=== PATIENT | male | born 1955 | race Caucasian/White ===

== ENCOUNTER 2019-04-24 15:00 | Observation (INO) | payer BLACK LUNG, MEDICAID ==
[2019-04-24] MEDS ORDERED: DUONEB 0.5-3 MG/3 ml Neb IH ONE ×2 (15:15→15:31)
[2019-04-24] MEDS ORDERED: Sodium Chloride 0.9% 1000 ML 1,000 ML IV STA (15:15)
[2019-04-24] MEDS ORDERED: solu-MEDROL 125 MG IV ONE (15:15)
[2019-04-24] MEDS ORDERED: Xopenex 1.25 MG/0.5 ML UD NEBULE IH ONE ×2 (15:15→15:31)
[2019-04-24] MEDS ORDERED: solu-MEDROL 125 MG ONE (15:22)
[2019-04-24] MEDS ORDERED: Sodium Chloride 0.9% 1000 ML 1,000 ML ONE (15:22)
--- NOTE | 2019-04-24 15:26 | ERPHSYRPT ---
- History of Present Illness Time Seen by Provider: 04/24/19 15:10 Source: patient Exam Limitations: no limitations Patient Subjective Stated Complaint: pt walked up to the ambulance bay with oxygen but short of breath, reports that he has been this way for a couple of days Triage Nursing Assessment: Pt hypertensive, tachycardic, short of breath, wheezing, denies pain, bilateral lower edema, sinus tachy Physician History: Patient has had increasing dyspnea over the past three days. Negative evaluation prior to coming into the emergency department. Timing/Duration: day(s) (3) Activities at Onset: none Severity of Dyspnea-Max: severe Severity of Dyspnea-Current: severe Possible Cause: occasional episodes (especially during this time of year, patient states he gets bronchitis and pneumonia) Modifying Factors: Worsens With: activity, deep breath, lying down Associated Symptoms: constant, chest pain/discomfort, wheezing, tightness, No edema, No fever, No insomnia, No loss of appetite, No lightheadedness, No ankle swelling, No hemoptysis, No calf pain, No dizziness, No heaviness, No heart racing, No lightheadedness, No leg swelling, No muscle spasms feet, No muscle spasms hands, No painful breathing, No productive cough, No sweating International travel in last 2 weeks: No Allergies/Adverse Reactions: naproxen [From [facility]] Allergy (Verified 04/24/19 15:20) Home Medications: Allopurinol 100 mg [Zyloprim 100 mg] 100 mg PO DAILY 07/27/12 [History] Aspirin 81 mg PO DAILY 07/27/12 [History] Budesonide/Formoterol Fumarate [Symbicort 160-4.5 Mcg Inhaler] 2 puff IH BID 01/29 [History] Bumetanide 1 mg [Bumex 1 mg] 1 mg PO DAILY 07/27/12 [History] Clopidogrel Bisulfate [Plavix] 75 mg PO HS 07/27/12 [History] Gabapentin 300 mg [Neurontin 300 mg] 300 mg PO TID 07/27/12 [History] Indomethacin 25 mg [Indocin 25 MG] 25 mg PO TIDPRN PRN 07/27/12 [History] Ipratropium/Albuterol Sulfate [Combivent Inhaler] 2 puff IH QID PRN PRN [History] Liraglutide [Victoza 2-Leonardo] 0.6 mg SQ DAILY 07/27/12 [History] Lisinopril 20 mg PO DAILY 07/27/12 [History] Meloxicam 15 mg [Meloxicam 15 MG] 15 mg PO DAILY 07/27/12 [History] Metformin HCl [Metformin HCl ER] 1,000 mg PO DAILY 07/27/12 [History] Nitroglycerin [Nitroquick] 0.4 mg SL UD 07/27/12 [History] Pinnacle-3 Fatty Acids/Fish Oil [Fish Oil 1,000 mg Capsule] 1 each PO DAILY [History] Omeprazole 40 mg PO DAILY 07/27/12 [History] Potassium Chloride [Klor-Con 10] 10 meq PO BID 07/27/12 [History] Simvastatin 20Mg [Zocor 20Mg] 20 mg PO DAILY 07/27/12 [History] Tramadol HCl 50 mg [Ultram 50 mg] 50 mg PO TID 07/27/12 [History] Albuterol 2.5 mg/3 ml Neb [Proventil 2.5 mg/3 ml Neb] 1 amp IH QID [History] Cholecalciferol (Vitd3)/Vit K2 [D3 + K2 Dots 1,000 Units Tab] 1 each PO DAILY [History] Cinnamon Bark [Cinnamon] 500 mg PO BID 09/04/13 [History] Pinnacle-3/Dha/Epa/Fish Oil [Fish Oil 1,400 mg Softgel] 1 each PO QID 09/04/13 [ History] Hx Tetanus, Diphtheria Vaccination/Date Given: Yes Hx Influenza Vaccination/Date Given: Yes (2013) Hx Pneumococcal Vaccination/Date Given: Yes (2013) - Review of Systems Constitutional: No Fever, No Chills, No Fatigue Eyes: No Eye Pain, No Vision Changes Ears, Nose, & Throat: No Ear Pain, No Nose Congestion, No Mouth Swelling, No Throat Pain, No Painful Swallowing Respiratory: Cough, Dyspnea, Wheezing Cardiac: Chest Pain, No Edema, No Palpitations, No Syncope Abdominal/Gastrointestinal: No Abdominal Pain, No Nausea, No Vomiting, No Melena Genitourinary Symptoms: No Hematuria, No Flank Pain Musculoskeletal: No Back Pain, No Neck Pain, No Myalgias Skin: No Pruritis, No Rash Neurological: No Dizziness, No Focal Weakness, No Parasthesia, No Sensory Changes, No Speech Changes Psychological: No Anxiety Endocrine: No Excessive Sweating Hematologic/Lymphatic: No Easy Bleeding, No Easy Bruising All Other Systems: Reviewed and Negative - Past Medical History Pertinent Past Medical History: Yes Neurological History: Peripheral Neuropathy ENT History: No Pertinent History Cardiac History: Congestive Heart Failure, High Cholesterol, Hypertension, Myocardial Infarction (DE) Respiratory History: CHF, COPD, Emphysema, Sleep Apnea Endocrine Medical History: Diabetes Type II Musculoskeletal History: Osteoarthritis GI Medical History: No Pertinent History History: No Pertinent History Psycho-Social History: No Pertinent History Male Reproductive Disorders: No Pertinent History Other Medical History: gout - Past Surgical History Past Surgical History: Yes Neuro Surgical History: No Pertinent History Cardiac: Cardiac Catheterization, Cardiac Stent Respiratory: No Pertinent History Gastrointestinal: Cholecystectomy Genitourinary: No Pertinent History Musculoskeletal: Orthopedic Surgery Male Surgical History: No Pertinent History Other Surgical History: l shoulder, l knee x3, r leg, r hand/arm, r shoulder - Social History Smoking Status: Current some day smoker How long have you smoked: 40 years Exposure to second hand smoke: Yes Drug Use: marijuana Patient Lives Alone: Yes - Nursing Vital Signs Nursing Vital Signs: Initial Vital Signs Temperature 98.0 F 04/24/19 15:08 Pulse Rate 101 H 04/24/19 15:08 Respiratory Rate 14 04/24/19 15:08 Blood Pressure 147/117 04/24/19 15:08 O2 Sat by Pulse Oximetry 98 04/24/19 15:08 Pain Scale Pain Intensity 0 - Physical Exam General Appearance: mild distress, alert Eye Exam: PERRL/EOMI, eyes nml inspection, No scleral icterus, No pale conjunctivae Ears, Nose, Throat Exam: hearing grossly normal, normal ENT inspection, normal pharynx, No abnormal TM (R), No abnormal TM (L), No sinus pain/drainage, No hearing decreased, No nasal congestion, No pharyngeal erythema, No tonsillar exudate, No tonsillar swelling Neck Exam: normal inspection, non-tender, supple, full range of motion, No Brudzinski, No JVD, No limited range of motion Respiratory Exam: airway intact, diminished breath sounds, prolonged expirations , wheezing, No chest tenderness, No respiratory distress, No crackles/rales, No rhonchi, No stridor, No pleural rub Cardiovascular/Chest Exam: normal heart sounds, regular rate/rhythm, No edema Abdominal/Gastrointestinal Exam: soft, normal bowel sounds, No tenderness, No distention, No guarding, No rebound Extremity Exam: non-tender, normal range of motion, normal inspection, No no calf tenderness, No no pedal edema, No pelvis stable, No calf tenderness, No pedal edema Neurologic Exam: alert, oriented x 3, cooperative, 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, normal mood/affect, sensation nml Skin Exam: normal color, warm, dry, No rash, No petechiae, No jaundice, No cyanosis SpO2 Interpretation: normal SpO2: 99 O2 Delivery: Nasal Cannula - Course Nursing assessment & vital signs reviewed: Yes EKG Interpreted by Me: RATE (94), Sinus Rhythm, NORMAL AXIS, prolonged QT interval (mild), Right Bundle Branch Block, NORMAL ST-T, Other (no appreciable change from EKG from 09/05/2013) - Radiology Exams Chest X-ray Interpretation: Interpreted by me, Reviewed by me, No Pneumothorax, Nml Heart Size, Nml Mediastinum, Other (grauloma on the left lung midzone; new hazy lingula interstitial alveolar opacity per Radiologist interpretation) Ordered Tests: Active Orders 24 hr Category Date Time Status Finance Assistant STAT Care 04/24/19 15:17 Active EKG-ER Only STAT Care 04/24/19 15:15 Active IV Insertion STAT Care 04/24/19 15:15 Active NPO (ED) STAT Care 04/24/19 15:15 Active Oxygen-ED Only Nasal Cannula 3 lpm Care 04/24/19 15:15 Active CHEST 1 VIEW (PORTABLE) Stat Exams 04/24/19 15:16 Completed BLOOD CULTURE Stat Lab 04/24/19 15:45 Received CBC W DIFF Stat Lab 04/24/19 15:15 Completed CMP Stat Lab 04/24/19 15:15 Completed CULTURE,SPUTUM Stat Lab 04/24/19 15:16 Uncollected Lactic Acid Stat Lab 04/24/19 15:40 Completed MAGNESIUM Stat Lab 04/24/19 15:15 Completed NT PRO BNP Stat Lab 04/24/19 15:15 Completed PROTIME WITH INR Stat Lab 04/24/19 15:15 Completed PTT Stat Lab 04/24/19 15:15 Completed TROPONIN Q3H Lab 04/24/19 15:30 Completed TROPONIN Q3H Lab 04/24/19 18:30 Ordered TROPONIN Q3H Lab 04/24/19 21:30 Ordered TROPONIN Q3H Lab 04/25/19 00:30 Ordered TROPONIN Q3H Lab 04/25/19 03:30 Ordered UA W/RFX UR CULTURE Stat Lab 04/24/19 15:16 Uncollected VENOUS BLOOD GAS Stat Lab 04/24/19 15:40 Completed BiPap/CPAP STAT RT 04/24/19 15:47 Active Respiratory Therapy Assessment DAILY RT 04/24/19 15:52 Active Transfer Order Routine Transfer 04/24/19 Ordered Medication Summary Generic Name Dose Route Start Last Admin Trade Name Freq PRN Reason Stop Dose Admin Ceftriaxone Sodium/Dextrose 1 g in 50 mls @ 100 mls/hr 04/24/19 16:19 16:32 Rocephin 1 Gm-D5w 50 Ml Bag IV 04/24/19 16:48 Infused STAT STA Infusion Discontinued Medications Generic Name Dose Route Start Last Admin Trade Name Freq PRN Reason Stop Dose Admin Albuterol/Ipratropium 3 ml 04/24/19 15:15 04/24/19 15:35 Duoneb 0.5-3 Mg/3 Ml Neb IH 04/24/19 15:16 3 ml STAT ONE Administration Albuterol/Ipratropium Confirm 04/24/19 15:31 Duoneb 0.5-3 Mg/3 Ml Neb Administered 04/24/19 15:32 Dose 3 ml IH .STK-MED ONE Azithromycin 500 mg 04/24/19 16:19 04/24/19 16:22 Zithromax 250 Mg Tablet PO 04/24/19 16:20 500 mg STAT ONE Administration Azithromycin Confirm 04/24/19 16:21 Zithromax 250 Mg Tablet Administered 04/24/19 16:22 Dose 500 mg .ROUTE .STK-MED ONE Sodium Chloride 1,000 mls @ 999 mls/hr 04/24/19 15:15 04/24/19 16:32 Sodium Chloride 0.9% 1000 Ml IV 04/24/19 16:15 Infused .Q1H1M STA Infusion Sodium Chloride Confirm 04/24/19 15:22 Sodium Chloride 0.9% 1000 Ml Administered 04/24/19 15:23 Dose 1,000 mls @ ud .ROUTE .STK-MED ONE Ceftriaxone Sodium/Dextrose Confirm 04/24/19 16:20 Rocephin 1 Gm-D5w 50 Ml Bag Administered 04/24/19 16:21 Dose 1 g in 50 mls @ ud IV .STK-MED ONE Levalbuterol HCl 1.25 mg 04/24/19 15:15 04/24/19 15:44 Xopenex 1.25 Mg/0.5 Ml Ud Nebule IH 04/24/19 15:16 1.25 mg STAT ONE Administration Levalbuterol HCl Confirm 04/24/19 15:31 Xopenex 1.25 Mg/0.5 Ml Ud Nebule Administered 04/24/19 15:32 Dose 1.25 mg IH .STK-MED ONE Methylprednisolone Sodium Succinate 125 mg 04/24/19 15:15 04/24/19 15:26 Solu-Medrol 125 Mg IV 04/24/19 15:16 125 mg STAT ONE Administration Methylprednisolone Sodium Succinate Confirm 04/24/19 15:22 Solu-Medrol 125 Mg Administered 04/24/19 15:23 Dose 125 mg .ROUTE .STK-MED ONE Sodium Chloride Confirm 04/24/19 15:31 Sodium Chloride 3 Ml Ud Nebules Administered 04/24/19 15:32 Dose 3 ml IH .STK-MED ONE Lab/Rad Data: Laboratory Result Diagrams 04/24/19 15:15 04/24/19 15:15 Laboratory Results 04/24/19 04/24/19 04/24/19 Range/Units 15:40 15:30 15:15 WBC (4.0-10.5) K/mm3 RBC (4.1-5.6) M/mm3 Hgb (12.5-18.0) gm/dl Hct (42-50) % MCV (78-100) fl MCH (26-32) pg MCHC (32-36) g/dl RDW (11.5-14.0) % Plt Count (150-450) K/mm3 MPV (6-9.5) fl Gran % (36.0-66.0) % Eos # (Auto) (0-0.5) Absolute Lymphs (auto) (1.0-4.6) Absolute Monos (auto) (0.0-1.3) Lymphocytes % (24.0-44.0) % Monocytes % (0.0-12.0) % Eosinophils % (0.00-5.0) % Basophils % (0.0-0.4) % Absolute Granulocytes (1.4-6.9) Basophils # (0-0.4) PT 12.4 (8.83-12.87) SECONDS INR 1.10 (0.8-3.0) APTT 37.4 H (24.1-36.1) SECONDS pO2/FiO2 Ratio 28.0 % VBG pH 7.24 L* (7.32-7.42) VBG pCO2 at Pat Temp 99 H* (42-55) mm/Hg VBG pO2 at Pat Temp 34 (25-40) mm/Hg VBG HCO3 42.4 H* (22-28) meq/L VBG O2 Sat (Giovanny) 63.8 L (95-100) VBG Base Excess 10.1 H (-2.0-2.0) VBG Hemoglobin 15.3 VBG Carboxyhemoglobin 5.1 (0.0-6.9) % T HGB POC Potassium 4.3 (3.5-5.1) Sodium (137-145) mmol/L Potassium (3.5-5.1) mmol/L Chloride (98-107) mmol/L Carbon Dioxide (22-30) mmol/L Anion Gap (5-15) MEQ/L BUN (9-20) mg/dL Creatinine (0.66-1.25) mg/dL Estimated GFR ML/MIN Glucose (74-106) mg/dL Lactic Acid 1.1 (0.4-2.0) Calcium (8.4-10.2) mg/dL Magnesium (1.6-2.3) mg/dL Total Bilirubin (0.2-1.3) mg/dL AST (17-59) U/L ALT (0-50) U/L Alkaline Phosphatase (38-126) U/L Troponin I < 0.012 (0.000-0.034) ng/mL NT-Pro-B Natriuret Pep (0-900) pg/mL Serum Total Protein (6.3-8.2) g/dL Albumin (3.5-5.0) g/dL 04/24/19 04/24/19 Range/Units 15:15 15:15 WBC 8.3 (4.0-10.5) K/mm3 RBC 6.68 H* (4.1-5.6) M/mm3 Hgb 14.9 (12.5-18.0) gm/dl Hct 53.3 H (42-50) % MCV 79.8 (78-100) fl MCH 22.3 L (26-32) pg MCHC 28.0 L (32-36) g/dl RDW 20.0 H (11.5-14.0) % Plt Count 164 (150-450) K/mm3 MPV 10.6 H (6-9.5) fl Gran % 78.1 H (36.0-66.0) % Eos # (Auto) 0.24 (0-0.5) Absolute Lymphs (auto) 0.91 L (1.0-4.6) Absolute Monos (auto) 0.66 (0.0-1.3) Lymphocytes % 10.9 L (24.0-44.0) % Monocytes % 7.9 (0.0-12.0) % Eosinophils % 2.9 (0.00-5.0) % Basophils % 0.2 (0.0-0.4) % Absolute Granulocytes 6.50 (1.4-6.9) Basophils # 0.02 (0-0.4) PT (8.83-12.87) SECONDS INR (0.8-3.0) APTT (24.1-36.1) SECONDS pO2/FiO2 Ratio % VBG pH (7.32-7.42) VBG pCO2 at Pat Temp (42-55) mm/Hg VBG pO2 at Pat Temp (25-40) mm/Hg VBG HCO3 (22-28) meq/L VBG O2 Sat (Giovanny) (95-100) VBG Base Excess (-2.0-2.0) VBG Hemoglobin VBG Carboxyhemoglobin (0.0-6.9) % T HGB POC Potassium (3.5-5.1) Sodium 143 (137-145) mmol/L Potassium 4.2 (3.5-5.1) mmol/L Chloride 96 L (98-107) mmol/L Carbon Dioxide 39 H (22-30) mmol/L Anion Gap 12.2 (5-15) MEQ/L BUN 12 (9-20) mg/dL Creatinine 0.62 L (0.66-1.25) mg/dL Estimated GFR > 60.0 ML/MIN Glucose 207 H (74-106) mg/dL Lactic Acid (0.4-2.0) Calcium 9.1 (8.4-10.2) mg/dL Magnesium 1.8 (1.6-2.3) mg/dL Total Bilirubin 0.80 (0.2-1.3) mg/dL AST 16 L (17-59) U/L ALT 17 (0-50) U/L Alkaline Phosphatase 113 (38-126) U/L Troponin I (0.000-0.034) ng/mL NT-Pro-B Natriuret Pep 57.0 (0-900) pg/mL Serum Total Protein 7.4 (6.3-8.2) g/dL Albumin 4.0 (3.5-5.0) g/dL - Progress Progress: re-examined Air Movement: fair Progress Note: 04/24/19 16:23 Patient has improved airflow and less subjective dyspnea. Positive wheezing throughout 04/24/19 16:43 Vitals have improved and normalized after DuoNeb, Levalbuterol and BiPAP treatment. Blood Culture(s) Obtained: Yes Antibiotics given: No Discussed with .: Javier (@16:10, discussed the patient's presentation, labs and chest x-ray with Dr Pimentel, patient's physician and hospitalist. Dr Pimentel accepted the patient for observation to [facility] telemetry) Will see patient in: hospital (observation) ([facility]) Counseled pt/family regarding: lab results, diagnosis, need for follow-up, rad results - Departure Departure Disposition: Observation (to [facility] to telemetry) Clinical Impression: Acute respiratory acidosis, Acute exacerbation of chronic obstructive pulmonary disease (COPD), Lingular pneumonia, Acute chest pain Dyspnea Qualifiers: Dyspnea type: unspecified Qualified Code(s): R06.00 - Dyspnea, unspecified Condition: Fair Critical Care Time: Yes Critical Care Time(excluding separately billable procedures): Critical 30-74 mins Referrals: AUSTIN PIMENTEL MD [Primary Care Provider] - Instructions: Chronic Obstructive Pulmonary Disease, Shortness of Breath ( Dyspnea) (DC), Exacerbation of COPD (DC)
[2019-04-24] MEDS ORDERED: Sodium Chloride 3 ML UD NEBULES IH ONE (15:31)
[2019-04-24 16:05] LABS: BASOPHIL % 0.2 % (0.0-0.4); Basophil (Absolute #) 0.02 (0-0.4); Eosinophil % 2.9 % (0.00-5.0); Eosinophil (Absolute #) 0.24 (0-0.5); Hematocrit 53.3 % (42-50); Hemoglobin 14.9 gm/dl (12.5-18.0); Lymphocyte (Absolute #) 0.91 (1.0-4.6); Lymphocytes % 10.9 % (24.0-44.0); Mean Cell Volume 79.8 fl (78-100); Mean Corpuscular Hemoglobin 22.3 pg (26-32); Mean Platelet Volume 10.6 fl (6-9.5); Monocyte (Absolute #) 0.66 (0.0-1.3); Monocytes % 7.9 % (0.0-12.0); Neutrophil % 78.1 % (36.0-66.0); Platelet Count 164 K/mm3 (150-450); Red Blood Count 6.68 M/mm3 (4.1-5.6); White Blood Count 8.3 K/mm3 (4.0-10.5)
[2019-04-24 16:06] LABS: Lactic Acid 1.1 (0.4-2.0); VBG BASE EXCESS 10.1 (-2.0-2.0); VBG CARBOXYHEMOGLOBIN 5.1 % T HGB (0.0-6.9); VBG HCO3- 42.4 meq/L (22-28); VBG HEMOGLOBIN 15.3; VBG O2 SATURATION 63.8 (95-100); VBG POTASSIUM 4.3 (3.5-5.1)
[2019-04-24 16:07] LABS: VBG pH 7.24 (7.32-7.42)
[2019-04-24 16:15] LABS: INR 1.1 (0.8-3.0); PROTIME 12.4 SECONDS (8.83-12.87)
--- NOTE | 2019-04-24 16:15 | XRAY ---
Indication: Short of breath. Comparison: September 04, 2013. Portable chest demonstrates new hazy lingula interstitial alveolar opacity with stable left midlung calcified granuloma. Remaining heart and right lung normal. Bony thorax intact.
[2019-04-24 16:18] LABS: PTT 37.4 SECONDS (24.1-36.1)
[2019-04-24] MEDS ORDERED: ROCEPHIN 1 Gm-D5w 50 ml Bag** 1 G/50 ML IVPB IV STA (16:19)
[2019-04-24] MEDS ORDERED: Zithromax 250 MG TABLET PO ONE (16:19)
[2019-04-24] MEDS ORDERED: ROCEPHIN 1 Gm-D5w 50 ml Bag** 1 G/50 ML IVPB IV ONE (16:20)
[2019-04-24] MEDS ORDERED: Zithromax 250 MG TABLET ONE (16:21)
[2019-04-24 16:28] LABS: ALKALINE PHOSPHATASE 113 U/L (38-126); BLOOD UREA NITROGEN 12 mg/dL (9-20); CHLORIDE 96 mmol/L (98-107); Calcium 9.1 mg/dL (8.4-10.2); Creatinine 1 0.62 mg/dL (0.66-1.25); Glucose 207 mg/dL (74-106); MAGNESIUM 1.8 mg/dL (1.6-2.3); Potassium 4.2 mmol/L (3.5-5.1); SGOT/AST 16 U/L (17-59); SGPT/ALT 17 U/L (0-50); SODIUM 143 mmol/L (137-145); Total Protein 7.4 g/dL (6.3-8.2)
[2019-04-24 16:32] LABS: Carbon Dioxide 39 mmol/L (22-30)
[2019-04-24 16:34] LABS: ANION GAP 12.2 MEQ/L (5-15)
[2019-04-24] MEDS ORDERED: TYLENOL 325 MG PO PRN (16:46)
[2019-04-24 16:54] LABS: Slide Review 1 YES
[2019-04-24 16:58] LABS: INFLUENZA A NEGATIVE (NEGATIVE); INFLUENZA B NEGATIVE (NEGATIVE); RESPIRATORY SYNCTIAL VIRUS NEGATIVE (Negative)
[2019-04-24] MEDS: ENOXAPARIN SODIUM SQ SCH (17:49)
[2019-04-24 18:51] LABS: VBG BASE EXCESS 7.4 (-2.0-2.0); VBG CARBOXYHEMOGLOBIN 5.2 % T HGB (0.0-6.9); VBG HCO3- 37.4 meq/L (22-28); VBG HEMOGLOBIN 15.9; VBG O2 SATURATION 68.8 (95-100); VBG POTASSIUM 4.3 (3.5-5.1); VBG pH 7.3 (7.32-7.42)
[2019-04-24] MEDS: DUONEB 0.5-3 MG/3 ml Neb IH SCH ×2 (18:57→22:53)
[2019-04-24] MEDS ORDERED: Indocin 25 MG PO ONE (21:03)
[2019-04-24] MEDS: ZOCOR 20MG PO SCH (21:58)
[2019-04-24] MEDS: solu-MEDROL 125 MG IV SCH (21:58)
[2019-04-24] MEDS: Pepcid 20 MG PO SCH (21:59)
[2019-04-24] MEDS: Coreg 6.25 MG PO SCH (21:59)
[2019-04-24] MEDS: NEURONTIN 300 MG PO SCH (21:59)
[2019-04-24] MEDS: PLAVIX 75 MG Tablet PO SCH (21:59)
[2019-04-24] MEDS: Klor Con 10 MEQ PO SCH (21:59)
[2019-04-24] MEDS: NovoLOG Insulin SQ PRN (21:59)
[2019-04-24] MEDS ORDERED: Indocin 25 MG PO PRN (23:03)
[2019-04-25] MEDS: DUONEB 0.5-3 MG/3 ml Neb IH SCH ×6 (02:55→23:02)
[2019-04-25 04:57] LABS: Absolute Neutrophil Ct (ANC) 8.12 (1.4-6.9); BASOPHIL % 0.1 % (0.0-0.4); Basophil (Absolute #) 0.01 (0-0.4); Eosinophil (Absolute #) 0 (0-0.5); Hematocrit 52.5 % (42-50); Hemoglobin 14.8 gm/dl (12.5-18.0); Lymphocyte (Absolute #) 0.34 (1.0-4.6); Mean Cell Volume 79.4 fl (78-100); Mean Corpuscular Hgb Concent. 28.2 g/dl (32-36); Mean Platelet Volume 10.6 fl (6-9.5); Monocyte (Absolute #) 0.07 (0.0-1.3); Monocytes % 0.8 % (0.0-12.0); Neutrophil % 95.1 % (36.0-66.0); Platelet Count 175 K/mm3 (150-450); Red Blood Count 6.61 M/mm3 (4.1-5.6); Red Cell Distribution Width 19.6 % (11.5-14.0); White Blood Count 8.5 K/mm3 (4.0-10.5)
[2019-04-25 05:04] LABS: ANION GAP 12.6 MEQ/L (5-15); BLOOD UREA NITROGEN 17 mg/dL (9-20); CHLORIDE 100 mmol/L (98-107); Calcium 9.1 mg/dL (8.4-10.2); Carbon Dioxide 34 mmol/L (22-30); Creatinine 1 0.58 mg/dL (0.66-1.25); Glucose 344 mg/dL (74-106); Potassium 4.8 mmol/L (3.5-5.1); SODIUM 141 mmol/L (137-145)
[2019-04-25 05:05] LABS: Mean Corpuscular Hemoglobin 22.3 pg (26-32)
[2019-04-25 05:20] LABS: Appearance CLEAR (CLEAR); Glucose >=500 mg/dL (NEGATIVE); Ketones NEGATIVE (NEGATIVE); Leukocyte Esterase NEGATIVE (NEGATIVE); Nitrite NEGATIVE (NEGATIVE); Protein,Urine Dip 100 (Negative); Specific Gravity 1.033 (1.005-1.025); Urobilinogen NORMAL mg/dL (0-1)
[2019-04-25 05:21] LABS: Bilirubin NEGATIVE (NEGATIVE); Blood NEGATIVE Ery/ul (0-5)
[2019-04-25 05:37] LABS: ARTERIAL BLOOD GAS BASE EXCESS 7.1 (-2.0-2.0); ARTERIAL BLOOD GAS PCO2 68 mmHg (35-45); ARTERIAL BLOOD GAS PO2 74 mmHg (75-100); ARTERIAL BLOOD GAS pH 7.33 (7.35-7.45); HCO3- 35.9 (22-28)
[2019-04-25 05:38] LABS: A-aADO2 98; ABG HEMOGLOBIN 15.5; ABG POTASSIUM 4.5 (3.5-5.1); ARTERIAL BLD GAS O2 SATURATION 95.1 % (95-100); ARTERIAL BLOOD GAS FIO2 36 %; CARBON DIOXIDE 38 mEq/L (23-27); HGB O2 SAT 92.4 g/dF (94-100); Methhemoglobin 0.3 % (1.4-1.5); paO2 pAO1 0.43
[2019-04-25 05:39] LABS: ABG SITE RIGHT RADIAL; ALLEN TEST OK? YES; CARBOXYHEMOGLOBIN 2.5 % THgb (0.0-6.9)
[2019-04-25] MEDS ORDERED: Sodium Chloride 0.9% 10 ML FLUSH Syringe IV PRN (05:40)
[2019-04-25] MEDS: solu-MEDROL 125 MG IV SCH ×3 (05:49→21:12)
[2019-04-25] MEDS: Sodium Chloride 0.9% 10 ML FLUSH Syringe IV SCH ×3 (06:06→21:12)
[2019-04-25] MEDS ORDERED: Nitrostat 0.4 MG Tablet SL SCH (07:45)
[2019-04-25] MEDS ORDERED: MEDICATION INTERVENTION MC SCH ×4 (07:45→08:15)
[2019-04-25] MEDS: NovoLOG Insulin SQ PRN ×4 (08:15→20:51)
[2019-04-25] MEDS: Glucophage XR 500 MG PO SCH ×2 (08:15→17:28)
[2019-04-25 08:18] LABS: Slide Review 1 YES
[2019-04-25] MEDS: FISH OIL 1,000 MG CAPSULE PO SCH (09:09)
[2019-04-25] MEDS: Pepcid 20 MG PO SCH ×2 (09:09→21:11)
[2019-04-25] MEDS: BUMEX 1 MG PO SCH (09:09)
[2019-04-25] MEDS: ENOXAPARIN SODIUM SQ SCH (09:09)
[2019-04-25] MEDS: Klor Con 10 MEQ PO SCH ×2 (09:09→21:11)
[2019-04-25] MEDS: Coreg 6.25 MG PO SCH ×2 (09:09→21:11)
[2019-04-25] MEDS: ECOTRIN 81 MG PO SCH (09:09)
[2019-04-25] MEDS: ROCEPHIN 1 Gm-D5w 50 ml Bag** 1 G/50 ML IVPB IV SCH (09:09)
[2019-04-25] MEDS: NEURONTIN 300 MG PO SCH ×3 (09:09→21:11)
[2019-04-25] MEDS: ZYLOPRIM 100 MG PO SCH (09:09)
--- NOTE | 2019-04-25 09:17 | PCM.HP ---
History of Present Illness - Chief Complaint Chief Complaint: very short of breath for 3-4 days History of Present Illness: is a 63 year old male.Patient has had increasing dyspnea over the past three days. Negative evaluation prior to coming into the emergency department. Timing/Duration: day(s) (3) Activities at Onset: none Severity of Dyspnea-Max: severe Severity of Dyspnea-Current: severe Possible Cause: occasional episodes (especially during this time of year, patient states he gets bronchitis and pneumonia) Modifying Factors: Worsens With: activity, deep breath, lying down Associated Symptoms: constant, chest pain/discomfort, wheezing, tightness, No edema, No fever, No insomnia, No loss of appetite, No lightheadedness, No ankle swelling, No hemoptysis, No calf pain, No dizziness, No heaviness, No heart racing, No lightheadedness, No leg swelling, No muscle spasms feet, No muscle spasms hands, No painful breathing, No productive cough, No sweating - Review of Systems Constitutional: No Fever, No Chills Eyes: No Symptoms Ears, Nose, & Throat: No Symptoms Respiratory: Cough, Orthopnea, Short Of Breath, Wheezing Cardiac: No Chest Pain, No Edema, No Syncope Abdominal/Gastrointestinal: No Abdominal Pain, No Nausea, No Vomiting, No Diarrhea Genitourinary Symptoms: No Dysuria Musculoskeletal: No Back Pain, No Neck Pain Skin: No Rash Neurological: No Dizziness, No Focal Weakness, No Sensory Changes Psychological: No Symptoms Endocrine: No Symptoms Hematologic/Lymphatic: No Symptoms Immunological/Allergic: No Symptoms Medications & Allergies Home Medications: Home Medication List Allopurinol 100 mg [Zyloprim 100 mg] 100 mg PO DAILY 07/27/12 [History Confirmed 04/24/19] Aspirin 81 mg PO DAILY 07/27/12 [History Confirmed 04/24/19] Bumetanide 1 mg [Bumex 1 mg] 1 mg PO DAILY 07/27/12 [History Confirmed 12/05] Clopidogrel Bisulfate [Plavix] 75 mg PO HS 07/27/12 [History Confirmed 04/24/19] Gabapentin 300 mg [Neurontin 300 mg] 300 mg PO TID 07/27/12 [History Confirmed 04/24/19] Indomethacin 25 mg [Indocin 25 MG] 25 mg PO TIDPRN PRN 07/27/12 [History Confirmed 04/24/19] Ipratropium/Albuterol Sulfate [Combivent Inhaler] 2 puff IH QID PRN PRN [History Confirmed 04/24/19] Liraglutide [Victoza 2-Leonardo] 0.6 mg SQ DAILY 07/27/12 [History Confirmed 04/24/19 ] Metformin HCl [Metformin HCl ER] 1,000 mg PO BID 07/27/12 [History Confirmed 12/05] Nitroglycerin [Nitroquick] 0.4 mg SL UD 07/27/12 [History Confirmed 04/24/19] Sims-3 Fatty Acids/Fish Oil [Fish Oil 1,000 mg Capsule] 1 each PO DAILY [History Confirmed 04/24/19] Omeprazole 40 mg PO DAILY 07/27/12 [History Confirmed 04/24/19] Potassium Chloride [Klor-Con 10] 10 meq PO BID 07/27/12 [History Confirmed 04/24] Albuterol 2.5 mg/3 ml Neb [Proventil 2.5 mg/3 ml Neb] 1 amp IH QID [History Confirmed 04/24/19] Atorvastatin Calcium 40 mg PO HS 04/24/19 [History Confirmed 04/24/19] Bromocriptine Mesylate [Cycloset] 6 tab PO DAILY 04/24/19 [History Confirmed 12/05] Carvedilol 6.25 mg PO BID 04/24/19 [History Confirmed 04/24/19] Dextroamphetamine/Amphetamine [Dextroamp-Amphet ER 10 mg Cap] 10 mg PO DAILY 12/05 [History Confirmed 04/24/19] Ergocalciferol (Vitamin D2) [Vitamin D] 1 cap PO 2XW 04/24/19 [History Confirmed 04/24/19] Nabumetone 500 mg PO BID 04/24/19 [History Confirmed 04/24/19] Probenecid/Colchicine [Probenecid-Colchicine Tablet] 1 each PO DAILY 04/24/19 [ History Confirmed 04/24/19] Allergies/Adverse Reactions: Allergies Allergy/AdvReac Type Severity Reaction Status Date / Time naproxen [From Aleve] Allergy Verified 04/24/19 15:20 - Past Medical History Past Medical History: Yes Neurological History: Peripheral Neuropathy ENT History: No Pertinent History Cardiac History: Congestive Heart Failure, High Cholesterol, Hypertension, Myocardial Infarction (VT) Respiratory History: CHF, COPD, Emphysema, Sleep Apnea Endocrine Medical History: Diabetes Type II Musculoskelatal History: Osteoarthritis GI Medical History: No Pertinent History History: No Pertinent History Pyscho-Social History: No Pertinent History Male Reproductive Disorders: No Pertinent History Comment: gout - Past Surgical History Past Surgical History: Yes Neuro Surgical History: No Pertinent History Cardiac History: Cardiac Catheterization, Cardiac Stent Respiratory Surgery: No Pertinent History GI Surgical History: Cholecystectomy Genitourinary Surgical Hx: No Pertinent History Musculskeletal Surgical Hx: Orthopedic Surgery Male Surgical History: No Pertinent History Other Surgical History: l shoulder, l knee x3, r leg, r hand/arm, r shoulder - Social History Smoking Status: Current some day smoker How long have you smoked: 40 years Exposure to second hand smoke: Yes Alcohol: None Drug Use: marijuana - Physical Exam Vital Signs: Vital Signs - 24 hr Temp Pulse Resp BP Pulse Ox 04/25/19 08:00 98.2 F 101 H 20 126/84 93 L 04/25/19 07:03 85 20 93 L 04/25/19 04:00 98.0 F 92 H 23 123/59 90 L 04/25/19 02:55 92 H 23 90 L 04/25/19 00:00 98.1 F 101 H 20 161/88 93 L 04/24/19 23:00 92 L 04/24/19 22:53 99 H 22 92 L 04/24/19 19:25 98.2 F 107 H 23 127/77 91 L 04/24/19 18:58 107 H 23 91 L 04/24/19 18:52 98 F 95 H 24 158/78 92 L 04/24/19 17:44 95 H 24 92 L 04/24/19 17:43 92 L 04/24/19 17:07 98 F 95 H 24 158/78 91 L 04/24/19 16:45 99 04/24/19 16:41 98.2 F 82 20 112/68 93 L 04/24/19 15:52 95 H 147/117 99 04/24/19 15:47 96 H 18 97 04/24/19 15:08 98.0 F 101 H 22 147/117 99 Oxygen-Last 24 hours O2 Percentage 4 Liters = 36% O2 Percentage 4 Liters = 36% O2 Percentage 4 Liters = 36% O2 Percentage 40% O2 Percentage 4 Liters = 36% O2 Percentage 4 Liters = 36% O2 Percentage 4 Liters = 36% General Appearance: no apparent distress, alert Neurologic Exam: alert, oriented x 3, cooperative, normal mood/affect, nml cerebellar function, nml station & gait, sensation nml, No motor deficits Eye Exam: PERRL/EOMI, eyes nml inspection Ears, Nose, Throat Exam: normal ENT inspection, TMs normal, pharynx normal, moist mucous membranes Neck Exam: normal inspection, non-tender, supple, full range of motion Respiratory Exam: diminished breath sounds, prolonged expirations, crackles/ rales, rhonchi, No respiratory distress Cardiovascular Exam: regular rate/rhythm, normal heart sounds, normal peripheral pulses Gastrointestinal/Abdomen Exam: soft, normal bowel sounds, No tenderness, No mass Back Exam: normal inspection, normal range of motion, No CVA tenderness, No vertebral tenderness Extremity Exam: normal inspection, normal range of motion, pelvis stable Skin Exam: normal color, warm, dry, No rash Lymphatic Exam: No adenopathy Results - Labs Lab/Micro Results: Accuchecks Date 04/24/19 Time 21:30 Accucheck Value: 369 Accucheck Value: 408 Lab Results-Last 24 Hours 04/24/19 04/24/19 04/24/19 Range/Units 15:15 15:15 15:15 WBC 8.3 (4.0-10.5) K/mm3 RBC 6.68 H* (4.1-5.6) M/mm3 Hgb 14.9 (12.5-18.0) gm/dl Hct 53.3 H (42-50) % MCV 79.8 (78-100) fl MCH 22.3 L (26-32) pg MCHC 28.0 L (32-36) g/dl RDW 20.0 H (11.5-14.0) % Plt Count 164 (150-450) K/mm3 MPV 10.6 H (6-9.5) fl Gran % 78.1 H (36.0-66.0) % Eos # (Auto) 0.24 (0-0.5) Absolute Lymphs (auto) 0.91 L (1.0-4.6) Absolute Monos (auto) 0.66 (0.0-1.3) Lymphocytes % 10.9 L (24.0-44.0) % Monocytes % 7.9 (0.0-12.0) % Eosinophils % 2.9 (0.00-5.0) % Basophils % 0.2 (0.0-0.4) % Absolute Granulocytes 6.50 (1.4-6.9) Basophils # 0.02 (0-0.4) PT 12.4 (8.83-12.87) SECONDS INR 1.10 (0.8-3.0) APTT 37.4 H (24.1-36.1) SECONDS Puncture Site pCO2 (35-45) mmHg pO2 (75-100) mmHg pO2/FiO2 Ratio % Base Excess (-2.0-2.0) O2 Saturation (94-100) g/dF ABG pH (7.35-7.45) ABG HCO3 (22-28) ABG O2 Sat (Measured) (95-100) % Gideon Test VBG pH (7.32-7.42) VBG pCO2 at Pat Temp (42-55) mm/Hg VBG pO2 at Pat Temp (25-40) mm/Hg VBG HCO3 (22-28) meq/L VBG O2 Sat (Giovanny) (95-100) VBG Base Excess (-2.0-2.0) VBG Hemoglobin VBG Carboxyhemoglobin (0.0-6.9) % T HGB A-a Gradient a/A Ratio Hemoglobin Carboxyhemoglobin (0.0-6.9) % THgb Methemoglobin (1.4-1.5) % POC Potassium (3.5-5.1) POC O2 Flow Rate % Sodium 143 (137-145) mmol/L Potassium 4.2 (3.5-5.1) mmol/L Chloride 96 L (98-107) mmol/L Carbon Dioxide 39 H (22-30) mmol/L Anion Gap 12.2 (5-15) MEQ/L BUN 12 (9-20) mg/dL Creatinine 0.62 L (0.66-1.25) mg/dL Estimated GFR > 60.0 ML/MIN Glucose 207 H (74-106) mg/dL Lactic Acid (0.4-2.0) Calcium 9.1 (8.4-10.2) mg/dL Magnesium 1.8 (1.6-2.3) mg/dL Total Bilirubin 0.80 (0.2-1.3) mg/dL AST 16 L (17-59) U/L ALT 17 (0-50) U/L Alkaline Phosphatase 113 (38-126) U/L Troponin I (0.000-0.034) ng/mL NT-Pro-B Natriuret Pep 57.0 (0-900) pg/mL Serum Total Protein 7.4 (6.3-8.2) g/dL Albumin 4.0 (3.5-5.0) g/dL Urine Color (YELLOW) Urine Appearance (CLEAR) Urine pH (5-6) Ur Specific [place] (1.005-1.025) Urine Protein (Negative) Urine Ketones (NEGATIVE) Urine Blood (0-5) Giovani/ul Urine Nitrite (NEGATIVE) Urine Bilirubin (NEGATIVE) Urine Urobilinogen (0-1) mg/dL Ur Leukocyte Esterase (NEGATIVE) Urine WBC (Auto) (0-5) /HPF Urine RBC (Auto) (0-2) /HPF U Epithel Cells (Auto) (FEW) /HPF Urine Bacteria (Auto) (NEGATIVE) /HPF Urine Culture Reflexed (NO) Urine Glucose (NEGATIVE) mg/dL Influenza Type A Ag (NEGATIVE) Influenza Type B Ag (NEGATIVE) RSV (PCR) (Negative) Slides for Path Review YES 04/24/19 04/24/19 04/24/19 Range/Units 15:30 15:40 18:40 WBC (4.0-10.5) K/mm3 RBC (4.1-5.6) M/mm3 Hgb (12.5-18.0) gm/dl Hct (42-50) % MCV (78-100) fl MCH (26-32) pg MCHC (32-36) g/dl RDW (11.5-14.0) % Plt Count (150-450) K/mm3 MPV (6-9.5) fl Gran % (36.0-66.0) % Eos # (Auto) (0-0.5) Absolute Lymphs (auto) (1.0-4.6) Absolute Monos (auto) (0.0-1.3) Lymphocytes % (24.0-44.0) % Monocytes % (0.0-12.0) % Eosinophils % (0.00-5.0) % Basophils % (0.0-0.4) % Absolute Granulocytes (1.4-6.9) Basophils # (0-0.4) PT (8.83-12.87) SECONDS INR (0.8-3.0) APTT (24.1-36.1) SECONDS Puncture Site pCO2 (35-45) mmHg pO2 (75-100) mmHg pO2/FiO2 Ratio 28.0 % Base Excess (-2.0-2.0) O2 Saturation (94-100) g/dF ABG pH (7.35-7.45) ABG HCO3 (22-28) ABG O2 Sat (Measured) (95-100) % Gideon Test VBG pH 7.24 L* (7.32-7.42) VBG pCO2 at Pat Temp 99 H* (42-55) mm/Hg VBG pO2 at Pat Temp 34 (25-40) mm/Hg VBG HCO3 42.4 H* (22-28) meq/L VBG O2 Sat (Giovanny) 63.8 L (95-100) VBG Base Excess 10.1 H (-2.0-2.0) VBG Hemoglobin 15.3 VBG Carboxyhemoglobin 5.1 (0.0-6.9) % T HGB A-a Gradient a/A Ratio Hemoglobin Carboxyhemoglobin (0.0-6.9) % THgb Methemoglobin (1.4-1.5) % POC Potassium 4.3 (3.5-5.1) POC O2 Flow Rate % Sodium (137-145) mmol/L Potassium (3.5-5.1) mmol/L Chloride (98-107) mmol/L Carbon Dioxide (22-30) mmol/L Anion Gap (5-15) MEQ/L BUN (9-20) mg/dL Creatinine (0.66-1.25) mg/dL Estimated GFR ML/MIN Glucose (74-106) mg/dL Lactic Acid 1.1 (0.4-2.0) Calcium (8.4-10.2) mg/dL Magnesium (1.6-2.3) mg/dL Total Bilirubin (0.2-1.3) mg/dL AST (17-59) U/L ALT (0-50) U/L Alkaline Phosphatase (38-126) U/L Troponin I < 0.012 < 0.012 (0.000-0.034) ng/mL NT-Pro-B Natriuret Pep (0-900) pg/mL Serum Total Protein (6.3-8.2) g/dL Albumin (3.5-5.0) g/dL Urine Color (YELLOW) Urine Appearance (CLEAR) Urine pH (5-6) Ur Specific [place] (1.005-1.025) Urine Protein (Negative) Urine Ketones (NEGATIVE) Urine Blood (0-5) Giovani/ul Urine Nitrite (NEGATIVE) Urine Bilirubin (NEGATIVE) Urine Urobilinogen (0-1) mg/dL Ur Leukocyte Esterase (NEGATIVE) Urine WBC (Auto) (0-5) /HPF Urine RBC (Auto) (0-2) /HPF U Epithel Cells (Auto) (FEW) /HPF Urine Bacteria (Auto) (NEGATIVE) /HPF Urine Culture Reflexed (NO) Urine Glucose (NEGATIVE) mg/dL Influenza Type A Ag (NEGATIVE) Influenza Type B Ag (NEGATIVE) RSV (PCR) (Negative) Slides for Path Review 04/24/19 04/24/19 04/24/19 Range/Units 18:45 21:52 Unknown WBC (4.0-10.5) K/mm3 RBC (4.1-5.6) M/mm3 Hgb (12.5-18.0) gm/dl Hct (42-50) % MCV (78-100) fl MCH (26-32) pg MCHC (32-36) g/dl RDW (11.5-14.0) % Plt Count (150-450) K/mm3 MPV (6-9.5) fl Gran % (36.0-66.0) % Eos # (Auto) (0-0.5) Absolute Lymphs (auto) (1.0-4.6) Absolute Monos (auto) (0.0-1.3) Lymphocytes % (24.0-44.0) % Monocytes % (0.0-12.0) % Eosinophils % (0.00-5.0) % Basophils % (0.0-0.4) % Absolute Granulocytes (1.4-6.9) Basophils # (0-0.4) PT (8.83-12.87) SECONDS INR (0.8-3.0) APTT (24.1-36.1) SECONDS Puncture Site pCO2 (35-45) mmHg pO2 (75-100) mmHg pO2/FiO2 Ratio 36.0 % Base Excess (-2.0-2.0) O2 Saturation (94-100) g/dF ABG pH (7.35-7.45) ABG HCO3 (22-28) ABG O2 Sat (Measured) (95-100) % Gideon Test VBG pH 7.30 L (7.32-7.42) VBG pCO2 at Pat Temp 76 H* (42-55) mm/Hg VBG pO2 at Pat Temp 33 (25-40) mm/Hg VBG HCO3 37.4 H* (22-28) meq/L VBG O2 Sat (Giovanny) 68.8 L (95-100) VBG Base Excess 7.4 H (-2.0-2.0) VBG Hemoglobin 15.9 VBG Carboxyhemoglobin 5.2 (0.0-6.9) % T HGB A-a Gradient a/A Ratio Hemoglobin Carboxyhemoglobin (0.0-6.9) % THgb Methemoglobin (1.4-1.5) % POC Potassium 4.3 (3.5-5.1) POC O2 Flow Rate % Sodium (137-145) mmol/L Potassium (3.5-5.1) mmol/L Chloride (98-107) mmol/L Carbon Dioxide (22-30) mmol/L Anion Gap (5-15) MEQ/L BUN (9-20) mg/dL Creatinine (0.66-1.25) mg/dL Estimated GFR ML/MIN Glucose (74-106) mg/dL Lactic Acid (0.4-2.0) Calcium (8.4-10.2) mg/dL Magnesium (1.6-2.3) mg/dL Total Bilirubin (0.2-1.3) mg/dL AST (17-59) U/L ALT (0-50) U/L Alkaline Phosphatase (38-126) U/L Troponin I < 0.012 (0.000-0.034) ng/mL NT-Pro-B Natriuret Pep (0-900) pg/mL Serum Total Protein (6.3-8.2) g/dL Albumin (3.5-5.0) g/dL Urine Color (YELLOW) Urine Appearance (CLEAR) Urine pH (5-6) Ur Specific [place] (1.005-1.025) Urine Protein (Negative) Urine Ketones (NEGATIVE) Urine Blood (0-5) Giovani/ul Urine Nitrite (NEGATIVE) Urine Bilirubin (NEGATIVE) Urine Urobilinogen (0-1) mg/dL Ur Leukocyte Esterase (NEGATIVE) Urine WBC (Auto) (0-5) /HPF Urine RBC (Auto) (0-2) /HPF U Epithel Cells (Auto) (FEW) /HPF Urine Bacteria (Auto) (NEGATIVE) /HPF Urine Culture Reflexed (NO) Urine Glucose (NEGATIVE) mg/dL Influenza Type A Ag NEGATIVE (NEGATIVE) Influenza Type B Ag NEGATIVE (NEGATIVE) RSV (PCR) NEGATIVE (Negative) Slides for Path Review 04/25/19 04/25/19 04/25/19 Range/Units 00:50 03:45 03:45 WBC 8.5 (4.0-10.5) K/mm3 RBC 6.61 H* (4.1-5.6) M/mm3 Hgb 14.8 (12.5-18.0) gm/dl Hct 52.5 H (42-50) % MCV 79.4 (78-100) fl MCH 22.3 L (26-32) pg MCHC 28.2 L (32-36) g/dl RDW 19.6 H (11.5-14.0) % Plt Count 175 (150-450) K/mm3 MPV 10.6 H (6-9.5) fl Gran % 95.1 H (36.0-66.0) % Eos # (Auto) 0 (0-0.5) Absolute Lymphs (auto) 0.34 L (1.0-4.6) Absolute Monos (auto) 0.07 (0.0-1.3) Lymphocytes % 4.0 L (24.0-44.0) % Monocytes % 0.8 (0.0-12.0) % Eosinophils % 0.0 (0.00-5.0) % Basophils % 0.1 (0.0-0.4) % Absolute Granulocytes 8.12 H (1.4-6.9) Basophils # 0.01 (0-0.4) PT (8.83-12.87) SECONDS INR (0.8-3.0) APTT (24.1-36.1) SECONDS Puncture Site pCO2 (35-45) mmHg pO2 (75-100) mmHg pO2/FiO2 Ratio % Base Excess (-2.0-2.0) O2 Saturation (94-100) g/dF ABG pH (7.35-7.45) ABG HCO3 (22-28) ABG O2 Sat (Measured) (95-100) % Gideon Test VBG pH (7.32-7.42) VBG pCO2 at Pat Temp (42-55) mm/Hg VBG pO2 at Pat Temp (25-40) mm/Hg VBG HCO3 (22-28) meq/L VBG O2 Sat (Giovanny) (95-100) VBG Base Excess (-2.0-2.0) VBG Hemoglobin VBG Carboxyhemoglobin (0.0-6.9) % T HGB A-a Gradient a/A Ratio Hemoglobin Carboxyhemoglobin (0.0-6.9) % THgb Methemoglobin (1.4-1.5) % POC Potassium (3.5-5.1) POC O2 Flow Rate % Sodium (137-145) mmol/L Potassium (3.5-5.1) mmol/L Chloride (98-107) mmol/L Carbon Dioxide (22-30) mmol/L Anion Gap (5-15) MEQ/L BUN (9-20) mg/dL Creatinine (0.66-1.25) mg/dL Estimated GFR ML/MIN Glucose (74-106) mg/dL Lactic Acid (0.4-2.0) Calcium (8.4-10.2) mg/dL Magnesium (1.6-2.3) mg/dL Total Bilirubin (0.2-1.3) mg/dL AST (17-59) U/L ALT (0-50) U/L Alkaline Phosphatase (38-126) U/L Troponin I < 0.012 < 0.012 (0.000-0.034) ng/mL NT-Pro-B Natriuret Pep (0-900) pg/mL Serum Total Protein (6.3-8.2) g/dL Albumin (3.5-5.0) g/dL Urine Color (YELLOW) Urine Appearance (CLEAR) Urine pH (5-6) Ur Specific [place] (1.005-1.025) Urine Protein (Negative) Urine Ketones (NEGATIVE) Urine Blood (0-5) Giovani/ul Urine Nitrite (NEGATIVE) Urine Bilirubin (NEGATIVE) Urine Urobilinogen (0-1) mg/dL Ur Leukocyte Esterase (NEGATIVE) Urine WBC (Auto) (0-5) /HPF Urine RBC (Auto) (0-2) /HPF U Epithel Cells (Auto) (FEW) /HPF Urine Bacteria (Auto) (NEGATIVE) /HPF Urine Culture Reflexed (NO) Urine Glucose (NEGATIVE) mg/dL Influenza Type A Ag (NEGATIVE) Influenza Type B Ag (NEGATIVE) RSV (PCR) (Negative) Slides for Path Review YES 04/25/19 04/25/19 04/25/19 Range/Units 03:45 05:00 05:17 WBC (4.0-10.5) K/mm3 RBC (4.1-5.6) M/mm3 Hgb (12.5-18.0) gm/dl Hct (42-50) % MCV (78-100) fl MCH (26-32) pg MCHC (32-36) g/dl RDW (11.5-14.0) % Plt Count (150-450) K/mm3 MPV (6-9.5) fl Gran % (36.0-66.0) % Eos # (Auto) (0-0.5) Absolute Lymphs (auto) (1.0-4.6) Absolute Monos (auto) (0.0-1.3) Lymphocytes % (24.0-44.0) % Monocytes % (0.0-12.0) % Eosinophils % (0.00-5.0) % Basophils % (0.0-0.4) % Absolute Granulocytes (1.4-6.9) Basophils # (0-0.4) PT (8.83-12.87) SECONDS INR (0.8-3.0) APTT (24.1-36.1) SECONDS Puncture Site RIGHT RADIAL pCO2 68 H* (35-45) mmHg pO2 74 L (75-100) mmHg pO2/FiO2 Ratio % Base Excess 7.1 H (-2.0-2.0) O2 Saturation 92.4 L (94-100) g/dF ABG pH 7.33 L (7.35-7.45) ABG HCO3 35.9 H* (22-28) ABG O2 Sat (Measured) 95.1 (95-100) % Gideon Test YES VBG pH (7.32-7.42) VBG pCO2 at Pat Temp (42-55) mm/Hg VBG pO2 at Pat Temp (25-40) mm/Hg VBG HCO3 (22-28) meq/L VBG O2 Sat (Giovanny) (95-100) VBG Base Excess (-2.0-2.0) VBG Hemoglobin VBG Carboxyhemoglobin (0.0-6.9) % T HGB A-a Gradient 98 a/A Ratio 0.43 Hemoglobin 15.5 Carboxyhemoglobin 2.5 (0.0-6.9) % THgb Methemoglobin 0.3 L (1.4-1.5) % POC Potassium (3.5-5.1) POC O2 Flow Rate 36 % Sodium 141 (137-145) mmol/L Potassium 4.8 4.5 (3.5-5.1) mmol/L Chloride 100 (98-107) mmol/L Carbon Dioxide 34 H 38 H (22-30) mmol/L Anion Gap 12.6 (5-15) MEQ/L BUN 17 (9-20) mg/dL Creatinine 0.58 L (0.66-1.25) mg/dL Estimated GFR > 60.0 ML/MIN Glucose 344 H (74-106) mg/dL Lactic Acid (0.4-2.0) Calcium 9.1 (8.4-10.2) mg/dL Magnesium (1.6-2.3) mg/dL Total Bilirubin (0.2-1.3) mg/dL AST (17-59) U/L ALT (0-50) U/L Alkaline Phosphatase (38-126) U/L Troponin I (0.000-0.034) ng/mL NT-Pro-B Natriuret Pep (0-900) pg/mL Serum Total Protein (6.3-8.2) g/dL Albumin (3.5-5.0) g/dL Urine Color YELLOW (YELLOW) Urine Appearance CLEAR (CLEAR) Urine pH 6.0 (5-6) Ur Specific [place] 1.033 (1.005-1.025) Urine Protein 100 (Negative) Urine Ketones NEGATIVE (NEGATIVE) Urine Blood NEGATIVE (0-5) Giovani/ul Urine Nitrite NEGATIVE (NEGATIVE) Urine Bilirubin NEGATIVE (NEGATIVE) Urine Urobilinogen NORMAL (0-1) mg/dL Ur Leukocyte Esterase NEGATIVE (NEGATIVE) Urine WBC (Auto) NONE (0-5) /HPF Urine RBC (Auto) NONE (0-2) /HPF U Epithel Cells (Auto) NONE (FEW) /HPF Urine Bacteria (Auto) NONE (NEGATIVE) /HPF Urine Culture Reflexed NO (NO) Urine Glucose >=500 (NEGATIVE) mg/dL Influenza Type A Ag (NEGATIVE) Influenza Type B Ag (NEGATIVE) RSV (PCR) (Negative) Slides for Path Review Accuchecks Date 04/24/19 Time 21:30 Accucheck Value: 369 Accucheck Value: 408 - Radiology Impressions Radiology Exams & Impressions: Radiology Procedures Category Date Time Status CHEST 1 VIEW (PORTABLE) Routine Exams 04/25/19 08:00 Taken CHEST 1 VIEW (PORTABLE) Stat Exams 04/24/19 15:16 Completed - Other Procedures and Tests Respiratory Therapy 04/24/19 16:46 BiPap/CPAP ROUTINE EKG PRN 04/24/19 17:43 Oxygen Nasal Cannula 4 lpm 04/24/19 17:44 Respiratory Therapy Assessment DAILY 04/24/19 17:45 Peak Expiratory Flow Rate Assessment/Plan (1) Acute exacerbation of chronic obstructive pulmonary disease (COPD) Current Visit: Yes Status: Acute Code(s): J44.1 - CHRONIC OBSTRUCTIVE PULMONARY DISEASE W (ACUTE) EXACERBATION (2) Obstructive sleep apnea Current Visit: Yes Status: Acute Assessment & Plan: Last Vital Signs Temp 98.2 F 04/25/19 08:00 Pulse 101 H 04/25/19 08:00 Resp 20 04/25/19 08:00 BP 126/84 04/25/19 08:00 Pulse Ox 93 L 04/25/19 08:00 Allergies naproxen [From Aleve] Allergy (Verified 04/24/19 15:20) Active Medications Acetaminophen (Tylenol 325 Mg) 325 mg PO Q4H PRN PRN PRN Reason: PAIN, FEVER, HEADACHE Stop: 05/24/19 16:45 Albuterol/Ipratropium (Duoneb 0.5-3 Mg/3 Ml Neb) 3 ml IH Q4HRT [facility]INA Stop: 05/24/19 18:59 Last Admin: 04/25/19 06:59 Dose: 3 ml Allopurinol (Zyloprim 100 Mg) 100 mg PO DAILY [facility]INA Stop: 05/25/19 09:59 Last Admin: 04/25/19 09:09 Dose: 100 mg Aspirin (Ecotrin 81 Mg) 81 mg PO DAILY [facility] Stop: 05/25/19 09:59 Last Admin: 04/25/19 09:09 Dose: 81 mg Bumetanide (Bumex 1 Mg) 1 mg PO DAILY [facility]INA Stop: 05/25/19 09:59 Last Admin: 04/25/19 09:09 Dose: 1 mg Carvedilol (Coreg 6.25 Mg) 6.25 mg PO BID [facility]INA Stop: 05/24/19 21:59 Last Admin: 04/25/19 09:09 Dose: 6.25 mg Clopidogrel Bisulfate (Plavix 75 Mg Tablet) 75 mg PO HS [facility] Stop: 05/24/19 21:59 Last Admin: 04/24/19 21:59 Dose: 75 mg Enoxaparin Sodium (Enoxaparin Sodium) 40 mg SQ DAILY [facility]INA Stop: 05/24/19 17:59 Last Admin: 04/25/19 09:09 Dose: 40 mg Ergocalciferol (Vitamin D2) 50,000 unit PO TuFr [facility]INA Stop: 05/26/19 09:59 Famotidine (Pepcid 20 Mg) 20 mg PO BID [facility] Stop: 05/24/19 21:59 Last Admin: 04/25/19 09:09 Dose: 20 mg Fish Oil (Fish Oil 1,000 Mg Capsule) 1,000 mg PO DAILY [facility]INA Stop: 05/25/19 09:59 Last Admin: 04/25/19 09:09 Dose: 1,000 mg Gabapentin (Neurontin 300 Mg) 300 mg PO TID [facility] Stop: 05/24/19 21:59 Last Admin: 04/25/19 09:09 Dose: 300 mg Ceftriaxone Sodium/Dextrose (Rocephin 1 Gm-D5w 50 Ml Bag) 1 g in 50 mls @ 100 mls/hr IV Q24H10 [facility] Stop: 05/25/19 09:59 Last Admin: 04/25/19 09:09 Dose: 100 mls/hr Indomethacin (Indocin 25 Mg) 25 mg PO TIDPRN PRN PRN Reason: PAIN Stop: 05/25/19 06:58 Insulin Aspart (Novolog Insulin) 0 unit SQ UD PRN PRN Reason: HYPERGLYCEMIA Stop: 05/24/19 20:57 Last Admin: 04/25/19 08:15 Dose: 8 unit Metformin HCl (Glucophage Xr 500 Mg) 1,000 mg PO BIDWM [facility]INA Stop: 05/25/19 07:59 Last Admin: 04/25/19 08:15 Dose: 1,000 mg Methylprednisolone Sodium Succinate (Solu-Medrol 125 Mg) 80 mg IV Q8HT [facility]INA Stop: 05/24/19 21:59 Last Admin: 04/25/19 05:49 Dose: 80 mg Miscellaneous Information (Medication Intervention) 0 each MC .RN TO CHECK WITH PT [facility]INA Stop: 05/25/19 07:44 Miscellaneous Information (Medication Intervention) 0 each MC .RN TO CHECK WITH PT [facility]INA Stop: 05/25/19 07:59 Miscellaneous Information (Medication Intervention) 0 each MC .RN TO CHECK WITH PT [facility]INA Stop: 05/25/19 07:59 Miscellaneous Information (Medication Intervention) 0 each MC .RN TO CHECK WITH PT [facility]INA Stop: 05/25/19 08:14 Nitroglycerin (Nitrostat 0.4 Mg Tablet) 0.4 mg SL UD [facility]INA Stop: 05/25/19 07:44 Non-Formulary Medication (Omeprazole [Omeprazole]) 40 mg PO DAILY [facility]INA Stop: 05/25/19 09:59 Potassium Chloride (Klor Con 10 Meq) 10 meq PO BID [facility]INA Stop: 05/24/19 21:59 Last Admin: 04/25/19 09:09 Dose: 10 meq Simvastatin (Zocor 20mg) 40 mg PO HS [facility]INA Stop: 05/24/19 21:59 Last Admin: 04/24/19 21:58 Dose: 40 mg Sodium Chloride (Sodium Chloride 0.9% 10 Ml Flush Syringe) 10 ml IV Q8HT [facility] Stop: 05/25/19 05:59 Last Admin: 04/25/19 06:06 Dose: 10 ml Sodium Chloride (Sodium Chloride 0.9% 10 Ml Flush Syringe) 10 ml IV PRN PRN PRN Reason: IV maintenance Stop: 05/25/19 05:39 Intake & Output 04/24/19 04/25/19 11:59 11:59 Intake Total 1340 Balance 1340 Weight 149.2 kg Orders 04/24/19 17:43 Oxygen Nasal Cannula 4 lpm 04/24/19 17:44 Respiratory Therapy Assessment DAILY 04/24/19 17:45 Peak Expiratory Flow Rate 04/24/19 18:02 Cardio-Pulmonary Rehab .as ordered Baggage Agent/Discharge Plan 04/24/19 19:10 Nutritional Admission Screen 04/24/19 19:57 Pulse Oximetry .continuos 04/24/19 20:58 ACCUCHECK [Accucheck] ACHS Insulin Aspart [NovoLOG Insulin] See Dose Instructions SQ UD PRN 04/24/19 22:00 Carvedilol 6.25 mg [Coreg 6.25 MG] 6.25 mg PO BID Clopidogrel Bisulfate 75 mg [PLAVIX 75 MG Tablet] 75 mg PO HS Gabapentin 300 mg [Neurontin 300 mg] 300 mg PO TID Potassium Chloride 10 Meq Tab* [Klor Con 10 MEQ] 10 meq PO BID Simvastatin 20Mg [Zocor 20Mg] 40 mg PO HS 04/25/19 05:40 NaCl 0.9% 10 ML FLUSH [Sodium Chloride 0.9% 10 ML FLUSH Syringe] 10 ml IV PRN PRN 04/25/19 06:00 NaCl 0.9% 10 ML FLUSH [Sodium Chloride 0.9% 10 ML FLUSH Syringe] 10 ml IV Q8HT 04/25/19 06:59 Indomethacin 25 mg [Indocin 25 MG] 25 mg PO TIDPRN PRN 04/25/19 07:45 Medication Intervention 0 each MC .RN TO CHECK WITH PT Nitroglycerin 0.4 mg Tablet [Nitrostat 0.4 MG Tablet] 0.4 mg SL UD 04/25/19 08:00 Medication Intervention 0 each MC .RN TO CHECK WITH PT Medication Intervention 0 each [facility] .RN TO CHECK WITH PT Metformin HCl Xr 500 mg [Glucophage XR 500 MG] 1,000 mg PO BIDWM 04/25/19 08:15 Medication Intervention 0 each [facility] .RN TO CHECK WITH PT 04/25/19 10:00 Allopurinol 100 mg [Zyloprim 100 mg] 100 mg PO DAILY Aspirin EC 81 mg [Ecotrin 81 mg] 81 mg PO DAILY Bumetanide 1 mg [Bumex 1 mg] 1 mg PO DAILY Sims-3 Fatty Acids/Fish Oil [Fish Oil 1,000 mg Capsule] 1,000 mg PO DAILY Omeprazole [Omeprazole] 40 mg PO DAILY 04/26/19 10:00 Ergocalciferol (Vitamin D2) [Vitamin D2] 50,000 unit PO TuFr Lab Tests 04/24/19 04/24/19 04/24/19 15:15 15:15 15:15 WBC 8.3 RBC 6.68 H* Hgb 14.9 Hct 53.3 H MCV 79.8 MCH 22.3 L MCHC 28.0 L RDW 20.0 H Plt Count 164 MPV 10.6 H Gran % 78.1 H Eos # (Auto) 0.24 Absolute Lymphs (auto) 0.91 L Absolute Monos (auto) 0.66 Lymphocytes % 10.9 L Monocytes % 7.9 Eosinophils % 2.9 Basophils % 0.2 Absolute Granulocytes 6.50 Basophils # 0.02 PT 12.4 INR 1.10 APTT 37.4 H Puncture Site pCO2 pO2 pO2/FiO2 Ratio Base Excess O2 Saturation ABG pH ABG HCO3 ABG O2 Sat (Measured) Gideon Test VBG pH VBG pCO2 at Pat Temp VBG pO2 at Pat Temp VBG HCO3 VBG O2 Sat (Giovanny) VBG Base Excess VBG Hemoglobin VBG Carboxyhemoglobin A-a Gradient a/A Ratio Hemoglobin Carboxyhemoglobin Methemoglobin POC Potassium POC O2 Flow Rate Sodium 143 Potassium 4.2 Chloride 96 L Carbon Dioxide 39 H Anion Gap 12.2 BUN 12 Creatinine 0.62 L Estimated GFR > 60.0 Glucose 207 H Lactic Acid Calcium 9.1 Magnesium 1.8 Total Bilirubin 0.80 AST 16 L ALT 17 Alkaline Phosphatase 113 Troponin I NT-Pro-B Natriuret Pep 57.0 Serum Total Protein 7.4 Albumin 4.0 Urine Color Urine Appearance Urine pH Ur Specific [place] Urine Protein Urine Ketones Urine Blood Urine Nitrite Urine Bilirubin Urine Urobilinogen Ur Leukocyte Esterase Urine WBC (Auto) Urine RBC (Auto) U Epithel Cells (Auto) Urine Bacteria (Auto) Urine Culture Reflexed Urine Glucose Influenza Type A Ag Influenza Type B Ag RSV (PCR) Slides for Path Review YES 04/24/19 04/24/19 04/24/19 15:30 15:40 18:40 WBC RBC Hgb Hct MCV MCH MCHC RDW Plt Count MPV Gran % Eos # (Auto) Absolute Lymphs (auto) Absolute Monos (auto) Lymphocytes % Monocytes % Eosinophils % Basophils % Absolute Granulocytes Basophils # PT INR APTT Puncture Site pCO2 pO2 pO2/FiO2 Ratio 28.0 Base Excess O2 Saturation ABG pH ABG HCO3 ABG O2 Sat (Measured) Gideon Test VBG pH 7.24 L* VBG pCO2 at Pat Temp 99 H* VBG pO2 at Pat Temp 34 VBG HCO3 42.4 H* VBG O2 Sat (Giovanny) 63.8 L VBG Base Excess 10.1 H VBG Hemoglobin 15.3 VBG Carboxyhemoglobin 5.1 A-a Gradient a/A Ratio Hemoglobin Carboxyhemoglobin Methemoglobin POC Potassium 4.3 POC O2 Flow Rate Sodium Potassium Chloride Carbon Dioxide Anion Gap BUN Creatinine Estimated GFR Glucose Lactic Acid 1.1 Calcium Magnesium Total Bilirubin AST ALT Alkaline Phosphatase Troponin I < 0.012 < 0.012 NT-Pro-B Natriuret Pep Serum Total Protein Albumin Urine Color Urine Appearance Urine pH Ur Specific [place] Urine Protein Urine Ketones Urine Blood Urine Nitrite Urine Bilirubin Urine Urobilinogen Ur Leukocyte Esterase Urine WBC (Auto) Urine RBC (Auto) U Epithel Cells (Auto) Urine Bacteria (Auto) Urine Culture Reflexed Urine Glucose Influenza Type A Ag Influenza Type B Ag RSV (PCR) Slides for Path Review 04/24/19 04/24/19 04/24/19 18:45 21:52 Unknown WBC RBC Hgb Hct MCV MCH MCHC RDW Plt Count MPV Gran % Eos # (Auto) Absolute Lymphs (auto) Absolute Monos (auto) Lymphocytes % Monocytes % Eosinophils % Basophils % Absolute Granulocytes Basophils # PT INR APTT Puncture Site pCO2 pO2 pO2/FiO2 Ratio 36.0 Base Excess O2 Saturation ABG pH ABG HCO3 ABG O2 Sat (Measured) Gideon Test VBG pH 7.30 L VBG pCO2 at Pat Temp 76 H* VBG pO2 at Pat Temp 33 VBG HCO3 37.4 H* VBG O2 Sat (Giovanny) 68.8 L VBG Base Excess 7.4 H VBG Hemoglobin 15.9 VBG Carboxyhemoglobin 5.2 A-a Gradient a/A Ratio Hemoglobin Carboxyhemoglobin Methemoglobin POC Potassium 4.3 POC O2 Flow Rate Sodium Potassium Chloride Carbon Dioxide Anion Gap BUN Creatinine Estimated GFR Glucose Lactic Acid Calcium Magnesium Total Bilirubin AST ALT Alkaline Phosphatase Troponin I < 0.012 NT-Pro-B Natriuret Pep Serum Total Protein Albumin Urine Color Urine Appearance Urine pH Ur Specific [place] Urine Protein Urine Ketones Urine Blood Urine Nitrite Urine Bilirubin Urine Urobilinogen Ur Leukocyte Esterase Urine WBC (Auto) Urine RBC (Auto) U Epithel Cells (Auto) Urine Bacteria (Auto) Urine Culture Reflexed Urine Glucose Influenza Type A Ag NEGATIVE Influenza Type B Ag NEGATIVE RSV (PCR) NEGATIVE Slides for Path Review 04/25/19 04/25/19 04/25/19 00:50 03:45 03:45 WBC 8.5 RBC 6.61 H* Hgb 14.8 Hct 52.5 H MCV 79.4 MCH 22.3 L MCHC 28.2 L RDW 19.6 H Plt Count 175 MPV 10.6 H Gran % 95.1 H Eos # (Auto) 0 Absolute Lymphs (auto) 0.34 L Absolute Monos (auto) 0.07 Lymphocytes % 4.0 L Monocytes % 0.8 Eosinophils % 0.0 Basophils % 0.1 Absolute Granulocytes 8.12 H Basophils # 0.01 PT INR APTT Puncture Site pCO2 pO2 pO2/FiO2 Ratio Base Excess O2 Saturation ABG pH ABG HCO3 ABG O2 Sat (Measured) Gideon Test VBG pH VBG pCO2 at Pat Temp VBG pO2 at Pat Temp VBG HCO3 VBG O2 Sat (Giovanny) VBG Base Excess VBG Hemoglobin VBG Carboxyhemoglobin A-a Gradient a/A Ratio Hemoglobin Carboxyhemoglobin Methemoglobin POC Potassium POC O2 Flow Rate Sodium Potassium Chloride Carbon Dioxide Anion Gap BUN Creatinine Estimated GFR Glucose Lactic Acid Calcium Magnesium Total Bilirubin AST ALT Alkaline Phosphatase Troponin I < 0.012 < 0.012 NT-Pro-B Natriuret Pep Serum Total Protein Albumin Urine Color Urine Appearance Urine pH Ur Specific [place] Urine Protein Urine Ketones Urine Blood Urine Nitrite Urine Bilirubin Urine Urobilinogen Ur Leukocyte Esterase Urine WBC (Auto) Urine RBC (Auto) U Epithel Cells (Auto) Urine Bacteria (Auto) Urine Culture Reflexed Urine Glucose Influenza Type A Ag Influenza Type B Ag RSV (PCR) Slides for Path Review YES 04/25/19 04/25/19 04/25/19 03:45 05:00 05:17 WBC RBC Hgb Hct MCV MCH MCHC RDW Plt Count MPV Gran % Eos # (Auto) Absolute Lymphs (auto) Absolute Monos (auto) Lymphocytes % Monocytes % Eosinophils % Basophils % Absolute Granulocytes Basophils # PT INR APTT Puncture Site RIGHT RADIAL pCO2 68 H* pO2 74 L pO2/FiO2 Ratio Base Excess 7.1 H O2 Saturation 92.4 L ABG pH 7.33 L ABG HCO3 35.9 H* ABG O2 Sat (Measured) 95.1 Gideon Test YES VBG pH VBG pCO2 at Pat Temp VBG pO2 at Pat Temp VBG HCO3 VBG O2 Sat (Giovanny) VBG Base Excess VBG Hemoglobin VBG Carboxyhemoglobin A-a Gradient 98 a/A Ratio 0.43 Hemoglobin 15.5 Carboxyhemoglobin 2.5 Methemoglobin 0.3 L POC Potassium POC O2 Flow Rate 36 Sodium 141 Potassium 4.8 4.5 Chloride 100 Carbon Dioxide 34 H 38 H Anion Gap 12.6 BUN 17 Creatinine 0.58 L Estimated GFR > 60.0 Glucose 344 H Lactic Acid Calcium 9.1 Magnesium Total Bilirubin AST ALT Alkaline Phosphatase Troponin I NT-Pro-B Natriuret Pep Serum Total Protein Albumin Urine Color YELLOW Urine Appearance CLEAR Urine pH 6.0 Ur Specific [place] 1.033 Urine Protein 100 Urine Ketones NEGATIVE Urine Blood NEGATIVE Urine Nitrite NEGATIVE Urine Bilirubin NEGATIVE Urine Urobilinogen NORMAL Ur Leukocyte Esterase NEGATIVE Urine WBC (Auto) NONE Urine RBC (Auto) NONE U Epithel Cells (Auto) NONE Urine Bacteria (Auto) NONE Urine Culture Reflexed NO Urine Glucose >=500 Influenza Type A Ag Influenza Type B Ag RSV (PCR) Slides for Path Review Code(s): G47.33 - OBSTRUCTIVE SLEEP APNEA (ADULT) (PEDIATRIC) (3) Acute respiratory acidosis Current Visit: Yes Status: Acute Code(s): E87.2 - ACIDOSIS (4) Chronic obstructive lung disease Current Visit: Yes Status: Chronic Code(s): J44.9 - CHRONIC OBSTRUCTIVE PULMONARY DISEASE, UNSPECIFIED
[2019-04-25] MEDS: Indocin 25 MG PO PRN ×2 (09:53→21:11)
[2019-04-25] MEDS: Protonix 40MG Tablet PO SCH (09:54)
--- NOTE | 2019-04-25 09:56 | XRAY ---
Indication: Bronchitis. Pneumonia. Comparison: One day earlier. Portable chest unchanged again demonstrating hazy lingula interstitial alveolar opacity and left mid lung calcified granuloma. Remaining heart and right lung normal. No new cardiopulmonary abnormalities.
[2019-04-25] MEDS ORDERED: NON-FORMULARY ITEM (Aspirin [Aspirin] 81 MG) PO SCH (10:00)
[2019-04-25] MEDS ORDERED: DEXTROAMPHETAMINE PO SCH (10:00)
[2019-04-25] MEDS ORDERED: AMPHETAMINE PO SCH (10:00)
[2019-04-25] MEDS ORDERED: COLCHICINE PO SCH (10:00)
[2019-04-25] MEDS ORDERED: NON-FORMULARY ITEM (Omega-3 Fatty Acids/Fish Oil [Fish Oil 1,000 Mg Capsule] 1 EACH) PO SCH (10:00)
[2019-04-25] MEDS ORDERED: NON-FORMULARY ITEM (Omeprazole [Omeprazole] 40 MG) PO SCH ×2 (10:00)
[2019-04-25] MEDS ORDERED: [UNRECOGNIZED DRUG - OTHER] PO SCH (10:00)
[2019-04-25] MEDS ORDERED: BROMOCRIPTINE MESYLATE PO SCH (10:00)
[2019-04-25] MEDS ORDERED: PROBENECID PO SCH (10:00)
[2019-04-25] MEDS: PLAVIX 75 MG Tablet PO SCH (21:11)
[2019-04-25] MEDS: ZOCOR 20MG PO SCH (21:11)
[2019-04-26] MEDS: DUONEB 0.5-3 MG/3 ml Neb IH SCH ×2 (04:03→07:02)
[2019-04-26] MEDS: Sodium Chloride 0.9% 10 ML FLUSH Syringe IV SCH (06:12)
[2019-04-26] MEDS: solu-MEDROL 125 MG IV SCH (06:12)
[2019-04-26] MEDS: Glucophage XR 500 MG PO SCH (07:44)
[2019-04-26] MEDS: NovoLOG Insulin SQ PRN ×2 (08:00→11:40)
[2019-04-26 08:05] VITALS: O2SAT 93
--- NOTE | 2019-04-26 08:37 | PCM.DS ---
Discharge Summary Date of Admission: 04/24/19 16:46 Admitting Physician: AUSTIN PIMENTEL Primary Care Provider: AUSTIN PIMENTEL Allergies Allergies naproxen [From Aleve] Allergy (Verified 04/24/19 15:20) Hospital Summary - Hospital Course Hospital Course: Chief Complaint Diagnosis very short of breath for 3-4 days Allergies Allergy/AdvReac Type Severity Reaction Status Date / Time naproxen [From Aleve] Allergy Verified 04/24/19 15:20 Vital Signs (Last 24 hours) Temp Pulse Resp BP Pulse Ox 04/26/19 08:00 98.0 F 93 H 16 131/67 93 L 04/26/19 07:16 116 H 21 94 L 04/26/19 04:04 95 H 16 91 L 04/26/19 04:00 97.9 F 81 15 125/70 91 L 04/25/19 23:53 97.6 F 95 H 13 126/65 94 L 04/25/19 23:02 84 18 92 L 04/25/19 20:00 98.0 F 97 H 13 136/78 91 L 04/25/19 19:29 108 H 18 94 L 04/25/19 16:00 97.8 F 103 H 17 130/78 91 L 04/25/19 15:53 99 H 18 91 L 04/25/19 11:43 97.7 F 89 21 149/71 90 L 04/25/19 11:13 85 19 92 L Home Medications Medication Instructions Recorded Confirmed Last Taken Type Atorvastatin Calcium 40 mg PO HS 04/24/19 04/24/19 Unknown History Bromocriptine Mesylate [Cycloset] 6 tab PO DAILY 04/24/19 04/24/19 Unknown History Carvedilol 6.25 mg PO BID 04/24/19 04/24/19 Unknown History Dextroamphetamine/Amphetamine 10 mg PO DAILY 04/24/19 04/24/19 Unknown History [Dextroamp-Amphet ER 10 mg Cap] Ergocalciferol (Vitamin D2) 1 cap PO 2XW 04/24/19 04/24/19 Unknown History [Vitamin D] Nabumetone 500 mg PO BID 04/24/19 04/24/19 Unknown History Probenecid/Colchicine 1 each PO DAILY 04/24/19 04/24/19 Unknown History [Probenecid-Colchicine Tablet] Current Medications Generic Name Dose Route Start Last Admin Trade Name Freq PRN Reason Stop Dose Admin Acetaminophen 325 mg 04/24/19 16:46 04/25/19 21:07 Tylenol 325 Mg PO 05/24/19 16:45 325 mg Q4H PRN PRN Administration PAIN, FEVER, HEADACHE Albuterol/Ipratropium 3 ml 04/24/19 19:00 04/26/19 07:02 Duoneb 0.5-3 Mg/3 Ml Neb IH 05/24/19 18:59 3 ml Q4HRT ALINA Administration Allopurinol 100 mg 04/25/19 10:00 04/25/19 09:09 Zyloprim 100 Mg PO 05/25/19 09:59 100 mg DAILY ALINA Administration Aspirin 81 mg 04/25/19 10:00 04/25/19 09:09 Ecotrin 81 Mg PO 05/25/19 09:59 81 mg DAILY ALINA Administration Bumetanide 1 mg 04/25/19 10:00 04/25/19 09:09 Bumex 1 Mg PO 05/25/19 09:59 1 mg DAILY ALINA Administration Carvedilol 6.25 mg 04/24/19 22:00 04/25/19 21:11 Coreg 6.25 Mg PO 05/24/19 21:59 6.25 mg BID ALINA Administration Clopidogrel Bisulfate 75 mg 04/24/19 22:00 04/25/19 21:11 Plavix 75 Mg Tablet PO 05/24/19 21:59 75 mg HS ALINA Administration Enoxaparin Sodium 40 mg 04/24/19 18:00 04/25/19 09:09 Enoxaparin Sodium SQ 05/24/19 17:59 40 mg DAILY ALINA Administration Ergocalciferol 50,000 unit 04/26/19 10:00 Vitamin D2 PO 05/26/19 09:59 TuFr ALINA Famotidine 20 mg 04/24/19 22:00 04/25/19 21:11 Pepcid 20 Mg PO 05/24/19 21:59 20 mg BID ALINA Administration Fish Oil 1,000 mg 04/25/19 10:00 04/25/19 09:09 Fish Oil 1,000 Mg Capsule PO 05/25/19 09:59 1,000 mg DAILY ALINA Administration Gabapentin 300 mg 04/24/19 22:00 04/25/19 21:11 Neurontin 300 Mg PO 05/24/19 21:59 300 mg TID ALINA Administration Ceftriaxone Sodium/Dextrose 1 g in 50 mls @ 100 mls/hr 04/25/19 10:00 09:09 Rocephin 1 Gm-D5w 50 Ml Bag IV 05/25/19 09:59 100 mls/hr Q24H10 ALINA Administration Indomethacin 25 mg 04/25/19 06:59 04/25/19 21:11 Indocin 25 Mg PO 05/25/19 06:58 25 mg TIDPRN PRN Administration PAIN Insulin Aspart 0 unit 04/24/19 20:58 04/26/19 08:00 Novolog Insulin SQ 05/24/19 20:57 10 unit UD PRN Administration HYPERGLYCEMIA Metformin HCl 1,000 mg 04/25/19 08:00 04/26/19 07:44 Glucophage Xr 500 Mg PO 05/25/19 07:59 1,000 mg BIDWM ALINA Administration Methylprednisolone Sodium Succinate 80 mg 04/24/19 22:00 04/26/19 06:12 Solu-Medrol 125 Mg IV 05/24/19 21:59 80 mg Q8HT ALINA Administration Miscellaneous Information 0 each 04/25/19 07:45 Medication Intervention 05/25/19 07:44 .RN TO CHECK WITH PT ALINA Miscellaneous Information 0 each 04/25/19 08:00 Medication Intervention 05/25/19 07:59 .RN TO CHECK WITH PT ALINA Miscellaneous Information 0 each 04/25/19 08:00 Medication Intervention 05/25/19 07:59 .RN TO CHECK WITH PT ALINA Miscellaneous Information 0 each 04/25/19 08:15 Medication Intervention 05/25/19 08:14 .RN TO CHECK WITH PT ALINA Nitroglycerin 0.4 mg 04/25/19 07:45 Nitrostat 0.4 Mg Tablet SL 05/25/19 07:44 UD ALINA Pantoprazole Sodium 40 mg 04/25/19 10:00 04/25/19 09:54 Protonix 40mg Tablet PO 05/25/19 09:59 40 mg DAILY ALINA Administration Potassium Chloride 10 meq 04/24/19 22:00 04/25/19 21:11 Klor Con 10 Meq PO 05/24/19 21:59 10 meq BID ALINA Administration Simvastatin 40 mg 04/24/19 22:00 04/25/19 21:11 Zocor 20mg PO 05/24/19 21:59 40 mg HS ALINA Administration Sodium Chloride 10 ml 04/25/19 06:00 04/26/19 06:12 Sodium Chloride 0.9% 10 Ml Flush Syringe IV 05/25/19 05:59 10 ml Q8HT ALINA Administration Sodium Chloride 10 ml 04/25/19 05:40 Sodium Chloride 0.9% 10 Ml Flush Syringe IV 05/25/19 05:39 PRN PRN IV maintenance Discontinued Medications Generic Name Dose Route Start Last Admin Trade Name Freq PRN Reason Stop Dose Admin Albuterol/Ipratropium 3 ml 04/24/19 15:15 04/24/19 15:35 Duoneb 0.5-3 Mg/3 Ml Neb IH 04/24/19 15:16 3 ml STAT ONE Administration Albuterol/Ipratropium Confirm 04/24/19 15:31 Duoneb 0.5-3 Mg/3 Ml Neb Administered 04/24/19 15:32 Dose 3 ml IH .STK-MED ONE Azithromycin 500 mg 04/24/19 16:19 04/24/19 16:22 Zithromax 250 Mg Tablet PO 04/24/19 16:20 500 mg STAT ONE Administration Azithromycin Confirm 04/24/19 16:21 Zithromax 250 Mg Tablet Administered 04/24/19 16:22 Dose 500 mg .ROUTE .STK-MED ONE Sodium Chloride 1,000 mls @ 999 mls/hr 04/24/19 15:15 04/24/19 16:32 Sodium Chloride 0.9% 1000 Ml IV 04/24/19 16:15 Infused .Q1H1M STA Infusion Sodium Chloride Confirm 04/24/19 15:22 Sodium Chloride 0.9% 1000 Ml Administered 04/24/19 15:23 Dose 1,000 mls @ ud .ROUTE .STK-MED ONE Ceftriaxone Sodium/Dextrose 1 g in 50 mls @ 100 mls/hr 04/24/19 16:19 16:32 Rocephin 1 Gm-D5w 50 Ml Bag IV 04/24/19 16:48 Infused STAT STA Infusion Ceftriaxone Sodium/Dextrose Confirm 04/24/19 16:20 Rocephin 1 Gm-D5w 50 Ml Bag Administered 04/24/19 16:21 Dose 1 g in 50 mls @ ud IV .STK-MED ONE Indomethacin 25 mg 04/24/19 21:03 04/25/19 07:40 Indocin 25 Mg PO 04/24/19 21:04 Not Given TIDPRN ONE Indomethacin 25 mg 04/24/19 23:03 Indocin 25 Mg PO 05/24/19 22:59 TIDPRN PRN Pain, swelling Levalbuterol HCl 1.25 mg 04/24/19 15:15 04/24/19 15:44 Xopenex 1.25 Mg/0.5 Ml Ud Nebule IH 04/24/19 15:16 1.25 mg STAT ONE Administration Levalbuterol HCl Confirm 04/24/19 15:31 Xopenex 1.25 Mg/0.5 Ml Ud Nebule Administered 04/24/19 15:32 Dose 1.25 mg IH .STK-MED ONE Methylprednisolone Sodium Succinate 125 mg 04/24/19 15:15 04/24/19 15:26 Solu-Medrol 125 Mg IV 04/24/19 15:16 125 mg STAT ONE Administration Methylprednisolone Sodium Succinate Confirm 04/24/19 15:22 Solu-Medrol 125 Mg Administered 04/24/19 15:23 Dose 125 mg .ROUTE .STK-MED ONE Non-Formulary Medication 40 mg 04/25/19 10:00 Omeprazole [Omeprazole] PO 05/25/19 09:59 DAILY ALINA Sodium Chloride Confirm 04/24/19 15:31 Sodium Chloride 3 Ml Ud Nebules Administered 04/24/19 15:32 Dose 3 ml IH .STK-MED ONE Intake & Output (Last 24 hours) 04/23/19 04/24/19 04/25/19 04/26/19 11:59 11:59 11:59 11:59 Intake Total 1700 2480 Output Total 625 3050 Balance 1075 -570 Weight 149.2 kg 157.7 kg Microbiology Results (Last 24 hours) 04/24/19 16:09 Blood Blood Culture Gram Stain - Pending 04/24/19 16:09 Blood Blood Culture - Preliminary NO GROWTH TO DATE 04/24/19 15:45 Blood Blood Culture Gram Stain - Pending 04/24/19 15:45 Blood Blood Culture - Preliminary NO GROWTH TO DATE Laboratory Results (Last 24 hours) 04/25/19 04:00 Hemoglobin A1c 9.00 H Orders (Last 24 hours) Category Date Time Status CHEST 1 VIEW (PORTABLE) Routine Exams 04/25/19 08:00 Completed Allopurinol 100 mg [Zyloprim 100 mg] Med 04/25/19 10:00 Active 100 mg PO DAILY Aspirin EC 81 mg [Ecotrin 81 mg] Med 04/25/19 10:00 Active 81 mg PO DAILY Bumetanide 1 mg [Bumex 1 mg] Med 04/25/19 10:00 Active 1 mg PO DAILY Ceftriaxone 1 GM/50 ML PREMIX* [ROCEPHIN 1 Gm-D5w 50 ml Med 04/25/19 10:00 Active Bag] 1 g in 50 ml IV Q24H10 Ergocalciferol (Vitamin D2) [Vitamin D2] Med 04/26/19 10:00 Active 50,000 unit PO TuFr Medication Intervention Med 04/25/19 07:45 Active 0 each MC .RN TO CHECK WITH PT Medication Intervention Med 04/25/19 08:00 Active 0 each MC .RN TO CHECK WITH PT Medication Intervention Med 04/25/19 08:00 Active 0 each MC .RN TO CHECK WITH PT Medication Intervention Med 04/25/19 08:15 Active 0 each MC .RN TO CHECK WITH PT Metformin HCl Xr 500 mg [Glucophage XR 500 MG] Med 04/25/19 08:00 Active 1,000 mg PO BIDWM Nitroglycerin 0.4 mg Tablet [Nitrostat 0.4 MG Tablet Med 04/25/19 07:45 Active ] 0.4 mg SL UD [place]-3 Fatty Acids/Fish Oil [Fish Oil 1,000 mg Med 04/25/19 10:00 Active Capsule] 1,000 mg PO DAILY Omeprazole [Omeprazole] Med 04/25/19 10:00 Discontinued 40 mg PO DAILY PANTOPRAZOLE 40 mg Tablet [Protonix 40MG Tablet] Med 04/25/19 10:00 Active 40 mg PO DAILY Patient Care Notes (Last 24 hours) 04/25/19 22:10 (created 04/26/19 00:03) Nursing Note by Cari Ray CNA report patient accucheck < 500. Per protocol rechecked by RN with result of 461. Administered 12units Novolog as ordered. Patient asking for snack and Pepsi. Spoke with patient about effects of hypeglycemia on body organs. Patient not receptive to education and said he can "just take insulin". Initialized on 04/26/19 00:03 - END OF NOTE Patient is doing better - Vitals & Intake/Output Vital Signs: Vital Signs Temperature 98.0 F 04/26/19 08:00 Pulse Rate 93 H 04/26/19 08:00 Respiratory Rate 16 04/26/19 08:00 Blood Pressure 131/67 04/26/19 08:00 O2 Sat by Pulse Oximetry 93 L 04/26/19 08:00 Oxygen-Last Documented O2 Percentage 4 Liters = 36% Intake & Output: Intake & Output 04/23/19 04/24/19 04/25/19 04/26/19 11:59 11:59 11:59 11:59 Intake Total 1700 2480 Output Total 625 3050 Balance 1075 -570 Weight 149.2 kg 157.7 kg - Lab Result Diagrams: 04/25/19 03:45 04/25/19 05:17 Lab Results-Last 24 Hrs: Accuchecks Date 04/25/19 Time 21:30 Accucheck Value: 405 Accucheck Value: 461 Accucheck Value: 393 Accucheck Value: 394 Lab Results-Last 24 Hours 04/25/19 Range/Units 04:00 Hemoglobin A1c 9.00 H (4.5-6.0) % Micro Results-Entire Visit: Microbiology 04/24/19 16:09 Blood Culture - Preliminary Blood NO GROWTH TO DATE 04/24/19 15:45 Blood Culture - Preliminary Blood NO GROWTH TO DATE Accuchecks Date 04/25/19 Time 21:30 Accucheck Value: 405 Accucheck Value: 461 Accucheck Value: 393 Accucheck Value: 394 - Radiology Exams Ordered Rad Exams-Entire Visit: Radiology Procedures Category Date Time Status CHEST 1 VIEW (PORTABLE) Routine Exams 04/25/19 08:00 Completed CHEST 1 VIEW (PORTABLE) Stat Exams 04/24/19 15:16 Completed - Procedures and Test Procedures and Tests throughout Hospitalization: Therapy Orders & Screens 04/24/19 15:47 BiPap/CPAP STAT Comment: 04/24/19 15:52 Respiratory Therapy Assessment DAILY Comment: 04/24/19 16:46 BiPap/CPAP ROUTINE Comment: EKG Comment: 04/24/19 17:43 Oxygen Nasal Cannula 4 lpm Comment: 04/24/19 17:44 Respiratory Therapy Assessment DAILY Comment: 04/24/19 17:45 Peak Expiratory Flow Rate Comment: Reason For Exam: 04/24/19 19:10 RT Screen per Nursing Assess ONCE Comment: Protocol Order Physician Instructions: Greater than 3 points order RT Admission Screen Reason For Exam: Triggered on Admission Diagnosis: ACUTE EXAC OF COPD, DYPNEA, LINGULAR PNE, ACUTE CP, ACUTE RESP ACIDOSIS Diagnosis: ACUTE EXAC OF COPD, DYPNEA, LINGULAR PNE, ACUTE CP, ACUTE RESP ACIDOSIS Pneumonia: Yes Home O2: Yes Asthma: No CHF: Yes Home CPAP/BIPAP: Yes Home Nebs/MDI: No Total Points: 16 Smoking Cessation Education ONCE Comment: Diagnosis: ACUTE EXAC OF COPD, DYPNEA, LINGULAR PNE, ACUTE CP, ACUTE RESP ACIDOSIS Smoking Status: Current some day smoker How long have you smoked: 40 years Have you smoked in the past 12 months: No Do you dip or chew tobacco: No If,Former Smoker,when did you quit: 4 years Discharge Exam General Appearance: no apparent distress, alert Neurologic Exam: alert, oriented x 3, cooperative, normal mood/affect, nml cerebellar function, sensation nml, No motor deficits Eye Exam: PERRL, EOMI, eyes nml inspection Ears, Nose, Throat Exam: normal ENT inspection, pharynx normal, moist mucous membranes Neck Exam: normal inspection, non-tender, supple, full range of motion Respiratory Exam: normal breath sounds, lungs clear, No respiratory distress Cardiovascular Exam: regular rate/rhythm, normal heart sounds Gastrointestinal/Abdomen Exam: soft, No tenderness, No mass Male Genitalia Exam: deferred Rectal Exam: deferred Back Exam: normal inspection, normal range of motion, No CVA tenderness, No vertebral tenderness Extremity Exam: normal inspection, normal range of motion Skin Exam: normal color, warm, dry Final Diagnosis/Problem List - Final Discharge Diagnosis/Problem (1) Acute exacerbation of chronic obstructive pulmonary disease (COPD) Current Visit: Yes Status: Resolved Assessment & Plan: Last Vital Signs Temp 98.0 F 04/26/19 08:00 Pulse 93 H 04/26/19 08:00 Resp 16 04/26/19 08:00 BP 131/67 04/26/19 08:00 Pulse Ox 93 L 04/26/19 08:00 Allergies naproxen [From Aleve] Allergy (Verified 04/24/19 15:20) Active Medications Acetaminophen (Tylenol 325 Mg) 325 mg PO Q4H PRN PRN PRN Reason: PAIN, FEVER, HEADACHE Stop: 05/24/19 16:45 Last Admin: 04/25/19 21:07 Dose: 325 mg Albuterol/Ipratropium (Duoneb 0.5-3 Mg/3 Ml Neb) 3 ml IH Q4HRT ALINA Stop: 05/24/19 18:59 Last Admin: 04/26/19 07:02 Dose: 3 ml Allopurinol (Zyloprim 100 Mg) 100 mg PO DAILY ALINA Stop: 05/25/19 09:59 Last Admin: 04/25/19 09:09 Dose: 100 mg Aspirin (Ecotrin 81 Mg) 81 mg PO DAILY ALINA Stop: 05/25/19 09:59 Last Admin: 04/25/19 09:09 Dose: 81 mg Bumetanide (Bumex 1 Mg) 1 mg PO DAILY ALINA Stop: 05/25/19 09:59 Last Admin: 04/25/19 09:09 Dose: 1 mg Carvedilol (Coreg 6.25 Mg) 6.25 mg PO BID ALINA Stop: 05/24/19 21:59 Last Admin: 04/25/19 21:11 Dose: 6.25 mg Clopidogrel Bisulfate (Plavix 75 Mg Tablet) 75 mg PO HS ALINA Stop: 05/24/19 21:59 Last Admin: 04/25/19 21:11 Dose: 75 mg Enoxaparin Sodium (Enoxaparin Sodium) 40 mg SQ DAILY ALINA Stop: 05/24/19 17:59 Last Admin: 04/25/19 09:09 Dose: 40 mg Ergocalciferol (Vitamin D2) 50,000 unit PO TuFr [facility] Stop: 05/26/19 09:59 Famotidine (Pepcid 20 Mg) 20 mg PO BID ALINA Stop: 05/24/19 21:59 Last Admin: 04/25/19 21:11 Dose: 20 mg Fish Oil (Fish Oil 1,000 Mg Capsule) 1,000 mg PO DAILY ALINA Stop: 05/25/19 09:59 Last Admin: 04/25/19 09:09 Dose: 1,000 mg Gabapentin (Neurontin 300 Mg) 300 mg PO TID ALINA Stop: 05/24/19 21:59 Last Admin: 04/25/19 21:11 Dose: 300 mg Ceftriaxone Sodium/Dextrose (Rocephin 1 Gm-D5w 50 Ml Bag) 1 g in 50 mls @ 100 mls/hr IV Q24H10 ALINA Stop: 05/25/19 09:59 Last Admin: 04/25/19 09:09 Dose: 100 mls/hr Indomethacin (Indocin 25 Mg) 25 mg PO TIDPRN PRN PRN Reason: PAIN Stop: 05/25/19 06:58 Last Admin: 04/25/19 21:11 Dose: 25 mg Insulin Aspart (Novolog Insulin) 0 unit SQ UD PRN PRN Reason: HYPERGLYCEMIA Stop: 05/24/19 20:57 Last Admin: 04/26/19 08:00 Dose: 10 unit Metformin HCl (Glucophage Xr 500 Mg) 1,000 mg PO BIDWM ALINA Stop: 05/25/19 07:59 Last Admin: 04/26/19 07:44 Dose: 1,000 mg Methylprednisolone Sodium Succinate (Solu-Medrol 125 Mg) 80 mg IV Q8HT ALINA Stop: 05/24/19 21:59 Last Admin: 04/26/19 06:12 Dose: 80 mg Miscellaneous Information (Medication Intervention) 0 each MC .RN TO CHECK WITH PT ALINA Stop: 05/25/19 07:44 Miscellaneous Information (Medication Intervention) 0 each MC .RN TO CHECK WITH PT ALINA Stop: 05/25/19 07:59 Miscellaneous Information (Medication Intervention) 0 each MC .RN TO CHECK WITH PT ALINA Stop: 05/25/19 07:59 Miscellaneous Information (Medication Intervention) 0 each MC .RN TO CHECK WITH PT ALINA Stop: 05/25/19 08:14 Nitroglycerin (Nitrostat 0.4 Mg Tablet) 0.4 mg SL UD [facility] Stop: 05/25/19 07:44 Pantoprazole Sodium (Protonix 40mg Tablet) 40 mg PO DAILY ALINA Stop: 05/25/19 09:59 Last Admin: 04/25/19 09:54 Dose: 40 mg Potassium Chloride (Klor Con 10 Meq) 10 meq PO BID ALINA Stop: 05/24/19 21:59 Last Admin: 04/25/19 21:11 Dose: 10 meq Simvastatin (Zocor 20mg) 40 mg PO HS ALINA Stop: 05/24/19 21:59 Last Admin: 04/25/19 21:11 Dose: 40 mg Sodium Chloride (Sodium Chloride 0.9% 10 Ml Flush Syringe) 10 ml IV Q8HT ALINA Stop: 05/25/19 05:59 Last Admin: 04/26/19 06:12 Dose: 10 ml Sodium Chloride (Sodium Chloride 0.9% 10 Ml Flush Syringe) 10 ml IV PRN PRN PRN Reason: IV maintenance Stop: 05/25/19 05:39 Intake & Output 04/25/19 04/26/19 11:59 11:59 Intake Total 1700 2480 Output Total 625 3050 Balance 1075 -570 Weight 149.2 kg 157.7 kg Orders 04/25/19 07:45 Medication Intervention 0 each MC .RN TO CHECK WITH PT Nitroglycerin 0.4 mg Tablet [Nitrostat 0.4 MG Tablet] 0.4 mg [facility] 04/25/19 08:00 Medication Intervention 0 each MC .RN TO CHECK WITH PT Medication Intervention 0 each MC .RN TO CHECK WITH PT Metformin HCl Xr 500 mg [Glucophage XR 500 MG] 1,000 mg PO BIDWM 04/25/19 08:15 Medication Intervention 0 each MC .RN TO CHECK WITH PT 04/25/19 10:00 Allopurinol 100 mg [Zyloprim 100 mg] 100 mg PO DAILY Aspirin EC 81 mg [Ecotrin 81 mg] 81 mg PO DAILY Bumetanide 1 mg [Bumex 1 mg] 1 mg PO DAILY [place]-3 Fatty Acids/Fish Oil [Fish Oil 1,000 mg Capsule] 1,000 mg PO DAILY PANTOPRAZOLE 40 mg Tablet [Protonix 40MG Tablet] 40 mg PO DAILY 04/26/19 10:00 Ergocalciferol (Vitamin D2) [Vitamin D2] 50,000 unit PO TuFr Lab Tests 04/25/19 04:00 Hemoglobin A1c 9.00 H Microbiology 04/24/19 16:09 Blood Blood Culture - Preliminary NO GROWTH TO DATE 04/24/19 15:45 Blood Blood Culture - Preliminary NO GROWTH TO DATE Code(s): J44.1 - CHRONIC OBSTRUCTIVE PULMONARY DISEASE W (ACUTE) EXACERBATION (2) Obstructive sleep apnea Current Visit: Yes Status: Chronic Code(s): G47.33 - OBSTRUCTIVE SLEEP APNEA (ADULT) (PEDIATRIC) (3) Acute respiratory acidosis Current Visit: Yes Status: Acute Code(s): E87.2 - ACIDOSIS (4) Chronic obstructive lung disease Current Visit: Yes Status: Chronic Code(s): J44.9 - CHRONIC OBSTRUCTIVE PULMONARY DISEASE, UNSPECIFIED - Discharge Discharge Date: 04/26/19 Disposition: Home, Self-Care Condition: Stable Prescriptions: New Methylprednisolone Packet [Medrol Dosepack] 4 mg PO UD #30 packet Continue Gabapentin 300 mg [Neurontin 300 mg] 300 mg PO TID Potassium Chloride [Klor-Con 10] 10 meq PO BID Metformin HCl [Metformin HCl ER] 1,000 mg PO BID [place]-3 Fatty Acids/Fish Oil [Fish Oil 1,000 mg Capsule] 1 each PO DAILY Indomethacin 25 mg [Indocin 25 MG] 25 mg PO TIDPRN PRN PRN Reason: Pain Aspirin 81 mg PO DAILY Omeprazole 40 mg PO DAILY Liraglutide [Victoza 2-Leonardo] 0.6 mg SQ DAILY Clopidogrel Bisulfate [Plavix] 75 mg PO HS Bumetanide 1 mg [Bumex 1 mg] 1 mg PO DAILY Nitroglycerin [Nitroquick] 0.4 mg SL UD Ipratropium/Albuterol Sulfate [Combivent Inhaler] 2 puff IH QID PRN PRN PRN Reason: Shortness Of Breath Allopurinol 100 mg [Zyloprim 100 mg] 100 mg PO DAILY Albuterol 2.5 mg/3 ml Neb [Proventil 2.5 mg/3 ml Neb] 1 amp IH QID Ergocalciferol (Vitamin D2) [Vitamin D] 1 cap PO 2XW Carvedilol 6.25 mg PO BID Atorvastatin Calcium 40 mg PO HS Bromocriptine Mesylate [Cycloset] 6 tab PO DAILY Nabumetone 500 mg PO BID Dextroamphetamine/Amphetamine [Dextroamp-Amphet ER 10 mg Cap] 10 mg PO DAILY Probenecid/Colchicine [Probenecid-Colchicine Tablet] 1 each PO DAILY Follow up with: AUSTIN PIMENTEL MD [Primary Care Provider] - 1 Week
[2019-04-26] MEDS: Pepcid 20 MG PO SCH (09:11)
[2019-04-26] MEDS: FISH OIL 1,000 MG CAPSULE PO SCH (09:11)
[2019-04-26] MEDS: Klor Con 10 MEQ PO SCH (09:11)
[2019-04-26] MEDS: ECOTRIN 81 MG PO SCH (09:11)
[2019-04-26] MEDS: NEURONTIN 300 MG PO SCH (09:11)
[2019-04-26] MEDS: BUMEX 1 MG PO SCH (09:11)
[2019-04-26] MEDS: Coreg 6.25 MG PO SCH (09:11)
[2019-04-26] MEDS: Protonix 40MG Tablet PO SCH (09:11)
[2019-04-26] MEDS: ZYLOPRIM 100 MG PO SCH (09:11)
[2019-04-26] MEDS: ENOXAPARIN SODIUM SQ SCH (09:12)
[2019-04-26] MEDS: ROCEPHIN 1 Gm-D5w 50 ml Bag** 1 G/50 ML IVPB IV SCH (09:12)
[2019-04-26] MEDS ORDERED: VITAMIN D2 PO SCH (10:00)
[2019-04-26 11:41] VITALS: BP 127/58; PULSE 79
== END 2019-04-26 12:00 | disposition home or self-care (01) ==
LOC: ED 15:00 → MED SURG 16:46
PROVIDERS: ADMIT General Practice; ATTEND General Practice
DX: J44.1 Chronic obstructive pulmonary disease with (acute) exacerbation (principal); G47.33 Obstructive sleep apnea (adult) (pediatric); E87.2 Acidosis; J44.9 Chronic obstructive pulmonary disease, unspecified; E11.9 Type 2 diabetes mellitus without complications; I10 Essential (primary) hypertension; E78.00 Pure hypercholesterolemia, unspecified; I25.2 Old myocardial infarction; F17.200 Nicotine dependence, unspecified, uncomplicated; Z79.01 Long term (current) use of anticoagulants; Z79.899 Other long term (current) drug therapy
CPT/HCPCS: 36415; 36600; 71045; 80048; 80053; 81001; 82375; 82803; 82805; 82962; 83036; 83605; 83735; 83880; 84484; 85025; 85610; 85730; 87040; 87631; 93005; 93041; 93268; 94002; 94003; 94150; 94640; 94760; 94762; 96360; 96365; 96374; 99285; 99291; J0696; J1650; J2930; A9270-GY; G0378

== ENCOUNTER 2019-08-06 13:17 | Inpatient (IN) | payer MEDICARE, OTHER ==
[2019-08-06] MEDS ORDERED: PROVENTIL 2.5 MG/3 ML NEB IH ONE ×4 (13:49→13:59)
[2019-08-06] MEDS ORDERED: DUONEB 0.5-3 MG/3 ml Neb IH ONE ×2 (13:49→13:58)
[2019-08-06] MEDS ORDERED: DELTASONE 20 MG PO STA (13:50)
--- NOTE | 2019-08-06 13:50 | ERPHSYRPT ---
- History of Present Illness Time Seen by Provider: 08/06/19 13:40 Source: patient, family Exam Limitations: no limitations Physician History: The patient is a 64-year-old male with a past medical history significant for COPD, CHF, diabetes mellitus, and intermittent cigarette smoking presents with a chief complaint of shortness of breath. Onset reportedly was 3 days ago and is gotten worse since that time. He endorsed having a productive cough in which she is coughing up green-tinged sputum in addition to wheezing. He uses oxygen chronically at home, specifically 3 L/min via nasal cannula. The patient also reportedly has obstructive sleep apnea but has not been compliant with his CPAP. He denies fever, chills, chest pain. Of note, the patient was a poor historian. Patient states that he quit smoking some years ago but will sneak a cigarette every now and then. Timing/Duration: other (3 days) Associated Symptoms: shortness of breath, cough, No nausea, No vomiting, No abdominal pain, No chest pain, No headaches Allergies/Adverse Reactions: naproxen [From Aleve] Allergy (Verified 08/06/19 13:41) Home Medications: Allopurinol 100 mg [Zyloprim 100 mg] 100 mg PO DAILY 07/27/12 [History] Aspirin 81 mg PO DAILY 07/27/12 [History] Bumetanide 1 mg [Bumex 1 mg] 1 mg PO DAILY 07/27/12 [History] Clopidogrel Bisulfate [Plavix] 75 mg PO HS 07/27/12 [History] Gabapentin 300 mg [Neurontin 300 mg] 300 mg PO TID 07/27/12 [History] Ipratropium/Albuterol Sulfate [Combivent Inhaler] 2 puff IH QID 07/27/12 [ History] Metformin HCl [Metformin HCl ER] 1,000 mg PO BID 07/27/12 [History] Nitroglycerin [Nitroquick] 0.4 mg SL Q5MIN PRN MR X 3 PRN 07/27/12 [History] [place]-3 Fatty Acids/Fish Oil [Fish Oil 1,000 mg Capsule] 1 each PO DAILY [History] Potassium Chloride [Klor-Con 10] 10 meq PO BID 07/27/12 [History] Albuterol 2.5 mg/3 ml Neb [Proventil 2.5 mg/3 ml Neb] 1 amp IH QID [History] Atorvastatin Calcium 40 mg PO HS 04/24/19 [History] Bromocriptine Mesylate [Cycloset] 6 tab PO DAILY 04/24/19 [History] Dextroamphetamine/Amphetamine [Dextroamp-Amphet ER 10 mg Cap] 10 mg PO DAILY 12/05 [History] Ergocalciferol (Vitamin D2) [Vitamin D] 1 cap PO 2XW 04/24/19 [History] Nabumetone 500 mg PO BID 04/24/19 [History] Probenecid/Colchicine [Probenecid-Colchicine Tablet] 1 tab PO BID 04/24/19 [ History] carvediloL [Carvedilol] 6.25 mg PO BIDWM 04/24/19 [History] Empagliflozin [Jardiance] 25 mg PO QAM 08/06/19 [History] Insulin Lispro [Admelog] 100 unit SQ UD 08/06/19 [History] Liraglutide [Victoza 2-Leonardo] 1.8 mg SQ DAILY 08/06/19 [History] Hx Tetanus, Diphtheria Vaccination/Date Given: Yes Hx Influenza Vaccination/Date Given: Yes (2013) Hx Pneumococcal Vaccination/Date Given: Yes (2013) - Review of Systems Constitutional: Fatigue, No Fever, No Chills Respiratory: Cough, Dyspnea, Dyspnea on Exertion (MANDUJANO), Wheezing Abdominal/Gastrointestinal: No Abdominal Pain, No Nausea, No Vomiting Genitourinary Symptoms: No Dysuria, No Frequency, No Hematuria - Past Medical History Pertinent Past Medical History: Yes Neurological History: Peripheral Neuropathy ENT History: No Pertinent History Cardiac History: Congestive Heart Failure, High Cholesterol, Hypertension, Myocardial Infarction (OR) Respiratory History: CHF, COPD, Emphysema, Sleep Apnea Endocrine Medical History: Diabetes Type II Musculoskeletal History: Osteoarthritis GI Medical History: No Pertinent History History: No Pertinent History Psycho-Social History: No Pertinent History Male Reproductive Disorders: No Pertinent History Other Medical History: gout - Past Surgical History Past Surgical History: Yes Neuro Surgical History: No Pertinent History Cardiac: Cardiac Catheterization, Cardiac Stent Respiratory: No Pertinent History Gastrointestinal: Cholecystectomy Genitourinary: No Pertinent History Musculoskeletal: Orthopedic Surgery Male Surgical History: No Pertinent History Other Surgical History: l shoulder, l knee x3, r leg, r hand/arm, r shoulder - Social History Smoking Status: Current some day smoker How long have you smoked: 40 years Exposure to second hand smoke: Yes Drug Use: marijuana Patient Lives Alone: Yes - Nursing Vital Signs Nursing Vital Signs: Initial Vital Signs Temperature 98.6 F 08/06/19 13:21 Pulse Rate 102 H 08/06/19 13:21 Respiratory Rate 29 H 08/06/19 13:21 Blood Pressure 142/104 08/06/19 13:21 O2 Sat by Pulse Oximetry 79 L 08/06/19 13:21 Pain Scale Pain Intensity 0 - Physical Exam General Appearance: mild distress, alert, obese Eye Exam: PERRL/EOMI, No scleral icterus Ears, Nose, Throat Exam: normal ENT inspection, No pharynx normal, No TM abnormal (L), No pharyngeal erythema, No tonsillar exudate Neck Exam: normal inspection, No JVD, No midline tenderness Respiratory Exam: respiratory distress, airway intact, diminished breath sounds , prolonged expirations, wheezing (Coarse expiratory wheezing noted bilaterally with a prolonged expiratory time consistent with what appears to be obstructive lung disease), No chest tenderness, No crackles/rales Cardiovascular Exam: normal peripheral pulses, tachycardia, capillary refill <2 sec, other (Irregular pulse with sinus rhythm on monitor with what appears to be an occaisonal PAC), No murmur, No friction rub Gastrointestinal/Abdomen Exam: soft, distention, No tenderness, No mass, No guarding, No ecchymosis Rectal Exam: deferred Back Exam: normal inspection, No CVA tenderness Extremity Exam: pedal edema, swelling, other (Lateral lower extremity edema consistent with chronic lymphedema. There is no significant calf tenderness, asymmetric swelling, or increased warmth to suggest DVT at this time.), No tenderness Neurologic Exam: alert, oriented x 3, cooperative, other (Somnolent at times however will awake and answer questions appropriately. There is no myoclonic jerks noted.) Skin Exam: normal color, warm, dry, No rash SpO2 Interpretation: hypoxic O2 Delivery: Room Air - Course Nursing assessment & vital signs reviewed: Yes EKG Interpreted by Me: RATE, NORMAL AXIS, NORMAL INTERVALS, Other (Vent rate 84 bpm, [place] interval 134 ms, QRS duration 68 ms, QT/QTc 374/443 ms. Appears sinus but irregular with possible PAC present) - Radiology Exams Chest X-ray Interpretation: Reviewed by me, Negative Ordered Tests: Active Orders 24 hr Category Date Time Status Up With Assistance ROUTINE Activity 08/06/19 16:18 Active Tread Cutter STAT Care 08/06/19 13:42 Completed Code Status Order ROUTINE Care 08/06/19 16:18 Active EKG-ER Only STAT Care 08/06/19 13:41 Completed IV Care Q6H Care 08/06/19 16:18 Active IV Insertion STAT Care 08/06/19 13:46 Completed Oxygen-ED Only Nasal Cannula 3 lpm Care 08/06/19 13:46 Completed Pulse Oximetry (ED) STAT Care 08/06/19 13:41 Completed Trent Hernandez, Yon ROUTINE Care 08/06/19 16:18 Active Vital Signs Q4H Care 08/06/19 16:18 Active Weight,Daily 0600 Care 08/06/19 16:18 Active Low Sodium Diet 08/06/19 Dinner Active CHEST 2 VIEWS (PA AND LAT) DAILY Exams 08/07/19 06:00 Ordered CHEST 2 VIEWS (PA AND LAT) Stat Exams 08/06/19 13:42 Completed BMP AM.LAB Lab 08/07/19 04:00 Ordered BMP Stat Lab 08/06/19 14:01 Completed CBC AM.LAB Lab 08/07/19 04:00 Ordered CBC W DIFF Stat Lab 08/06/19 14:01 Completed NT PRO BNP Stat Lab 08/06/19 14:01 Completed TROPONIN Stat Lab 08/06/19 14:01 Completed VENOUS BLOOD GAS Stat Lab 08/06/19 13:51 Completed BiPap/CPAP ROUTINE RT 08/06/19 16:18 Active Oxygen Nasal Cannula 3 lpm RT 08/06/19 16:18 Active Pulse Oximetry ROUTINE RT 08/06/19 16:18 Active Respiratory Therapy Consult ROUTINE RT 08/06/19 16:18 Completed Transfer Order Routine Transfer 08/06/19 Completed Medication Summary Generic Name Dose Route Start Last Admin Trade Name Freq PRN Reason Stop Dose Admin Albuterol Sulfate 2.5 mg 08/06/19 16:32 Proventil 2.5 Mg/3 Ml Neb IH 09/05/19 16:31 Q2H PRN PRN SHORTNESS OF BREATH/WHEEZING Albuterol/Ipratropium 3 ml 08/06/19 19:00 Duoneb 0.5-3 Mg/3 Ml Neb IH 09/05/19 18:59 Q4HRT ALINA Doxycycline Hyclate 100 mg 08/06/19 22:00 Vibramycin 100 Mg PO 09/05/19 21:59 BID ALINA Enoxaparin Sodium 40 mg 08/06/19 17:00 08/06/19 17:40 Enoxaparin Sodium SQ 09/05/19 16:59 40 mg DAILY ALINA Administration Ceftriaxone Sodium/Dextrose 1 g in 50 mls @ 100 mls/hr 08/06/19 20:00 Rocephin 1 Gm-D5w 50 Ml Bag IV 09/05/19 19:59 Q24H10 ALINA Methylprednisolone Sodium Succinate 40 mg 08/06/19 20:00 Solu-Medrol 40 Mg IV 09/05/19 19:59 Q8H ALINA Discontinued Medications Generic Name Dose Route Start Last Admin Trade Name Freq PRN Reason Stop Dose Admin Albuterol Sulfate 2.5 mg 08/06/19 13:49 08/06/19 14:10 Proventil 2.5 Mg/3 Ml Neb IH 08/06/19 13:50 2.5 mg STAT ONE Administration Albuterol Sulfate 2.5 mg 08/06/19 13:51 08/06/19 14:17 Proventil 2.5 Mg/3 Ml Neb IH 08/06/19 13:52 2.5 mg STAT ONE Administration Albuterol Sulfate Confirm 08/06/19 13:58 Proventil 2.5 Mg/3 Ml Neb Administered 08/06/19 13:59 Dose 2.5 mg IH .STK-MED ONE Albuterol Sulfate Confirm 08/06/19 13:59 Proventil 2.5 Mg/3 Ml Neb Administered 08/06/19 14:00 Dose 2.5 mg IH .STK-MED ONE Albuterol Sulfate 2.5 mg 08/06/19 19:00 Proventil 2.5 Mg/3 Ml Neb IH 09/05/19 18:59 Q4HRT [facility] Albuterol/Ipratropium 3 ml 08/06/19 13:49 08/06/19 14:00 Duoneb 0.5-3 Mg/3 Ml Neb IH 08/06/19 13:50 3 ml STAT ONE Administration Albuterol/Ipratropium Confirm 08/06/19 13:58 Duoneb 0.5-3 Mg/3 Ml Neb Administered 08/06/19 13:59 Dose 3 ml IH .STK-MED ONE Doxycycline Hyclate 100 mg 08/06/19 15:27 08/06/19 15:29 Vibramycin 100 Mg PO 08/06/19 15:28 100 mg STAT ONE Administration Doxycycline Hyclate Confirm 08/06/19 15:29 Vibramycin 100 Mg Administered 08/06/19 15:30 Dose 100 mg .ROUTE .STK-MED ONE Prednisone 40 mg 08/06/19 13:50 08/06/19 13:54 Deltasone 20 Mg PO 08/06/19 13:51 40 mg ONCE STA Administration Prednisone Confirm 08/06/19 13:53 Deltasone 20 Mg Administered 08/06/19 13:54 Dose 40 mg .ROUTE .STK-MED ONE Lab/Rad Data: Laboratory Result Diagrams 08/06/19 14:01 08/06/19 14:01 Laboratory Results 08/06/19 08/06/19 08/06/19 Range/Units 14:01 14:01 13:51 WBC 6.3 (4.0-10.5) K/mm3 RBC 6.72 H* (4.1-5.6) M/mm3 Hgb 15.4 (12.5-18.0) gm/dl Hct 52.6 H (42-50) % MCV 78.3 (78-100) fl MCH 22.9 L (26-32) pg MCHC 29.3 L (32-36) g/dl RDW 20.1 H (11.5-14.0) % Plt Count 139 L (150-450) K/mm3 MPV 10.6 (7.5-11.0) fl Gran % 68.8 H (36.0-66.0) % Eos # (Auto) 0.28 (0-0.5) Absolute Lymphs (auto) 0.82 L (1.0-4.6) Absolute Monos (auto) 0.84 (0.0-1.3) Lymphocytes % 13.0 L (24.0-44.0) % Monocytes % 13.3 H (0.0-12.0) % Eosinophils % 4.4 (0.00-5.0) % Basophils % 0.5 (0.0-0.4) % Absolute Granulocytes 4.33 (1.4-6.9) Basophils # 0.03 (0-0.4) pO2/FiO2 Ratio 21.0 % VBG pH 7.34 (7.32-7.42) VBG pCO2 at Pat Temp 82 H* (42-55) mm/Hg VBG pO2 at Pat Temp 154 H (25-40) mm/Hg VBG HCO3 44.2 H* (22-28) meq/L VBG O2 Sat (Giovanny) 98.4 (95-100) VBG Base Excess 14.4 H (-2.0-2.0) VBG Hemoglobin 15.6 VBG Carboxyhemoglobin 5.2 (0.0-6.9) % T HGB POC Potassium 5.8 H (3.5-5.1) Sodium 141 (137-145) mmol/L Potassium 4.2 (3.5-5.1) mmol/L Chloride 99 (98-107) mmol/L Carbon Dioxide 37 H (22-30) mmol/L Anion Gap 9.3 (5-15) MEQ/L BUN 14 (9-20) mg/dL Creatinine 0.58 L (0.66-1.25) mg/dL Estimated GFR > 60.0 ML/MIN Glucose 142 H (74-106) mg/dL Calcium 9.2 (8.4-10.2) mg/dL Troponin I < 0.012 (0.000-0.034) ng/mL NT-Pro-B Natriuret Pep 33.9 (0-900) pg/mL - Progress Progress: re-examined Progress Note: 08/06/19 15:20 The patient was reexamined to find that he is still having coarse expiratory wheezing seemed a little drowsy. His hypoxia resolved with supplemental oxygen via facemask. His is at bedside and both he and his agree to admission. Currently am paging the family medicine doctor to arrange admission. 08/06/19 18:54 Nontoxic in appearance. The patient presents with acute respiratory failure with hypoxia and hypercapnia likely secondary to a COPD exacerbation that was brought on by a viral upper respiratory tract infection given that he is RSV positive. His chest x-rays reviewed show no evidence of focal pneumonia however given his history of COPD I will go ahead and treat with p.o. doxycycline at this time. PA CO2 appeared to be elevated however his pH value is within normal limits and this is likely reflective of a chronic state of hypoventilation for which he has compensated for. This is likely reflective of his COPD in addition to his noncompliance with his CPAP given his history of obstructive sleep apnea. I did not feel the patient is suffering from an ACS equivalent at this time and my suspicion for PE is low. Ultimately, the patient 's hypoxia resolved with serial nebs in addition to supplemental oxygen. He will be admitted to the medicine unit for further evaluation and management. Discussed with : Javier (Agreed to admit for full admission. Agrees with management. ) Will see patient in: hospital (full admit) Counseled pt/family regarding: lab results, diagnosis, rad results, smoking cessation - Departure Departure Disposition: Home, In-patient Admission Clinical Impression: Acute respiratory failure with hypoxia and hypercapnia, COPD with exacerbation , Obstructive sleep apnea Condition: Stable Critical Care Time: No
[2019-08-06] MEDS ORDERED: DELTASONE 20 MG ONE (13:53)
[2019-08-06 14:01] LABS: VBG BASE EXCESS 14.4 (-2.0-2.0); VBG CARBOXYHEMOGLOBIN 5.2 % T HGB (0.0-6.9); VBG HCO3- 44.2 meq/L (22-28); VBG HEMOGLOBIN 15.6; VBG O2 SATURATION 98.4 (95-100); VBG POTASSIUM 5.8 (3.5-5.1); VBG pH 7.34 (7.32-7.42)
[2019-08-06 14:05] LABS: Absolute Neutrophil Ct (ANC) 4.33 (1.4-6.9); BASOPHIL % 0.5 % (0.0-0.4); Basophil (Absolute #) 0.03 (0-0.4); Eosinophil % 4.4 % (0.00-5.0); Eosinophil (Absolute #) 0.28 (0-0.5); Hematocrit 52.6 % (42-50); Hemoglobin 15.4 gm/dl (12.5-18.0); Lymphocyte (Absolute #) 0.82 (1.0-4.6); Mean Cell Volume 78.3 fl (78-100); Mean Corpuscular Hemoglobin 22.9 pg (26-32); Mean Corpuscular Hgb Concent. 29.3 g/dl (32-36); Mean Platelet Volume 10.6 fl (7.5-11.0); Monocyte (Absolute #) 0.84 (0.0-1.3); Monocytes % 13.3 % (0.0-12.0); Neutrophil % 68.8 % (36.0-66.0); Platelet Count 139 K/mm3 (150-450); Red Blood Count 6.72 M/mm3 (4.1-5.6); Red Cell Distribution Width 20.1 % (11.5-14.0); White Blood Count 6.3 K/mm3 (4.0-10.5)
[2019-08-06 14:25] LABS: ANION GAP 9.3 MEQ/L (5-15); BLOOD UREA NITROGEN 14 mg/dL (9-20); CHLORIDE 99 mmol/L (98-107); Calcium 9.2 mg/dL (8.4-10.2); Carbon Dioxide 37 mmol/L (22-30); Creatinine 1 0.58 mg/dL (0.66-1.25); Glucose 142 mg/dL (74-106); NT PRO BNP 33.9 pg/mL (0-900); Potassium 4.2 mmol/L (3.5-5.1); SODIUM 141 mmol/L (137-145)
[2019-08-06 14:26] LABS: TROPONIN < 0.012 ng/mL (0.000-0.034)
--- NOTE | 2019-08-06 14:45 | XRAY ---
Indication: Short of breath. Comparison: April 25, 2019. PA/lateral chest now demonstrates normal heart and lungs with stable left mid lung calcified granuloma. Bony thorax intact again with mild degenerative changes. Impression: Nonacute chest with chronic features.
[2019-08-06 15:25] LABS: INFLUENZA A NEGATIVE (NEGATIVE); INFLUENZA B NEGATIVE (NEGATIVE)
[2019-08-06 15:26] LABS: RESPIRATORY SYNCTIAL VIRUS POSITIVE (Negative)
[2019-08-06] MEDS ORDERED: Vibramycin 100 MG PO ONE (15:27)
[2019-08-06] MEDS ORDERED: Vibramycin 100 MG ONE (15:29)
[2019-08-06] MEDS ORDERED: PROVENTIL 2.5 MG/3 ML NEB IH PRN (16:32)
[2019-08-06] MEDS: ENOXAPARIN SODIUM SQ SCH (17:40)
[2019-08-06] MEDS ORDERED: PROVENTIL 2.5 MG/3 ML NEB IH SCH (19:00)
[2019-08-06] MEDS: DUONEB 0.5-3 MG/3 ml Neb IH SCH ×2 (19:22→23:16)
[2019-08-06] MEDS: solu-MEDROL 40 MG IV SCH (19:50)
[2019-08-06] MEDS ORDERED: ROCEPHIN 1 Gm-D5w 50 ml Bag** 1 G/50 ML IVPB IV SCH (20:00)
[2019-08-06] MEDS: Vibramycin 100 MG PO SCH (21:44)
[2019-08-07] MEDS: PLAVIX 75 MG Tablet PO SCH ×2 (00:13→21:17)
[2019-08-07] MEDS: NEURONTIN 300 MG PO SCH ×4 (00:13→21:16)
[2019-08-07] MEDS: DUONEB 0.5-3 MG/3 ml Neb IH SCH ×6 (02:47→23:35)
[2019-08-07] MEDS: solu-MEDROL 40 MG IV SCH ×3 (03:05→21:16)
[2019-08-07 05:01] LABS: Hematocrit 54.2 % (42-50); Hemoglobin 15.2 gm/dl (12.5-18.0); Mean Cell Volume 78.6 fl (78-100); Mean Platelet Volume 11.5 fl (7.5-11.0); Platelet Count 164 K/mm3 (150-450); Red Cell Distribution Width 20.6 % (11.5-14.0); White Blood Count 3.7 K/mm3 (4.0-10.5)
[2019-08-07 05:20] LABS: ANION GAP 8.9 MEQ/L (5-15); BLOOD UREA NITROGEN 19 mg/dL (9-20); CHLORIDE 99 mmol/L (98-107); Calcium 9.3 mg/dL (8.4-10.2); Carbon Dioxide 37 mmol/L (22-30); Creatinine 1 0.69 mg/dL (0.66-1.25); Glucose 228 mg/dL (74-106); Potassium 4.4 mmol/L (3.5-5.1); SODIUM 141 mmol/L (137-145)
[2019-08-07 05:26] LABS: Slide Review YES
[2019-08-07] MEDS ORDERED: Nitrostat 0.4 MG Tablet SL PRN (06:57)
[2019-08-07] MEDS ORDERED: HUMALOG SQ SCH (07:00)
[2019-08-07] MEDS ORDERED: PATIENT OWN MEDICATION SQ PRN (07:05)
[2019-08-07] MEDS ORDERED: MEDICATION INTERVENTION MC SCH ×5 (07:30→07:45)
[2019-08-07] MEDS: Glucophage XR 500 MG PO SCH ×2 (08:52→17:14)
[2019-08-07] MEDS: Coreg 6.25 MG PO SCH ×2 (08:52→17:14)
[2019-08-07] MEDS: Klor Con 10 MEQ PO SCH ×2 (08:52→21:17)
[2019-08-07] MEDS: Vibramycin 100 MG PO SCH ×2 (08:53→21:17)
[2019-08-07] MEDS: BUMEX 1 MG PO SCH (08:53)
[2019-08-07] MEDS: FISH OIL 1,000 MG CAPSULE PO SCH (08:53)
[2019-08-07] MEDS: ECOTRIN 81 MG PO SCH (08:53)
[2019-08-07] MEDS: ZYLOPRIM 100 MG PO SCH (08:53)
--- NOTE | 2019-08-07 09:04 | XRAY ---
Indication: Dyspnea. RSV. Comparison: One day earlier. Portable apical lordotic chest remains clear again with left mid lung calcified granuloma. Heart is not enlarged for AP portable technique. New electronic device overlies cardiac silhouette. Impression: Again nonacute chest with chronic feature.
[2019-08-07] MEDS ORDERED: NON-FORMULARY ITEM (Empagliflozin [Jardiance] 25 MG) PO SCH (10:00)
[2019-08-07] MEDS ORDERED: PROBENECID PO SCH (10:00)
[2019-08-07] MEDS ORDERED: BROMOCRIPTINE MESYLATE PO SCH (10:00)
[2019-08-07] MEDS ORDERED: DEXTROAMPHETAMINE PO SCH ×2 (10:00)
[2019-08-07] MEDS ORDERED: AMPHETAMINE PO SCH ×2 (10:00)
[2019-08-07] MEDS ORDERED: NON-FORMULARY ITEM (Omega-3 Fatty Acids/Fish Oil [Fish Oil 1,000 Mg Capsule] 1 EACH) PO SCH (10:00)
[2019-08-07] MEDS ORDERED: COLCHICINE PO SCH (10:00)
[2019-08-07] MEDS ORDERED: NON-FORMULARY ITEM (Aspirin [Aspirin] 81 MG) PO SCH (10:00)
[2019-08-07] MEDS ORDERED: [UNRECOGNIZED DRUG - OTHER] PO SCH ×2 (10:00)
--- NOTE | 2019-08-07 12:21 | PCM.HP ---
History of Present Illness - Chief Complaint Chief Complaint: c/o very short of breath for 2-3 days History of Present Illness: is a 64 year old male with a past medical history significant for COPD, CHF, diabetes mellitus, and intermittent cigarette smoking presents with a chief complaint of shortness of breath. Onset reportedly was 3 days ago and is gotten worse since that time. He endorsed having a productive cough in which she is coughing up green-tinged sputum in addition to wheezing. He uses oxygen chronically at home, specifically 3 L/min via nasal cannula. The patient also reportedly has obstructive sleep apnea but has not been compliant with his CPAP. He denies fever, chills, chest pain. Of note, the patient was a poor historian. Patient states that he quit smoking some years ago but will sneak a cigarette every now and then. Timing/Duration: other (3 days) Associated Symptoms: shortness of breath, cough, No nausea, No vomiting, No abdominal pain, No chest pain, No headaches - Review of Systems Constitutional: No Fever, No Chills Eyes: No Symptoms Ears, Nose, & Throat: No Symptoms Respiratory: No Cough, No Short Of Breath Cardiac: No Chest Pain, No Edema, No Syncope Abdominal/Gastrointestinal: No Abdominal Pain, No Nausea, No Vomiting, No Diarrhea Genitourinary Symptoms: No Dysuria Musculoskeletal: No Back Pain, No Neck Pain Skin: No Rash Neurological: No Dizziness, No Focal Weakness, No Sensory Changes Psychological: No Symptoms Endocrine: No Symptoms Hematologic/Lymphatic: No Symptoms Immunological/Allergic: No Symptoms Medications & Allergies Home Medications: Home Medication List Allopurinol 100 mg [Zyloprim 100 mg] 100 mg PO DAILY 07/27/12 [History Confirmed 08/06/19] Aspirin 81 mg PO DAILY 07/27/12 [History Confirmed 08/06/19] Bumetanide 1 mg [Bumex 1 mg] 1 mg PO DAILY 07/27/12 [History Confirmed ] Clopidogrel Bisulfate [Plavix] 75 mg PO HS 07/27/12 [History Confirmed 08/06/19] Gabapentin 300 mg [Neurontin 300 mg] 300 mg PO TID 07/27/12 [History Confirmed 08/06/19] Ipratropium/Albuterol Sulfate [Combivent Inhaler] 2 puff IH QID 07/27/12 [ History Confirmed 08/06/19] Metformin HCl [Metformin HCl ER] 1,000 mg PO BID 07/27/12 [History Confirmed ] Nitroglycerin [Nitroquick] 0.4 mg SL Q5MIN PRN MR X 3 PRN 07/27/12 [History Confirmed 08/06/19] [place]-3 Fatty Acids/Fish Oil [Fish Oil 1,000 mg Capsule] 1 each PO DAILY [History Confirmed 08/06/19] Potassium Chloride [Klor-Con 10] 10 meq PO BID 07/27/12 [History Confirmed 08/06] Albuterol 2.5 mg/3 ml Neb [Proventil 2.5 mg/3 ml Neb] 1 amp IH QID [History Confirmed 08/06/19] Atorvastatin Calcium 40 mg PO HS 04/24/19 [History Confirmed 08/06/19] Bromocriptine Mesylate [Cycloset] 6 tab PO DAILY 04/24/19 [History Confirmed ] Dextroamphetamine/Amphetamine [Dextroamp-Amphet ER 10 mg Cap] 10 mg PO DAILY 12/05 [History Confirmed 08/06/19] Ergocalciferol (Vitamin D2) [Vitamin D] 1 cap PO 2XW 04/24/19 [History Confirmed 08/06/19] Nabumetone 500 mg PO BID 04/24/19 [History Confirmed 08/06/19] Probenecid/Colchicine [Probenecid-Colchicine Tablet] 1 tab PO BID 04/24/19 [ History Confirmed 08/06/19] carvediloL [Carvedilol] 6.25 mg PO BIDWM 04/24/19 [History Confirmed 08/06/19] Empagliflozin [Jardiance] 25 mg PO QAM 08/06/19 [History Confirmed 08/06/19] Insulin Lispro [Admelog] 100 unit SQ UD 08/06/19 [History Confirmed 08/06/19] Liraglutide [Victoza 2-Leonardo] 1.8 mg SQ DAILY 08/06/19 [History Confirmed 08/06/19 ] Allergies/Adverse Reactions: Allergies Allergy/AdvReac Type Severity Reaction Status Date / Time naproxen [From Aleve] Allergy Verified 08/06/19 13:41 - Past Medical History Past Medical History: Yes Neurological History: Peripheral Neuropathy ENT History: No Pertinent History Cardiac History: Congestive Heart Failure, High Cholesterol, Hypertension, Myocardial Infarction (HI) Respiratory History: CHF, COPD, Emphysema, Sleep Apnea Endocrine Medical History: Diabetes Type II Musculoskelatal History: Osteoarthritis GI Medical History: No Pertinent History History: No Pertinent History Pyscho-Social History: No Pertinent History Male Reproductive Disorders: No Pertinent History Comment: gout - Past Surgical History Past Surgical History: Yes Neuro Surgical History: No Pertinent History Cardiac History: Cardiac Catheterization, Cardiac Stent Respiratory Surgery: No Pertinent History GI Surgical History: Cholecystectomy Genitourinary Surgical Hx: No Pertinent History Musculskeletal Surgical Hx: Orthopedic Surgery Male Surgical History: No Pertinent History Other Surgical History: l shoulder, l knee x3, r leg, r hand/arm, r shoulder - Social History Smoking Status: Current some day smoker How long have you smoked: 40 years Exposure to second hand smoke: Yes Alcohol: Rarely Drug Use: marijuana - Physical Exam Vital Signs: Vital Signs - 24 hr Temp Pulse Resp BP Pulse Ox 08/07/19 11:06 92 H 24 92 L 08/07/19 08:00 98.1 F 71 26 H 157/89 96 08/07/19 06:35 71 26 H 91 L 08/07/19 03:53 97.2 F 70 24 127/84 90 L 08/07/19 02:53 70 24 90 L 08/06/19 23:34 97.4 F 104 H 20 141/84 87 L 08/06/19 23:22 85 22 87 L 08/06/19 19:46 97.5 F 101 H 22 157/77 92 L 08/06/19 19:38 101 H 22 93 L 08/06/19 16:33 94 L 08/06/19 16:14 96.5 F 103 H 20 155/75 94 L 08/06/19 16:09 96.2 F 103 H 20 155/75 94 L 08/06/19 15:05 78 25 H 143/65 96 08/06/19 14:06 115 H 28 H 93 L 08/06/19 13:58 100 H 26 H 153/78 94 L 08/06/19 13:45 79 L 08/06/19 13:21 98.6 F 102 H 28 H 142/104 97 Oxygen-Last 24 hours Oxygen Flowrate (L/min)-RT 8 Oxygen Flowrate (L/min)-RT 5 General Appearance: no apparent distress, alert Neurologic Exam: alert, oriented x 3, cooperative, normal mood/affect, nml cerebellar function, nml station & gait, sensation nml, No motor deficits Eye Exam: PERRL/EOMI, eyes nml inspection Ears, Nose, Throat Exam: normal ENT inspection, TMs normal, pharynx normal, moist mucous membranes Neck Exam: normal inspection, non-tender, supple, full range of motion Respiratory Exam: normal breath sounds, lungs clear, No respiratory distress Cardiovascular Exam: regular rate/rhythm, normal heart sounds, normal peripheral pulses Gastrointestinal/Abdomen Exam: soft, normal bowel sounds, No tenderness, No mass Back Exam: normal inspection, normal range of motion, No CVA tenderness, No vertebral tenderness Extremity Exam: normal inspection, normal range of motion, pelvis stable Skin Exam: normal color, warm, dry, No rash Lymphatic Exam: No adenopathy Results - Labs Lab/Micro Results: Accuchecks Accucheck Value: 228 Accucheck Value: 252 Accucheck Value: 114 Lab Results-Last 24 Hours 08/06/19 08/06/19 08/06/19 Range/Units 13:51 14:01 14:01 WBC 6.3 (4.0-10.5) K/mm3 RBC 6.72 H* (4.1-5.6) M/mm3 Hgb 15.4 (12.5-18.0) gm/dl Hct 52.6 H (42-50) % MCV 78.3 (78-100) fl MCH 22.9 L (26-32) pg MCHC 29.3 L (32-36) g/dl RDW 20.1 H (11.5-14.0) % Plt Count 139 L (150-450) K/mm3 MPV 10.6 (7.5-11.0) fl Gran % 68.8 H (36.0-66.0) % Eos # (Auto) 0.28 (0-0.5) Absolute Lymphs (auto) 0.82 L (1.0-4.6) Absolute Monos (auto) 0.84 (0.0-1.3) Lymphocytes % 13.0 L (24.0-44.0) % Monocytes % 13.3 H (0.0-12.0) % Eosinophils % 4.4 (0.00-5.0) % Basophils % 0.5 (0.0-0.4) % Absolute Granulocytes 4.33 (1.4-6.9) Basophils # 0.03 (0-0.4) pO2/FiO2 Ratio 21.0 % VBG pH 7.34 (7.32-7.42) VBG pCO2 at Pat Temp 82 H* (42-55) mm/Hg VBG pO2 at Pat Temp 154 H (25-40) mm/Hg VBG HCO3 44.2 H* (22-28) meq/L VBG O2 Sat (Giovanny) 98.4 (95-100) VBG Base Excess 14.4 H (-2.0-2.0) VBG Hemoglobin 15.6 VBG Carboxyhemoglobin 5.2 (0.0-6.9) % T HGB POC Potassium 5.8 H (3.5-5.1) Sodium 141 (137-145) mmol/L Potassium 4.2 (3.5-5.1) mmol/L Chloride 99 (98-107) mmol/L Carbon Dioxide 37 H (22-30) mmol/L Anion Gap 9.3 (5-15) MEQ/L BUN 14 (9-20) mg/dL Creatinine 0.58 L (0.66-1.25) mg/dL Estimated GFR > 60.0 ML/MIN Glucose 142 H (74-106) mg/dL Hemoglobin A1c (4.5-6.0) % Calcium 9.2 (8.4-10.2) mg/dL Troponin I < 0.012 (0.000-0.034) ng/mL NT-Pro-B Natriuret Pep 33.9 (0-900) pg/mL Influenza Type A Ag (NEGATIVE) Influenza Type B Ag (NEGATIVE) RSV (PCR) (Negative) Slides for Path Review 08/06/19 08/07/19 08/07/19 Range/Units Unknown 04:25 04:25 WBC 3.7 L (4.0-10.5) K/mm3 RBC 6.90 H* (4.1-5.6) M/mm3 Hgb 15.2 (12.5-18.0) gm/dl Hct 54.2 H (42-50) % MCV 78.6 (78-100) fl MCH 22.0 L (26-32) pg MCHC 28.0 L (32-36) g/dl RDW 20.6 H (11.5-14.0) % Plt Count 164 (150-450) K/mm3 MPV 11.5 H (7.5-11.0) fl Gran % (36.0-66.0) % Eos # (Auto) (0-0.5) Absolute Lymphs (auto) (1.0-4.6) Absolute Monos (auto) (0.0-1.3) Lymphocytes % (24.0-44.0) % Monocytes % (0.0-12.0) % Eosinophils % (0.00-5.0) % Basophils % (0.0-0.4) % Absolute Granulocytes (1.4-6.9) Basophils # (0-0.4) pO2/FiO2 Ratio % VBG pH (7.32-7.42) VBG pCO2 at Pat Temp (42-55) mm/Hg VBG pO2 at Pat Temp (25-40) mm/Hg VBG HCO3 (22-28) meq/L VBG O2 Sat (Giovanny) (95-100) VBG Base Excess (-2.0-2.0) VBG Hemoglobin VBG Carboxyhemoglobin (0.0-6.9) % T HGB POC Potassium (3.5-5.1) Sodium 141 (137-145) mmol/L Potassium 4.4 (3.5-5.1) mmol/L Chloride 99 (98-107) mmol/L Carbon Dioxide 37 H (22-30) mmol/L Anion Gap 8.9 (5-15) MEQ/L BUN 19 (9-20) mg/dL Creatinine 0.69 (0.66-1.25) mg/dL Estimated GFR > 60.0 ML/MIN Glucose 228 H (74-106) mg/dL Hemoglobin A1c (4.5-6.0) % Calcium 9.3 (8.4-10.2) mg/dL Troponin I (0.000-0.034) ng/mL NT-Pro-B Natriuret Pep (0-900) pg/mL Influenza Type A Ag NEGATIVE (NEGATIVE) Influenza Type B Ag NEGATIVE (NEGATIVE) RSV (PCR) POSITIVE (Negative) Slides for Path Review YES 08/07/19 Range/Units 07:50 WBC (4.0-10.5) K/mm3 RBC (4.1-5.6) M/mm3 Hgb (12.5-18.0) gm/dl Hct (42-50) % MCV (78-100) fl MCH (26-32) pg MCHC (32-36) g/dl RDW (11.5-14.0) % Plt Count (150-450) K/mm3 MPV (7.5-11.0) fl Gran % (36.0-66.0) % Eos # (Auto) (0-0.5) Absolute Lymphs (auto) (1.0-4.6) Absolute Monos (auto) (0.0-1.3) Lymphocytes % (24.0-44.0) % Monocytes % (0.0-12.0) % Eosinophils % (0.00-5.0) % Basophils % (0.0-0.4) % Absolute Granulocytes (1.4-6.9) Basophils # (0-0.4) pO2/FiO2 Ratio % VBG pH (7.32-7.42) VBG pCO2 at Pat Temp (42-55) mm/Hg VBG pO2 at Pat Temp (25-40) mm/Hg VBG HCO3 (22-28) meq/L VBG O2 Sat (Giovanny) (95-100) VBG Base Excess (-2.0-2.0) VBG Hemoglobin VBG Carboxyhemoglobin (0.0-6.9) % T HGB POC Potassium (3.5-5.1) Sodium (137-145) mmol/L Potassium (3.5-5.1) mmol/L Chloride (98-107) mmol/L Carbon Dioxide (22-30) mmol/L Anion Gap (5-15) MEQ/L BUN (9-20) mg/dL Creatinine (0.66-1.25) mg/dL Estimated GFR ML/MIN Glucose (74-106) mg/dL Hemoglobin A1c 7.86 H (4.5-6.0) % Calcium (8.4-10.2) mg/dL Troponin I (0.000-0.034) ng/mL NT-Pro-B Natriuret Pep (0-900) pg/mL Influenza Type A Ag (NEGATIVE) Influenza Type B Ag (NEGATIVE) RSV (PCR) (Negative) Slides for Path Review Accuchecks Accucheck Value: 228 Accucheck Value: 252 Accucheck Value: 114 - Radiology Impressions Radiology Exams & Impressions: Radiology Procedures Category Date Time Status CHEST 1 VIEW (PORTABLE) Routine Exams 08/07/19 06:00 Completed CHEST 2 VIEWS (PA AND LAT) Stat Exams 08/06/19 13:42 Completed - Other Procedures and Tests Respiratory Therapy 08/06/19 14:06 Peak Expiratory Flow Rate ONCE 08/06/19 14:07 Respiratory Therapy Assessment DAILY 08/06/19 16:18 BiPap/CPAP ROUTINE Oxygen Nasal Cannula 3 lpm 08/07/19 09:19 RT Miscellaneous Order ROUTINE Assessment/Plan (1) Acute respiratory failure with hypoxia and hypercapnia Current Visit: Yes Status: Acute Assessment & Plan: Last Vital Signs Temp 98.1 F 08/07/19 08:00 Pulse 92 H 08/07/19 11:06 Resp 24 08/07/19 11:06 BP 157/89 08/07/19 08:00 Pulse Ox 92 L 08/07/19 11:06 Allergies naproxen [From Aleve] Allergy (Verified 08/06/19 13:41) Active Medications Albuterol Sulfate (Proventil 2.5 Mg/3 Ml Neb) 2.5 mg IH Q2H PRN PRN PRN Reason: SHORTNESS OF BREATH/WHEEZING Stop: 09/05/19 16:31 Albuterol/Ipratropium (Duoneb 0.5-3 Mg/3 Ml Neb) 3 ml IH Q4HRT [facility] Stop: 09/05/19 18:59 Last Admin: 08/07/19 11:06 Dose: 3 ml Allopurinol (Zyloprim 100 Mg) 100 mg PO DAILY [facility] Stop: 09/06/19 09:59 Last Admin: 08/07/19 08:53 Dose: 100 mg Aspirin (Ecotrin 81 Mg) 81 mg PO DAILY [facility] Stop: 09/06/19 09:59 Last Admin: 08/07/19 08:53 Dose: 81 mg Bumetanide (Bumex 1 Mg) 1 mg PO DAILY [facility] Stop: 09/06/19 09:59 Last Admin: 08/07/19 08:53 Dose: 1 mg Carvedilol (Coreg 6.25 Mg) 6.25 mg PO BIDWM [facility] Stop: 09/06/19 07:59 Last Admin: 08/07/19 08:52 Dose: 6.25 mg Clopidogrel Bisulfate (Plavix 75 Mg Tablet) 75 mg PO HS [facility] Stop: 09/06/19 00:59 Last Admin: 08/07/19 00:13 Dose: 75 mg Doxycycline Hyclate (Vibramycin 100 Mg) 100 mg PO BID [facility] Stop: 09/05/19 21:59 Last Admin: 08/07/19 08:53 Dose: 100 mg Enoxaparin Sodium (Enoxaparin Sodium) 40 mg SQ DAILY [facility] Stop: 09/05/19 16:59 Last Admin: 08/06/19 17:40 Dose: 40 mg Ergocalciferol (Vitamin D2) 50,000 unit PO MoFr@1000 [facility] Stop: 09/08/19 09:59 Fish Oil (Fish Oil 1,000 Mg Capsule) 1,000 mg PO DAILY [facility] Stop: 09/06/19 09:59 Last Admin: 08/07/19 08:53 Dose: 1,000 mg Gabapentin (Neurontin 300 Mg) 300 mg PO TID [facility] Stop: 09/06/19 09:59 Last Admin: 08/07/19 08:53 Dose: 300 mg Ceftriaxone Sodium/Dextrose (Rocephin 1 Gm-D5w 50 Ml Bag) 1 g in 50 mls @ 100 mls/hr IV Q24H22 [facility] Stop: 09/06/19 21:59 Metformin HCl (Glucophage Xr 500 Mg) 1,000 mg PO BIDWM [facility] Stop: 09/06/19 07:59 Last Admin: 08/07/19 08:52 Dose: 1,000 mg Methylprednisolone Sodium Succinate (Solu-Medrol 40 Mg) 40 mg IV Q8H [facility] Stop: 09/05/19 19:59 Last Admin: 08/07/19 03:05 Dose: 40 mg Miscellaneous Information (Medication Intervention) 1 each MC .RN TO CHECK WITH PT [facility] Stop: 09/06/19 07:29 Miscellaneous Information (Medication Intervention) 1 each MC .RN TO CHECK WITH PT [facility] Stop: 09/06/19 07:29 Miscellaneous Information (Medication Intervention) 1 each MC .RN TO CHECK WITH PT [facility] Stop: 09/06/19 07:29 Miscellaneous Information (Medication Intervention) 1 each MC .RN TO CHECK WITH PT [facility] Stop: 09/06/19 07:29 Miscellaneous Information (Medication Intervention) 1 each MC .RN TO CHECK WITH PT [facility] Stop: 09/06/19 07:44 Nitroglycerin (Nitrostat 0.4 Mg Tablet) 0.4 mg SL Q5MIN PRN MR X 3 PRN PRN Reason: CHEST PAIN Stop: 09/06/19 06:56 Non-Formulary Drug : (Nabumetone [ Nabumetone] 500 Mg) 500 mg PO BID [facility] Stop: 09/06/19 09:59 Last Admin: 08/07/19 08:53 Dose: 500 mg Patient Own Med: (Humalog Insulin Pump) 0 each SQ UD PRN Stop: 09/06/19 07:04 Potassium Chloride (Klor Con 10 Meq) 10 meq PO BID [facility] Stop: 09/06/19 09:59 Last Admin: 08/07/19 08:52 Dose: 10 meq Simvastatin (Zocor 20mg) 40 mg PO [facility] Stop: 09/06/19 21:59 Intake & Output 08/07/19 08/08/19 11:59 11:59 Intake Total 1942 Output Total 300 Balance 1642 Weight 140 kg Orders 08/06/19 16:32 Albuterol 2.5 mg/3 ml Neb [Proventil 2.5 mg/3 ml Neb] 2.5 mg IH Q2H PRN PRN 08/06/19 16:55 Cardio-Pulmonary Rehab .as ordered [employer] Teacher/Discharge Plan Nutritional Admission Screen 08/06/19 20:00 Methylprednisolone Sod Suc 40M [solu-MEDROL 40 MG] 40 mg IV Q8H 08/07/19 01:00 Clopidogrel Bisulfate 75 mg [PLAVIX 75 MG Tablet] 75 mg PO HS 08/07/19 01:30 ACCUCHECK [Accucheck] ACHS 08/07/19 06:57 Nitroglycerin 0.4 mg Tablet [Nitrostat 0.4 MG Tablet] 0.4 mg SL Q5MIN PRN MR X 3 PRN 08/07/19 07:05 Patient Own Med [Patient Own Medication] 0 each SQ UD PRN 08/07/19 07:30 Medication Intervention 1 each MC .RN TO CHECK WITH PT Medication Intervention 1 each MC .RN TO CHECK WITH PT Medication Intervention 1 each MC .RN TO CHECK WITH PT Medication Intervention 1 each MC .RN TO CHECK WITH PT 08/07/19 07:45 Medication Intervention 1 each MC .RN TO CHECK WITH PT 08/07/19 08:00 Carvedilol 6.25 mg [Coreg 6.25 MG] 6.25 mg PO BIDWM Metformin HCl Xr 500 mg [Glucophage XR 500 MG] 1,000 mg PO BIDWM 08/07/19 09:19 RT Miscellaneous Order ROUTINE 08/07/19 10:00 Allopurinol 100 mg [Zyloprim 100 mg] 100 mg PO DAILY Aspirin EC 81 mg [Ecotrin 81 mg] 81 mg PO DAILY Bumetanide 1 mg [Bumex 1 mg] 1 mg PO DAILY Gabapentin 300 mg [Neurontin 300 mg] 300 mg PO TID Nabumetone [Nabumetone] 500 mg PO BID [place]-3 Fatty Acids/Fish Oil [Fish Oil 1,000 mg Capsule] 1,000 mg PO DAILY Potassium Chloride 10 Meq Tab* [Klor Con 10 MEQ] 10 meq PO BID 08/07/19 22:00 Ceftriaxone 1 GM/50 ML PREMIX* [ROCEPHIN 1 Gm-D5w 50 ml Bag] 1 g in 50 ml IV Q24H22 Simvastatin 20Mg [Zocor 20Mg] 40 mg PO HS 08/09/19 10:00 Ergocalciferol (Vitamin D2) [Vitamin D2] 50,000 unit PO MoFr@1000 Lab Tests 08/06/19 08/06/19 08/06/19 13:51 14:01 14:01 WBC 6.3 RBC 6.72 H* Hgb 15.4 Hct 52.6 H MCV 78.3 MCH 22.9 L MCHC 29.3 L RDW 20.1 H Plt Count 139 L MPV 10.6 Gran % 68.8 H Eos # (Auto) 0.28 Absolute Lymphs (auto) 0.82 L Absolute Monos (auto) 0.84 Lymphocytes % 13.0 L Monocytes % 13.3 H Eosinophils % 4.4 Basophils % 0.5 Absolute Granulocytes 4.33 Basophils # 0.03 pO2/FiO2 Ratio 21.0 VBG pH 7.34 VBG pCO2 at Pat Temp 82 H* VBG pO2 at Pat Temp 154 H VBG HCO3 44.2 H* VBG O2 Sat (Giovanny) 98.4 VBG Base Excess 14.4 H VBG Hemoglobin 15.6 VBG Carboxyhemoglobin 5.2 POC Potassium 5.8 H Sodium 141 Potassium 4.2 Chloride 99 Carbon Dioxide 37 H Anion Gap 9.3 BUN 14 Creatinine 0.58 L Estimated GFR > 60.0 Glucose 142 H Hemoglobin A1c Calcium 9.2 Troponin I < 0.012 NT-Pro-B Natriuret Pep 33.9 Influenza Type A Ag Influenza Type B Ag RSV (PCR) Slides for Path Review 08/06/19 08/07/19 08/07/19 Unknown 04:25 04:25 WBC 3.7 L RBC 6.90 H* Hgb 15.2 Hct 54.2 H MCV 78.6 MCH 22.0 L MCHC 28.0 L RDW 20.6 H Plt Count 164 MPV 11.5 H Gran % Eos # (Auto) Absolute Lymphs (auto) Absolute Monos (auto) Lymphocytes % Monocytes % Eosinophils % Basophils % Absolute Granulocytes Basophils # pO2/FiO2 Ratio VBG pH VBG pCO2 at Pat Temp VBG pO2 at Pat Temp VBG HCO3 VBG O2 Sat (Giovanny) VBG Base Excess VBG Hemoglobin VBG Carboxyhemoglobin POC Potassium Sodium 141 Potassium 4.4 Chloride 99 Carbon Dioxide 37 H Anion Gap 8.9 BUN 19 Creatinine 0.69 Estimated GFR > 60.0 Glucose 228 H Hemoglobin A1c Calcium 9.3 Troponin I NT-Pro-B Natriuret Pep Influenza Type A Ag NEGATIVE Influenza Type B Ag NEGATIVE RSV (PCR) POSITIVE Slides for Path Review YES 08/07/19 07:50 WBC RBC Hgb Hct MCV MCH MCHC RDW Plt Count MPV Gran % Eos # (Auto) Absolute Lymphs (auto) Absolute Monos (auto) Lymphocytes % Monocytes % Eosinophils % Basophils % Absolute Granulocytes Basophils # pO2/FiO2 Ratio VBG pH VBG pCO2 at Pat Temp VBG pO2 at Pat Temp VBG HCO3 VBG O2 Sat (Giovanny) VBG Base Excess VBG Hemoglobin VBG Carboxyhemoglobin POC Potassium Sodium Potassium Chloride Carbon Dioxide Anion Gap BUN Creatinine Estimated GFR Glucose Hemoglobin A1c 7.86 H Calcium Troponin I NT-Pro-B Natriuret Pep Influenza Type A Ag Influenza Type B Ag RSV (PCR) Slides for Path Review Code(s): J96.01 - ACUTE RESPIRATORY FAILURE WITH HYPOXIA; J96.02 - ACUTE RESPIRATORY FAILURE WITH HYPERCAPNIA (2) COPD with exacerbation Current Visit: Yes Status: Acute Code(s): J44.1 - CHRONIC OBSTRUCTIVE PULMONARY DISEASE W (ACUTE) EXACERBATION (3) Obstructive sleep apnea Current Visit: Yes Status: Chronic Code(s): G47.33 - OBSTRUCTIVE SLEEP APNEA (ADULT) (PEDIATRIC) (4) Chronic obstructive lung disease Current Visit: No Status: Chronic Code(s): J44.9 - CHRONIC OBSTRUCTIVE PULMONARY DISEASE, UNSPECIFIED
[2019-08-07] MEDS: ENOXAPARIN SODIUM SQ SCH (16:45)
[2019-08-07] MEDS ORDERED: ROCEPHIN 1 Gm-D5w 50 ml Bag** 1 G/50 ML IVPB IV ONE (20:00)
[2019-08-07] MEDS ORDERED: ZOCOR 20MG ONE (20:00)
[2019-08-07] MEDS ORDERED: NON-FORMULARY ITEM (Atorvastatin Calcium [Atorvastatin Calcium] 40 MG) PO SCH (22:00)
[2019-08-07] MEDS ORDERED: ZOCOR 20MG PO SCH (22:00)
[2019-08-07] MEDS ORDERED: ROCEPHIN 1 Gm-D5w 50 ml Bag** 1 G/50 ML IVPB IV SCH (22:00)
[2019-08-07] MEDS ORDERED: HUMALOG SQ PRN (22:09)
[2019-08-08] MEDS: DUONEB 0.5-3 MG/3 ml Neb IH SCH ×2 (03:32→07:00)
[2019-08-08] MEDS: solu-MEDROL 40 MG IV SCH (04:25)
[2019-08-08 07:16] VITALS: BP 135/72; O2SAT 94
[2019-08-08 07:26] VITALS: PULSE 59
[2019-08-08] MEDS ORDERED: HUMALOG SQ PRN (08:00)
[2019-08-08] MEDS ORDERED: NovoLOG Insulin SQ PRN (08:00)
[2019-08-08] MEDS: Glucophage XR 500 MG PO SCH (08:10)
[2019-08-08] MEDS: Coreg 6.25 MG PO SCH (08:10)
[2019-08-08] MEDS: NEURONTIN 300 MG PO SCH (10:31)
[2019-08-08] MEDS: ECOTRIN 81 MG PO SCH (10:31)
[2019-08-08] MEDS: FISH OIL 1,000 MG CAPSULE PO SCH (10:31)
[2019-08-08] MEDS: BUMEX 1 MG PO SCH (10:31)
[2019-08-08] MEDS: Vibramycin 100 MG PO SCH (10:31)
[2019-08-08] MEDS: ZYLOPRIM 100 MG PO SCH (10:31)
[2019-08-08] MEDS: Klor Con 10 MEQ PO SCH (10:32)
[2019-08-08] MEDS: ENOXAPARIN SODIUM SQ SCH (11:42)
--- NOTE | 2019-08-08 12:55 | PCM.DS ---
Discharge Summary Date of Admission: 08/06/19 16:09 Admitting Physician: AUSTIN PIMENTEL Primary Care Provider: AUSTIN PIMENTEL Allergies Allergies naproxen [From Aleve] Allergy (Verified 08/06/19 13:41) Hospital Summary - Hospital Course Hospital Course: Chief Complaint Diagnosis c/o very short of breath for 2-3 days Allergies Allergy/AdvReac Type Severity Reaction Status Date / Time naproxen [From Aleve] Allergy Verified 08/06/19 13:41 Vital Signs (Last 24 hours) Temp Pulse Resp BP Pulse Ox 08/08/19 07:24 59 L 18 94 L 08/08/19 07:20 94 L 08/08/19 07:15 97.6 F 76 18 135/72 94 L 08/08/19 04:00 98.2 F 68 24 150/70 89 L 08/08/19 03:32 66 24 89 L 08/08/19 00:00 98.3 F 96 H 24 136/72 94 L 08/07/19 23:35 96 H 24 94 L 08/07/19 19:43 97.9 F 110 H 22 118/57 94 L 08/07/19 19:30 110 H 22 93 L 08/07/19 16:00 97.8 F 102 H 22 146/79 91 L 08/07/19 14:42 92 H 22 94 L Home Medications Medication Instructions Recorded Confirmed Last Taken Type Empagliflozin [Jardiance] 25 mg PO QAM 08/06/19 08/06/19 08/06/19 History Insulin Lispro [Admelog] 100 unit SQ UD 08/06/19 08/06/19 08/06/19 History Liraglutide [Victoza 2-Leonardo] 1.8 mg SQ DAILY 08/06/19 08/06/19 08/06/19 History Cephalexin Monohydrate [Cephalexin] 500 mg PO QID #20 capsule 08/08/19 Unknown Rx Methylprednisolone Packet 4 mg PO UD #30 packet 08/08/19 Unknown Rx [Medrol Dosepack] Current Medications Discontinued Medications Generic Name Dose Route Start Last Admin Trade Name Freq PRN Reason Stop Dose Admin Albuterol Sulfate 2.5 mg 08/06/19 13:49 08/06/19 14:10 Proventil 2.5 Mg/3 Ml Neb IH 08/06/19 13:50 2.5 mg STAT ONE Administration Albuterol Sulfate 2.5 mg 08/06/19 13:51 08/06/19 14:17 Proventil 2.5 Mg/3 Ml Neb IH 08/06/19 13:52 2.5 mg STAT ONE Administration Albuterol Sulfate Confirm 08/06/19 13:58 Proventil 2.5 Mg/3 Ml Neb Administered 08/06/19 13:59 Dose 2.5 mg IH .STK-MED ONE Albuterol Sulfate Confirm 08/06/19 13:59 Proventil 2.5 Mg/3 Ml Neb Administered 08/06/19 14:00 Dose 2.5 mg IH .STK-MED ONE Albuterol Sulfate 2.5 mg 08/06/19 19:00 Proventil 2.5 Mg/3 Ml Neb IH 09/05/19 18:59 Q4HRT ALINA Albuterol Sulfate 2.5 mg 08/06/19 16:32 Proventil 2.5 Mg/3 Ml Neb IH 09/05/19 16:31 Q2H PRN PRN SHORTNESS OF BREATH/WHEEZING Albuterol/Ipratropium 3 ml 08/06/19 13:49 08/06/19 14:00 Duoneb 0.5-3 Mg/3 Ml Neb IH 08/06/19 13:50 3 ml STAT ONE Administration Albuterol/Ipratropium Confirm 08/06/19 13:58 Duoneb 0.5-3 Mg/3 Ml Neb Administered 08/06/19 13:59 Dose 3 ml IH .STK-MED ONE Albuterol/Ipratropium 3 ml 08/06/19 19:00 08/08/19 07:00 Duoneb 0.5-3 Mg/3 Ml Neb IH 09/05/19 18:59 3 ml Q4HRT ALINA Administration Allopurinol 100 mg 08/07/19 10:00 08/08/19 10:31 Zyloprim 100 Mg PO 09/06/19 09:59 100 mg DAILY ALINA Administration Aspirin 81 mg 08/07/19 10:00 08/08/19 10:31 Ecotrin 81 Mg PO 03/20/20 09:59 81 mg DAILY ALINA Administration Bumetanide 1 mg 08/07/19 10:00 08/08/19 10:31 Bumex 1 Mg PO 09/06/19 09:59 1 mg DAILY ALINA Administration Carvedilol 6.25 mg 08/07/19 08:00 08/08/19 08:10 Coreg 6.25 Mg PO 09/06/19 07:59 6.25 mg BIDWM ALINA Administration Clopidogrel Bisulfate 75 mg 08/07/19 01:00 08/07/19 21:17 Plavix 75 Mg Tablet PO 09/06/19 00:59 75 mg HS ALINA Administration Doxycycline Hyclate 100 mg 08/06/19 15:27 08/06/19 15:29 Vibramycin 100 Mg PO 08/06/19 15:28 100 mg STAT ONE Administration Doxycycline Hyclate Confirm 08/06/19 15:29 Vibramycin 100 Mg Administered 08/06/19 15:30 Dose 100 mg .ROUTE .STK-MED ONE Doxycycline Hyclate 100 mg 08/06/19 22:00 08/08/19 10:31 Vibramycin 100 Mg PO 09/05/19 21:59 100 mg BID ALINA Administration Enoxaparin Sodium 40 mg 08/06/19 17:00 08/08/19 11:42 Enoxaparin Sodium SQ 09/05/19 16:59 Not Given DAILY [facility] Ergocalciferol 50,000 unit 08/09/19 10:00 Vitamin D2 PO 09/08/19 09:59 MoFr@1000 [facility] Fish Oil 1,000 mg 08/07/19 10:00 08/08/19 10:31 Fish Oil 1,000 Mg Capsule PO 09/06/19 09:59 1,000 mg DAILY ALINA Administration Gabapentin 300 mg 08/07/19 10:00 08/08/19 10:31 Neurontin 300 Mg PO 09/06/19 09:59 300 mg TID ALINA Administration Ceftriaxone Sodium/Dextrose 1 g in 50 mls @ 100 mls/hr 08/06/19 20:00 19:50 Rocephin 1 Gm-D5w 50 Ml Bag IV 09/05/19 19:59 100 mls/hr Q24H10 ALINA Administration Ceftriaxone Sodium/Dextrose 1 g in 50 mls @ 100 mls/hr 08/07/19 22:00 21:17 Rocephin 1 Gm-D5w 50 Ml Bag IV 09/06/19 21:59 100 mls/hr Q24H22 ALINA Administration Ceftriaxone Sodium/Dextrose Confirm 08/07/19 20:00 Rocephin 1 Gm-D5w 50 Ml Bag Administered 08/07/19 20:01 Dose 1 g in 50 mls @ ud IV .STK-MED ONE Insulin Aspart 0 unit 08/08/19 08:00 08/08/19 08:11 Novolog Insulin SQ 09/07/19 07:59 12 unit UD PRN Administration Insulin Human Lispro 0 unit 08/07/19 22:09 Humalog SQ 09/06/19 22:08 UD PRN HYPERGLYCEMIA Metformin HCl 1,000 mg 08/07/19 08:00 08/08/19 08:10 Glucophage Xr 500 Mg PO 09/06/19 07:59 1,000 mg BIDWM ALINA Administration Methylprednisolone Sodium Succinate 40 mg 08/06/19 20:00 08/08/19 04:25 Solu-Medrol 40 Mg IV 09/05/19 19:59 40 mg Q8H ALINA Administration Miscellaneous Information 1 each 08/07/19 07:30 Medication Intervention 09/06/19 07:29 .RN TO CHECK WITH PT ALINA Miscellaneous Information 1 each 08/07/19 07:30 Medication Intervention 09/06/19 07:29 .RN TO CHECK WITH PT ALINA Miscellaneous Information 1 each 08/07/19 07:30 Medication Intervention 09/06/19 07:29 .RN TO CHECK WITH PT ALINA Miscellaneous Information 1 each 08/07/19 07:30 Medication Intervention 09/06/19 07:29 .RN TO CHECK WITH PT ALINA Miscellaneous Information 1 each 08/07/19 07:45 Medication Intervention 09/06/19 07:44 .RN TO CHECK WITH PT ALINA Nitroglycerin 0.4 mg 08/07/19 06:57 Nitrostat 0.4 Mg Tablet SL 09/06/19 06:56 Q5MIN PRN MR X 3 PRN CHEST PAIN Non-Formulary Drug : 500 mg 08/07/19 10:00 08/08/19 11:42 (Nabumetone [ PO 09/06/19 09:59 Not Given Nabumetone] 500 Mg) BID ALINA Non-Formulary Drug : 10 mg 08/07/19 10:00 (Dextroamphetamine/ PO 09/06/19 09:59 Amphetamine Er 10 Mg DAILY ALINA C Patient Own Med: 0 each 08/07/19 07:05 Humalog Insulin Pump SQ 09/06/19 07:04 UD PRN Potassium Chloride 10 meq 08/07/19 10:00 08/08/19 10:32 Klor Con 10 Meq PO 09/06/19 09:59 10 meq BID ALINA Administration Prednisone 40 mg 08/06/19 13:50 08/06/19 13:54 Deltasone 20 Mg PO 08/06/19 13:51 40 mg ONCE STA Administration Prednisone Confirm 08/06/19 13:53 Deltasone 20 Mg Administered 08/06/19 13:54 Dose 40 mg .ROUTE .STK-MED ONE Simvastatin 40 mg 08/07/19 22:00 08/07/19 21:17 Zocor 20mg PO 09/06/19 21:59 40 mg HS ALINA Administration Simvastatin Confirm 08/07/19 20:00 Zocor 20mg Administered 08/07/19 20:01 Dose 40 mg .ROUTE .STK-MED ONE Intake & Output (Last 24 hours) 08/06/19 08/07/19 08/08/19 08/09/19 11:59 11:59 11:59 11:59 Intake Total 1942 2660 Output Total 300 2850 400 Balance 1642 -190 -400 Weight 140 kg 143.6 kg Orders (Last 24 hours) Category Date Time Status Discharge Planning,Consult Routine Discharge 08/08/19 Active Discharge Routine Discharge 08/08/19 Ordered Ceftriaxone 1 GM/50 ML PREMIX* [ROCEPHIN 1 Gm-D5w 50 ml Med 08/07/19 22:00 Discontinued Bag] 1 g in 50 ml IV Q24H22 Ceftriaxone 1 GM/50 ML PREMIX* [ROCEPHIN 1 Gm-D5w 50 ml Med 08/07/19 20:00 Discontinued Bag] 1 g in 50 ml IV UD Ergocalciferol (Vitamin D2) [Vitamin D2] Med 08/09/19 10:00 Discontinued 50,000 unit PO MoFr@1000 Insulin Aspart [NovoLOG Insulin] Med 08/08/19 08:00 Discontinued 0 unit SQ UD PRN Insulin Lispro [Humalog] Med 08/07/19 22:09 Discontinued See Dose Instructions SQ UD PRN Simvastatin 20Mg [Zocor 20Mg] Med 08/07/19 20:00 Discontinued 40 mg .ROUTE .STK-MED ONE Simvastatin 20Mg [Zocor 20Mg] Med 08/07/19 22:00 Discontinued 40 mg PO HS Patient Care Notes (Last 24 hours) 08/08/19 11:36 Nursing Note by Adrianna Clark CALLED [facility] TO MAKE THEM AWARE PATIENT WAS DISCHARGED AT 1130 Initialized on 08/08/19 11:36 - END OF NOTE 08/08/19 10:29 Case Management Note by Halle Lopez S/W PATIENT HE HAS DC ORDERS TODAY- JOSE TAKING CARE OF OXYGEN SET UP. PATIENT DENIES ANY OTHER NEEDS REGARDING DC AT THIS TIME. Initialized on 08/08/19 10:29 - END OF NOTE 08/07/19 22:09 Nursing Note by Gayathri Lopez Late entry 2129 Patient stated he gave himself 20 units of adelog insulin from his insulin pump. States his insulin pump is empty and he has no one who can bring insulin to him. Called Dr. Pimentel and received new orders for sliding scale high dose. patient already gave 20 units from pump and accu check was 466. High dose sliding scale stated that patient is to get 20 units. No s/s dose given at this time. Initialized on 08/07/19 22:09 - END OF NOTE 08/07/19 21:42 Nursing Note by Maryam Villareal Called [facility] from pharmacy d/t pt's insulin pump empty and Dr. Pimentel stated to put him on high dose sliding scale and use the type of insulin that is in his pump. Pt's insulin pump contains Admelog, which we don't carry. [facility] stated to use Humalog for the high dose sliding scale Initialized on 08/07/19 21:42 - END OF NOTE Pt will require 4l oxygen per n/c 24/7 with portability for mobility. - Vitals & Intake/Output Vital Signs: Vital Signs Temperature 97.6 F 08/08/19 07:15 Pulse Rate 59 L 08/08/19 07:24 Respiratory Rate 18 08/08/19 07:24 Blood Pressure 135/72 08/08/19 07:15 O2 Sat by Pulse Oximetry 94 L 08/08/19 07:24 Intake & Output: Intake & Output 08/06/19 08/07/19 08/08/19 08/09/19 11:59 11:59 11:59 11:59 Intake Total 1942 2660 Output Total 300 2850 400 Balance 1642 -190 -400 Weight 140 kg 143.6 kg - Lab Result Diagrams: 08/07/19 04:25 08/07/19 04:25 Lab Results-Last 24 Hrs: Accuchecks Accucheck Value: 329 Accucheck Value: 466 Accucheck Value: 298 Micro Results-Entire Visit: Accuchecks Accucheck Value: 329 Accucheck Value: 466 Accucheck Value: 298 - Radiology Exams Ordered Rad Exams-Entire Visit: Radiology Procedures Category Date Time Status CHEST 1 VIEW (PORTABLE) Routine Exams 08/07/19 06:00 Completed CHEST 2 VIEWS (PA AND LAT) Stat Exams 08/06/19 13:42 Completed - Procedures and Test Procedures and Tests throughout Hospitalization: Therapy Orders & Screens 08/06/19 14:06 Peak Expiratory Flow Rate ONCE Comment: Reason For Exam: 08/06/19 14:07 Respiratory Therapy Assessment DAILY Comment: 08/06/19 16:18 BiPap/CPAP ROUTINE Comment: Diagnosis: Acute respiratory failure with hypoxia and hypercapnia Oxygen Nasal Cannula 3 lpm Comment: Diagnosis: Acute respiratory failure with hypoxia and hypercapnia Respiratory Therapy Consult ROUTINE Comment: Reason For Exam: Diagnosis: Acute respiratory failure with hypoxia and hypercapnia 08/06/19 16:55 RT Screen per Nursing Assess ONCE Comment: Protocol Order Physician Instructions: Greater than 3 points order RT Admission Screen Reason For Exam: Triggered on Admission Diagnosis: Acute respiratory failure with hypoxia and hypercapnia Diagnosis: Acute respiratory failure with hypoxia and hypercapnia Pneumonia: No Home O2: Yes Asthma: No CHF: No Home CPAP/BIPAP: Yes Home Nebs/MDI: Yes Total Points: 15 08/07/19 09:19 RT Miscellaneous Order ROUTINE Comment: Physician Instructions: AT REST AND WALKING Reason For Exam: RE-QUALIFY PATIENT FOR HOME OXYGEN Diagnosis: Acute respiratory failure with hypoxia and hypercapnia Discharge Exam General Appearance: no apparent distress, alert Neurologic Exam: alert, oriented x 3, cooperative, normal mood/affect, nml cerebellar function, sensation nml, No motor deficits Eye Exam: PERRL, EOMI, eyes nml inspection Ears, Nose, Throat Exam: normal ENT inspection, pharynx normal, moist mucous membranes Neck Exam: normal inspection, non-tender, supple, full range of motion Respiratory Exam: normal breath sounds, lungs clear, No respiratory distress Cardiovascular Exam: regular rate/rhythm, normal heart sounds Gastrointestinal/Abdomen Exam: soft, No tenderness, No mass Male Genitalia Exam: deferred Rectal Exam: deferred Back Exam: normal inspection, normal range of motion, No CVA tenderness, No vertebral tenderness Extremity Exam: normal inspection, normal range of motion Skin Exam: normal color, warm, dry Final Diagnosis/Problem List - Final Discharge Diagnosis/Problem (1) Acute respiratory failure with hypoxia and hypercapnia Status: Acute Assessment & Plan: Last Vital Signs Temp 97.6 F 08/08/19 07:15 Pulse 59 L 08/08/19 07:24 Resp 18 08/08/19 07:24 BP 135/72 08/08/19 07:15 Pulse Ox 94 L 08/08/19 07:24 Allergies naproxen [From Aleve] Allergy (Verified 08/06/19 13:41) Intake & Output 08/08/19 08/09/19 11:59 11:59 Intake Total 2660 Output Total 2850 400 Balance -190 -400 Weight 143.6 kg Orders 08/08/19 Discharge Planning,Consult Routine Discharge Routine Code(s): J96.01 - ACUTE RESPIRATORY FAILURE WITH HYPOXIA; J96.02 - ACUTE RESPIRATORY FAILURE WITH HYPERCAPNIA (2) COPD with exacerbation Status: Acute Code(s): J44.1 - CHRONIC OBSTRUCTIVE PULMONARY DISEASE W (ACUTE ) EXACERBATION (3) Obstructive sleep apnea Status: Chronic Code(s): G47.33 - OBSTRUCTIVE SLEEP APNEA (ADULT) (PEDIATRIC) (4) Chronic obstructive lung disease Status: Chronic Code(s): J44.9 - CHRONIC OBSTRUCTIVE PULMONARY DISEASE, UNSPECIFIED - Discharge Discharge Date: 08/08/19 Disposition: Home, Self-Care Condition: Stable Prescriptions: New Cephalexin Monohydrate [Cephalexin] 500 mg PO QID #20 capsule Methylprednisolone Packet [Medrol Dosepack] 4 mg PO UD #30 packet Continue Gabapentin 300 mg [Neurontin 300 mg] 300 mg PO TID Potassium Chloride [Klor-Con 10] 10 meq PO BID Metformin HCl [Metformin HCl ER] 1,000 mg PO BID [place]-3 Fatty Acids/Fish Oil [Fish Oil 1,000 mg Capsule] 1 each PO DAILY Aspirin 81 mg PO DAILY Clopidogrel Bisulfate [Plavix] 75 mg PO HS Bumetanide 1 mg [Bumex 1 mg] 1 mg PO DAILY Nitroglycerin [Nitroquick] 0.4 mg SL Q5MIN PRN MR X 3 PRN PRN Reason: Chest Pain Ipratropium/Albuterol Sulfate [Combivent Inhaler] 2 puff IH QID Allopurinol 100 mg [Zyloprim 100 mg] 100 mg PO DAILY Albuterol 2.5 mg/3 ml Neb [Proventil 2.5 mg/3 ml Neb] 1 amp IH QID Ergocalciferol (Vitamin D2) [Vitamin D] 1 cap PO 2XW carvediloL [Carvedilol] 6.25 mg PO BIDWM Atorvastatin Calcium 40 mg PO HS Bromocriptine Mesylate [Cycloset] 6 tab PO DAILY Nabumetone 500 mg PO BID Dextroamphetamine/Amphetamine [Dextroamp-Amphet ER 10 mg Cap] 10 mg PO DAILY Probenecid/Colchicine [Probenecid-Colchicine Tablet] 1 tab PO BID Empagliflozin [Jardiance] 25 mg PO QAM Liraglutide [Victoza 2-Leonardo] 1.8 mg SQ DAILY Insulin Lispro [Admelog] 100 unit SQ UD Instructions: Exacerbation of COPD (DC) Additional Instructions: [facility] TO SUPPLY YOUR HOME OXYGEN Follow up with: AUSTIN PIMENTEL MD [Primary Care Provider] - 08/14/19 10:30 am
[2019-08-09] MEDS ORDERED: VITAMIN D2 PO SCH (10:00)
== END 2019-08-08 11:30 | disposition home or self-care (01) | DRG 189 ==
LOC: ED 13:17 → MED SURG 16:09 → OBSVTOIN 16:09
PROVIDERS: ADMIT General Practice; ATTEND General Practice
DX: J96.02 Acute respiratory failure with hypercapnia (principal); J44.1 Chronic obstructive pulmonary disease with (acute) exacerbation; J96.01 Acute respiratory failure with hypoxia; E11.9 Type 2 diabetes mellitus without complications; I10 Essential (primary) hypertension; E78.00 Pure hypercholesterolemia, unspecified; G47.33 Obstructive sleep apnea (adult) (pediatric); I25.2 Old myocardial infarction; Z79.01 Long term (current) use of anticoagulants; Z79.899 Other long term (current) drug therapy; Z99.81 Dependence on supplemental oxygen
CPT/HCPCS: 36000; 36415; 71045; 71046; 80048; 82805; 82962; 83036; 83880; 84484; 85025; 85027; 87631; 93005; 93041; 94150; 94640; 94660; 94760; 99285; J0696; J1650; J2920; J7609; A9270-GY

== ENCOUNTER 2020-08-01 11:52 | Emergency (ER) | payer MEDICARE, OTHER ==
[2020-08-01] MEDS ORDERED: TETRACAINE 0.5% STERI-UNIT SOL OP STA (12:52)
[2020-08-01] MEDS ORDERED: TETRACAINE 0.5% STERI-UNIT SOL OP ONE (12:55)
[2020-08-01] MEDS ORDERED: Eye-Stream Solution ONE (12:56)
[2020-08-01] MEDS ORDERED: Eye-Stream Solution OP ONE (12:57)
[2020-08-01] MEDS ORDERED: MORPHINE SULFATE 10 MG/ML IM ONE (13:08)
[2020-08-01] MEDS ORDERED: MORPHINE SULFATE 10 MG/ML ONE (13:19)
--- NOTE | 2020-08-01 13:55 | ERPHSYRPT ---
- History of Present Illness Time Seen by Provider: 08/01/20 12:46 Source: patient Exam Limitations: no limitations Patient Subjective Stated Complaint: Eye pain Triage Nursing Assessment: Patient ambulated back to ED and transferred self to bed. Patient A+O X3. Patient's skin pink, warm and dry. Patient states he has shingles to right side of forehead for the past month and has been treated per Dr. Rosado. Patient reports pain in his right eye two weeks ago and was instructed to come by his diabetes doctor Dr. Easley advised him to come to ED for eval. Patient complains of constant sharp pain to right eye and right side of forehead 9/10. No visible areas noted. Patient states the shingles are inside. Patient denies any other complaints at this time. Physician History: 65 years old male with a history of chronic respiratory failure on 3 l oxygen, diabetes mellitus with recent shingles on the right forehead last month, was treated with antiviral and steroids presented back with 2 weeks history of increasing pain in the right forehead, right cheek and right scalp, sharp shooting moderate to severe intensity, aggravated with touching and also having pain in the right eye with some decreased vision for quite some time. Denies any diplopia. Denies any redness in the eye ball itself. Patient reports she was seen somewhere else recently, was given a pain shot in his symptoms subsided for couple of days and then it returned back. Denies any fever or chills. Patient does not have any blisters are vesicles currently. No difficulty movements of eyeball or lids. No fever or chills reported. Timing/Duration: week(s) (2), gradual onset, worse Location: right eye Severity: moderate Apparent Injury: no Associated Symptoms: pain, decreased vision, No redness, No matting, No eyelid swelling, No foreign body sensation Chemical Exposure: No Trauma: No Welding Arc/Tanning Bed Exposure: No Allergies/Adverse Reactions: naproxen [From Aleve] Allergy (Verified 08/01/20 12:01) Home Medications: Allopurinol 100 mg [Zyloprim 100 mg] 100 mg PO DAILY 07/27/12 [History] Aspirin 81 mg PO DAILY 07/27/12 [History] Bumetanide 1 mg [Bumex 1 mg] 1 mg PO DAILY 07/27/12 [History] Clopidogrel Bisulfate [Plavix] 75 mg PO HS 07/27/12 [History] Gabapentin 300 mg [Neurontin 300 mg] 300 mg PO TID 07/27/12 [History] Ipratropium/Albuterol Sulfate [Combivent Inhaler] 2 puff IH QID 07/27/12 [History] Metformin HCl [Metformin HCl ER] 1,000 mg PO BID 07/27/12 [History] Nitroglycerin [Nitroquick] 0.4 mg SL Q5MIN PRN MR X 3 PRN 07/27/12 [History] [place]-3 Fatty Acids/Fish Oil [Fish Oil 1,000 mg Capsule] 1 each PO DAILY 07/27/12 [History] Potassium Chloride [Klor-Con 10] 10 meq PO BID 07/27/12 [History] Albuterol 2.5 mg/3 ml Neb [Proventil 2.5 mg/3 ml Neb] 1 amp IH QID 09/04/13 [History] Atorvastatin Calcium 40 mg PO HS 04/24/19 [History] Bromocriptine Mesylate [Cycloset] 6 tab PO DAILY 04/24/19 [History] Dextroamphetamine/Amphetamine [Dextroamp-Amphet ER 10 mg Cap] 10 mg PO DAILY 04/24/19 [History] Ergocalciferol (Vitamin D2) [Vitamin D] 1 cap PO 2XW 04/24/19 [History] Nabumetone 500 mg PO BID 04/24/19 [History] Probenecid/Colchicine [Probenecid-Colchicine Tablet] 1 tab PO BID 04/24/19 [History] carvediloL [Carvedilol] 6.25 mg PO BIDWM 04/24/19 [History] Empagliflozin [Jardiance] 25 mg PO QAM 08/06/19 [History] Insulin Lispro [Admelog] 100 unit SQ UD 08/06/19 [History] Liraglutide [Victoza 2-Leonardo] 1.8 mg SQ DAILY 08/06/19 [History] Hx Tetanus, Diphtheria Vaccination/Date Given: Yes Hx Influenza Vaccination/Date Given: Yes Hx Pneumococcal Vaccination/Date Given: Yes Immunizations Up to Date: Yes Travel Risk - International Travel Have you traveled outside of the country in past 3 weeks: No - Coronavirus Screening Are you exhibiting any of the following symptoms?: No Close contact with a COVID-19 positive Pt in past 14-21 Days: No - Review of Systems Constitutional: No Symptoms Eyes: Eye Pain, Vision Changes Ears, Nose, & Throat: No Symptoms Respiratory: No Symptoms Cardiac: No Symptoms Abdominal/Gastrointestinal: No Symptoms Musculoskeletal: No Symptoms Skin: No Symptoms Neurological: Parasthesia Psychological: No Symptoms Endocrine: No Symptoms Hematologic/Lymphatic: No Symptoms Immunological/Allergic: No Symptoms - Past Medical History Pertinent Past Medical History: Yes Neurological History: Peripheral Neuropathy ENT History: No Pertinent History Cardiac History: Congestive Heart Failure, High Cholesterol, Hypertension, Myocardial Infarction ([place]) Respiratory History: CHF, COPD, Emphysema, Sleep Apnea Endocrine Medical History: Diabetes Type II Musculoskeletal History: Osteoarthritis GI Medical History: No Pertinent History History: No Pertinent History Psycho-Social History: No Pertinent History Male Reproductive Disorders: No Pertinent History Other Medical History: gout - Past Surgical History Past Surgical History: Yes Neuro Surgical History: No Pertinent History Cardiac: Cardiac Catheterization, Cardiac Stent Respiratory: No Pertinent History Gastrointestinal: Cholecystectomy Genitourinary: No Pertinent History Musculoskeletal: Orthopedic Surgery Male Surgical History: No Pertinent History Other Surgical History: l shoulder, l knee x3, r leg, r hand/arm, r shoulder - Social History Smoking Status: Former smoker How long have you smoked: 40 years Exposure to second hand smoke: Yes Drug Use: marijuana Patient Lives Alone: Yes - Nursing Vital Signs Nursing Vital Signs: Initial Vital Signs Temperature 98.2 F 08/01/20 12:02 Pulse Rate 70 08/01/20 12:02 Respiratory Rate 25 H 08/01/20 12:02 Blood Pressure 157/91 08/01/20 12:02 O2 Sat by Pulse Oximetry 95 08/01/20 12:02 Pain Scale Pain Intensity 8 - Physical Exam General Appearance: no apparent distress, alert, anxiety Vision Acuity Degree Evaluation Phase: Uncorrected Vision Acuity Right Eye: 20/100 Vision Acuity Left Eye: 20/70 Eye Exam: bilateral eye: normal inspection, PERRL, EOMI, abnormal EOM Ears, Nose, Throat Exam: normal ENT inspection, TMs normal, pharynx normal Neck Exam: normal inspection, non-tender, supple, full range of motion Respiratory Exam: normal breath sounds, wheezing Cardiovascular Exam: regular rate/rhythm, normal heart sounds Extremity Exam: normal inspection, normal range of motion Neurologic: alert, oriented x 3, cooperative, 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 nml as tested, normal mood/affect, nml cerebellar function Skin Exam: normal color SpO2 Interpretation: normal SpO2: 95 O2 Delivery: Nasal Cannula Ordered Tests: Medication Summary Discontinued Medications Generic Name Dose Route Start Last Admin Trade Name Estella PRN Reason Stop Dose Admin Eye Irrigation Solution 15 ml 08/01/20 12:57 08/01/20 12:58 Eye-Stream Solution OP 08/01/20 12:58 15 ml STAT ONE Administration Eye Irrigation Solution Confirm 08/01/20 12:56 Eye-Stream Solution Administered 08/01/20 12:57 Dose 30 ml .ROUTE .STK-MED ONE Morphine Sulfate 6 mg 08/01/20 13:08 08/01/20 13:20 Morphine Sulfate 10 Mg/Ml IM 08/01/20 13:09 6 mg STAT ONE Administration Morphine Sulfate Confirm 08/01/20 13:19 Morphine Sulfate 10 Mg/Ml Administered 08/01/20 13:20 Dose 10 mg .ROUTE .STK-MED ONE Tetracaine HCl 4 ml 08/01/20 12:52 08/01/20 12:58 Tetracaine 0.5% Steri-Unit Tiana OP 08/01/20 12:53 4 ml STAT STA Administration Tetracaine HCl Confirm 08/01/20 12:55 Tetracaine 0.5% Steri-Unit Tiana Administered 08/01/20 12:56 Dose 4 ml OP .STK-MED ONE - Progress Progress: improved, re-examined Progress Note: 08/01/20 15:34 I have stained his eye with fluorescein and given tetracaine before, did not ap preciate any obvious lesion. Did not appreciate any haziness in posterior chamber. I believe patient has post herpetic neuralgia, given morphine, on reevaluation his pain is much better and he reports improvement in vision as well. I would start him on Neurontin and have him follow-up outpatient with ophthalmology early next week. Discussed signs symptoms of worsening needing return to ER which he seems understanding. Counseled pt/family regarding: diagnosis, need for follow-up - Departure Departure Disposition: Home Clinical Impression: Neuralgia, post-herpetic Condition: Stable Critical Care Time: No Referrals: MARGARITO,AUSTIN, MD [Primary Care Provider] - (Tomorrow for reevaluation.) Instructions: Tyree (KI) Additional Instructions: Follow-up with [facility] tomorrow morning. Go to [address] [place] [address]. . Take pain medications as needed. Apply eye patch. Follow-up with primary care as well for reevaluation. Return to ER for worsening pain, difficulty vision, double vision, numbness tingling or weakness. Prescriptions: Gabapentin [Neurontin] 100 mg PO TID 5 Days #15 capsule
[2020-08-01 14:32] VITALS: BP 119/75; PULSE 98
[2020-08-01 15:33] VITALS: O2SAT 95
== END 2020-08-01 14:32 | disposition home or self-care (01) ==
LOC: ED 11:52
DX: H57.11 Ocular pain, right eye (principal); B02.23 Postherpetic polyneuropathy; E11.9 Type 2 diabetes mellitus without complications; H54.7 Unspecified visual loss; E78.5 Hyperlipidemia, unspecified; I10 Essential (primary) hypertension; Z79.899 Other long term (current) drug therapy; Z99.81 Dependence on supplemental oxygen
CPT/HCPCS: 96372; 99284; J2270; A9270-GY

== ENCOUNTER 2020-08-14 19:52 | Inpatient (IN) | payer MEDICARE, OTHER ==
[2020-08-14 20:51] LABS: Absolute Neutrophil Ct (ANC) 3.71 (1.4-6.9); BASOPHIL % 0.6 % (0.0-0.4); Basophil (Absolute #) 0.03 (0-0.4); Eosinophil % 4.5 % (0.00-5.0); Eosinophil (Absolute #) 0.24 (0-0.5); Hematocrit 47.9 % (42-50); Hemoglobin 13.7 gm/dl (12.5-18.0); Lymphocytes % 15.1 % (24.0-44.0); Mean Cell Volume 91.2 fl (78-100); Mean Corpuscular Hemoglobin 26.1 pg (26-32); Mean Corpuscular Hgb Concent. 28.6 g/dl (32-36); Mean Platelet Volume 11.2 fl (7.5-11.0); Monocyte (Absolute #) 0.52 (0.0-1.3); Monocytes % 9.8 % (0.0-12.0); Platelet Count 133 K/mm3 (150-450); Red Blood Count 5.25 M/mm3 (4.1-5.6); Red Cell Distribution Width 15.9 % (11.5-14.0); White Blood Count 5.3 K/mm3 (4.0-10.5)
[2020-08-14 21:07] LABS: ALBUMIN 3.8 g/dL (3.5-5.0); ALKALINE PHOSPHATASE 101 U/L (38-126); BLOOD UREA NITROGEN 16 mg/dL (9-20); CHLORIDE 97 mmol/L (98-107); Calcium 9.3 mg/dL (8.4-10.2); Creatinine 1 0.63 mg/dL (0.66-1.25); EST GLOMERULAR FILTRATION RATE > 60.0 ML/MIN; Glucose 190 mg/dL (74-106); Potassium 4.1 mmol/L (3.5-5.1); SGOT/AST 26 U/L (17-59); SGPT/ALT 34 U/L (0-50); SODIUM 141 mmol/L (137-145); Total Protein 7.1 g/dL (6.3-8.2)
[2020-08-14 21:14] LABS: Carbon Dioxide 39 mmol/L (22-30)
[2020-08-14 21:33] LABS: ANION GAP 9.1 MEQ/L (5-15)
[2020-08-14 21:39] LABS: Slide Review 1 YES
[2020-08-14 21:45] LABS: Appearance CLEAR (CLEAR); Bilirubin NEGATIVE (NEGATIVE); Blood NEGATIVE Ery/ul (0-5); Glucose >=500 mg/dL (NEGATIVE); Ketones NEGATIVE (NEGATIVE); Leukocyte Esterase NEGATIVE (NEGATIVE); Nitrite NEGATIVE (NEGATIVE); Protein,Urine Dip >=500 (Negative); Specific Gravity 1.038 (1.005-1.025); Urobilinogen NEGATIVE mg/dL (0-1)
[2020-08-14 22:08] LABS: TSH, 3RD Generation 3.51 mIU/L (0.47-4.68)
[2020-08-14] MEDS ORDERED: Zithromax 500 MG/ 250 ML NaCl Premix 500 MG/250 ML IVPB IV STA (22:20)
[2020-08-14] MEDS ORDERED: ROCEPHIN 1 Gm-D5w 50 ml Bag** 1 G/50 ML IVPB IV STA (22:20)
[2020-08-14] MEDS ORDERED: Lasix 40 MG/4 ML IV ONE (22:21)
[2020-08-14] MEDS ORDERED: DUONEB 0.5-3 MG/3 ml Neb IH ONE ×2 (22:26→22:33)
--- NOTE | 2020-08-14 22:28 | ERPHSYRPT ---
- History of Present Illness Time Seen by Provider: 08/14/20 19:57 Source: patient Exam Limitations: no limitations Patient Subjective Stated Complaint: Patient states " I have just been feeling overall increase in weakness and my knees have been really weak and I have had almost couple of falls today". Patient states " I have had some difficulty walking today and just feeling really tired". Triage Nursing Assessment: Patient arrived to ED and was assisted back with 1 assist in W/C. Patient Alert and can tell RN name, , and where he is but has trouble staying on same topic and whats to jump around in conversations and told RN that couple weeks ago he had shingles in his head. Patient noted to have intermittent confusion and when RN was asking about what brought him into ER, patient couldn't give RN a definite reason but multiple reasons from weakness to his toe. Patient pleasant and cooperative. RN had to keep patient on task with answering questions. Patient denies chest pain. Patient denies SOB although patient arrived with own 02 tank with 02 at 3L per N/C. Upon arrival to ED 02 checked and 02 sat 96%. Patient cap refill 4 seconds. Patient respiratory non- labored, no acute distress noted. Patient noted to become SOB with excertion. HOB elevated. Patient noted to have 3 to 4+ pitting edema in bilateral lower extremties. Lower extremities red in color slightly warm to touch and several fluid filled blisters noted that remain intact. Patient with no hair growth no bilateral lower extremties. Bilateral toenails thick and yellow in color and unkept. Patient noted with insulin pump in right side ABD. Patient states he franco sn't checked sugar today. Patient noted to be poor historian. BS upon arrival to ER 190. + radial pulses bilateral. + pedal pulses although felt are faint upon palpitation R/T edema. Bilateral lower extremities with orange peel appearance. + BS times 4 quads. ABD large, obese, non-distended. Patient denies any ABD pain upon palpitation. Patient noted to ambulate with unsteady gait and 1 assist pro vided. Patient with [address] in bed and raise legs up in bed. Pain states he has chronic back pain. Patient denies any pain or burning upon urination. Physician History: 65 years old male with multiple medical problems including diabetes mellitus, hypertension, hyperlipidemia, coronary artery disease, congestive heart failure, baseline difficulty ambulation presented in the ER with chief complaint of increasing generalized weakness fatigue with frequent falls lately. Patient report this is been going on for the last 10 days and gradually worsening. Patient reports getting unbalanced getting up and tendency for his needs to give of a with falling. Does not exactly remember hitting his head. No loss of consciousness. He denies any focal weakness. Patient has shortness of breath at his baseline which is a little worse than usual and also has bilateral increased lower extremity swelling edema with some weeping vesicles. Patient reports taking his diuretics regularly. Denies any fever or chills. Denies any chest pain but has some tightness at times. Timing/Duration: day(s), gradual onset, worse Severity: moderate Modifying Factors: Improves With: rest. Worsens With: movement Associated Symptoms: shortness of breath, cough, weakness, No chest pain Allergies/Adverse Reactions: No Known Drug Allergies Allergy (Unverified 08/14/20 20:21) Home Medications: Allopurinol 100 mg [Zyloprim 100 mg] 100 mg PO DAILY 07/27/12 [History] Aspirin 81 mg PO DAILY 07/27/12 [History] Bumetanide 1 mg [Bumex 1 mg] 1 mg PO DAILY 07/27/12 [History] Clopidogrel Bisulfate [Plavix] 75 mg PO HS 07/27/12 [History] Gabapentin 300 mg [Neurontin 300 mg] 300 mg PO TID 07/27/12 [History] Ipratropium/Albuterol Sulfate [Combivent Inhaler] 2 puff IH QID 07/27/12 [History] Metformin HCl [Metformin HCl ER] 1,000 mg PO BID 07/27/12 [History] Nitroglycerin [Nitroquick] 0.4 mg SL Q5MIN PRN MR X 3 PRN 07/27/12 [History] [place]-3 Fatty Acids/Fish Oil [Fish Oil 1,000 mg Capsule] 1 each PO DAILY 07/27/12 [History] Potassium Chloride [Klor-Con 10] 10 meq PO BID 07/27/12 [History] Albuterol 2.5 mg/3 ml Neb [Proventil 2.5 mg/3 ml Neb] 1 amp IH QID 09/04/13 [History] Atorvastatin Calcium 40 mg PO HS 04/24/19 [History] Bromocriptine Mesylate [Cycloset] 6 tab PO DAILY 04/24/19 [History] Dextroamphetamine/Amphetamine [Dextroamp-Amphet ER 10 mg Cap] 10 mg PO DAILY 04/24/19 [History] Ergocalciferol (Vitamin D2) [Vitamin D] 1 cap PO 2XW 04/24/19 [History] Nabumetone 500 mg PO BID 04/24/19 [History] Probenecid/Colchicine [Probenecid-Colchicine Tablet] 1 tab PO BID 04/24/19 [History] carvediloL [Carvedilol] 6.25 mg PO BIDWM 04/24/19 [History] Empagliflozin [Jardiance] 25 mg PO QAM 08/06/19 [History] Insulin Lispro [Admelog] 100 unit SQ UD 08/06/19 [History] Liraglutide [Victoza 2-Leonardo] 1.8 mg SQ DAILY 08/06/19 [History] Hx Tetanus, Diphtheria Vaccination/Date Given: Yes Hx Influenza Vaccination/Date Given: Yes Hx Pneumococcal Vaccination/Date Given: (Doesn't Know) Immunizations Up to Date: Yes Travel Risk - International Travel Have you traveled outside of the country in past 3 weeks: No - Coronavirus Screening Are you exhibiting any of the following symptoms?: No Close contact with a COVID-19 positive Pt in past 14-21 Days: No - Review of Systems Constitutional: Fatigue, Weakness Eyes: No Symptoms Ears, Nose, & Throat: No Symptoms Respiratory: Cough, Dyspnea, Dyspnea on Exertion (MANDUJANO), Wheezing Cardiac: No Symptoms Abdominal/Gastrointestinal: No Symptoms Genitourinary Symptoms: No Symptoms Musculoskeletal: Arthralgias Skin: Cellulitis, Induration, Rash, Skin Lesions Neurological: Gait Changes Psychological: Anxiety Endocrine: No Symptoms Hematologic/Lymphatic: No Symptoms Immunological/Allergic: No Symptoms - Past Medical History Pertinent Past Medical History: Yes Neurological History: Peripheral Neuropathy ENT History: No Pertinent History Cardiac History: Congestive Heart Failure, High Cholesterol, Hypertension, Myocardial Infarction (SD) Respiratory History: CHF, COPD, Emphysema, Sleep Apnea Endocrine Medical History: Diabetes Type II Musculoskeletal History: Osteoarthritis GI Medical History: No Pertinent History History: No Pertinent History Psycho-Social History: No Pertinent History Male Reproductive Disorders: No Pertinent History Other Medical History: Gout - Past Surgical History Past Surgical History: Yes Neuro Surgical History: No Pertinent History Cardiac: Cardiac Catheterization, Cardiac Stent Respiratory: No Pertinent History Gastrointestinal: Cholecystectomy Genitourinary: No Pertinent History Musculoskeletal: Orthopedic Surgery Male Surgical History: No Pertinent History Other Surgical History: Left shoulder, Left knee X3, Right leg, Right hand/arm, Right shoulder - Social History Smoking Status: Former smoker How long have you smoked: 40 years Exposure to second hand smoke: Yes Drug Use: marijuana Patient Lives Alone: Yes - Nursing Vital Signs Nursing Vital Signs: Initial Vital Signs Temperature 98.3 F 08/14/20 20:18 Pulse Rate 88 08/14/20 20:18 Respiratory Rate 24 08/14/20 20:18 Blood Pressure 134/94 08/14/20 20:18 O2 Sat by Pulse Oximetry 96 08/14/20 20:18 Pain Scale Pain Intensity 0 - Physical Exam General Appearance: no apparent distress, alert Eye Exam: PERRL/EOMI, eyes nml inspection Ears, Nose, Throat Exam: normal ENT inspection, TMs normal, pharyngeal erythema Neck Exam: normal inspection, supple, full range of motion Respiratory Exam: diminished breath sounds, wheezing Cardiovascular Exam: regular rate/rhythm, normal heart sounds Gastrointestinal/Abdomen Exam: soft, normal bowel sounds, No tenderness Back Exam: normal inspection, normal range of motion Extremity Exam: pedal edema, swelling (Erythema on both lower legs with more on the right with fluid-filled vesicles. Warm and minimally tender to touch.) Skin Exam: warm SpO2 Interpretation: normal SpO2: 95 O2 Delivery: Nasal Cannula - Course EKG Interpreted by Me: RATE, Sinus Rhythm, Right Bundle Branch Block, Non- specific ST Changes Ordered Tests: Active Orders 24 hr Category Date Time Status EKG-ER Only STAT Care 08/14/20 20:15 Active IV Insertion STAT Care 08/14/20 20:15 Active CHEST 1 VIEW (PORTABLE) Stat Exams 08/14/20 20:16 Taken HEAD WITHOUT CONTRAST [CT] Stat Exams 08/14/20 20:17 Taken BLOOD CULTURE Stat Lab 08/14/20 02:30 Received BNP [NT PRO BNP] Stat Lab 08/14/20 02:30 Completed CBC W DIFF Stat Lab 08/14/20 02:30 Completed CMP Stat Lab 08/14/20 02:30 Completed Lactic Acid Stat Lab 08/14/20 20:15 Completed MAG [MAGNESIUM] Stat Lab 08/14/20 02:30 Completed TROPONIN Q3H Lab 08/14/20 20:30 Completed TROPONIN Q3H Lab 08/14/20 23:30 Ordered TROPONIN Q3H Lab 08/15/20 02:30 Ordered TROPONIN Q3H Lab 08/15/20 05:30 Ordered TROPONIN Q3H Lab 08/15/20 08:30 Ordered TSH [TSH, 3RD Generation] Stat Lab 08/14/20 02:30 Completed UA W/RFX UR CULTURE Stat Lab 08/14/20 21:40 Completed Respiratory Therapy Assessment DAILY RT 08/14/20 22:39 Active Medication Summary Generic Name Dose Route Start Last Admin Trade Name Freq PRN Reason Stop Dose Admin Azithromycin 500 mg in 250 mls @ 250 mls/hr 08/14/20 22:20 Zithromax 500 Mg/ 250 Ml Nacl Premix IV 08/14/20 23:19 STAT STA Discontinued Medications Generic Name Dose Route Start Last Admin Trade Name Freq PRN Reason Stop Dose Admin Albuterol/Ipratropium 3 ml 08/14/20 22:26 08/14/20 22:36 Duoneb 0.5-3 Mg/3 Ml Neb IH 08/14/20 22:27 3 ml STAT ONE Administration Albuterol/Ipratropium Confirm 08/14/20 22:33 Duoneb 0.5-3 Mg/3 Ml Neb Administered 08/14/20 22:34 Dose 3 ml IH .STK-MED ONE Furosemide 40 mg 08/14/20 22:21 Lasix 40 Mg/4 Ml IV 08/14/20 22:22 STAT ONE Furosemide Confirm 08/14/20 22:45 Lasix 40 Mg/4 Ml Administered 08/14/20 22:46 Dose 40 mg .ROUTE .STK-MED ONE Ceftriaxone Sodium/Dextrose 1 g in 50 mls @ 100 mls/hr 08/14/20 22:20 Rocephin 1 Gm-D5w 50 Ml Bag IV 08/14/20 22:49 STAT STA Ceftriaxone Sodium/Dextrose Confirm 08/14/20 22:45 Rocephin 1 Gm-D5w 50 Ml Bag Administered 08/14/20 22:46 Dose 1 g in 50 mls @ ud IV .STK-MED ONE Lab/Rad Data: Laboratory Result Diagrams 08/14/20 02:30 08/14/20 02:30 Laboratory Results 08/14/20 08/14/20 08/14/20 Range/Units 21:40 20:30 20:15 WBC (4.0-10.5) K/mm3 RBC (4.1-5.6) M/mm3 Hgb (12.5-18.0) gm/dl Hct (42-50) % MCV (78-100) fl MCH (26-32) pg MCHC (32-36) g/dl RDW (11.5-14.0) % Plt Count (150-450) K/mm3 MPV (7.5-11.0) fl Gran % (36.0-66.0) % Eos # (Auto) (0-0.5) Absolute Lymphs (auto) (1.0-4.6) Absolute Monos (auto) (0.0-1.3) Lymphocytes % (24.0-44.0) % Monocytes % (0.0-12.0) % Eosinophils % (0.00-5.0) % Basophils % (0.0-0.4) % Absolute Granulocytes (1.4-6.9) Basophils # (0-0.4) Sodium (137-145) mmol/L Potassium (3.5-5.1) mmol/L Chloride (98-107) mmol/L Carbon Dioxide (22-30) mmol/L Anion Gap (5-15) MEQ/L BUN (9-20) mg/dL Creatinine (0.66-1.25) mg/dL Estimated GFR ML/MIN Glucose (74-106) mg/dL Lactic Acid 0.7 (0.4-2.0) Calcium (8.4-10.2) mg/dL Magnesium (1.6-2.3) mg/dL Total Bilirubin (0.2-1.3) mg/dL AST (17-59) U/L ALT (0-50) U/L Alkaline Phosphatase (38-126) U/L Troponin I < 0.012 (0.000-0.034) ng/mL NT-Pro-B Natriuret Pep (0-900) pg/mL Serum Total Protein (6.3-8.2) g/dL Albumin (3.5-5.0) g/dL TSH 3rd Generation (0.47-4.68) mIU/L Urine Color YELLOW (YELLOW) Urine Appearance CLEAR (CLEAR) Urine pH 6.0 (5-6) Ur Specific [place] 1.038 (1.005-1.025) Urine Protein >=500 (Negative) Urine Ketones NEGATIVE (NEGATIVE) Urine Blood NEGATIVE (0-5) Giovani/ul Urine Nitrite NEGATIVE (NEGATIVE) Urine Bilirubin NEGATIVE (NEGATIVE) Urine Urobilinogen NEGATIVE (0-1) mg/dL Ur Leukocyte Esterase NEGATIVE (NEGATIVE) Urine WBC (Auto) NONE (0-5) /HPF Urine RBC (Auto) NONE (0-2) /HPF U Epithel Cells (Auto) NONE (FEW) /HPF Urine Bacteria (Auto) NONE (NEGATIVE) /HPF Urine Culture Reflexed NO (NO) Urine Glucose >=500 (NEGATIVE) mg/dL Slides for Path Review 08/14/20 08/14/20 08/14/20 Range/Units 02:30 02:30 02:30 WBC (4.0-10.5) K/mm3 RBC (4.1-5.6) M/mm3 Hgb (12.5-18.0) gm/dl Hct (42-50) % MCV (78-100) fl MCH (26-32) pg MCHC (32-36) g/dl RDW (11.5-14.0) % Plt Count (150-450) K/mm3 MPV (7.5-11.0) fl Gran % (36.0-66.0) % Eos # (Auto) (0-0.5) Absolute Lymphs (auto) (1.0-4.6) Absolute Monos (auto) (0.0-1.3) Lymphocytes % (24.0-44.0) % Monocytes % (0.0-12.0) % Eosinophils % (0.00-5.0) % Basophils % (0.0-0.4) % Absolute Granulocytes (1.4-6.9) Basophils # (0-0.4) Sodium 141 (137-145) mmol/L Potassium 4.1 (3.5-5.1) mmol/L Chloride 97 L (98-107) mmol/L Carbon Dioxide 39 H (22-30) mmol/L Anion Gap 9.1 (5-15) MEQ/L BUN 16 (9-20) mg/dL Creatinine 0.63 L (0.66-1.25) mg/dL Estimated GFR > 60.0 ML/MIN Glucose 190 H (74-106) mg/dL Lactic Acid (0.4-2.0) Calcium 9.3 (8.4-10.2) mg/dL Magnesium 2.0 (1.6-2.3) mg/dL Total Bilirubin 0.40 (0.2-1.3) mg/dL AST 26 (17-59) U/L ALT 34 (0-50) U/L Alkaline Phosphatase 101 (38-126) U/L Troponin I (0.000-0.034) ng/mL NT-Pro-B Natriuret Pep 27.3 (0-900) pg/mL Serum Total Protein 7.1 (6.3-8.2) g/dL Albumin 3.8 (3.5-5.0) g/dL TSH 3rd Generation 3.510 (0.47-4.68) mIU/L Urine Color (YELLOW) Urine Appearance (CLEAR) Urine pH (5-6) Ur Specific [place] (1.005-1.025) Urine Protein (Negative) Urine Ketones (NEGATIVE) Urine Blood (0-5) Giovani/ul Urine Nitrite (NEGATIVE) Urine Bilirubin (NEGATIVE) Urine Urobilinogen (0-1) mg/dL Ur Leukocyte Esterase (NEGATIVE) Urine WBC (Auto) (0-5) /HPF Urine RBC (Auto) (0-2) /HPF U Epithel Cells (Auto) (FEW) /HPF Urine Bacteria (Auto) (NEGATIVE) /HPF Urine Culture Reflexed (NO) Urine Glucose (NEGATIVE) mg/dL Slides for Path Review 08/14/20 Range/Units 02:30 WBC 5.3 (4.0-10.5) K/mm3 RBC 5.25 (4.1-5.6) M/mm3 Hgb 13.7 (12.5-18.0) gm/dl Hct 47.9 (42-50) % MCV 91.2 (78-100) fl MCH 26.1 (26-32) pg MCHC 28.6 L (32-36) g/dl RDW 15.9 H (11.5-14.0) % Plt Count 133 L (150-450) K/mm3 MPV 11.2 H (7.5-11.0) fl Gran % 70.0 H (36.0-66.0) % Eos # (Auto) 0.24 (0-0.5) Absolute Lymphs (auto) 0.80 L (1.0-4.6) Absolute Monos (auto) 0.52 (0.0-1.3) Lymphocytes % 15.1 L (24.0-44.0) % Monocytes % 9.8 (0.0-12.0) % Eosinophils % 4.5 (0.00-5.0) % Basophils % 0.6 (0.0-0.4) % Absolute Granulocytes 3.71 (1.4-6.9) Basophils # 0.03 (0-0.4) Sodium (137-145) mmol/L Potassium (3.5-5.1) mmol/L Chloride (98-107) mmol/L Carbon Dioxide (22-30) mmol/L Anion Gap (5-15) MEQ/L BUN (9-20) mg/dL Creatinine (0.66-1.25) mg/dL Estimated GFR ML/MIN Glucose (74-106) mg/dL Lactic Acid (0.4-2.0) Calcium (8.4-10.2) mg/dL Magnesium (1.6-2.3) mg/dL Total Bilirubin (0.2-1.3) mg/dL AST (17-59) U/L ALT (0-50) U/L Alkaline Phosphatase (38-126) U/L Troponin I (0.000-0.034) ng/mL NT-Pro-B Natriuret Pep (0-900) pg/mL Serum Total Protein (6.3-8.2) g/dL Albumin (3.5-5.0) g/dL TSH 3rd Generation (0.47-4.68) mIU/L Urine Color (YELLOW) Urine Appearance (CLEAR) Urine pH (5-6) Ur Specific [place] (1.005-1.025) Urine Protein (Negative) Urine Ketones (NEGATIVE) Urine Blood (0-5) Giovani/ul Urine Nitrite (NEGATIVE) Urine Bilirubin (NEGATIVE) Urine Urobilinogen (0-1) mg/dL Ur Leukocyte Esterase (NEGATIVE) Urine WBC (Auto) (0-5) /HPF Urine RBC (Auto) (0-2) /HPF U Epithel Cells (Auto) (FEW) /HPF Urine Bacteria (Auto) (NEGATIVE) /HPF Urine Culture Reflexed (NO) Urine Glucose (NEGATIVE) mg/dL Slides for Path Review YES - Progress Progress: unchanged Progress Note: 08/14/20 22:28 65 years old is evaluated for generalized weakness fatigue with frequent falls and shortness of breath with increasing lower extremity swelling. Patient is given a dose of Lasix. Work-up showed normal white count, grossly unremarkable chemistries except for elevated glucose and bicarb but I believe patient is a CO2 retainer. His oxygen saturation is around 96% on 3 L which is on. X-rays showed some congestion and airspace disease on the right with cardiomegaly. I believe patient has combination of infectious process with CHF exacerbation and would benefit with IV antibiotics, neb treatments and diuretics IV. I have obtained CT head because of his repeated falls and is negative for any acute trauma related findings. Discussed with Dr. Pimentel and patient is admitted. Discussed with : Javier Will see patient in: hospital (observation) Counseled pt/family regarding: lab results, diagnosis, rad results - Departure Departure Disposition: Observation Clinical Impression: General weakness, Frequent falls Pneumonia Qualifiers: Pneumonia type: due to unspecified organism Laterality: right Lung location: lower lobe of lung Qualified Code(s): J18.9 - Pneumonia, unspecified organism Lower extremity cellulitis Qualifiers: Laterality: unspecified laterality Qualified Code(s): L03.119 - Cellulitis of unspecified part of limb Condition: Stable Critical Care Time: No Referrals: AUSTIN PIMENTEL MD [Primary Care Provider] -
[2020-08-14] MEDS ORDERED: Lasix 40 MG/4 ML ONE (22:45)
[2020-08-14] MEDS ORDERED: ROCEPHIN 1 Gm-D5w 50 ml Bag** 1 G/50 ML IVPB IV ONE (22:45)
[2020-08-14] MEDS ORDERED: Zithromax 500 MG/ 250 ML NaCl Premix 500 MG/250 ML IVPB IV ONE (23:27)
[2020-08-15 00:11] LABS: INFLUENZA A NEGATIVE (NEGATIVE); INFLUENZA B NEGATIVE (NEGATIVE); RESPIRATORY SYNCTIAL VIRUS NEGATIVE (Negative)
[2020-08-15] MEDS ORDERED: DUONEB 0.5-3 MG/3 ml Neb IH SCH (01:00)
[2020-08-15] MEDS: DUONEB 0.5-3 MG/3 ml Neb IH SCH ×4 (06:18→18:48)
[2020-08-15 06:27] LABS: BASOPHIL % 0.4 % (0.0-0.4); Basophil (Absolute #) 0.02 (0-0.4); Eosinophil % 4.1 % (0.00-5.0); Eosinophil (Absolute #) 0.19 (0-0.5); Hematocrit 47.1 % (42-50); Hemoglobin 13.4 gm/dl (12.5-18.0); Lymphocyte (Absolute #) 0.85 (1.0-4.6); Lymphocytes % 18.4 % (24.0-44.0); Mean Cell Volume 92.5 fl (78-100); Mean Corpuscular Hemoglobin 26.3 pg (26-32); Mean Corpuscular Hgb Concent. 28.5 g/dl (32-36); Mean Platelet Volume 11.6 fl (7.5-11.0); Monocyte (Absolute #) 0.55 (0.0-1.3); Monocytes % 11.9 % (0.0-12.0); Neutrophil % 65.2 % (36.0-66.0); Platelet Count 127 K/mm3 (150-450); Red Blood Count 5.09 M/mm3 (4.1-5.6); Red Cell Distribution Width 16.1 % (11.5-14.0); White Blood Count 4.6 K/mm3 (4.0-10.5)
[2020-08-15 06:31] LABS: ALBUMIN 3.5 g/dL (3.5-5.0); ALKALINE PHOSPHATASE 91 U/L (38-126); BLOOD UREA NITROGEN 15 mg/dL (9-20); CHLORIDE 96 mmol/L (98-107); Creatinine 1 0.71 mg/dL (0.66-1.25); EST GLOMERULAR FILTRATION RATE > 60.0 ML/MIN; Glucose 156 mg/dL (74-106); PREALBUMIN 15.59 mg/dL (17.6-36.0); Potassium 3.8 mmol/L (3.5-5.1); SGOT/AST 22 U/L (17-59); SGPT/ALT 31 U/L (0-50); SODIUM 140 mmol/L (137-145); Total Protein 6.5 g/dL (6.3-8.2)
[2020-08-15 06:56] LABS: ANION GAP 8.8 MEQ/L (5-15); Carbon Dioxide 39 mmol/L (22-30)
--- NOTE | 2020-08-15 08:19 | PCM.HP ---
History of Present Illness - Chief Complaint Chief Complaint: c/o weakness, leg swelling for 2 weeks History of Present Illness: is a 65 year old male.with multiple medical problems including diabetes mellitus, hypertension, hyperlipidemia, coronary artery disease, congestive heart failure, baseline difficulty ambulation presented in the ER with chief complaint of increasing generalized weakness fatigue with frequent falls lately. Patient report this is been going on for the last 10 days and gradually worsening. Patient reports getting unbalanced getting up and tendency for his needs to give of a with falling. Does not exactly remember hitting his head. No loss of consciousness. He denies any focal weakness. Patient has shortness of breath at his baseline which is a little worse than usual and also has bilateral increased lower extremity swelling edema with some weeping vesicles. Patient reports taking his diuretics regularly. Denies any fever or chills. Denies any chest pain but has some tightness at times. - Review of Systems Constitutional: Fatigue, Weakness, No Fever, No Chills Eyes: No Symptoms Ears, Nose, & Throat: No Symptoms Respiratory: No Cough, No Short Of Breath Cardiac: Edema, Orthopnea, No Chest Pain, No Syncope Abdominal/Gastrointestinal: No Abdominal Pain, No Nausea, No Vomiting, No Diarrhea Genitourinary Symptoms: No Dysuria Musculoskeletal: No Back Pain, No Neck Pain Skin: Cellulitis, No Rash Neurological: No Dizziness, No Focal Weakness, No Sensory Changes Psychological: No Symptoms Endocrine: No Symptoms Hematologic/Lymphatic: No Symptoms Immunological/Allergic: No Symptoms Medications & Allergies Home Medications: Home Medication List Allopurinol 100 mg [Zyloprim 100 mg] 100 mg PO DAILY 07/27/12 [History Confirmed 08/14/20] Aspirin 81 mg PO DAILY 07/27/12 [History Confirmed 08/14/20] Bumetanide 1 mg [Bumex 1 mg] 1 mg PO DAILY 07/27/12 [History Confirmed 08/14/20] Clopidogrel Bisulfate [Plavix] 75 mg PO HS 07/27/12 [History Confirmed 08/14/20] Gabapentin 300 mg [Neurontin 300 mg] 300 mg PO TID 07/27/12 [History Confirmed 08/14/20] Ipratropium/Albuterol Sulfate [Combivent Inhaler] 2 puff IH QID 07/27/12 [History Confirmed 08/14/20] Metformin HCl [Metformin HCl ER] 1,000 mg PO BID 07/27/12 [History Confirmed 08/14/20] Nitroglycerin [Nitroquick] 0.4 mg SL Q5MIN PRN MR X 3 PRN 07/27/12 [History Confirmed 08/14/20] [place]-3 Fatty Acids/Fish Oil [Fish Oil 1,000 mg Capsule] 1 each PO DAILY [History Confirmed 08/14/20] Potassium Chloride [Klor-Con 10] 10 meq PO BID 07/27/12 [History Confirmed 08/14/20] Albuterol 2.5 mg/3 ml Neb [Proventil 2.5 mg/3 ml Neb] 1 amp IH QID [History Confirmed 08/14/20] Atorvastatin Calcium 40 mg PO HS 04/24/19 [History Confirmed 08/14/20] Bromocriptine Mesylate [Cycloset] 6 tab PO DAILY 04/24/19 [History Confirmed 08/14/20] Dextroamphetamine/Amphetamine [Dextroamp-Amphet ER 10 mg Cap] 10 mg PO DAILY 04/24/19 [History Confirmed 08/14/20] Ergocalciferol (Vitamin D2) [Vitamin D] 1 cap PO 2XW 04/24/19 [History Confirmed 08/14/20] Nabumetone 500 mg PO BID 04/24/19 [History Confirmed 08/14/20] Probenecid/Colchicine [Probenecid-Colchicine Tablet] 1 tab PO BID 04/24/19 [History Confirmed 08/14/20] carvediloL [Carvedilol] 6.25 mg PO BIDWM 04/24/19 [History Confirmed 08/14/20] Empagliflozin [Jardiance] 25 mg PO QAM 08/06/19 [History Confirmed 08/14/20] Insulin Lispro [Admelog] 100 unit SQ UD 08/06/19 [History Confirmed 08/14/20] Liraglutide [Victoza 2-Leonardo] 1.8 mg SQ DAILY 08/06/19 [History Confirmed 08/14/20] Cephalexin Monohydrate [Cephalexin] 500 mg PO QID #20 capsule 08/08/19 [Rx Confirmed 08/14/20] Methylprednisolone Packet [Medrol Dosepack] 4 mg PO UD #30 packet 08/08/19 [Rx Confirmed 08/14/20] Gabapentin [Neurontin] 100 mg PO TID 5 Days #15 capsule 08/01/20 [Rx Confirmed 08/14/20] Allergies/Adverse Reactions: Allergies Allergy/AdvReac Type Severity Reaction Status Date / Time No Known Drug Allergies Allergy Unverified 08/14/20 20:21 - Past Medical History Past Medical History: Yes Neurological History: Peripheral Neuropathy ENT History: No Pertinent History Cardiac History: Congestive Heart Failure, High Cholesterol, Hypertension, Myocardial Infarction ([place]) Respiratory History: CHF, COPD, Emphysema, Sleep Apnea Endocrine Medical History: Diabetes Type II Musculoskelatal History: Osteoarthritis GI Medical History: No Pertinent History History: No Pertinent History Pyscho-Social History: No Pertinent History Male Reproductive Disorders: No Pertinent History Comment: Gout - Past Surgical History Past Surgical History: Yes Neuro Surgical History: No Pertinent History Cardiac History: Cardiac Catheterization, Cardiac Stent Respiratory Surgery: No Pertinent History GI Surgical History: Cholecystectomy Genitourinary Surgical Hx: No Pertinent History Musculskeletal Surgical Hx: Orthopedic Surgery Male Surgical History: No Pertinent History Other Surgical History: Left shoulder, Left knee X3, Right leg, Right hand/arm, Right shoulder - Social History Smoking Status: Unknown if ever smoked How long have you smoked: 40 years Exposure to second hand smoke: Yes Alcohol: Rarely Drug Use: marijuana - Physical Exam Vital Signs: Vital Signs - 24 hr Temp Pulse Resp BP Pulse Ox 08/15/20 07:17 98.0 F 81 18 140/77 93 L 08/15/20 07:04 93 L 08/15/20 06:24 80 20 89 L 08/15/20 04:57 81 20 94 L 08/15/20 04:05 98.5 F 81 20 116/61 94 L 08/15/20 01:55 97.9 F 88 26 H 126/63 94 L 08/15/20 00:10 86 124/68 95 08/14/20 23:00 79 24 145/75 95 08/14/20 22:54 95 08/14/20 22:39 85 20 96 08/14/20 22:00 80 16 148/95 96 08/14/20 21:10 82 24 138/72 95 08/14/20 20:18 98.3 F 88 24 134/94 96 Oxygen-Last 24 hours Oxygen Flowrate (L/min)-RT 15 Oxygen Flowrate (L/min)-RT 12 General Appearance: mild distress, alert Neurologic Exam: alert, oriented x 3, cooperative, normal mood/affect, sensation nml, No motor deficits Eye Exam: PERRL/EOMI, eyes nml inspection Ears, Nose, Throat Exam: normal ENT inspection, TMs normal, pharynx normal, moist mucous membranes Neck Exam: normal inspection, non-tender, supple, full range of motion Respiratory Exam: respiratory distress, diminished breath sounds, crackles/rales, rhonchi, wheezing Cardiovascular Exam: regular rate/rhythm, normal heart sounds, normal peripheral pulses Gastrointestinal/Abdomen Exam: soft, normal bowel sounds, No tenderness, No mass Back Exam: normal inspection, normal range of motion, No CVA tenderness, No vertebral tenderness Extremity Exam: normal inspection, normal range of motion, pelvis stable, inflammation, pedal edema, swelling, No calf tenderness, No linh's sign Skin Exam: normal color, warm, dry, No rash Wound Assessment: Skin/Wound Assessment Wound/Incision Assessment Start: 08/15/20 01:01 Text: Status: Active Freq: Q6H Protocol: Document 08/15/20 02:00 SG (Rec: 08/15/20 02:40 SG [id number]) Wound/Incision Assessment Lower Anterior/Posterior Other Wound Assessment Admission Wound Type CELLULITIS Wound Stage Non Pressure Wound Drainage Amount None Comment CELLULITIS NOTED TO BLE, OPEN TO AIR, MD AWARE, BLISTER NOTED TO RLE Wound Photo Photo Taken Yes Comment: PLACED ON CHART Lymphatic Exam: No adenopathy Results - Labs Lab/Micro Results: Lab Results-Last 24 Hours 08/14/20 08/14/20 08/14/20 Range/Units 02:30 02:30 02:30 WBC 5.3 (4.0-10.5) K/mm3 RBC 5.25 (4.1-5.6) M/mm3 Hgb 13.7 (12.5-18.0) gm/dl Hct 47.9 (42-50) % MCV 91.2 (78-100) fl MCH 26.1 (26-32) pg MCHC 28.6 L (32-36) g/dl RDW 15.9 H (11.5-14.0) % Plt Count 133 L (150-450) K/mm3 MPV 11.2 H (7.5-11.0) fl Gran % 70.0 H (36.0-66.0) % Eos # (Auto) 0.24 (0-0.5) Absolute Lymphs (auto) 0.80 L (1.0-4.6) Absolute Monos (auto) 0.52 (0.0-1.3) Lymphocytes % 15.1 L (24.0-44.0) % Monocytes % 9.8 (0.0-12.0) % Eosinophils % 4.5 (0.00-5.0) % Basophils % 0.6 (0.0-0.4) % Absolute Granulocytes 3.71 (1.4-6.9) Basophils # 0.03 (0-0.4) Sodium 141 (137-145) mmol/L Potassium 4.1 (3.5-5.1) mmol/L Chloride 97 L (98-107) mmol/L Carbon Dioxide 39 H (22-30) mmol/L Anion Gap 9.1 (5-15) MEQ/L BUN 16 (9-20) mg/dL Creatinine 0.63 L (0.66-1.25) mg/dL Estimated GFR > 60.0 ML/MIN Glucose 190 H (74-106) mg/dL POC Glucometer (74 to 106) mg/dL Lactic Acid (0.4-2.0) Calcium 9.3 (8.4-10.2) mg/dL Magnesium 2.0 (1.6-2.3) mg/dL Total Bilirubin 0.40 (0.2-1.3) mg/dL AST 26 (17-59) U/L ALT 34 (0-50) U/L Alkaline Phosphatase 101 (38-126) U/L Troponin I (0.000-0.034) ng/mL NT-Pro-B Natriuret Pep (0-900) pg/mL Serum Total Protein 7.1 (6.3-8.2) g/dL Albumin 3.8 (3.5-5.0) g/dL Prealbumin (17.6-36.0) mg/dL TSH 3rd Generation 3.510 (0.47-4.68) mIU/L Urine Color (YELLOW) Urine Appearance (CLEAR) Urine pH (5-6) Ur Specific [place] (1.005-1.025) Urine Protein (Negative) Urine Ketones (NEGATIVE) Urine Blood (0-5) Giovani/ul Urine Nitrite (NEGATIVE) Urine Bilirubin (NEGATIVE) Urine Urobilinogen (0-1) mg/dL Ur Leukocyte Esterase (NEGATIVE) Urine WBC (Auto) (0-5) /HPF Urine RBC (Auto) (0-2) /HPF U Epithel Cells (Auto) (FEW) /HPF Urine Bacteria (Auto) (NEGATIVE) /HPF Urine Culture Reflexed (NO) Urine Glucose (NEGATIVE) mg/dL Influenza Type A Ag (NEGATIVE) Influenza Type B Ag (NEGATIVE) RSV (PCR) (Negative) SARS-CoV-2 (PCR) (NEGATIVE) Slides for Path Review YES 08/14/20 08/14/20 08/14/20 Range/Units 02:30 20:15 20:30 WBC (4.0-10.5) K/mm3 RBC (4.1-5.6) M/mm3 Hgb (12.5-18.0) gm/dl Hct (42-50) % MCV (78-100) fl MCH (26-32) pg MCHC (32-36) g/dl RDW (11.5-14.0) % Plt Count (150-450) K/mm3 MPV (7.5-11.0) fl Gran % (36.0-66.0) % Eos # (Auto) (0-0.5) Absolute Lymphs (auto) (1.0-4.6) Absolute Monos (auto) (0.0-1.3) Lymphocytes % (24.0-44.0) % Monocytes % (0.0-12.0) % Eosinophils % (0.00-5.0) % Basophils % (0.0-0.4) % Absolute Granulocytes (1.4-6.9) Basophils # (0-0.4) Sodium (137-145) mmol/L Potassium (3.5-5.1) mmol/L Chloride (98-107) mmol/L Carbon Dioxide (22-30) mmol/L Anion Gap (5-15) MEQ/L BUN (9-20) mg/dL Creatinine (0.66-1.25) mg/dL Estimated GFR ML/MIN Glucose (74-106) mg/dL POC Glucometer (74 to 106) mg/dL Lactic Acid 0.7 (0.4-2.0) Calcium (8.4-10.2) mg/dL Magnesium (1.6-2.3) mg/dL Total Bilirubin (0.2-1.3) mg/dL AST (17-59) U/L ALT (0-50) U/L Alkaline Phosphatase (38-126) U/L Troponin I < 0.012 (0.000-0.034) ng/mL NT-Pro-B Natriuret Pep 27.3 (0-900) pg/mL Serum Total Protein (6.3-8.2) g/dL Albumin (3.5-5.0) g/dL Prealbumin (17.6-36.0) mg/dL TSH 3rd Generation (0.47-4.68) mIU/L Urine Color (YELLOW) Urine Appearance (CLEAR) Urine pH (5-6) Ur Specific [place] (1.005-1.025) Urine Protein (Negative) Urine Ketones (NEGATIVE) Urine Blood (0-5) Giovani/ul Urine Nitrite (NEGATIVE) Urine Bilirubin (NEGATIVE) Urine Urobilinogen (0-1) mg/dL Ur Leukocyte Esterase (NEGATIVE) Urine WBC (Auto) (0-5) /HPF Urine RBC (Auto) (0-2) /HPF U Epithel Cells (Auto) (FEW) /HPF Urine Bacteria (Auto) (NEGATIVE) /HPF Urine Culture Reflexed (NO) Urine Glucose (NEGATIVE) mg/dL Influenza Type A Ag (NEGATIVE) Influenza Type B Ag (NEGATIVE) RSV (PCR) (Negative) SARS-CoV-2 (PCR) (NEGATIVE) Slides for Path Review 08/14/20 08/14/20 08/14/20 Range/Units 21:40 23:03 23:25 WBC (4.0-10.5) K/mm3 RBC (4.1-5.6) M/mm3 Hgb (12.5-18.0) gm/dl Hct (42-50) % MCV (78-100) fl MCH (26-32) pg MCHC (32-36) g/dl RDW (11.5-14.0) % Plt Count (150-450) K/mm3 MPV (7.5-11.0) fl Gran % (36.0-66.0) % Eos # (Auto) (0-0.5) Absolute Lymphs (auto) (1.0-4.6) Absolute Monos (auto) (0.0-1.3) Lymphocytes % (24.0-44.0) % Monocytes % (0.0-12.0) % Eosinophils % (0.00-5.0) % Basophils % (0.0-0.4) % Absolute Granulocytes (1.4-6.9) Basophils # (0-0.4) Sodium (137-145) mmol/L Potassium (3.5-5.1) mmol/L Chloride (98-107) mmol/L Carbon Dioxide (22-30) mmol/L Anion Gap (5-15) MEQ/L BUN (9-20) mg/dL Creatinine (0.66-1.25) mg/dL Estimated GFR ML/MIN Glucose (74-106) mg/dL POC Glucometer (74 to 106) mg/dL Lactic Acid (0.4-2.0) Calcium (8.4-10.2) mg/dL Magnesium (1.6-2.3) mg/dL Total Bilirubin (0.2-1.3) mg/dL AST (17-59) U/L ALT (0-50) U/L Alkaline Phosphatase (38-126) U/L Troponin I < 0.012 (0.000-0.034) ng/mL NT-Pro-B Natriuret Pep (0-900) pg/mL Serum Total Protein (6.3-8.2) g/dL Albumin (3.5-5.0) g/dL Prealbumin (17.6-36.0) mg/dL TSH 3rd Generation (0.47-4.68) mIU/L Urine Color YELLOW (YELLOW) Urine Appearance CLEAR (CLEAR) Urine pH 6.0 (5-6) Ur Specific [place] 1.038 (1.005-1.025) Urine Protein >=500 (Negative) Urine Ketones NEGATIVE (NEGATIVE) Urine Blood NEGATIVE (0-5) Giovani/ul Urine Nitrite NEGATIVE (NEGATIVE) Urine Bilirubin NEGATIVE (NEGATIVE) Urine Urobilinogen NEGATIVE (0-1) mg/dL Ur Leukocyte Esterase NEGATIVE (NEGATIVE) Urine WBC (Auto) NONE (0-5) /HPF Urine RBC (Auto) NONE (0-2) /HPF U Epithel Cells (Auto) NONE (FEW) /HPF Urine Bacteria (Auto) NONE (NEGATIVE) /HPF Urine Culture Reflexed NO (NO) Urine Glucose >=500 (NEGATIVE) mg/dL Influenza Type A Ag NEGATIVE (NEGATIVE) Influenza Type B Ag NEGATIVE (NEGATIVE) RSV (PCR) NEGATIVE (Negative) SARS-CoV-2 (PCR) NEGATIVE (NEGATIVE) Slides for Path Review 08/15/20 08/15/20 08/15/20 Range/Units 02:20 05:38 05:38 WBC 4.6 (4.0-10.5) K/mm3 RBC 5.09 (4.1-5.6) M/mm3 Hgb 13.4 (12.5-18.0) gm/dl Hct 47.1 (42-50) % MCV 92.5 (78-100) fl MCH 26.3 (26-32) pg MCHC 28.5 L (32-36) g/dl RDW 16.1 H (11.5-14.0) % Plt Count 127 L (150-450) K/mm3 MPV 11.6 H (7.5-11.0) fl Gran % 65.2 (36.0-66.0) % Eos # (Auto) 0.19 (0-0.5) Absolute Lymphs (auto) 0.85 L (1.0-4.6) Absolute Monos (auto) 0.55 (0.0-1.3) Lymphocytes % 18.4 L (24.0-44.0) % Monocytes % 11.9 (0.0-12.0) % Eosinophils % 4.1 (0.00-5.0) % Basophils % 0.4 (0.0-0.4) % Absolute Granulocytes 3.00 (1.4-6.9) Basophils # 0.02 (0-0.4) Sodium (137-145) mmol/L Potassium (3.5-5.1) mmol/L Chloride (98-107) mmol/L Carbon Dioxide (22-30) mmol/L Anion Gap (5-15) MEQ/L BUN (9-20) mg/dL Creatinine (0.66-1.25) mg/dL Estimated GFR ML/MIN Glucose (74-106) mg/dL POC Glucometer (74 to 106) mg/dL Lactic Acid (0.4-2.0) Calcium (8.4-10.2) mg/dL Magnesium (1.6-2.3) mg/dL Total Bilirubin (0.2-1.3) mg/dL AST (17-59) U/L ALT (0-50) U/L Alkaline Phosphatase (38-126) U/L Troponin I < 0.012 < 0.012 (0.000-0.034) ng/mL NT-Pro-B Natriuret Pep (0-900) pg/mL Serum Total Protein (6.3-8.2) g/dL Albumin (3.5-5.0) g/dL Prealbumin (17.6-36.0) mg/dL TSH 3rd Generation (0.47-4.68) mIU/L Urine Color (YELLOW) Urine Appearance (CLEAR) Urine pH (5-6) Ur Specific [place] (1.005-1.025) Urine Protein (Negative) Urine Ketones (NEGATIVE) Urine Blood (0-5) Giovani/ul Urine Nitrite (NEGATIVE) Urine Bilirubin (NEGATIVE) Urine Urobilinogen (0-1) mg/dL Ur Leukocyte Esterase (NEGATIVE) Urine WBC (Auto) (0-5) /HPF Urine RBC (Auto) (0-2) /HPF U Epithel Cells (Auto) (FEW) /HPF Urine Bacteria (Auto) (NEGATIVE) /HPF Urine Culture Reflexed (NO) Urine Glucose (NEGATIVE) mg/dL Influenza Type A Ag (NEGATIVE) Influenza Type B Ag (NEGATIVE) RSV (PCR) (Negative) SARS-CoV-2 (PCR) (NEGATIVE) Slides for Path Review 08/15/20 08/15/20 Range/Units 05:38 06:47 WBC (4.0-10.5) K/mm3 RBC (4.1-5.6) M/mm3 Hgb (12.5-18.0) gm/dl Hct (42-50) % MCV (78-100) fl MCH (26-32) pg MCHC (32-36) g/dl RDW (11.5-14.0) % Plt Count (150-450) K/mm3 MPV (7.5-11.0) fl Gran % (36.0-66.0) % Eos # (Auto) (0-0.5) Absolute Lymphs (auto) (1.0-4.6) Absolute Monos (auto) (0.0-1.3) Lymphocytes % (24.0-44.0) % Monocytes % (0.0-12.0) % Eosinophils % (0.00-5.0) % Basophils % (0.0-0.4) % Absolute Granulocytes (1.4-6.9) Basophils # (0-0.4) Sodium 140 (137-145) mmol/L Potassium 3.8 (3.5-5.1) mmol/L Chloride 96 L (98-107) mmol/L Carbon Dioxide 39 H (22-30) mmol/L Anion Gap 8.8 (5-15) MEQ/L BUN 15 (9-20) mg/dL Creatinine 0.71 (0.66-1.25) mg/dL Estimated GFR > 60.0 ML/MIN Glucose 156 H (74-106) mg/dL POC Glucometer 151 H (74 to 106) mg/dL Lactic Acid (0.4-2.0) Calcium 9.0 (8.4-10.2) mg/dL Magnesium (1.6-2.3) mg/dL Total Bilirubin 0.40 (0.2-1.3) mg/dL AST 22 (17-59) U/L ALT 31 (0-50) U/L Alkaline Phosphatase 91 (38-126) U/L Troponin I (0.000-0.034) ng/mL NT-Pro-B Natriuret Pep (0-900) pg/mL Serum Total Protein 6.5 (6.3-8.2) g/dL Albumin 3.5 (3.5-5.0) g/dL Prealbumin 15.59 L (17.6-36.0) mg/dL TSH 3rd Generation (0.47-4.68) mIU/L Urine Color (YELLOW) Urine Appearance (CLEAR) Urine pH (5-6) Ur Specific [place] (1.005-1.025) Urine Protein (Negative) Urine Ketones (NEGATIVE) Urine Blood (0-5) Giovani/ul Urine Nitrite (NEGATIVE) Urine Bilirubin (NEGATIVE) Urine Urobilinogen (0-1) mg/dL Ur Leukocyte Esterase (NEGATIVE) Urine WBC (Auto) (0-5) /HPF Urine RBC (Auto) (0-2) /HPF U Epithel Cells (Auto) (FEW) /HPF Urine Bacteria (Auto) (NEGATIVE) /HPF Urine Culture Reflexed (NO) Urine Glucose (NEGATIVE) mg/dL Influenza Type A Ag (NEGATIVE) Influenza Type B Ag (NEGATIVE) RSV (PCR) (Negative) SARS-CoV-2 (PCR) (NEGATIVE) Slides for Path Review Accuchecks Date 08/15/20 Time 07:00 - Radiology Impressions Radiology Exams & Impressions: Radiology Procedures Category Date Time Status CHEST 1 VIEW (PORTABLE) Stat Exams 08/14/20 20:16 Taken HEAD WITHOUT CONTRAST [CT] Stat Exams 08/14/20 20:17 Taken - Other Procedures and Tests Respiratory Therapy 08/14/20 22:39 Respiratory Therapy Assessment DAILY 08/15/20 01:00 Oxygen Nasal Cannula 3 lpm 08/15/20 01:54 BiPap/CPAP ROUTINE Assessment/Plan (1) General weakness Current Visit: Yes Status: Acute Code(s): R53.1 - WEAKNESS (2) Lower extremity cellulitis Current Visit: Yes Status: Acute Qualifiers: Laterality: unspecified laterality Qualified Code(s): L03.119 - Cellulitis of unspecified part of limb
[2020-08-15] MEDS: HUMALOG SQ PRN ×3 (08:52→17:22)
--- NOTE | 2020-08-15 09:53 | XRAY ---
Indication: Dizziness and weakness. Frequent falls. Multiple contiguous axial images obtained through the head without contrast. Comparison: September 06, 2013. Normal appearing brain parenchyma, ventricles, and bony calvarium for patient's age. Visualized paranasal sinuses and mastoid air cells are clear. Impression: Continued normal CT head without contrast exam. Comment: Preliminary interpretation was made by [facility]. No critical discrepancy.
--- NOTE | 2020-08-15 09:56 | XRAY ---
Indication: Weakness and dizziness. Comparison: August 07, 2019. Portable chest demonstrates new minimal bibasilar discoid atelectasis/scarring with stable left midlung calcified granuloma. Remaining heart and lungs unremarkable. Bony thorax intact again with mild degenerative changes.
[2020-08-15 10:14] LABS: Slide Review 1 YES
[2020-08-15] MEDS ORDERED: Nitrostat 0.4 MG Tablet SL PRN (10:51)
[2020-08-15] MEDS ORDERED: Medrol Dosepack PO SCH (11:00)
[2020-08-15] MEDS ORDERED: HUMALOG SQ SCH (11:00)
[2020-08-15] MEDS ORDERED: PATIENT OWN MEDICATION SQ SCH (11:15)
[2020-08-15] MEDS: PERCOCET TABLET 5/325MG PO PRN ×2 (11:24→19:58)
[2020-08-15] MEDS: PROTONIX 40 MG IV IV SCH (11:33)
[2020-08-15] MEDS: Glucophage XR 500 MG PO SCH ×2 (11:58→21:41)
[2020-08-15] MEDS: FISH OIL 1,000 MG CAPSULE PO SCH (11:58)
[2020-08-15] MEDS: Klor Con 10 MEQ PO SCH ×2 (11:58→21:42)
[2020-08-15] MEDS: ECOTRIN 81 MG PO SCH (11:58)
[2020-08-15] MEDS: BUMEX 1 MG PO SCH (11:58)
[2020-08-15] MEDS: ZYLOPRIM 100 MG PO SCH (11:58)
[2020-08-15] MEDS: Coreg 6.25 MG PO SCH ×2 (11:58→17:26)
[2020-08-15] MEDS ORDERED: Lomotil PO PRN (12:17)
[2020-08-15] MEDS: Flomax 0.4 MG PO SCH ×2 (12:33→13:03)
[2020-08-15] MEDS ORDERED: NEURONTIN 300 MG PO SCH (15:00)
[2020-08-15] MEDS ORDERED: Neurontin 100 MG PO SCH (15:00)
[2020-08-15] MEDS: Neurontin 400 MG PO SCH ×2 (15:17→21:43)
[2020-08-15] MEDS ORDERED: MEDICATION INTERVENTION MC SCH ×2 (16:15)
[2020-08-15] MEDS: ROCEPHIN 1 Gm-D5w 50 ml Bag** 1 G/50 ML IVPB IV SCH (21:40)
[2020-08-15] MEDS: ZOCOR 20MG PO SCH (21:43)
[2020-08-15] MEDS: PLAVIX 75 MG Tablet PO SCH (21:43)
[2020-08-15] MEDS ORDERED: PROBENECID PO SCH (22:00)
[2020-08-15] MEDS ORDERED: LIPITOR 40MG PO SCH (22:00)
[2020-08-15] MEDS ORDERED: COLCHICINE PO SCH (22:00)
[2020-08-15] MEDS: Zithromax 500 MG/ 250 ML NaCl Premix 500 MG/250 ML IVPB IV SCH (22:05)
[2020-08-16] MEDS: PERCOCET TABLET 5/325MG PO PRN ×4 (02:06→21:45)
[2020-08-16] MEDS: DUONEB 0.5-3 MG/3 ml Neb IH SCH ×4 (06:39→19:09)
--- NOTE | 2020-08-16 08:09 | PCM.CONS ---
Podiatry HPI - Consult Date of Consultation Date: 08/16/20 Reason for Consult: Bilateral lower extremity cellulitis with Serous Bullae Consulting Provider: CHARLENE NEGRETE DPM - [facility] History of Present Illness: Sd is a very pleasant 65-year-old male who presents for admission for pneumonia and was consulted to my service for bilateral lower extremity cellulitis with serous bullous blisters. Patient presented to the emergency department on Monday stating that he had an overall increase in weakness to the bilateral lower extremity and almost fell a couple of times. Patient indicates that he did have a recent history of shingles in his head which has resulted in some confusion and a limited history. Patient does indicate that he is a diabetic and has congestive heart failure. Blood cultures were taken at that time which are pending at this time. 1 g of ceftriaxone was administered in the emergency department however he is not on any antibiotics at this time. At this time I am unable to get him to clearly describe any of the symptoms that he has been experiencing however he does admit to confusion he expresses no other pedal complaints at this time. Medications & Allergies Home Medications: Home Medication List Allopurinol 100 mg [Zyloprim 100 mg] 100 mg PO DAILY 07/27/12 [History Confirmed 08/14/20] Aspirin 81 mg PO DAILY 07/27/12 [History Confirmed 08/14/20] Bumetanide 1 mg [Bumex 1 mg] 1 mg PO DAILY 07/27/12 [History Confirmed 08/14/20] Clopidogrel Bisulfate [Plavix] 75 mg PO HS 07/27/12 [History Confirmed 08/14/20] Gabapentin 300 mg [Neurontin 300 mg] 300 mg PO TID 07/27/12 [History Confirmed 08/14/20] Ipratropium/Albuterol Sulfate [Combivent Inhaler] 2 puff IH QID 07/27/12 [History Confirmed 08/14/20] Metformin HCl [Metformin HCl ER] 1,000 mg PO BID 07/27/12 [History Confirmed 08/14/20] Nitroglycerin [Nitroquick] 0.4 mg SL Q5MIN PRN MR X 3 PRN 07/27/12 [History Confirmed 08/14/20] [place]-3 Fatty Acids/Fish Oil [Fish Oil 1,000 mg Capsule] 1 each PO DAILY 07/27/12 [History Confirmed 08/14/20] Potassium Chloride [Klor-Con 10] 10 meq PO BID 07/27/12 [History Confirmed 08/14/20] Albuterol 2.5 mg/3 ml Neb [Proventil 2.5 mg/3 ml Neb] 1 amp IH QID 09/04/13 [History Confirmed 08/14/20] Atorvastatin Calcium 40 mg PO HS 04/24/19 [History Confirmed 08/14/20] Ergocalciferol (Vitamin D2) [Vitamin D] 1 cap PO 2XW 04/24/19 [History Confirmed 08/14/20] Nabumetone 500 mg PO BID 04/24/19 [History Confirmed 08/14/20] Probenecid/Colchicine [Probenecid-Colchicine Tablet] 1 tab PO BID 04/24/19 [History Confirmed 08/14/20] carvediloL [Carvedilol] 6.25 mg PO BIDWM 04/24/19 [History Confirmed 08/14/20] Empagliflozin [Jardiance] 25 mg PO QAM 08/06/19 [History Confirmed 08/14/20] Insulin Lispro [Admelog] 100 unit SQ UD 08/06/19 [History Confirmed 08/14/20] Gabapentin [Neurontin] 100 mg PO TID 5 Days #15 capsule 08/01/20 [Rx Confirmed 08/14/20] Famotidine [Pepcid] 40 mg PO DAILY 08/15/20 [History Confirmed 08/15/20] Tamsulosin HCl 0.4 mg PO DAILY 08/15/20 [History Confirmed 08/15/20] Allergies/Adverse Reactions: Allergies Allergy/AdvReac Type Severity Reaction Status Date / Time No Known Drug Allergies Allergy Unverified 08/14/20 20:21 - Past Medical History Past Medical History: Yes Neurological History: Peripheral Neuropathy ENT History: No Pertinent History Cardiac History: Congestive Heart Failure, High Cholesterol, Hypertension, Myocardial Infarction ([place]) Respiratory History: CHF, COPD, Emphysema, Sleep Apnea Endocrine Medical History: Diabetes Type II Musculoskelatal History: Osteoarthritis GI Medical History: No Pertinent History History: No Pertinent History Pyscho-Social History: No Pertinent History Male Reproductive Disorders: No Pertinent History Comment: Gout - Past Surgical History Past Surgical History: Yes Neuro Surgical History: No Pertinent History Cardiac History: Cardiac Catheterization, Cardiac Stent Respiratory Surgery: No Pertinent History GI Surgical History: Cholecystectomy Genitourinary Surgical Hx: No Pertinent History Musculskeletal Surgical Hx: Orthopedic Surgery Male Surgical History: No Pertinent History Other Surgical History: Left shoulder, Left knee X3, Right leg, Right hand/arm, Right shoulder - Social History Smoking Status: Unknown if ever smoked How long have you smoked: 40 years Exposure to second hand smoke: Yes Alcohol: Rarely Drug Use: marijuana Physical Exam - Narrative Narrative Physical Exam: Podiatry Physical Exam Vascular: DP and PT pulses are nonpalpable secondary to the extreme amount of edema to the dorsal aspect of the foot and the medial aspect of the foot. Capillary refill time is within normal limits there is no lymphadenopathy on palpation of the popliteal lymph nodes or the inguinal lymph nodes. Edema is 4+ pitting clear up to the tibial tuberosity. Brawny edema extending from pretibial distally to the proximal aspect of the leg cellulitic in appearance more so to the right than the left. Neurological: Protective sensation is diminished. Dermatological multiple serosanguineous bulla projecting at the medial aspects of the bilateral lower extremity. There is macerated webspaces secondary to the fluid overload. Musculoskeletal deferred Results - Labs Lab/Micro Results: Lab Results-Last 24 Hours 08/15/20 08/15/20 08/15/20 Range/Units 05:00 05:38 08:37 POC Glucometer (74 to 106) mg/dL Hemoglobin A1c 7.76 H (4.5-6.0) % Troponin I < 0.012 (0.000-0.034) ng/mL Slides for Path Review YES 08/15/20 08/15/20 08/15/20 Range/Units 11:32 16:48 21:00 POC Glucometer 238 H 224 H 310 H (74 to 106) mg/dL Hemoglobin A1c (4.5-6.0) % Troponin I (0.000-0.034) ng/mL Slides for Path Review 08/16/20 Range/Units 07:32 POC Glucometer 202 H (74 to 106) mg/dL Hemoglobin A1c (4.5-6.0) % Troponin I (0.000-0.034) ng/mL Slides for Path Review Accuchecks Date 08/15/20 Date 08/15/20 Time 16:30 Time 11:30 - Radiology Impressions Radiology Exams & Impressions: Radiology Procedures Category Date Time Status CHEST 1 VIEW (PORTABLE) Stat Exams 08/14/20 20:16 Completed HEAD WITHOUT CONTRAST [CT] Stat Exams 08/14/20 20:17 Completed Assessment/Plan (1) Venous stasis ulcer with edema of lower leg Current Visit: Yes Status: Acute Assessment & Plan: Initial patient examination and evaluation. Reviewed ancillary service notes as well as lab values. At this time I recommend bilateral venous Dopplers prior to compression therapy in order to assess for potential DVT. If these results are negative we will plan for a dressing consisting of Betadine paint to the bilateral lower extremity Adaptic over the bullous blisters and Unna boots to be placed bilaterally until the swelling is controlled. This may need to be in coordination with his primary care physician in order to offload the significant out of volume overload of the bilateral lower extremity. Patient was instructed to keep legs elevated at this time in order to prevent exacerbations of the ulcerations. 1 g cefazolin every 8 hours Plan for compression following results of venous Dopplers Thank you for the consultation Code(s): I83.009 - VARICOSE VEINS OF UNSP LOWER EXTREMITY W ULCER OF UNSP SITE; I83.899 - VARICOS VN UNSP LOWER EXTREMITY WITH OTHER COMPLICATIONS; L97.909 - NON-PRS CHRONIC ULC UNSP PRT OF UNSP LOW LEG W UNSP SEVERITY; R60.9 - EDEMA, UNSPECIFIED (2) Congestive heart failure (CHF) Current Visit: Yes Status: Acute Code(s): I50.9 - HEART FAILURE, UNSPECIFIED (3) COPD (chronic obstructive pulmonary disease) Current Visit: Yes Status: Acute (4) Lower extremity cellulitis Current Visit: Yes Status: Acute Qualifiers: Laterality: unspecified laterality Qualified Code(s): L03.119 - Cellulitis of unspecified part of limb
[2020-08-16] MEDS: Coreg 6.25 MG PO SCH ×2 (08:47→17:19)
[2020-08-16] MEDS: Klor Con 10 MEQ PO SCH ×2 (09:24→21:36)
[2020-08-16] MEDS: BUMEX 1 MG PO SCH (09:24)
[2020-08-16] MEDS: Flomax 0.4 MG PO SCH (09:24)
[2020-08-16] MEDS: Neurontin 400 MG PO SCH ×3 (09:24→21:35)
[2020-08-16] MEDS: PROTONIX 40 MG IV IV SCH (09:24)
[2020-08-16] MEDS: ECOTRIN 81 MG PO SCH (09:24)
[2020-08-16] MEDS: Glucophage XR 500 MG PO SCH ×2 (09:24→21:36)
[2020-08-16] MEDS: ZYLOPRIM 100 MG PO SCH (09:24)
[2020-08-16] MEDS: FISH OIL 1,000 MG CAPSULE PO SCH (09:24)
[2020-08-16] MEDS: HUMALOG SQ PRN ×4 (09:29→21:36)
[2020-08-16] MEDS ORDERED: DEXTROAMPHETAMINE PO SCH (10:00)
[2020-08-16] MEDS ORDERED: AMPHETAMINE PO SCH (10:00)
[2020-08-16] MEDS ORDERED: NON-FORMULARY ITEM (Aspirin [Aspirin] 81 MG) PO SCH (10:00)
[2020-08-16] MEDS ORDERED: NON-FORMULARY ITEM (Empagliflozin [Jardiance] 25 MG) PO SCH (10:00)
[2020-08-16] MEDS ORDERED: [UNRECOGNIZED DRUG - OTHER] PO SCH (10:00)
[2020-08-16] MEDS ORDERED: NON-FORMULARY ITEM (Omega-3 Fatty Acids/Fish Oil [Fish Oil 1,000 Mg Capsule] 1 EACH) PO SCH (10:00)
[2020-08-16] MEDS ORDERED: VITAMIN D2 PO SCH (10:00)
--- NOTE | 2020-08-16 10:19 | PCM.NOTE ---
Date and Time: 08/16/20 1018 Subjective Assessment: doing better - Review of Systems Constitutional: No Fever, No Chills Eyes: No Symptoms Ears, Nose, & Throat: No Symptoms Respiratory: No Cough, No Short Of Breath Cardiac: No Chest Pain, No Edema, No Syncope Abdominal/Gastrointestinal: No Abdominal Pain, No Nausea, No Vomiting, No Diarrhea Genitourinary Symptoms: No Dysuria Musculoskeletal: No Back Pain, No Neck Pain Skin: Cellulitis, No Rash Neurological: No Dizziness, No Focal Weakness, No Sensory Changes Psychological: No Symptoms Endocrine: No Symptoms Hematologic/Lymphatic: No Symptoms Immunological/Allergic: No Symptoms Objective Exam General Appearance: no apparent distress, alert Neurologic Exam: alert, oriented x 3, cooperative, normal mood/affect, nml cerebellar function, sensation nml, No motor deficits Skin Exam: normal color, warm, dry Wound Assessment: Skin/Wound Assessment Wound/Incision Assessment Start: 08/15/20 01:01 Text: Status: Active Freq: Q6H Protocol: Document 08/16/20 02:00 SG (Rec: 08/16/20 02:16 SG [id number]) Wound/Incision Assessment Lower Anterior/Posterior Other Wound Assessment Admission Wound Type CELLULITIS Wound Stage Non Pressure Wound Drainage Amount None General Appearance Open to air Comment CELLULITIS NOTED TO BLE, OPEN TO AIR, MD AWARE, BLISTER NOTED TO RLE Wound Photo Photo Taken No Comment: already on chart Eye Exam: PERRL, EOMI, eyes nml inspection Ears, Nose, Throat Exam: normal ENT inspection, pharynx normal, moist mucous membranes Neck Exam: normal inspection, non-tender, supple, full range of motion Respiratory Exam: normal breath sounds, lungs clear, No respiratory distress Cardiovascular Exam: regular rate/rhythm, normal heart sounds Gastrointestinal/Abdomen Exam: soft, No tenderness, No mass Extremity Exam: normal inspection, normal range of motion, inflammation, pedal edema, swelling, tenderness Back Exam: normal inspection, normal range of motion, No CVA tenderness, No vertebral tenderness Male Genitalia Exam: deferred Rectal Exam: deferred OBJECTIVE DATA Vital Signs: Vital Signs - 24 hr Temp Pulse Resp BP Pulse Ox 08/16/20 08:00 98.1 F 82 20 146/66 91 L 08/16/20 06:41 78 20 95 08/16/20 04:00 97.7 F 86 22 122/55 93 L 08/15/20 23:40 98.5 F 91 H 23 149/86 92 L 08/15/20 19:47 98.3 F 86 24 130/72 90 L 08/15/20 18:48 90 22 97 08/15/20 16:00 97.6 F 83 18 137/60 93 L 08/15/20 14:38 80 16 92 L 08/15/20 11:48 97.7 F 90 18 121/92 92 L 08/15/20 10:51 82 16 92 L Pain Assessment - Last Documented Pain Intensity 8 Pain Scale Used 0-10 Pain Scale Intake and Output: Intake & Output 08/13/20 08/14/20 08/15/20 08/16/20 11:59 11:59 11:59 11:59 Intake Total 1800 Output Total 650 250 Balance -650 1550 Weight 153.3 kg Lab Results: Lab Results-Last 24 Hours 08/15/20 08/15/20 08/15/20 Range/Units 05:00 11:32 16:48 POC Glucometer 238 H 224 H (74 to 106) mg/dL Hemoglobin A1c 7.76 H (4.5-6.0) % 08/15/20 08/16/20 Range/Units 21:00 07:32 POC Glucometer 310 H 202 H (74 to 106) mg/dL Hemoglobin A1c (4.5-6.0) % Radiology Exams: Radiology Procedures Category Date Time Status CHEST 1 VIEW (PORTABLE) Stat Exams 08/14/20 20:16 Completed HEAD WITHOUT CONTRAST [CT] Stat Exams 08/14/20 20:17 Completed VENOUS BILATERAL EXTREMITY [US] Routine Exams 08/16/20 Ordered Assessment/Plan (1) Lower extremity cellulitis Current Visit: Yes Status: Acute Qualifiers: Laterality: unspecified laterality Qualified Code(s): L03.119 - Cellulitis of unspecified part of limb Assessment & Plan: Last Vital Signs Temp 98.1 F 08/16/20 08:00 Pulse 82 08/16/20 08:00 Resp 20 08/16/20 08:00 BP 146/66 08/16/20 08:00 Pulse Ox 91 L 08/16/20 08:00 Allergies No Known Drug Allergies Allergy (Unverified 08/14/20 20:21) Active Medications Albuterol/Ipratropium (Duoneb 0.5-3 Mg/3 Ml Neb) 3 ml IH QIDRT [facility] Stop: 09/14/20 06:59 Last Admin: 08/16/20 06:39 Dose: 3 ml Documented by: Allopurinol (Zyloprim 100 Mg) 100 mg PO DAILY [facility] Stop: 09/14/20 10:59 Last Admin: 08/16/20 09:24 Dose: 100 mg Documented by: Aspirin (Ecotrin 81 Mg) 81 mg PO DAILY [facility] Stop: 09/14/20 10:59 Last Admin: 08/16/20 09:24 Dose: 81 mg Documented by: Bumetanide (Bumex 1 Mg) 1 mg PO DAILY [facility] Stop: 09/14/20 10:59 Last Admin: 08/16/20 09:24 Dose: 1 mg Documented by: Carvedilol (Coreg 6.25 Mg) 6.25 mg PO BIDWM [facility] Stop: 09/14/20 10:59 Last Admin: 08/16/20 08:47 Dose: 6.25 mg Documented by: Clopidogrel Bisulfate (Plavix 75 Mg Tablet) 75 mg PO HS [facility] Stop: 09/14/20 21:59 Last Admin: 08/15/20 21:43 Dose: 75 mg Documented by: Diphenoxylate HCl/Atropine (Lomotil) 1 tablet PO Q4HPRN PRN PRN Reason: DIARRHEA Stop: 09/14/20 12:16 Ergocalciferol (Vitamin D2) 50,000 unit PO SuTh@1000 [facility] Stop: 09/15/20 09:59 Last Admin: 08/16/20 09:31 Dose: 50,000 unit Documented by: Fish Oil (Fish Oil 1,000 Mg Capsule) 1,000 mg PO DAILY [facility] Stop: 09/14/20 10:59 Last Admin: 08/16/20 09:24 Dose: 1,000 mg Documented by: Gabapentin (Neurontin 400 Mg) 400 mg PO TID [facility] Stop: 09/14/20 14:59 Last Admin: 08/16/20 09:24 Dose: 400 mg Documented by: Azithromycin (Zithromax 500 Mg/ 250 Ml Nacl Premix) 500 mg in 250 mls @ 250 mls/hr IV Q24H22 [facility] Stop: 09/14/20 21:59 Last Admin: 08/15/20 22:05 Dose: 250 mls/hr Documented by: Ceftriaxone Sodium/Dextrose (Rocephin 1 Gm-D5w 50 Ml Bag) 1 g in 50 mls @ 100 mls/hr IV Q24H22 [facility] Stop: 09/14/20 21:59 Last Admin: 08/15/20 21:40 Dose: 100 mls/hr Documented by: Insulin Human Lispro (Humalog) 0 unit SQ UD PRN PRN Reason: HYPERGLYCEMIA Stop: 09/14/20 00:59 Last Admin: 08/16/20 09:29 Dose: 5 unit Documented by: Metformin HCl (Glucophage Xr 500 Mg) 1,000 mg PO BID [facility] Stop: 09/14/20 10:59 Last Admin: 08/16/20 09:24 Dose: 1,000 mg Documented by: Miscellaneous Information (Medication Intervention) 1 each MC .RN TO CHECK WITH PT [facility] Stop: 09/14/20 16:14 Miscellaneous Information (Medication Intervention) 1 each MC .RN TO CHECK WITH PT [facility] Stop: 09/14/20 16:14 Nitroglycerin (Nitrostat 0.4 Mg Tablet) 0.4 mg SL Q5MIN PRN MR X 3 PRN PRN Reason: CHEST PAIN Stop: 09/14/20 10:50 Oxycodone/Acetaminophen (Percocet Tablet 5/325mg) 1 tab PO Q4H PRN PRN PRN Reason: PAIN Stop: 08/20/20 10:19 Last Admin: 08/16/20 08:45 Dose: 1 tab Documented by: Pantoprazole Sodium (Protonix 40 Mg Iv) 40 mg IV Q24H10 [facility] Stop: 09/14/20 09:59 Last Admin: 08/16/20 09:24 Dose: 40 mg Documented by: Patient Own Medication (Patient Own Medication) 0 each SQ UD [facility] Stop: 09/14/20 11:14 Potassium Chloride (Klor Con 10 Meq) 10 meq PO BID [facility] Stop: 09/14/20 10:59 Last Admin: 08/16/20 09:24 Dose: 10 meq Documented by: Simvastatin (Zocor 20mg) 40 mg PO HS [facility] Stop: 09/14/20 21:59 Last Admin: 02/27/21 21:43 Dose: 40 mg Documented by: Tamsulosin HCl (Flomax 0.4 Mg) 0.4 mg PO DAILY [facility] Stop: 09/14/20 12:59 Last Admin: 08/16/20 09:24 Dose: 0.4 mg Documented by: Intake & Output 08/15/20 08/16/20 11:59 11:59 Intake Total 1800 Output Total 650 250 Balance -650 1550 Weight 153.3 kg Orders 08/15/20 10:20 Oxycodone/APAP 5 mg/325 mg [Percocet Tablet 5/325Mg] 1 tab PO Q4H PRN PRN 08/15/20 10:51 Nitroglycerin 0.4 mg Tablet [Nitrostat 0.4 MG Tablet] 0.4 mg SL Q5MIN PRN MR X 3 PRN 08/15/20 11:00 Allopurinol 100 mg [Zyloprim 100 mg] 100 mg PO DAILY Aspirin EC 81 mg [Ecotrin 81 mg] 81 mg PO DAILY Bumetanide 1 mg [Bumex 1 mg] 1 mg PO DAILY Carvedilol 6.25 mg [Coreg 6.25 MG] 6.25 mg PO BIDWM Metformin HCl Xr 500 mg [Glucophage XR 500 MG] 1,000 mg PO BID [place]-3 Fatty Acids/Fish Oil [Fish Oil 1,000 mg Capsule] 1,000 mg PO DAILY Potassium Chloride 10 Meq Tab* [Klor Con 10 MEQ] 10 meq PO BID 08/15/20 11:15 Patient Own Med [Patient Own Medication] 0 each SQ UD 08/15/20 12:17 Diphenoxylate HCl/Atropine [Lomotil] 1 tablet PO Q4HPRN PRN 08/15/20 13:00 Tamsulosin HCl 0.4 mg [Flomax 0.4 MG] 0.4 mg PO DAILY 08/15/20 15:00 Gabapentin 400 mg [Neurontin 400 MG] 400 mg PO TID 08/15/20 16:15 Medication Intervention 1 each MC .RN TO CHECK WITH PT Medication Intervention 1 each MC .RN TO CHECK WITH PT 08/15/20 22:00 Clopidogrel Bisulfate 75 mg [PLAVIX 75 MG Tablet] 75 mg PO HS Simvastatin 20Mg [Zocor 20Mg] 40 mg PO HS 08/16/20 10:00 Ergocalciferol (Vitamin D2) [Vitamin D2] 50,000 unit PO SuTh@1000 Lab Tests 08/15/20 08/15/20 08/15/20 05:00 11:32 16:48 POC Glucometer 238 H 224 H Hemoglobin A1c 7.76 H 08/15/20 08/16/20 21:00 07:32 POC Glucometer 310 H 202 H Hemoglobin A1c (2) General weakness Current Visit: Yes Status: Acute Code(s): R53.1 - WEAKNESS
--- NOTE | 2020-08-16 20:14 | XRAY ---
Indication: Bilateral leg swelling. Venous insufficiency. Cellulitis. Two-dimensional sonogram and color Doppler imaging of the major venous vessels of the left and right leg was performed. Comparison: None No thrombus seen in the examined deep venous vessels of the left and right leg including greater saphenous vein. Veins demonstrate normal compressibility. Venous waveforms are normal with and without augmentation. Impression: Left and right legs negative for DVT. Comment: Preliminary report was given.
[2020-08-16] MEDS: ROCEPHIN 1 Gm-D5w 50 ml Bag** 1 G/50 ML IVPB IV SCH (21:30)
[2020-08-16] MEDS ORDERED: VANCOMYCIN HCL CAPSULE PO SCH (21:30)
[2020-08-16] MEDS: PLAVIX 75 MG Tablet PO SCH (21:35)
[2020-08-16] MEDS: ZOCOR 20MG PO SCH (21:35)
[2020-08-16] MEDS: Zithromax 500 MG/ 250 ML NaCl Premix 500 MG/250 ML IVPB IV SCH (22:24)
[2020-08-17] MEDS: PERCOCET TABLET 5/325MG PO PRN ×4 (02:50→21:52)
[2020-08-17] MEDS: DUONEB 0.5-3 MG/3 ml Neb IH SCH ×4 (06:37→19:07)
[2020-08-17] MEDS: Coreg 6.25 MG PO SCH ×2 (08:42→16:59)
[2020-08-17] MEDS: HUMALOG SQ PRN ×3 (08:43→21:54)
[2020-08-17] MEDS: Klor Con 10 MEQ PO SCH ×2 (10:09→21:53)
[2020-08-17] MEDS: Flomax 0.4 MG PO SCH (10:09)
[2020-08-17] MEDS: ZYLOPRIM 100 MG PO SCH (10:09)
[2020-08-17] MEDS: BUMEX 1 MG PO SCH (10:09)
[2020-08-17] MEDS: FISH OIL 1,000 MG CAPSULE PO SCH (10:09)
[2020-08-17] MEDS: ECOTRIN 81 MG PO SCH (10:09)
[2020-08-17] MEDS: Glucophage XR 500 MG PO SCH ×2 (10:09→21:53)
[2020-08-17] MEDS: PROTONIX 40 MG IV IV SCH (10:10)
[2020-08-17] MEDS: Neurontin 400 MG PO SCH ×3 (10:10→21:53)
--- NOTE | 2020-08-17 17:48 | PCM.NOTE ---
Date and Time: 08/17/201746 Subjective Assessment: doing better - Review of Systems Constitutional: No Fever, No Chills Eyes: No Symptoms Ears, Nose, & Throat: No Symptoms Respiratory: No Cough, No Short Of Breath Cardiac: No Chest Pain, No Edema, No Syncope Abdominal/Gastrointestinal: No Abdominal Pain, No Nausea, No Vomiting, No Diarrhea Genitourinary Symptoms: No Dysuria Musculoskeletal: No Back Pain, No Neck Pain Skin: No Rash Neurological: No Dizziness, No Focal Weakness, No Sensory Changes Psychological: No Symptoms Endocrine: No Symptoms Hematologic/Lymphatic: No Symptoms Immunological/Allergic: No Symptoms Objective Exam General Appearance: no apparent distress, alert Neurologic Exam: alert, oriented x 3, cooperative, normal mood/affect, nml cerebellar function, sensation nml, No motor deficits Skin Exam: normal color, warm, dry Wound Assessment: Skin/Wound Assessment Wound/Incision Assessment Start: 08/15/20 01:01 Text: Status: Active Freq: Q6H Protocol: Document 08/17/20 14:00 [facility] (Rec: 08/17/20 14:47 [id number] Wound/Incision Assessment Lower Anterior/Posterior Other Wound Assessment Shift Assessment Wound Type CELLULITIS Wound Stage Non Pressure Wound Drainage Amount None General Appearance Open to air Comment CELLULITIS NOTED TO BLE, OPEN TO AIR, MD AWARE, BLISTER NOTED TO RLE Wound Photo Photo Taken No Eye Exam: PERRL, EOMI, eyes nml inspection Ears, Nose, Throat Exam: normal ENT inspection, pharynx normal, moist mucous membranes Neck Exam: normal inspection, non-tender, supple, full range of motion Respiratory Exam: normal breath sounds, lungs clear, No respiratory distress Cardiovascular Exam: regular rate/rhythm, normal heart sounds Gastrointestinal/Abdomen Exam: soft, No tenderness, No mass Extremity Exam: normal inspection, normal range of motion Back Exam: normal inspection, normal range of motion, No CVA tenderness, No vertebral tenderness Male Genitalia Exam: deferred Rectal Exam: deferred OBJECTIVE DATA Vital Signs: Vital Signs - 24 hr Temp Pulse Resp BP Pulse Ox 08/17/20 16:00 98.3 F 85 18 158/65 91 L 08/17/20 14:30 79 18 92 L 08/17/20 12:00 97.7 F 81 18 141/63 91 L 08/17/20 10:55 78 20 92 L 08/17/20 08:00 97.7 F 80 18 143/72 92 L 08/17/20 06:38 74 20 95 08/17/20 03:52 98.6 F 84 20 175/74 95 08/17/20 00:13 98.5 F 78 20 126/61 94 L 08/16/20 20:00 98.3 F 84 20 148/75 92 L 08/16/20 19:09 84 20 92 L Pain Assessment - Last Documented Pain Intensity 6 Pain Scale Used 0-10 Pain Scale Intake and Output: Intake & Output 08/15/20 08/16/20 08/17/20 08/18/20 11:59 11:59 11:59 11:59 Intake Total 1800 Output Total 719 634 3994 Balance -650 1550 -1500 Weight 153.3 kg 156.5 kg 155.6 kg 156.5 kg Lab Results: Lab Results-Last 24 Hours 08/16/20 08/17/20 08/17/20 Range/Units 21:14 07:21 11:30 POC Glucometer 379 H 254 H 327 H (74 to 106) mg/dL 08/17/20 Range/Units 16:36 POC Glucometer 352 H (74 to 106) mg/dL Radiology Exams: Radiology Procedures Category Date Time Status VENOUS BILATERAL EXTREMITY [US] Routine Exams 08/16/20 11:33 Completed Multi-Disciplinary Progress Notes: Multi-Disciplinary Progress Notes 08/17/20 13:11 Case Management Note by Halle Lopez/Hermelinda LIVINGSTON AT DR. WHITNEY'S OFFICE. THEY ARE AWARE PATIENT LIKELY TO GO HOME TOMORROW ON PO ANTIBIOTICS. THEY STATED THEY JUST WRAPPED HIS LEGS TODAY. HAVE PATIENT KEEP THOSE DRESSING CD&I AND THEY WILL SEE HIM ON MONDAY FOR A DRESSING CHANGE. Initialized on 08/17/20 13:11 - END OF NOTE Assessment/Plan (1) Lower extremity cellulitis Current Visit: Yes Status: Acute Qualifiers: Laterality: unspecified laterality Qualified Code(s): L03.119 - Cellulitis of unspecified part of limb Assessment & Plan: Last Vital Signs Temp 98.3 F 08/17/20 16:00 Pulse 85 08/17/20 16:00 Resp 18 08/17/20 16:00 BP 158/65 08/17/20 16:00 Pulse Ox 91 L 08/17/20 16:00 Allergies No Known Drug Allergies Allergy (Unverified 08/14/20 20:21) Active Medications Albuterol/Ipratropium (Duoneb 0.5-3 Mg/3 Ml Neb) 3 ml IH QIDRT [facility] Stop: 09/14/20 06:59 Last Admin: 08/17/20 14:30 Dose: 3 ml Documented by: Allopurinol (Zyloprim 100 Mg) 100 mg PO DAILY [facility] Stop: 09/14/20 10:59 Last Admin: 08/17/20 10:09 Dose: 100 mg Documented by: Aspirin (Ecotrin 81 Mg) 81 mg PO DAILY [facility] Stop: 09/14/20 10:59 Last Admin: 08/17/20 10:09 Dose: 81 mg Documented by: Bumetanide (Bumex 1 Mg) 1 mg PO DAILY [facility] Stop: 09/14/20 10:59 Last Admin: 08/17/20 10:09 Dose: 1 mg Documented by: Carvedilol (Coreg 6.25 Mg) 6.25 mg PO BIDWM [facility] Stop: 09/14/20 10:59 Last Admin: 08/17/20 16:59 Dose: 6.25 mg Documented by: Clopidogrel Bisulfate (Plavix 75 Mg Tablet) 75 mg PO HS [facility] Stop: 09/14/20 21:59 Last Admin: 08/16/20 21:35 Dose: 75 mg Documented by: Diphenoxylate HCl/Atropine (Lomotil) 1 tablet PO Q4HPRN PRN PRN Reason: DIARRHEA Stop: 09/14/20 12:16 Ergocalciferol (Vitamin D2) 50,000 unit PO SuTh@1000 [facility] Stop: 09/15/20 09:59 Last Admin: 08/16/20 09:31 Dose: 50,000 unit Documented by: Fish Oil (Fish Oil 1,000 Mg Capsule) 1,000 mg PO DAILY [facility] Stop: 09/14/20 10:59 Last Admin: 08/17/20 10:09 Dose: 1,000 mg Documented by: Gabapentin (Neurontin 400 Mg) 400 mg PO TID [facility] Stop: 09/14/20 14:59 Last Admin: 08/17/20 15:50 Dose: 400 mg Documented by: Azithromycin (Zithromax 500 Mg/ 250 Ml Nacl Premix) 500 mg in 250 mls @ 250 mls/hr IV Q24H22 [facility] Stop: 09/14/20 21:59 Last Admin: 08/16/20 22:24 Dose: 250 mls/hr Documented by: Ceftriaxone Sodium/Dextrose (Rocephin 1 Gm-D5w 50 Ml Bag) 1 g in 50 mls @ 100 mls/hr IV Q24H22 [facility] Stop: 09/14/20 21:59 Last Admin: 08/16/20 21:30 Dose: 100 mls/hr Documented by: Insulin Human Lispro (Humalog) 0 unit SQ UD PRN PRN Reason: HYPERGLYCEMIA Stop: 09/14/20 00:59 Last Admin: 08/17/20 12:08 Dose: 9 unit Documented by: Metformin HCl (Glucophage Xr 500 Mg) 1,000 mg PO BID [facility] Stop: 09/14/20 10:59 Last Admin: 08/17/20 10:09 Dose: 1,000 mg Documented by: Miscellaneous Information (Medication Intervention) 1 each MC .RN TO CHECK WITH PT [facility] Stop: 09/14/20 16:14 Miscellaneous Information (Medication Intervention) 1 each MC .RN TO CHECK WITH PT [facility] Stop: 09/14/20 16:14 Nitroglycerin (Nitrostat 0.4 Mg Tablet) 0.4 mg SL Q5MIN PRN MR X 3 PRN PRN Reason: CHEST PAIN Stop: 09/14/20 10:50 Oxycodone/Acetaminophen (Percocet Tablet 5/325mg) 1 tab PO Q4H PRN PRN PRN Reason: PAIN Stop: 08/20/20 10:19 Last Admin: 08/17/20 16:50 Dose: 1 tab Documented by: Pantoprazole Sodium (Protonix 40 Mg Iv) 40 mg IV Q24H10 [facility] Stop: 09/14/20 09:59 Last Admin: 08/17/20 10:10 Dose: 40 mg Documented by: Patient Own Medication (Patient Own Medication) 0 each SQ UD [facility] Stop: 09/14/20 11:14 Potassium Chloride (Klor Con 10 Meq) 10 meq PO BID [facility] Stop: 09/14/20 10:59 Last Admin: 08/17/20 10:09 Dose: 10 meq Documented by: Simvastatin (Zocor 20mg) 40 mg PO HS [facility] Stop: 09/14/20 21:59 Last Admin: 08/16/20 21:35 Dose: 40 mg Documented by: Tamsulosin HCl (Flomax 0.4 Mg) 0.4 mg PO DAILY [facility] Stop: 09/14/20 12:59 Last Admin: 08/17/20 10:09 Dose: 0.4 mg Documented by: Intake & Output 08/17/20 08/18/20 11:59 11:59 Output Total 1500 Balance -1500 Weight 155.6 kg 156.5 kg Lab Tests 08/16/20 08/17/20 08/17/20 21:14 07:21 11:30 POC Glucometer 379 H 254 H 327 H 08/17/20 16:36 POC Glucometer 352 H Microbiology 08/14/20 02:30 Blood Blood Culture - Preliminary NO GROWTH TO DATE 08/14/20 02:30 Blood Blood Culture - Preliminary NO GROWTH TO DATE (2) General weakness Current Visit: Yes Status: Resolved Code(s): R53.1 - WEAKNESS
[2020-08-17] MEDS: ZOCOR 20MG PO SCH (21:52)
[2020-08-17] MEDS: PLAVIX 75 MG Tablet PO SCH (21:52)
[2020-08-17] MEDS: Zithromax 500 MG/ 250 ML NaCl Premix 500 MG/250 ML IVPB IV SCH (21:53)
[2020-08-17] MEDS: ROCEPHIN 1 Gm-D5w 50 ml Bag** 1 G/50 ML IVPB IV SCH (22:00)
[2020-08-18] MEDS: PERCOCET TABLET 5/325MG PO PRN ×3 (02:18→10:58)
[2020-08-18] MEDS: DUONEB 0.5-3 MG/3 ml Neb IH SCH ×2 (07:22→10:34)
[2020-08-18 07:24] VITALS: PULSE 74
[2020-08-18 07:48] VITALS: BP 140/63; O2SAT 91
[2020-08-18] MEDS: Coreg 6.25 MG PO SCH (08:09)
[2020-08-18] MEDS: HUMALOG SQ PRN (08:10)
[2020-08-18] MEDS: PROTONIX 40 MG IV IV SCH (09:09)
[2020-08-18] MEDS: Glucophage XR 500 MG PO SCH (09:10)
[2020-08-18] MEDS: BUMEX 1 MG PO SCH (09:10)
[2020-08-18] MEDS: ECOTRIN 81 MG PO SCH (09:10)
[2020-08-18] MEDS: Klor Con 10 MEQ PO SCH (09:10)
[2020-08-18] MEDS: ZYLOPRIM 100 MG PO SCH (09:10)
[2020-08-18] MEDS: Neurontin 400 MG PO SCH (09:10)
[2020-08-18] MEDS: FISH OIL 1,000 MG CAPSULE PO SCH (09:10)
[2020-08-18] MEDS: Flomax 0.4 MG PO SCH (09:10)
== END 2020-08-18 12:04 | disposition home or self-care (01) | DRG 947 ==
LOC: ED 19:52 → MED SURG 08-15 00:47 → OBSVTOIN 08-15 08:16
PROVIDERS: ADMIT General Practice; ATTEND General Practice
DX: R53.1 Weakness (principal); J18.9 Pneumonia, unspecified organism; L03.116 Cellulitis of left lower limb; L03.115 Cellulitis of right lower limb; E11.9 Type 2 diabetes mellitus without complications; I83.018 Varicose veins of right lower extremity with ulcer other part of lower leg; I83.028 Varicose veins of left lower extremity with ulcer other part of lower leg; I10 Essential (primary) hypertension; I50.9 Heart failure, unspecified; E78.5 Hyperlipidemia, unspecified; I25.10 Atherosclerotic heart disease of native coronary artery without angina pectoris; Z79.899 Other long term (current) drug therapy; Z79.01 Long term (current) use of anticoagulants; E78.00 Pure hypercholesterolemia, unspecified; G47.30 Sleep apnea, unspecified; J44.9 Chronic obstructive pulmonary disease, unspecified; R29.6 Repeated falls; R42 Dizziness and giddiness
CPT/HCPCS: 0241U; 29580; 36000; 36415; 70450; 71045; 80053; 81001; 82947; 83036; 83605; 83735; 83880; 84134; 84443; 84484; 85025; 87040; 93005; 93268; 93970; 94640; 94660; 94762; 96365; 96367; 96374; 99232; 99252; 99285; J0456; J0696; J1817; J1940; A9270-GY

== ENCOUNTER 2021-05-03 12:00 | Observation (INO) | payer MEDICARE ==
--- NOTE | 2021-05-03 13:19 | PCM.HP.ADD ---
Addendum to History & Physical - History & Physical Addendum Addendum to History & Physical: This certifies that the History & Physical in the electronic chart reflects the current health status of the patient. If there are changes in the H&P these changes/exceptions are listed as follows.
[2021-05-03 15:39] LABS: Hemoglobin 15.7 gm/dl (12.5-18.0); Mean Cell Volume 92.7 fl (78-100); Mean Corpuscular Hgb Concent. 30.2 g/dl (32-36); Mean Platelet Volume 10.8 fl (7.5-11.0); Platelet Count 117 K/mm3 (150-450); Red Blood Count 5.61 M/mm3 (4.1-5.6); Red Cell Distribution Width 14.9 % (11.5-14.0); White Blood Count 5.8 K/mm3 (4.0-10.5)
[2021-05-03 16:19] LABS: ALKALINE PHOSPHATASE 111 U/L (38-126); BLOOD UREA NITROGEN 22 mg/dL (9-20); CHLORIDE 94 mmol/L (98-107); Calcium 9.5 mg/dL (8.4-10.2); Creatinine 1 0.81 mg/dL (0.66-1.25); EST GLOMERULAR FILTRATION RATE > 60.0 ML/MIN; Glucose 164 mg/dL (74-106); Potassium 4.1 mmol/L (3.5-5.1); SGOT/AST 32 U/L (17-59); SGPT/ALT 52 U/L (0-50); SODIUM 147 mmol/L (137-145); Total Protein 6.8 g/dL (6.3-8.2)
[2021-05-03 16:30] LABS: Carbon Dioxide 43 mmol/L (22-30)
[2021-05-03 16:31] LABS: ANION GAP 14.1 MEQ/L (5-15)
--- NOTE | 2021-05-03 16:45 | XRAY ---
Indication: COPD exacerbation. CHF. Comparison: August 14, 2020. PA/lateral chest unchanged again demonstrating mild bibasilar subsegmental atelectasis/scarring and tiny left midlung calcified granuloma. Remaining heart and lungs unremarkable. Bony thorax intact with mild degenerative changes. No new/acute findings.
[2021-05-03] MEDS: Sodium Chloride 0.9% 1000 ML 1,000 ML IV SCH (17:09)
[2021-05-03] MEDS: Zithromax 500 MG/ 250 ML NaCl Premix 500 MG/250 ML IVPB IV SCH (17:09)
[2021-05-03] MEDS ORDERED: Nitrostat 0.4 MG Tablet SL PRN (17:14)
[2021-05-03] MEDS ORDERED: HUMALOG SQ SCH (17:15)
[2021-05-03] MEDS ORDERED: MEDICATION INTERVENTION MC SCH (17:30)
[2021-05-03] MEDS ORDERED: PROVENTIL 2.5 MG/3 ML NEB IH SCH (19:00)
[2021-05-03] MEDS: DUONEB 0.5-3 MG/3 ml Neb IH SCH (19:00)
[2021-05-03] MEDS: ROCEPHIN 1 Gm-D5w 50 ml Bag** 1 G/50 ML IVPB IV SCH (19:49)
[2021-05-03] MEDS ORDERED: Combivent Inhaler COMMON CANISTER IH SCH (22:00)
[2021-05-03] MEDS ORDERED: NABUMETONE PO SCH (22:00)
[2021-05-03] MEDS ORDERED: LIPITOR 40MG PO SCH (22:00)
[2021-05-03] MEDS ORDERED: NON-FORMULARY ITEM (Omega-3 Fatty Acids/Fish Oil [Fish Oil 1,000 Mg Capsule] 1 EACH Capsul PO SCH (22:00)
[2021-05-03] MEDS: BUMEX 1 MG PO SCH (22:06)
[2021-05-03] MEDS: Tegretol 200 MG PO SCH (22:06)
[2021-05-03] MEDS: Klor Con 10 MEQ PO SCH (22:06)
[2021-05-03] MEDS: ZOCOR 20MG PO SCH (22:06)
[2021-05-03] MEDS: FISH OIL 1,000 MG CAPSULE PO SCH (22:06)
[2021-05-03] MEDS: NEURONTIN 300 MG PO SCH (22:06)
[2021-05-04] MEDS: DUONEB 0.5-3 MG/3 ml Neb IH SCH ×4 (07:30→19:05)
[2021-05-04] MEDS: FISH OIL 1,000 MG CAPSULE PO SCH ×2 (09:16→21:26)
[2021-05-04] MEDS: NEURONTIN 300 MG PO SCH (09:16)
[2021-05-04] MEDS: Klor Con 10 MEQ PO SCH ×2 (09:16→21:26)
[2021-05-04] MEDS: BUMEX 1 MG PO SCH ×2 (09:16→21:26)
[2021-05-04] MEDS: ROCEPHIN 1 Gm-D5w 50 ml Bag** 1 G/50 ML IVPB IV SCH (09:17)
[2021-05-04] MEDS: Zithromax 500 MG/ 250 ML NaCl Premix 500 MG/250 ML IVPB IV SCH (10:01)
[2021-05-04] MEDS: PRED-FORTE 1% OPHTHALMIC OP SCH ×3 (13:13→21:26)
[2021-05-04] MEDS: Neurontin 400 MG PO SCH ×2 (14:19→21:26)
--- NOTE | 2021-05-04 17:20 | PCM.NOTE ---
Date and Time: 05/04/211717 Subjective Assessment: doing ok, pain in right eye - Review of Systems Constitutional: No Fever, No Chills Eyes: No Symptoms Ears, Nose, & Throat: No Symptoms Respiratory: Orthopnea, Short Of Breath, No Cough Cardiac: No Chest Pain, No Edema, No Syncope Abdominal/Gastrointestinal: No Abdominal Pain, No Nausea, No Vomiting, No Diarrhea Genitourinary Symptoms: No Dysuria Musculoskeletal: No Back Pain, No Neck Pain Skin: No Rash Neurological: No Dizziness, No Focal Weakness, No Sensory Changes Psychological: No Symptoms Endocrine: No Symptoms Hematologic/Lymphatic: No Symptoms Immunological/Allergic: No Symptoms Objective Exam General Appearance: no apparent distress, alert Neurologic Exam: alert, oriented x 3, cooperative, normal mood/affect, nml cerebellar function, sensation nml, No motor deficits Skin Exam: normal color, warm, dry Eye Exam: PERRL, EOMI, eyes nml inspection Ears, Nose, Throat Exam: normal ENT inspection, pharynx normal, moist mucous membranes Neck Exam: normal inspection, non-tender, supple, full range of motion Respiratory Exam: normal breath sounds, lungs clear, No respiratory distress Cardiovascular Exam: regular rate/rhythm, normal heart sounds Gastrointestinal/Abdomen Exam: soft, No tenderness, No mass Extremity Exam: normal inspection, normal range of motion Back Exam: normal inspection, normal range of motion, No CVA tenderness, No vertebral tenderness Male Genitalia Exam: deferred Rectal Exam: deferred OBJECTIVE DATA Vital Signs: Vital Signs - 24 hr Temp Pulse Resp BP Pulse Ox 05/04/21 16:00 98.2 F 83 22 156/75 91 L 05/04/21 15:16 78 18 92 L 05/04/21 12:00 98.0 F 80 20 135/58 93 L 05/04/21 11:04 83 22 92 L 05/04/21 07:32 80 18 94 L 05/04/21 07:28 97.7 F 77 19 141/66 95 05/04/21 04:00 97.5 F 88 20 183/93 91 L 05/03/21 23:49 97.7 F 88 20 188/79 93 L 05/03/21 19:28 97.7 F 91 H 20 135/64 95 05/03/21 19:00 87 18 95 05/03/21 17:54 82 20 94 L Pain Assessment - Last Documented Pain Intensity 5 Intake and Output: Intake & Output 05/02/21 05/03/21 05/04/21 05/05/21 11:59 11:59 11:59 11:59 Intake Total 2922 1020 Output Total 500 1800 Balance 2422 -780 Weight 156.8 kg Lab Results: Lab Results-Last 24 Hours 05/03/21 05/04/21 05/04/21 Range/Units 22:15 07:00 11:40 POC Glucometer 202 H 158 H 283 H (74 to 106) mg/dL 05/04/21 Range/Units 16:06 POC Glucometer 260 H (74 to 106) mg/dL Radiology Exams: Radiology Procedures Category Date Time Status CHEST 2 VIEWS (PA AND LAT) Routine Exams 05/03/21 16:14 Completed Multi-Disciplinary Progress Notes: Multi-Disciplinary Progress Notes 05/04/21 14:04 Case Management Note by Halle Lopez REFERRAL SENT TO ACO Initialized on 05/04/21 14:04 - END OF NOTE 05/04/21 12:15 (created 05/04/21 14:13) Case Management Note by Jada Nguyen DR ROUNDED AND EVALUATED. DISCUSSED PLAN OF CARE WITH PT. ALL QUESTIONS ANSWERED. DR PIMENTEL REPORTS THAT PT WILL LIKELY BE HERE FOR 1-2 MORE DAYS OF TREATMENT. CONTINUE CURRENT INTERVENTIONS/MEDICATIONS. GET AM LABS. START PRED-FORTE OPHTHALMIC GTTS QID TO AFFECTED EYE. WILL SEE PATIENT AGAIN TOMORROW. Initialized on 05/04/21 14:13 - END OF NOTE 05/04/21 11:39 Case Management Note by Halle Lopez WHILE DOING CASE MANAGEMENT ASSESS PATIENT A&O TO NAME AND PLACE. HE HOWEVER STATED YEAR WAS "2000....OR 2". HE DID KNOW WHAT MONTH IT WAS AND WHAT HOLIDAY WAS COMING UP. HAD COMPLETE CONVERSATION AND PATIENT FOLLOWED CONVERSATION APPROPRIATELY AND ANSWERED QUESTIONS Initialized on 05/04/21 11:39 - END OF NOTE Assessment/Plan (1) COPD with exacerbation Current Visit: No Status: Acute Assessment & Plan: Chief Complaint Diagnosis COPD EXACERBATION Allergies Allergy/AdvReac Type Severity Reaction Status Date / Time No Known Drug Allergies Allergy Unverified 08/14/20 20:21 Vital Signs (Last 24 hours) Temp Pulse Resp BP Pulse Ox 05/04/21 16:00 98.2 F 83 22 156/75 91 L 05/04/21 15:16 78 18 92 L 05/04/21 12:00 98.0 F 80 20 135/58 93 L 05/04/21 11:04 83 22 92 L 05/04/21 07:32 80 18 94 L 05/04/21 07:28 97.7 F 77 19 141/66 95 05/04/21 04:00 97.5 F 88 20 183/93 91 L 05/03/21 23:49 97.7 F 88 20 188/79 93 L 05/03/21 19:28 97.7 F 91 H 20 135/64 95 05/03/21 19:00 87 18 95 05/03/21 17:54 82 20 94 L Home Medications Medication Instructions Recorded Confirmed Last Taken Type Carbamazepine 200 mg [Tegretol 100 mg PO HS 05/03/21 05/03/21 Unknown History 200 MG] Current Medications Generic Name Dose Route Start Last Admin Trade Name Freq PRN Reason Stop Dose Admin Albuterol/Ipratropium 3 ml 05/03/21 19:00 05/04/21 15:14 Ipratropium/Albuterol Sulfate 3 Ml Ampul.Neb IH 06/02/21 18:59 3 ml QIDRT [facility] Administration Bumetanide 1 mg 05/03/21 22:00 05/04/21 09:16 Bumetanide 1 Mg Tablet PO 06/02/21 21:59 1 mg BID [facility] Administration Carbamazepine 100 mg 05/03/21 22:00 05/03/21 22:06 Carbamazepine 200 Mg Tablet PO 06/02/21 21:59 100 mg HS [facility] Administration Fish Oil 2,000 mg 05/03/21 22:00 05/04/21 09:16 [place]-3 Fatty Acids/Fish Oil 1000 Mg Capsule PO 06/02/21 21:59 2,000 mg BID [facility] Administration Gabapentin 400 mg 05/04/21 15:00 05/04/21 14:19 Gabapentin 400 Mg Capsule PO 06/03/21 14:59 400 mg TID [facility] Administration Sodium Chloride 1,000 mls @ 30 mls/hr 05/03/21 17:00 05/03/21 17:09 Sodium Chloride 0.9% 1000 Ml IV 06/02/21 16:59 30 mls/hr .Q24H [facility] Administration KVO Ceftriaxone Sodium/Dextrose 1 g in 50 mls @ 100 mls/hr 05/03/21 17:00 05/04/21 09:17 Rocephin 1 Gm-D5w 50 Ml Bag IV 05/06/21 16:59 100 mls/hr DAILY [facility] Administration Azithromycin 500 mg in 250 mls @ 250 mls/hr 05/03/21 17:00 05/04/21 10:01 Zithromax 500 Mg/ 250 Ml Nacl Premix IV 06/02/21 16:59 250 mls/hr DAILY [facility] Administration Miscellaneous Information 1 each 05/03/21 17:30 Medication Intervention 1 Each Each 06/02/21 17:29 .RN TO CHECK [facility] Nitroglycerin 0.4 mg 05/03/21 17:14 Nitroglycerin 0.4 Mg Tablet Bottle SL 06/02/21 17:13 Q5MIN PRN MR X 3 PRN CHEST PAIN Potassium Chloride 10 meq 05/03/21 22:00 05/04/21 09:16 Potassium Chloride 10 Meq Tablet PO 06/02/21 21:59 10 meq BID [facility] Administration Prednisolone Acetate 0 ml 05/04/21 13:00 05/04/21 13:13 Prednisolone Acetate 5 Ml Eye Drops OP 06/03/21 12:59 1 ml QID [facility] Administration Simvastatin 40 mg 05/03/21 22:00 05/03/21 22:06 Simvastatin 20 Mg Tablet PO 06/02/21 21:59 40 mg HS [facility] Administration Discontinued Medications Generic Name Dose Route Start Last Admin Trade Name Freq PRN Reason Stop Dose Admin Albuterol Sulfate 2.5 mg 05/03/21 19:00 Albuterol Sulfate 2.5 Mg/3 Ml Neb IH 06/02/21 18:59 QIDRT [facility] Albuterol/Ipratropium 2 puff 05/03/21 22:00 Albuterol Sulfate/Ipratropium Common Canister IH 06/02/21 21:59 QID [facility] Gabapentin 300 mg 05/03/21 22:00 05/04/21 09:16 Gabapentin 300 Mg Capsule PO 06/02/21 21:59 300 mg TID [facility] Administration Insulin Human Lispro 100 unit 05/03/21 17:15 Insulin Lispro 1 Unit SQ 06/02/21 17:14 UD [facility] Intake & Output (Last 24 hours) 05/02/21 05/03/21 05/04/21 11/17/21 11:59 11:59 11:59 11:59 Intake Total 2922 1020 Output Total 500 1800 Balance 2422 -780 Weight 156.8 kg Laboratory Results (Last 24 hours) 05/04/21 05/04/21 05/04/21 16:06 11:40 07:00 POC Glucometer 260 H 283 H 158 H 05/03/21 22:15 POC Glucometer 202 H Orders (Last 24 hours) Category Date Time Status CBC AM.LAB Lab 05/05/21 04:00 Ordered CMP AM.LAB Lab 05/05/21 04:00 Ordered POCT GLUCOSE Stat Lab 05/03/21 22:15 Completed POCT GLUCOSE Stat Lab 05/04/21 06:59 Received POCT GLUCOSE Stat Lab 05/04/21 07:00 Completed POCT GLUCOSE Stat Lab 05/04/21 11:40 Completed POCT GLUCOSE Stat Lab 05/04/21 16:05 Received POCT GLUCOSE Stat Lab 05/04/21 16:06 Completed Albuterol 2.5 mg/3 ml Neb [Proventil 2.5 mg/3 ml Neb Med 05/03/21 19:00 Discontinued ] 2.5 mg IH QIDRT Albuterol/Ipratropium 3ml Neb* [DUONEB 0.5-3 MG/3 ml Med 05/03/21 19:00 Active Neb] 3 ml IH QIDRT Albuterol/Ipratropium cc [Combivent Inhaler COMMON Med 05/03/21 22:00 Discontinued CANISTER] 2 puff IH QID Azithromycin 500 mg/250 ml [Zithromax 500 MG/ 250 ML Med 05/03/21 17:00 Active NaCl Premix] 500 mg in 250 ml IV DAILY Bumetanide 1 mg [Bumex 1 mg] Med 05/03/21 22:00 Active 1 mg PO BID Carbamazepine 200 mg [Tegretol 200 MG] Med 05/03/21 22:00 Active 100 mg PO HS Ceftriaxone 1 GM/50 ML PREMIX* [ROCEPHIN 1 Gm-D5w 50 ml Med 05/03/21 17:00 Active Bag] 1 g in 50 ml IV DAILY Gabapentin 300 mg [Neurontin 300 mg] Med 05/03/21 22:00 Discontinued 300 mg PO TID Gabapentin 400 mg [Neurontin 400 MG] Med 05/04/21 15:00 Active 400 mg PO TID Insulin Lispro [Humalog] Med 05/03/21 17:15 Discontinued 100 unit SQ UD Medication Intervention Med 05/03/21 17:30 Active 1 each MC .RN TO CHECK NaCl 0.9% 1000 ml [Sodium Chloride 0.9% 1000 ML] 1,000 Med 05/03/21 17:00 Active ml IV KVO Nitroglycerin 0.4 mg Tablet [Nitrostat 0.4 MG Tablet Med 05/03/21 17:14 Active ] 0.4 mg SL Q5MIN PRN MR X 3 PRN [place]-3 Fatty Acids/Fish Oil [Fish Oil 1,000 mg Med 05/03/21 22:00 Active Capsule] 2,000 mg PO BID Potassium Chloride 10 Meq Tab* [Klor Con 10 MEQ] Med 05/03/21 22:00 Active 10 meq PO BID Prednisolone Acetate OPHTH [Pred-Forte 1% Ophthalmic Med 05/04/21 13:00 Active ] 0 ml OP QID Simvastatin 20Mg [Zocor 20Mg] Med 05/03/21 22:00 Active 40 mg PO HS Oxygen NASAL CANNULA 5 lpm RT 05/03/21 17:54 Active Pulse Oximetry ROUTINE RT 05/03/21 17:54 Active Respiratory Therapy Assessment DAILY RT 05/03/21 19:00 Active Patient Care Notes (Last 24 hours) 05/04/21 14:04 Case Management Note by Halle Lopez REFERRAL SENT TO ACO Initialized on 05/04/21 14:04 - END OF NOTE 05/04/21 12:15 (created 05/04/21 14:13) Case Management Note by Jada Nguyen DR ROUNDED AND EVALUATED. DISCUSSED PLAN OF CARE WITH PT. ALL QUESTIONS ANSWERED. DR PIMENTEL REPORTS THAT PT WILL LIKELY BE HERE FOR 1-2 MORE DAYS OF TREATMENT. CONTINUE CURRENT INTERVENTIONS/MEDICATIONS. GET AM LABS. START PRED-FORTE OPHTHALMIC GTTS QID TO AFFECTED EYE. WILL SEE PATIENT AGAIN TOMORROW. Initialized on 05/04/21 14:13 - END OF NOTE 05/04/21 11:39 Case Management Note by Halle Lopez WHILE DOING CASE MANAGEMENT ASSESS PATIENT A&O TO NAME AND PLACE. HE HOWEVER STATED YEAR WAS "2000....OR 2". HE DID KNOW WHAT MONTH IT WAS AND WHAT HOLIDAY WAS COMING UP. HAD COMPLETE CONVERSATION AND PATIENT FOLLOWED CONVERSATION APPROPRIATELY AND ANSWERED QUESTIONS Initialized on 05/04/21 11:39 - END OF NOTE Code(s): J44.1 - CHRONIC OBSTRUCTIVE PULMONARY DISEASE W (ACUTE) EXACERBATION (2) Dyspnea Current Visit: No Status: Acute Code(s): R06.00 - DYSPNEA, UNSPECIFIED (3) Neuralgia, post-herpetic Current Visit: No Status: Acute Code(s): B02.29 - OTHER POSTHERPETIC NERVOUS SYSTEM INVOLVEMENT (4) COPD (chronic obstructive pulmonary disease) Current Visit: No Status: Chronic (5) Congestive heart failure (CHF) Current Visit: No Status: Chronic Code(s): I50.9 - HEART FAILURE, U NSPECIFIED (6) Obstructive sleep apnea Current Visit: No Status: Chronic Code(s): G47.33 - OBSTRUCTIVE SLEEP APNEA (ADULT) (PEDIATRIC) (7) Acute exacerbation of chronic obstructive pulmonary disease (COPD) Current Visit: No Status: Resolved Code(s): J44.1 - CHRONIC OBSTRUCTIVE PULMONARY DISEASE W (ACUTE) EXACERBATION
[2021-05-04] MEDS: Tegretol 200 MG PO SCH (21:27)
[2021-05-04] MEDS: ZOCOR 20MG PO SCH (21:27)
[2021-05-04] MEDS: HUMALOG SQ PRN (21:27)
[2021-05-05] MEDS: Sodium Chloride 0.9% 1000 ML 1,000 ML IV SCH (05:43)
[2021-05-05 05:46] LABS: Hematocrit 50.3 % (42-50); Hemoglobin 15.3 gm/dl (12.5-18.0); Mean Cell Volume 91.6 fl (78-100); Mean Corpuscular Hemoglobin 27.9 pg (26-32); Mean Corpuscular Hgb Concent. 30.4 g/dl (32-36); Mean Platelet Volume 10.6 fl (7.5-11.0); Platelet Count 123 K/mm3 (150-450); Red Blood Count 5.49 M/mm3 (4.1-5.6); Red Cell Distribution Width 14.9 % (11.5-14.0); White Blood Count 6.5 K/mm3 (4.0-10.5)
[2021-05-05] MEDS: DUONEB 0.5-3 MG/3 ml Neb IH SCH ×2 (05:55→10:20)
[2021-05-05 06:18] LABS: ALBUMIN 3.8 g/dL (3.5-5.0); ALKALINE PHOSPHATASE 115 U/L (38-126); ANION GAP 12.1 MEQ/L (5-15); BLOOD UREA NITROGEN 20 mg/dL (9-20); CHLORIDE 91 mmol/L (98-107); Calcium 8.5 mg/dL (8.4-10.2); Carbon Dioxide 39 mmol/L (22-30); Creatinine 1 0.73 mg/dL (0.66-1.25); EST GLOMERULAR FILTRATION RATE > 60.0 ML/MIN; Glucose 281 mg/dL (74-106); Potassium 3.9 mmol/L (3.5-5.1); SGOT/AST 36 U/L (17-59); SGPT/ALT 44 U/L (0-50); SODIUM 139 mmol/L (137-145); Total Protein 6.4 g/dL (6.3-8.2)
[2021-05-05] MEDS: HUMALOG SQ PRN ×2 (07:57→12:20)
--- NOTE | 2021-05-05 08:25 | PCM.NOTE ---
Date and Time: 05/05/21822 Subjective Assessment: doing better, eye pain is better - Review of Systems Constitutional: No Fever, No Chills Eyes: No Symptoms, Eye Pain Ears, Nose, & Throat: No Symptoms Respiratory: Short Of Breath, No Cough Cardiac: No Chest Pain, No Edema, No Syncope Abdominal/Gastrointestinal: No Abdominal Pain, No Nausea, No Vomiting, No Diarrhea Genitourinary Symptoms: No Dysuria Musculoskeletal: No Back Pain, No Neck Pain Skin: No Rash Neurological: No Dizziness, No Focal Weakness, No Sensory Changes Psychological: No Symptoms Endocrine: No Symptoms Hematologic/Lymphatic: No Symptoms Immunological/Allergic: No Symptoms Objective Exam General Appearance: no apparent distress, alert Neurologic Exam: alert, oriented x 3, cooperative, normal mood/affect, nml cerebellar function, sensation nml, No motor deficits Skin Exam: normal color, warm, dry Eye Exam: PERRL, EOMI, eyes nml inspection Ears, Nose, Throat Exam: normal ENT inspection, pharynx normal, moist mucous membranes Neck Exam: normal inspection, non-tender, supple, full range of motion Respiratory Exam: diminished breath sounds, crackles/rales, rhonchi, wheezing, No respiratory distress Cardiovascular Exam: regular rate/rhythm, normal heart sounds Gastrointestinal/Abdomen Exam: soft, No tenderness, No mass Extremity Exam: normal inspection, normal range of motion Back Exam: normal inspection, normal range of motion, No CVA tenderness, No vertebral tenderness Male Genitalia Exam: deferred Rectal Exam: deferred OBJECTIVE DATA Vital Signs: Vital Signs - 24 hr Temp Pulse Resp BP Pulse Ox 05/05/21 07:36 97.7 F 82 16 131/61 92 L 05/05/21 05:55 82 21 93 L 05/05/21 03:55 98.0 F 76 22 111/74 95 05/05/21 00:07 98.2 F 78 22 130/62 94 L 05/04/21 19:50 98.7 F 88 24 143/71 92 L 05/04/21 19:08 78 20 95 05/04/21 16:00 98.2 F 83 22 156/75 91 L 05/04/21 15:16 78 18 92 L 05/04/21 12:00 98.0 F 80 20 135/58 93 L 05/04/21 11:04 83 22 92 L Pain Assessment - Last Documented Pain Intensity 0 Intake and Output: Intake & Output 05/02/21 05/03/21 05/04/21 05/05/21 11:59 11:59 11:59 11:59 Intake Total 2922 4266 Output Total 500 5550 Balance 2422 -1284 Weight 156.8 kg Lab Results: Lab Results-Last 24 Hours 05/04/21 05/04/21 05/04/21 Range/Units 11:40 16:06 20:22 WBC (4.0-10.5) K/mm3 RBC (4.1-5.6) M/mm3 Hgb (12.5-18.0) gm/dl Hct (42-50) % MCV (78-100) fl MCH (26-32) pg MCHC (32-36) g/dl RDW (11.5-14.0) % Plt Count (150-450) K/mm3 MPV (7.5-11.0) fl Sodium (137-145) mmol/L Potassium (3.5-5.1) mmol/L Chloride (98-107) mmol/L Carbon Dioxide (22-30) mmol/L Anion Gap (5-15) MEQ/L BUN (9-20) mg/dL Creatinine (0.66-1.25) mg/dL Estimated GFR ML/MIN Glucose (74-106) mg/dL POC Glucometer 283 H 260 H 253 H (74 to 106) mg/dL Calcium (8.4-10.2) mg/dL Total Bilirubin (0.2-1.3) mg/dL AST (17-59) U/L ALT (0-50) U/L Alkaline Phosphatase (38-126) U/L Serum Total Protein (6.3-8.2) g/dL Albumin (3.5-5.0) g/dL 05/05/21 05/05/21 05/05/21 Range/Units 04:52 05:30 06:54 WBC 6.5 (4.0-10.5) K/mm3 RBC 5.49 (4.1-5.6) M/mm3 Hgb 15.3 (12.5-18.0) gm/dl Hct 50.3 H (42-50) % MCV 91.6 (78-100) fl MCH 27.9 (26-32) pg MCHC 30.4 L (32-36) g/dl RDW 14.9 H (11.5-14.0) % Plt Count 123 L (150-450) K/mm3 MPV 10.6 (7.5-11.0) fl Sodium 139 D (137-145) mmol/L Potassium 3.9 (3.5-5.1) mmol/L Chloride 91 L (98-107) mmol/L Carbon Dioxide 39 H (22-30) mmol/L Anion Gap 12.1 (5-15) MEQ/L BUN 20 (9-20) mg/dL Creatinine 0.73 (0.66-1.25) mg/dL Estimated GFR > 60.0 ML/MIN Glucose 281 H (74-106) mg/dL POC Glucometer 250 H (74 to 106) mg/dL Calcium 8.5 (8.4-10.2) mg/dL Total Bilirubin 0.50 (0.2-1.3) mg/dL AST 36 (17-59) U/L ALT 44 (0-50) U/L Alkaline Phosphatase 115 (38-126) U/L Serum Total Protein 6.4 (6.3-8.2) g/dL Albumin 3.8 (3.5-5.0) g/dL Radiology Exams: Radiology Procedures Category Date Time Status CHEST 2 VIEWS (PA AND LAT) Routine Exams 05/03/21 16:14 Completed Multi-Disciplinary Progress Notes: Multi-Disciplinary Progress Notes 05/04/21 14:04 Case Management Note by Halle Lopez REFERRAL SENT TO ACO Initialized on 05/04/21 14:04 - END OF NOTE 05/04/21 12:15 (created 05/04/21 14:13) Case Management Note by Jada Nguyen DR ROUNDED AND EVALUATED. DISCUSSED PLAN OF CARE WITH PT. ALL QUESTIONS ANSWERED. DR PIMENTEL REPORTS THAT PT WILL LIKELY BE HERE FOR 1-2 MORE DAYS OF TREATMENT. CONTINUE CURRENT INTERVENTIONS/MEDICATIONS. GET AM LABS. START PRED-FORTE OPHTHALMIC GTTS QID TO AFFECTED EYE. WILL SEE PATIENT AGAIN TOMORROW. Initialized on 05/04/21 14:13 - END OF NOTE 05/04/21 11:39 Case Management Note by Halle Lopez WHILE DOING CASE MANAGEMENT ASSESS PATIENT A&O TO NAME AND PLACE. HE HOWEVER STATED YEAR WAS "2000....OR 2". HE DID KNOW WHAT MONTH IT WAS AND WHAT HOLIDAY WAS COMING UP. HAD COMPLETE CONVERSATION AND PATIENT FOLLOWED CONVERSATION APPROPRIATELY AND ANSWERED QUESTIONS Initialized on 05/04/21 11:39 - END OF NOTE Assessment/Plan (1) COPD with exacerbation Current Visit: Yes Status: Acute Assessment & Plan: Chief Complaint Diagnosis COPD EXACERBATION Allergies Allergy/AdvReac Type Severity Reaction Status Date / Time No Known Drug Allergies Allergy Unverified 08/14/20 20:21 Vital Signs (Last 24 hours) Temp Pulse Resp BP Pulse Ox 05/05/21 07:36 97.7 F 82 16 131/61 92 L 05/05/21 05:55 82 21 93 L 05/05/21 03:55 98.0 F 76 22 111/74 95 05/05/21 00:07 98.2 F 78 22 130/62 94 L 05/04/21 19:50 98.7 F 88 24 143/71 92 L 05/04/21 19:08 78 20 95 05/04/21 16:00 98.2 F 83 22 156/75 91 L 05/04/21 15:16 78 18 92 L 05/04/21 12:00 98.0 F 80 20 135/58 93 L 05/04/21 11:04 83 22 92 L Home Medications Medication Instructions Recorded Confirmed Last Taken Type Carbamazepine 200 mg [Tegretol 100 mg PO HS 05/03/21 05/03/21 Unknown History 200 MG] Current Medications Generic Name Dose Route Start Last Admin Trade Name Freq PRN Reason Stop Dose Admin Albuterol/Ipratropium 3 ml 05/03/21 19:00 05/05/21 05:55 Ipratropium/Albuterol Sulfate 3 Ml Ampul.Neb IH 06/02/21 18:59 3 ml QIDRT ALINA Administration Bumetanide 1 mg 05/03/21 22:00 05/04/21 21:26 Bumetanide 1 Mg Tablet PO 06/02/21 21:59 1 mg BID ALINA Administration Carbamazepine 100 mg 05/03/21 22:00 05/04/21 21:27 Carbamazepine 200 Mg Tablet PO 06/02/21 21:59 100 mg HS ALINA Administration Fish Oil 2,000 mg 05/03/21 22:00 05/04/21 21:26 Lisman-3 Fatty Acids/Fish Oil 1000 Mg Capsule PO 06/02/21 21:59 2,000 mg BID ALINA Administration Gabapentin 400 mg 05/04/21 15:00 05/04/21 21:26 Gabapentin 400 Mg Capsule PO 06/03/21 14:59 400 mg TID ALINA Administration Sodium Chloride 1,000 mls @ 30 mls/hr 05/03/21 17:00 05/05/21 05:43 Sodium Chloride 0.9% 1000 Ml IV 06/02/21 16:59 30 mls/hr .Q24H ALINA Administration KVO Ceftriaxone Sodium/Dextrose 1 g in 50 mls @ 100 mls/hr 05/03/21 17:00 05/04/21 09:17 Rocephin 1 Gm-D5w 50 Ml Bag IV 05/06/21 16:59 100 mls/hr DAILY ALINA Administration Azithromycin 500 mg in 250 mls @ 250 mls/hr 05/03/21 17:00 05/04/21 10:01 Zithromax 500 Mg/ 250 Ml Nacl Premix IV 06/02/21 16:59 250 mls/hr DAILY ALINA Administration Insulin Human Lispro 0 unit 05/04/21 17:32 05/05/21 07:57 Insulin Lispro 1 Unit SQ 06/03/21 17:31 2 unit UD PRN Administration HYPERGLYCEMIA Miscellaneous Information 1 each 05/03/21 17:30 Medication Intervention 1 Each Each 06/02/21 17:29 .RN TO CHECK ALINA Nitroglycerin 0.4 mg 05/03/21 17:14 Nitroglycerin 0.4 Mg Tablet Bottle SL 06/02/21 17:13 Q5MIN PRN MR X 3 PRN CHEST PAIN Potassium Chloride 10 meq 05/03/21 22:00 05/04/21 21:26 Potassium Chloride 10 Meq Tablet PO 06/02/21 21:59 10 meq BID ALINA Administration Prednisolone Acetate 0 ml 05/04/21 13:00 05/04/21 21:26 Prednisolone Acetate 5 Ml Eye Drops OP 06/03/21 12:59 5 ml QID ALINA Administration Simvastatin 40 mg 05/03/21 22:00 05/04/21 21:27 Simvastatin 20 Mg Tablet PO 06/02/21 21:59 40 mg HS ALINA Administration Discontinued Medications Generic Name Dose Route Start Last Admin Trade Name Freq PRN Reason Stop Dose Admin Albuterol Sulfate 2.5 mg 05/03/21 19:00 Albuterol Sulfate 2.5 Mg/3 Ml Neb IH 06/02/21 18:59 QIDRT ALINA Albuterol/Ipratropium 2 puff 05/03/21 22:00 Albuterol Sulfate/Ipratropium Common Canister IH 06/02/21 21:59 QID ALINA Gabapentin 300 mg 05/03/21 22:00 05/04/21 09:16 Gabapentin 300 Mg Capsule PO 06/02/21 21:59 300 mg TID ALINA Administration Insulin Human Lispro 100 unit 05/03/21 17:15 Insulin Lispro 1 Unit SQ 06/02/21 17:14 UD ALINA Intake & Output (Last 24 hours) 05/02/21 05/03/21 05/04/21 05/05/21 11:59 11:59 11:59 11:59 Intake Total 2922 4266 Output Total 500 5550 Balance 2422 -1284 Weight 156.8 kg Laboratory Results (Last 24 hours) 05/05/21 05/05/21 05/05/21 06:54 05:30 04:52 WBC 6.5 RBC 5.49 Hgb 15.3 Hct 50.3 H MCV 91.6 MCH 27.9 MCHC 30.4 L RDW 14.9 H Plt Count 123 L MPV 10.6 Sodium 139 D Potassium 3.9 Chloride 91 L Carbon Dioxide 39 H Anion Gap 12.1 BUN 20 Creatinine 0.73 Estimated GFR > 60.0 Glucose 281 H POC Glucometer 250 H Calcium 8.5 Total Bilirubin 0.50 AST 36 ALT 44 Alkaline Phosphatase 115 Serum Total Protein 6.4 Albumin 3.8 05/04/21 05/04/21 05/04/21 20:22 16:06 11:40 WBC RBC Hgb Hct MCV MCH MCHC RDW Plt Count MPV Sodium Potassium Chloride Carbon Dioxide Anion Gap BUN Creatinine Estimated GFR Glucose POC Glucometer 253 H 260 H 283 H Calcium Total Bilirubin AST ALT Alkaline Phosphatase Serum Total Protein Albumin Orders (Last 24 hours) Category Date Time Status CBC AM.LAB Lab 05/05/21 05:30 Completed CMP AM.LAB Lab 05/05/21 04:52 Completed POCT GLUCOSE Stat Lab 05/04/21 11:40 Completed POCT GLUCOSE Stat Lab 05/04/21 16:06 Completed POCT GLUCOSE Stat Lab 05/04/21 20:22 Completed POCT GLUCOSE Stat Lab 05/05/21 06:54 Completed Gabapentin 400 mg [Neurontin 400 MG] Med 05/04/21 15:00 Active 400 mg PO TID Insulin Lispro [Humalog] Med 05/04/21 17:32 Active See Dose Instructions SQ UD PRN Prednisolone Acetate OPHTH [Pred-Forte 1% Ophthalmic Med 05/04/21 13:00 Active ] 0 ml OP QID Patient Care Notes (Last 24 hours) 05/04/21 14:04 Case Management Note by Halle Lopez REFERRAL SENT TO ACO Initialized on 05/04/21 14:04 - END OF NOTE 05/04/21 12:15 (created 05/04/21 14:13) Case Management Note by Jada Nguyen DR ROUNDED AND EVALUATED. DISCUSSED PLAN OF CARE WITH PT. ALL QUESTIONS ANSWERED. DR PIMENTEL REPORTS THAT PT WILL LIKELY BE HERE FOR 1-2 MORE DAYS OF TREATMENT. CONTINUE CURRENT INTERVENTIONS/MEDICATIONS. GET AM LABS. START PRED-FORTE OPHTHALMIC GTTS QID TO AFFECTED EYE. WILL SEE PATIENT AGAIN TOMORROW. Initialized on 05/04/21 14:13 - END OF NOTE 05/04/21 11:39 Case Management Note by Halle Lopez WHILE DOING CASE MANAGEMENT ASSESS PATIENT A&O TO NAME AND PLACE. HE HOWEVER STATED YEAR WAS "2000....OR 2". HE DID KNOW WHAT MONTH IT WAS AND WHAT HOLIDAY WAS COMING UP. HAD COMPLETE CONVERSATION AND PATIENT FOLLOWED CONVERSATION APPROPRIATELY AND ANSWERED QUESTIONS Initialized on 05/04/21 11:39 - END OF NOTE Code(s): J44.1 - CHRONIC OBSTRUCTIVE PULMONARY DISEASE W (ACUTE) EXACERBATION (2) Dyspnea Current Visit: Yes Status: Resolved Qualifiers: Dyspnea type: dyspnea on exertion Qualified Code(s): R06.00 - Dyspnea, unspecified Code(s): R06.00 - DYSPNEA, UNSPECIFIED (3) Neuralgia, post-herpetic Current Visit: Yes Status: Acute Code(s): B02.29 - OTHER POSTHERPETIC NERVOUS SYSTEM INVOLVEMENT (4) COPD (chronic obstructive pulmonary disease) Current Visit: Yes Status: Chronic Qualifiers: COPD type: COPD with acute exacerbation Qualified Code(s): J44.1 - Chronic obstructive pulmonary disease with (acute) exacerbation (5) Congestive heart failure (CHF) Current Visit: Yes Status: Chronic Qualifiers: Heart failure type: combined systolic and diastolic Heart failure chronicity: acute on chronic Qualified Code(s): I50.43 - Acute on chronic combined systolic (congestive) and diastolic (congestive) heart failure Code(s): I50.9 - HEART FAILURE, UNSPECIFIED (6) Obstructive sleep apnea Current Visit: No Status: Chronic Code(s): G47.33 - OBSTRUCTIVE SLEEP APNEA (ADULT) (PEDIATRIC) (7) Acute exacerbation of chronic obstructive pulmonary disease (COPD) Current Visit: No Status: Resolved Code(s): J44.1 - CHRONIC OBSTRUCTIVE PULMONARY DISEASE W (ACUTE) EXACERBATION
[2021-05-05] MEDS: FISH OIL 1,000 MG CAPSULE PO SCH (09:44)
[2021-05-05] MEDS: BUMEX 1 MG PO SCH (09:44)
[2021-05-05] MEDS: Neurontin 400 MG PO SCH (09:45)
[2021-05-05] MEDS: Klor Con 10 MEQ PO SCH (09:45)
[2021-05-05] MEDS: ROCEPHIN 1 Gm-D5w 50 ml Bag** 1 G/50 ML IVPB IV SCH (09:45)
[2021-05-05] MEDS: PRED-FORTE 1% OPHTHALMIC OP SCH ×2 (09:45→12:21)
[2021-05-05] MEDS: Zithromax 500 MG/ 250 ML NaCl Premix 500 MG/250 ML IVPB IV SCH (10:28)
--- NOTE | 2021-05-06 08:12 | PCM.DS ---
Discharge Summary Date of Admission: 05/03/21 12:00 Admitting Physician: AUSTIN PIMENTEL Primary Care Provider: AUSTIN PIMENTEL Allergies Allergies No Known Drug Allergies Allergy (Unverified 08/14/20 20:21) Hospital Summary - Hospital Course Hospital Course: Chief Complaint Diagnosis COPD EXACERBATION Allergies Allergy/AdvReac Type Severity Reaction Status Date / Time No Known Drug Allergies Allergy Unverified 08/14/20 20:21 Vital Signs (Last 24 hours) Pulse Resp Pulse Ox 05/05/21 10:23 90 22 90 L Home Medications Medication Instructions Recorded Confirmed Last Taken Type Carbamazepine 200 mg [Tegretol 100 mg PO HS 05/03/21 05/03/21 Unknown History 200 MG] Cephalexin Mh 500 mg [Keflex 500 500 mg PO BID 10 Days #20 05/05/21 Unknown Rx mg] Prednisolone Acetate OPHTH 5 ml OP QID 14 Days #1 each 05/05/21 Unknown Rx [Pred-Forte 1% Ophthalmic] Current Medications Discontinued Medications Generic Name Dose Route Start Last Admin Trade Name Freq PRN Reason Stop Dose Admin Albuterol Sulfate 2.5 mg 05/03/21 19:00 Albuterol Sulfate 2.5 Mg/3 Ml Neb 06/02/21 18:59 QIDRT ALINA Albuterol/Ipratropium 2 puff 05/03/21 22:00 Albuterol Sulfate/Ipratropium Common Canister 06/02/21 21:59 QID ALINA Albuterol/Ipratropium 3 ml 05/03/21 19:00 05/05/21 10:20 Ipratropium/Albuterol Sulfate 3 Ml Ampul.Neb 06/02/21 18:59 3 ml QIDRT ALINA Administration Bumetanide 1 mg 05/03/21 22:00 05/05/21 09:44 Bumetanide 1 Mg Tablet PO 06/02/21 21:59 1 mg BID ALINA Administration Carbamazepine 100 mg 05/03/21 22:00 05/04/21 21:27 Carbamazepine 200 Mg Tablet PO 06/02/21 21:59 100 mg HS ALINA Administration Fish Oil 2,000 mg 05/03/21 22:00 05/05/21 09:44 Ignacio-3 Fatty Acids/Fish Oil 1000 Mg Capsule PO 06/02/21 21:59 2,000 mg BID ALINA Administration Gabapentin 300 mg 05/03/21 22:00 05/04/21 09:16 Gabapentin 300 Mg Capsule PO 06/02/21 21:59 300 mg TID ALINA Administration Gabapentin 400 mg 05/04/21 15:00 05/05/21 09:45 Gabapentin 400 Mg Capsule PO 06/03/21 14:59 400 mg TID ALINA Administration Sodium Chloride 1,000 mls @ 30 mls/hr 05/03/21 17:00 05/05/21 05:43 Sodium Chloride 0.9% 1000 Ml IV 06/02/21 16:59 30 mls/hr .Q24H ALINA Administration KVO Ceftriaxone Sodium/Dextrose 1 g in 50 mls @ 100 mls/hr 05/03/21 17:00 05/05/21 09:45 Rocephin 1 Gm-D5w 50 Ml Bag IV 05/06/21 16:59 100 mls/hr DAILY ALINA Administration Azithromycin 500 mg in 250 mls @ 250 mls/hr 05/03/21 17:00 05/05/21 10:28 Zithromax 500 Mg/ 250 Ml Nacl Premix IV 06/02/21 16:59 250 mls/hr DAILY ALINA Administration Insulin Human Lispro 100 unit 05/03/21 17:15 Insulin Lispro 1 Unit SQ 06/02/21 17:14 UD ALINA Insulin Human Lispro 0 unit 05/04/21 17:32 05/05/21 12:20 Insulin Lispro 1 Unit SQ 06/03/21 17:31 4 unit UD PRN Administration HYPERGLYCEMIA Miscellaneous Information 1 each 05/03/21 17:30 Medication Intervention 1 Each Each 06/02/21 17:29 .RN TO CHECK ALINA Nitroglycerin 0.4 mg 05/03/21 17:14 Nitroglycerin 0.4 Mg Tablet Bottle SL 06/02/21 17:13 Q5MIN PRN MR X 3 PRN CHEST PAIN Potassium Chloride 10 meq 05/03/21 22:00 05/05/21 09:45 Potassium Chloride 10 Meq Tablet PO 06/02/21 21:59 10 meq BID ALINA Administration Prednisolone Acetate 0 ml 05/04/21 13:00 05/05/21 12:21 Prednisolone Acetate 5 Ml Eye Drops OP 06/03/21 12:59 5 ml QID ALINA Administration Simvastatin 40 mg 05/03/21 22:00 05/04/21 21:27 Simvastatin 20 Mg Tablet PO 06/02/21 21:59 40 mg HS ALINA Administration Intake & Output (Last 24 hours) 05/03/21 05/04/21 05/05/21 05/06/21 11:59 11:59 11:59 11:59 Intake Total 2922 4626 420 Output Total 500 5550 450 Balance 2422 -924 -30 Weight 156.8 kg Laboratory Results (Last 24 hours) 05/05/21 11:44 POC Glucometer 300 H Orders (Last 24 hours) Category Date Time Status WALK [Walk With Assistance] TOLERATED Activity 05/05/21 09:09 Completed Discharge Routine Discharge 05/05/21 12:30 Ordered Discharge/Telephone Order Routine Discharge 05/05/21 12:30 Active POCT GLUCOSE Stat Lab 05/05/21 11:44 Completed Patient Care Notes (Last 24 hours) 05/05/21 13:00 Case Management Note by Halle Lopez S/W PATIENT- HE HAS THOUGHT ABOUT HHC. HE REPORTS HE LIKES TO GET OUT AND ABOUT ALOT AT HOME, IS NOT HOMEBOUND. HE DOES NOT WISH FOR HHC AT THIS TIME. HE DENIES ANY NEW NEEDS AT TIME OF DC. HE PLANS TO RETURN HOME TO HIS PRIOR LEVEL OF FUNCTIONING AT TIME OF DC. PATIENT ALREADY HAS HOME OXYGEN AND IS CURRENTLY ON HIS HOME SETTING Initialized on 05/05/21 13:00 - END OF NOTE 05/05/21 12:18 Nursing Note by Ebony Corona Antibiotic called into [facility] pharmacy Initialized on 05/05/21 12:18 - END OF NOTE 05/05/21 09:07 Nursing Note by Kaci Huynh SPOKE WITH DR. PIMENTEL OF THE PHONE. GAVE ORDERS TO GET PATIENT UP AND WALKING. PLAN TO DISCHARGE THIS AFTERNOON Initialized on 05/05/21 09:07 - END OF NOTE - Vitals & Intake/Output Vital Signs: Vital Signs Temperature 97.7 F 05/05/21 07:36 Pulse Rate 90 05/05/21 10:23 Respiratory Rate 22 05/05/21 10:23 Blood Pressure 131/61 05/05/21 07:36 O2 Sat by Pulse Oximetry 90 L 05/05/21 10:23 Intake & Output: Intake & Output 11/15/21 05/04/21 05/05/21 05/06/21 11:59 11:59 11:59 11:59 Intake Total 2920 4620 420 Output Total 049 5550 450 Balance 0222 -924 -30 Weight 156.8 kg - Lab Result Diagrams: 05/05/21 05:30 05/05/21 04:52 Lab Results-Last 24 Hrs: Lab Results-Last 24 Hours 05/05/21 Range/Units 11:44 POC Glucometer 300 H (74 to 106) mg/dL Micro Results-Entire Visit: Accuchecks Date 05/05/21 Time 12:19 - Procedures and Test Procedures and Tests throughout Hospitalization: Therapy Orders & Screens 05/03/21 17:54 Oxygen NASAL CANNULA 5 lpm Comment: Diagnosis: COPD EXACERBATION 05/03/21 19:00 Respiratory Therapy Assessment DAILY Comment: Diagnosis: COPD EXACERBATION Discharge Exam General Appearance: no apparent distress, alert Neurologic Exam: alert, oriented x 3, cooperative, normal mood/affect, nml cerebellar function, sensation nml, No motor deficits Eye Exam: PERRL, EOMI, eyes nml inspection Ears, Nose, Throat Exam: normal ENT inspection, pharynx normal, moist mucous membranes Neck Exam: normal inspection, non-tender, supple, full range of motion Respiratory Exam: normal breath sounds, lungs clear, No respiratory distress Cardiovascular Exam: regular rate/rhythm, normal heart sounds Gastrointestinal/Abdomen Exam: soft, No tenderness, No mass Male Genitalia Exam: deferred Rectal Exam: deferred Back Exam: normal inspection, normal range of motion, No CVA tenderness, No vertebral tenderness Extremity Exam: normal inspection, normal range of motion Skin Exam: normal color, warm, dry Final Diagnosis/Problem List - Final Discharge Diagnosis/Problem (1) COPD with exacerbation Status: Resolved Code(s): J44.1 - CHRONIC OBSTRUCTIVE PULMONARY DISEASE W (ACUTE) EXACERBATION (2) Dyspnea Status: Resolved Code(s): R06.00 - DYSPNEA, UNSPECIFIED (3) Neuralgia, post-herpetic Status: Acute Code(s): B02.29 - OTHER POSTHERPETIC NERVOUS SYSTEM INVOLVEMENT (4) COPD (chronic obstructive pulmonary disease) Status: Chronic (5) Congestive heart failure (CHF) Status: Chronic Code(s): I50.9 - HEART FAILURE, UNSPECIFIED (6) Obstructive sleep apnea Status: Chronic Code(s): G47.33 - OBSTRUCTIVE SLEEP APNEA (ADULT) (PEDIATRIC) (7) Acute exacerbation of chronic obstructive pulmonary disease (COPD) Status: Resolved Code(s): J44.1 - CHRONIC OBSTRUCTIVE PULMONARY DISEASE W (ACUTE) EXACERBATION - Discharge Discharge Date: 05/05/21 Disposition: Home, Self-Care Condition: Stable Prescriptions: New Cephalexin Mh 500 mg [Keflex 500 mg] 500 mg PO BID 10 Days #20 Prednisolone Acetate OPHTH [Pred-Forte 1% Ophthalmic] 5 ml OP QID 14 Days #1 each No Action Gabapentin 300 mg [Neurontin 300 mg] 300 mg PO TID Potassium Chloride [Klor-Con 10] 10 meq PO BID Ignacio-3 Fatty Acids/Fish Oil [Fish Oil 1,000 mg Capsule] 2 each PO BID Bumetanide 1 mg [Bumex 1 mg] 1 mg PO BID Nitroglycerin [Nitroquick] 0.4 mg SL Q5MIN PRN MR X 3 PRN PRN Reason: Chest Pain Ipratropium/Albuterol Sulfate [Combivent Inhaler] 2 puff IH QID Albuterol 2.5 mg/3 ml Neb [Proventil 2.5 mg/3 ml Neb] 1 amp IH QID Atorvastatin Calcium 40 mg PO HS Nabumetone 500 mg PO BID Insulin Lispro [Admelog] 100 unit SQ UD Carbamazepine 200 mg [Tegretol 200 MG] 100 mg PO HS Instructions: Heart Failure, Adult (DC) Follow up with: MADHURI MATIAS MD [NON-STAFF PHY W/O PRIVILEGES] - 05/24/21 1:45 pm AUSTIN PIMENTEL MD [Primary Care Provider] - 05/12/21 10:00 am Forms: Discharge Instructions
[2021-05-10 16:43] VITALS: BP 131/61; PULSE 90; O2SAT 90
== END 2021-05-05 14:13 | disposition home or self-care (01) ==
LOC: MED SURG 12:00 → UNDOADMOB 12:56
PROVIDERS: ADMIT General Practice; ATTEND General Practice
DX: J44.1 Chronic obstructive pulmonary disease with (acute) exacerbation (principal); B02.29 Other postherpetic nervous system involvement; I50.9 Heart failure, unspecified; I83.009 Varicose veins of unspecified lower extremity with ulcer of unspecified site; E11.9 Type 2 diabetes mellitus without complications; G47.33 Obstructive sleep apnea (adult) (pediatric); H57.11 Ocular pain, right eye; Z20.828 Contact with and (suspected) exposure to other viral communicable diseases; Z79.899 Other long term (current) drug therapy
CPT/HCPCS: 36415; 71046; 80053; 82947; 83880; 85027; 94640; 94760; G0378; U0003; J0456; J0696; J1817; A9270-GY

== ENCOUNTER 2022-08-04 15:39 | Emergency (ER) | payer MEDICARE ==
--- NOTE | 2022-08-04 16:28 | ERPHSYRPT ---
- History of Present Illness Time Seen by Provider: 08/04/22 16:00 Source: patient Exam Limitations: no limitations Patient Subjective Stated Complaint: SOB Triage Nursing Assessment: Patient ambulated back to ED and transferred to bed per self. Patient A+O X3. Patient's skin pink, warm and dry. Patient complains of increased SOB that started today. Patient A+O X3. Patient's skin pink, warm and dry. Lungs noted to be diminished throughout. Patient has swelling to BLE with fluid filled blisters noted. Patient denies pain or discomfort. Patient states he was discharged from [facility] one week ago. Patient wears home O2 at 4-5 liters per N/C at all times. Physician History: This is a 67-year-old morbidly obese white male patient of Dr. Pimentel who presents with shortness of breath that increased around noon this afternoon. Patient chronically has shortness of breath and he was discharged a week ago from [facility] for treatment of CHF. Patient has chronic CHF, chronic oxygen dependent COPD on 4 to 5 L of oxygen via nasal cannula, hyperlipidemia. He takes Bumex twice a day and took his medications this morning. On arrival to the emergency department patient's oxygen saturation level is 92% on 4 L oxygen nasal cannula. At the time of my examination the patient did not appear to be in any distress and his room air oxygenation saturation level was 96% on 4 L. Patient denies chest pain. He has no abdominal pain. Patient has a history of chronic venous stasis disease with chronic blistering and ulcerations. Timing/Duration: today Severity of Dyspnea-Max: mild (To moderate) Severity of Dyspnea-Current: mild Possible Cause: frequent episodes Modifying Factors: Improves With: activity Associated Symptoms: ankle swelling (Chronic), No cough, No chest pain/discomfort, No fever Allergies/Adverse Reactions: No Known Drug Allergies Allergy (Verified 08/04/22 15:40) Home Medications: Bumetanide 1 mg [Bumex 1 mg] 1 mg PO BID 07/27/12 [History] Gabapentin [Neurontin ] 300 mg PO TID 07/27/12 [History] Ipratropium/Albuterol Sulfate [Combivent Inhaler] 2 puff IH QID 07/27/12 [History] Nitroglycerin [Nitroquick] 0.4 mg SL Q5MIN PRN MR X 3 PRN 07/27/12 [History] Melrose-3 Fatty Acids/Fish Oil [Fish Oil 1,000 mg Capsule] 2 each PO BID 07/27/12 [History] Potassium Chloride [Klor-Con 10] 10 meq PO BID 07/27/12 [History] Albuterol 2.5 mg/3 ml Neb [Proventil 2.5 mg/3 ml Neb] 1 amp IH QID 09/04/13 [History] Atorvastatin Calcium 40 mg PO HS 04/24/19 [History] Nabumetone 500 mg PO BID 04/24/19 [History] Insulin Lispro [Admelog] 100 unit SQ UD 08/06/19 [History] Carbamazepine 200 mg [Tegretol 200 MG] 100 mg PO HS 05/03/21 [History] Hx Tetanus, Diphtheria Vaccination/Date Given: Yes Hx Influenza Vaccination/Date Given: Yes Hx Pneumococcal Vaccination/Date Given: (Doesn't Know) Immunizations Up to Date: Yes Travel Risk - International Travel Have you traveled outside of the country in past 3 weeks: No - Coronavirus Screening Are you exhibiting any of the following symptoms?: No Close contact with a COVID-19 positive Pt in past 14-21 Days: No - Vaccine Status Have you recieved a Covid-19 vaccination: Yes [employer]: [employer] - Vaccination Dates Date of 2cond Vaccination (if applicable): 10/30/20 - Review of Systems Constitutional: No Symptoms Eyes: No Symptoms Ears, Nose, & Throat: No Symptoms Respiratory: Dyspnea Cardiac: No Symptoms Abdominal/Gastrointestinal: No Symptoms Genitourinary Symptoms: No Symptoms Musculoskeletal: No Symptoms Skin: Other (Chronic venous stasis disease with a few blisters right lower leg below the knee) Neurological: No Symptoms Psychological: No Symptoms Endocrine: No Symptoms Hematologic/Lymphatic: No Symptoms Immunological/Allergic: No Symptoms All Other Systems: Reviewed and Negative - Past Medical History Pertinent Past Medical History: Yes Neurological History: Peripheral Neuropathy ENT History: Cataracts Cardiac History: Congestive Heart Failure, High Cholesterol, Hypertension, Myocardial Infarction (CT) Respiratory History: CHF, COPD, Emphysema, Pneumonia, Sleep Apnea Endocrine Medical History: Diabetes Type II Musculoskeletal History: Osteoarthritis GI Medical History: No Pertinent History History: No Pertinent History Psycho-Social History: No Pertinent History Male Reproductive Disorders: No Pertinent History Other Medical History: Gout - Past Surgical History Past Surgical History: Yes Neuro Surgical History: No Pertinent History Cardiac: Cardiac Catheterization, Cardiac Stent Respiratory: No Pertinent History Gastrointestinal: Cholecystectomy Genitourinary: No Pertinent History Musculoskeletal: Orthopedic Surgery Male Surgical History: No Pertinent History Other Surgical History: Left shoulder, Left knee X3, Right leg, Right hand/arm, Right shoulder - Social History Smoking Status: Former smoker How long have you smoked: 40 years Exposure to second hand smoke: No Drug Use: none Patient Lives Alone: No - Nursing Vital Signs Nursing Vital Signs: Initial Vital Signs Temperature 98.0 F 08/04/22 15:40 Pulse Rate 79 08/04/22 15:40 Respiratory Rate 29 H 08/04/22 15:40 Blood Pressure 157/95 08/04/22 15:40 O2 Sat by Pulse Oximetry 92 L 08/04/22 15:40 Pain Scale Pain Intensity 0 - Physical Exam General Appearance: no apparent distress, alert, obese Eye Exam: PERRL/EOMI, eyes nml inspection Ears, Nose, Throat Exam: hearing grossly normal, normal ENT inspection Neck Exam: normal inspection, non-tender, supple, full range of motion Respiratory Exam: normal breath sounds, lungs clear, airway intact, No chest tenderness, No respiratory distress Cardiovascular/Chest Exam: normal heart sounds, regular rate/rhythm Abdominal/Gastrointestinal Exam: soft, normal bowel sounds, No tenderness Rectal Exam: not done Extremity Exam: non-tender, normal range of motion, no calf tenderness, pelvis stable, pedal edema (Bilateral below the knee chronic swelling and venous stasis ulcer disease with a few blisters on the right lower extremity. 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 When compared to twelve-lead EKG that was performed May 2021 there is persistent prolonged QT interval and right bundle branch block. There is no acute ischemic changes on today's twelve-lead EKG) Ordered Tests: Active Orders 24 hr Category Date Time Status EKG-ER Only STAT Care 08/04/22 16:28 Active IV Insertion STAT Care 08/04/22 16:28 Active CHEST 1 VIEW (PORTABLE) Stat Exams 08/04/22 16:29 Completed CBC W DIFF Stat Lab 08/04/22 16:33 Completed CMP Stat Lab 08/04/22 16:33 Completed D-DIMER QUANTITATIVE Stat Lab 08/04/22 16:33 Completed Lactic Acid Stat Lab 08/04/22 16:50 Completed NT PRO BNPII Stat Lab 08/04/22 16:33 Completed TROPONIN Q4H Lab 08/04/22 16:33 Completed TROPONIN Q4H Lab 08/04/22 20:30 Ordered TROPONIN Q4H Lab 08/05/22 00:30 Ordered Lab/Rad Data: Laboratory Result Diagrams 08/04/22 16:33 08/04/22 16:33 Laboratory Results 08/04/22 08/04/22 08/04/22 Range/Units 16:50 16:40 16:33 WBC (4.0-10.5) x10^3/uL RBC (4.1-5.6) x10^6/uL Hgb (12.5-18.0) g/dL Hct (42-50) % MCV (78-100) fL MCH (26-32) pg MCHC (32-36) g/dL RDW (11.5-14.0) % Plt Count (150-450) x10^3/uL MPV (7.5-11.0) fL Gran % (36.0-66.0) % Immature Gran % (Auto) (0.00-0.4) % Nucleat RBC Rel Count (0.00-0.1) % Eos # (Auto) (0-0.5) x10^3/uL Immature Gran # (Auto) (0.00-0.03) x10^3u/L Absolute Lymphs (auto) (1.0-4.6) x10^3/uL Absolute Monos (auto) (0.0-1.3) x10^3/uL Absolute Nucleated RBC (0.00-0.01) x10^3u/L Lymphocytes % (24.0-44.0) % Monocytes % (0.0-12.0) % Eosinophils % (0.00-5.0) % Basophils % (0.0-0.4) % Absolute Granulocytes (1.4-6.9) x10^3/uL Basophils # (0-0.4) x10^3/uL D-Dimer (0.0-0.50) mg/L Sodium (137-145) mmol/L Potassium (3.5-5.1) mmol/L Chloride (98-107) mmol/L Carbon Dioxide (22-30) mmol/L Anion Gap (5-15) MEQ/L BUN (9-20) mg/dL Creatinine (0.66-1.25) mg/dL Estimated GFR ML/MIN Glucose (74-106) mg/dL Lactic Acid 1.7 (0.4-2.0) Calcium (8.4-10.2) mg/dL Total Bilirubin (0.2-1.3) mg/dL AST (17-59) U/L ALT (0-50) U/L Alkaline Phosphatase (38-126) U/L Troponin I < 0.012 (0.000-0.034) ng/mL NT-Pro-B Natriuret Pep (<300) pg/mL Serum Total Protein (6.3-8.2) g/dL Albumin (3.5-5.0) g/dL Influenza Type A Ag NEGATIVE (NEGATIVE) Influenza Type B Ag NEGATIVE (NEGATIVE) RSV (PCR) NEGATIVE (Negative) SARS-CoV-2 (PCR) NEGATIVE (NEGATIVE) 08/04/22 08/04/22 08/04/22 Range/Units 16:33 16:33 16:33 WBC 7.7 (4.0-10.5) x10^3/uL RBC 5.12 (4.1-5.6) x10^6/uL Hgb 14.1 (12.5-18.0) g/dL Hct 46.0 (42-50) % MCV 89.8 (78-100) fL MCH 27.5 (26-32) pg MCHC 30.7 L (32-36) g/dL RDW 14.3 H (11.5-14.0) % Plt Count 160 (150-450) x10^3/uL MPV 10.2 (7.5-11.0) fL Gran % 78.8 H (36.0-66.0) % Immature Gran % (Auto) 0.3 (0.00-0.4) % Nucleat RBC Rel Count 0.0 (0.00-0.1) % Eos # (Auto) 0.17 (0-0.5) x10^3/uL Immature Gran # (Auto) 0.02 (0.00-0.03) x10^3u/L Absolute Lymphs (auto) 0.95 L (1.0-4.6) x10^3/uL Absolute Monos (auto) 0.45 (0.0-1.3) x10^3/uL Absolute Nucleated RBC 0.00 (0.00-0.01) x10^3u/L Lymphocytes % 12.4 L (24.0-44.0) % Monocytes % 5.9 (0.0-12.0) % Eosinophils % 2.2 (0.00-5.0) % Basophils % 0.4 (0.0-0.4) % Absolute Granulocytes 6.07 (1.4-6.9) x10^3/uL Basophils # 0.03 (0-0.4) x10^3/uL D-Dimer 0.23 (0.0-0.50) mg/L Sodium 139 (137-145) mmol/L Potassium 4.2 (3.5-5.1) mmol/L Chloride 102 (98-107) mmol/L Carbon Dioxide 36 H (22-30) mmol/L Anion Gap 5.4 (5-15) MEQ/L BUN 23 H (9-20) mg/dL Creatinine 0.55 L (0.66-1.25) mg/dL Estimated GFR > 60.0 ML/MIN Glucose 183 H (74-106) mg/dL Lactic Acid (0.4-2.0) Calcium 8.3 L (8.4-10.2) mg/dL Total Bilirubin 0.40 (0.2-1.3) mg/dL AST 31 (17-59) U/L ALT 31 (0-50) U/L Alkaline Phosphatase 142 H (38-126) U/L Troponin I (0.000-0.034) ng/mL NT-Pro-B Natriuret Pep 28.5 (<300) pg/mL Serum Total Protein 7.0 (6.3-8.2) g/dL Albumin 3.8 (3.5-5.0) g/dL Influenza Type A Ag (NEGATIVE) Influenza Type B Ag (NEGATIVE) RSV (PCR) (Negative) SARS-CoV-2 (PCR) (NEGATIVE) - Progress Progress: improved, re-examined Air Movement: good Progress Note: 08/04/22 17:59 Chest x-ray results from the radiologist were reviewed by me. Patient's medical issue is of moderate complexity. My work-up performed is based on the patient's history, additional history obtained from patient's friend, physical exam findings and review of old records. Work-up results were reviewed by me and reviewed with the patient as well. The patient has right lower extremity cellulitis. We will place him on intravenous antibiotics in the emergency department and then send a prescription for more antibiotics at home. He is to follow-up with his primary care physician for further evaluation management. 08/04/22 18:06 Of note: Patient's shortness of breath significantly improved once it was determined that his tubing for his oxygen delivery was no longer kinked. Blood Culture(s) Obtained: No Antibiotics given: Yes Counseled pt/family regarding: lab results, diagnosis, need for follow-up, rad results Medical Desision Making - Independent Historian Additional History obtained from: Relative/friend - Discussion of managment Reviewed:: Test results (With patient) Agreed on:: Treatment plan, need for follow-up (With patient with patient) - Diagnostic Testing Diagnostic Testing: Diagnostic tests were ordered,analyzed, and reviewed by me and used in my medical decision making for this patient. Radiologic studies (if ordered) were read by me initially then discussed with the radiologist . - Risk of complications Low Risk: Low risk of morbidity from additional dx testing or treatment The pt has a mod risk of morbidity or mortality based on: Need for prescription drug management - Departure Departure Disposition: Home Clinical Impression: Cellulitis of right lower extremity Condition: Stable Critical Care Time: No Referrals: AUSTIN PIMENTEL MD [Primary Care Provider] - Follow up/PCP as directed Additional Instructions: Continue your oxygen and medication as prescribed. Take your antibiotics as prescribed. Call your primary care physician tomorrow morning to make arrangements for follow-up appointment next week. Return to the emergency department if symptoms recur. Prescriptions: Levofloxacin [Levaquin 500 MG Tablet] 500 mg PO DAILY #7 tablet
[2022-08-04 16:35] LABS: Absolute Neutrophil Ct (ANC) 6.07 x10^3/uL (1.4-6.9); BASOPHIL % 0.4 % (0.0-0.4); Basophil (Absolute #) 0.03 x10^3/uL (0-0.4); Eosinophil % 2.2 % (0.00-5.0); Eosinophil (Absolute #) 0.17 x10^3/uL (0-0.5); Hemoglobin 14.1 g/dL (12.5-18.0); IMMATURE GRAN # 0.02 x10^3u/L (0.00-0.03); IMMATURE GRAN % 0.3 % (0.00-0.4); Lymphocyte (Absolute #) 0.95 x10^3/uL (1.0-4.6); Lymphocytes % 12.4 % (24.0-44.0); Mean Cell Volume 89.8 fL (78-100); Mean Corpuscular Hemoglobin 27.5 pg (26-32); Mean Corpuscular Hgb Concent. 30.7 g/dL (32-36); Mean Platelet Volume 10.2 fL (7.5-11.0); Monocyte (Absolute #) 0.45 x10^3/uL (0.0-1.3); Monocytes % 5.9 % (0.0-12.0); Neutrophil % 78.8 % (36.0-66.0); Platelet Count 160 x10^3/uL (150-450); Red Blood Count 5.12 x10^6/uL (4.1-5.6); Red Cell Distribution Width 14.3 % (11.5-14.0); White Blood Count 7.7 x10^3/uL (4.0-10.5)
[2022-08-04 16:51] LABS: ALBUMIN 3.8 g/dL (3.5-5.0); ALKALINE PHOSPHATASE 142 U/L (38-126); ANION GAP 5.4 MEQ/L (5-15); BLOOD UREA NITROGEN 23 mg/dL (9-20); CHLORIDE 102 mmol/L (98-107); Calcium 8.3 mg/dL (8.4-10.2); Carbon Dioxide 36 mmol/L (22-30); Creatinine 1 0.55 mg/dL (0.66-1.25); EST GLOMERULAR FILTRATION RATE > 60.0 ML/MIN; Glucose 183 mg/dL (74-106); NT PRO BNPII 28.5 pg/mL (<300); Potassium 4.2 mmol/L (3.5-5.1); SGOT/AST 31 U/L (17-59); SGPT/ALT 31 U/L (0-50); SODIUM 139 mmol/L (137-145)
--- NOTE | 2022-08-04 16:52 | XRAY ---
Indication: Short of breath. Comparison: May 03, 2021 Portable chest again demonstrates a few bilateral calcified granulomas. No focal infiltrate, consolidation, or large effusion. Heart not enlarged. Bony thorax intact again with osteopenia and mild degenerative changes. Impression: Nonacute chest with chronic features.
[2022-08-04 17:16] LABS: INFLUENZA A NEGATIVE (NEGATIVE); INFLUENZA B NEGATIVE (NEGATIVE); RESPIRATORY SYNCTIAL VIRUS NEGATIVE (Negative); SARS-CoV-2 Xpert Express NEGATIVE (NEGATIVE)
[2022-08-04] MEDS ORDERED: ROCEPHIN 1 Gm-D5w 50 ml Bag** 1 G/50 ML IVPB IV STA (18:22)
[2022-08-04] MEDS ORDERED: ROCEPHIN 1 Gm-D5w 50 ml Bag** 1 G/50 ML IVPB IV ONE (18:23)
[2022-08-04 19:30] VITALS: BP 116/85; PULSE 75; O2SAT 96
== END 2022-08-04 19:32 | disposition home or self-care (01) ==
LOC: ED 15:39
DX: L03.115 Cellulitis of right lower limb (principal); I87.8 Other specified disorders of veins; R06.02 Shortness of breath; J44.9 Chronic obstructive pulmonary disease, unspecified; Z99.81 Dependence on supplemental oxygen; E78.5 Hyperlipidemia, unspecified; I11.0 Hypertensive heart disease with heart failure; E11.42 Type 2 diabetes mellitus with diabetic polyneuropathy; Z79.4 Long term (current) use of insulin; Z79.899 Other long term (current) drug therapy; Z20.828 Contact with and (suspected) exposure to other viral communicable diseases
CPT/HCPCS: 0241U; 36000; 36415; 71045; 80053; 83605; 83880; 84484; 85025; 85379; 93005; 96365; 99284; J0696

== ENCOUNTER 2022-09-29 14:56 | Observation (INO) | payer MEDICARE ==
--- NOTE | 2022-09-29 15:01 | ERPHSYRPT ---
- History of Present Illness Time Seen by Provider: 09/29/22 15:01 Source: patient, family (Additional history was obtained to the patient's sister) Exam Limitations: clinical condition Physician History: This is a 67-year-old morbidly obese white male patient of Dr. Pimentel who was brought to the emergency department and into the emergency department room for by wheelchair. Patient's sister stated that he has been "feeling off for a few days". Patient has a history of recurrent pneumonias, COPD, chronic venous stasis disease, CHF, peripheral neuropathy, diabetes, hypertension, hyperlipidemia, coronary artery disease (cardiac catheterization and cardiac stents). His sister states he has been intermittently confused during the last few days. He does wear 4 L nasal cannula of oxygen supplementation. Patient does seem to be mildly lethargic but will quickly awaken when questions are asked and answer appropriately except for time of day. He states he is got some back pain but no other pain. He does not have chest pain or abdominal pain. He has had confusion in the past which have been related to urinary tract infection, recurrent pneumonia or hypercarbia. There has been no head injury. Timing/Duration: today Severity: mild (To moderate) Baseline/Normal Cognition: alert oriented x 3 Current Cognition: poor alertness (Mildly lethargic but awakens readily and answers questions. He just is not quite aware of the time of day) Allergies/Adverse Reactions: No Known Drug Allergies Allergy (Verified 08/04/22 15:40) Home Medications: Bumetanide 1 mg [Bumex 1 mg] 2 mg PO BID 07/27/12 [History] Gabapentin [Neurontin ] 600 mg PO TID 07/27/12 [History] Nitroglycerin [Nitroquick] 0.4 mg SL Q5MIN PRN MR X 3 PRN 07/27/12 [History] Potassium Chloride [Klor-Con 10] 10 meq PO BID 07/27/12 [History] Albuterol 2.5 mg/3 ml Neb [Proventil 2.5 mg/3 ml Neb] 1 amp IH QID 09/04/13 [History] Atorvastatin Calcium 40 mg PO HS 04/24/19 [History] Carbamazepine 200 mg [Tegretol 200 MG] 100 mg PO HS 05/03/21 [History] Allopurinol 100 mg [Zyloprim 100 mg] 1 tab PO DAILY 09/29/22 [History] Aspirin EC 81 mg [Ecotrin 81 mg] 1 tab PO DAILY 09/29/22 [History] Carvedilol 12.5 mg [Coreg 12.5 mg] 1 tab PO BID 09/29/22 [History] Clopidogrel Bisulfate [Clopidogrel] 1 tab PO DAILY 09/29/22 [History] Empagliflozin [Jardiance] 25 mg PO DAILY 09/29/22 [History] Ergocalciferol (Vitamin D2) [Vitamin D2] 1 cap PO WEEKLY 09/29/22 [History] Insulin Degludec [Tresiba Flextouch U-200] 140 unit SQ DAILY 09/29/22 [History] Losartan Potassium [Cozaar] 1 tab PO DAILY 09/29/22 [History] OXcarbazepine [Trileptal] 1 tab PO BID 09/29/22 [History] Semaglutide [Ozempic] 2 mg SQ WEEKLY 09/29/22 [History] Hx Tetanus, Diphtheria Vaccination/Date Given: Yes Hx Influenza Vaccination/Date Given: Yes Hx Pneumococcal Vaccination/Date Given: (Doesn't Know) Travel Risk - International Travel Have you traveled outside of the country in past 3 weeks: No - Coronavirus Screening Are you exhibiting any of the following symptoms?: No Close contact with a COVID-19 positive Pt in past 14-21 Days: No - Vaccine Status Have you recieved a Covid-19 vaccination: Yes [employer]: [employer] - Vaccination Dates Date of 2cond Vaccination (if applicable): 10/30/20 - Review of Systems Constitutional: Lethargy, Weakness Eyes: No Symptoms Ears, Nose, & Throat: No Symptoms Respiratory: No Symptoms Cardiac: No Symptoms Abdominal/Gastrointestinal: No Symptoms Genitourinary Symptoms: No Symptoms Musculoskeletal: No Symptoms Skin: No Symptoms Neurological: Lethargy (Mild) Psychological: No Symptoms Endocrine: No Symptoms Hematologic/Lymphatic: No Symptoms Immunological/Allergic: No Symptoms All Other Systems: Reviewed and Negative - Past Medical History Pertinent Past Medical History: Yes Neurological History: Peripheral Neuropathy ENT History: Cataracts Cardiac History: Congestive Heart Failure, High Cholesterol, Hypertension, Myocardial Infarction ([place]) Respiratory History: CHF, COPD, Emphysema, Pneumonia, Sleep Apnea Endocrine Medical History: Diabetes Type II Musculoskeletal History: Osteoarthritis GI Medical History: No Pertinent History History: No Pertinent History Psycho-Social History: No Pertinent History Male Reproductive Disorders: No Pertinent History Other Medical History: Gout - Past Surgical History Past Surgical History: Yes Neuro Surgical History: No Pertinent History Cardiac: Cardiac Catheterization, Cardiac Stent Respiratory: No Pertinent History Gastrointestinal: Cholecystectomy Genitourinary: No Pertinent History Musculoskeletal: Orthopedic Surgery Male Surgical History: No Pertinent History Other Surgical History: Left shoulder, Left knee X3, Right leg, Right hand/arm, Right shoulder - Social History Smoking Status: Former smoker How long have you smoked: 40 years Exposure to second hand smoke: No Drug Use: none Patient Lives Alone: No - Nursing Vital Signs Nursing Vital Signs: Initial Vital Signs Temperature 99 F 09/29/22 14:57 Pulse Rate 80 09/29/22 14:57 Respiratory Rate 20 09/29/22 14:57 Blood Pressure 131/80 09/29/22 14:57 O2 Sat by Pulse Oximetry 95 09/29/22 14:57 Pain Scale Pain Intensity 0 - Redfield Coma Scale Best Eye Response (Redfield): (3) open to voice Best Verbal Response ([place]field): (5) oriented Best Motor Response ([place]): (6) obeys commands Redfield Total: 14 - Physical Exam General Appearance: no apparent distress, lethargy (Opens eyes readily and answers questions then goes back to sleeping), obese Eye Exam: bilateral eye: normal inspection, PERRL, EOMI Ears, Nose, Throat Exam: normal ENT inspection, moist mucous membranes Neck Exam: normal inspection, non-tender, supple, full range of motion Respiratory: normal breath sounds, lungs clear, airway intact, No chest tenderness, No respiratory distress Cardiovascular: regular rate/rhythm, normal heart sounds, normal peripheral pulses Gastrointestinal: soft, normal bowel sounds, No tenderness Rectal Exam: not done Back Exam: normal inspection, normal range of motion, No CVA tenderness, No vertebral tenderness Extremity Exam: pelvis stable, other (Patient has bilateral stockings from above the knee to the mid foot) Mental Status: lethargy (Mild with easy arousability. Is oriented to self, location, birthdate, family members. 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 STAT Care 09/29/22 15:43 Active IV Insertion STAT Care 09/29/22 15:41 Active NPO (ED) STAT Care 09/29/22 15:42 Active POCT Glucose Check STAT Care 09/29/22 15:41 Active Pulse Oximetry (ED) STAT Care 09/29/22 15:41 Active CHEST 1 VIEW (PORTABLE) Stat Exams 09/29/22 15:44 Completed HEAD WITHOUT CONTRAST [CT] Stat Exams 09/29/22 15:42 Completed ARTERIAL BLOOD GASES Urgent Lab 09/29/22 16:05 Completed BLOOD CULTURE Stat Lab 09/29/22 16:13 Received CBC W DIFF Stat Lab 09/29/22 16:00 Completed CMP Stat Lab 09/29/22 16:00 Completed Lactic Acid Stat Lab 09/29/22 16:05 Completed MONO SCREEN Stat Lab 09/29/22 16:00 Completed POCT GLUCOSE Stat Lab 09/29/22 15:21 Completed UA W/RFX UR CULTURE Stat Lab 09/29/22 15:47 Completed BiPap/CPAP STAT RT 09/29/22 17:10 Active Transfer Order Routine Transfer 09/29/22 Ordered Medication Summary Generic Name Dose Route Start Last Admin Trade Name Freq PRN Reason Stop Dose Admin Ceftriaxone Sodium/Dextrose 1 g in 50 mls @ 100 mls/hr 09/29/22 17:34 Rocephin 1 Gm-D5w 50 Ml Bag IV 09/29/22 18:03 STAT STA Lab/Rad Data: Laboratory Result Diagrams 09/29/22 16:00 09/29/22 16:05 Laboratory Results 09/29/22 09/29/22 09/29/22 Range/Units 16:15 16:05 16:05 WBC (4.0-10.5) x10^3/uL RBC (4.1-5.6) x10^6/uL Hgb (12.5-18.0) g/dL Hct (42-50) % MCV (78-100) fL MCH (26-32) pg MCHC (32-36) g/dL RDW (11.5-14.0) % Plt Count (150-450) x10^3/uL MPV (7.5-11.0) fL Gran % (36.0-66.0) % Immature Gran % (Auto) (0.00-0.4) % Nucleat RBC Rel Count (0.00-0.1) % Eos # (Auto) (0-0.5) x10^3/uL Immature Gran # (Auto) (0.00-0.03) x10^3u/L Absolute Lymphs (auto) (1.0-4.6) x10^3/uL Absolute Monos (auto) (0.0-1.3) x10^3/uL Absolute Nucleated RBC (0.00-0.01) x10^3u/L Lymphocytes % (24.0-44.0) % Monocytes % (0.0-12.0) % Eosinophils % (0.00-5.0) % Basophils % (0.0-0.4) % Absolute Granulocytes (1.4-6.9) x10^3/uL Basophils # (0-0.4) x10^3/uL Puncture Site RIGHT RADIAL pCO2 89 H* (35-45) mmHg pO2 96 (75-100) mmHg Base Excess 13.6 H (-2.0-2.0) O2 Saturation 95.5 (94-100) g/dF ABG pH 7.31 L (7.35-7.45) ABG HCO3 44.8 H* (22-28) ABG O2 Sat (Measured) 97.3 (95-100) % Gideon Test NOT APPLICABLE A-a Gradient 49 a/A Ratio 0.66 Hemoglobin 15.4 Carboxyhemoglobin 1.3 (0.0-6.9) % THgb Methemoglobin 0.5 L (1.4-1.5) % POC O2 Flow Rate 36 % Sodium (137-145) mmol/L Potassium 4.0 (3.5-5.1) mmol/L Chloride (98-107) mmol/L Carbon Dioxide 47 H (22-30) mmol/L Anion Gap (5-15) MEQ/L BUN (9-20) mg/dL Creatinine (0.66-1.25) mg/dL Estimated GFR ML/MIN Glucose (74-106) mg/dL POC Glucometer (74 to 106) mg/dL Lactic Acid 1.5 (0.4-2.0) Calcium (8.4-10.2) mg/dL Total Bilirubin (0.2-1.3) mg/dL AST (17-59) U/L ALT (0-50) U/L Alkaline Phosphatase (38-126) U/L Ammonia (9-30) umol/L Serum Total Protein (6.3-8.2) g/dL Albumin (3.5-5.0) g/dL Urine Color (Yellow) Urine Appearance (Clear) Urine pH (4.6-8.0) Ur Specific Rumely (1.005-1.030) Urine Protein (Negative) Urine Glucose (UA) (Negative) mg/dL Urine Ketones (Negative) Urine Blood (Negative) Urine Nitrite (Negative) Urine Bilirubin (Negative) Urine Urobilinogen (0.2) mg/dL Ur Leukocyte Esterase (Negative) U Hyaline Cast (Auto) (0-2) /LPF Urine Microscopic RBC (0-5) /HPF Urine Microscopic WBC (0-5) /HPF Ur Epithelial Cells (None Seen) /HPF Urine Bacteria (None Seen) /HPF Urine Culture Reflexed (NO) Monoscreen (NEGATIVE) Influenza Type A Ag NEGATIVE (NEGATIVE) Influenza Type B Ag NEGATIVE (NEGATIVE) RSV (PCR) NEGATIVE (NEGATIVE) SARS-CoV-2 (PCR) NEGATIVE (NEGATIVE) 09/29/22 09/29/22 09/29/22 Range/Units 16:00 16:00 16:00 WBC (4.0-10.5) x10^3/uL RBC (4.1-5.6) x10^6/uL Hgb (12.5-18.0) g/dL Hct (42-50) % MCV (78-100) fL MCH (26-32) pg MCHC (32-36) g/dL RDW (11.5-14.0) % Plt Count (150-450) x10^3/uL MPV (7.5-11.0) fL Gran % (36.0-66.0) % Immature Gran % (Auto) (0.00-0.4) % Nucleat RBC Rel Count (0.00-0.1) % Eos # (Auto) (0-0.5) x10^3/uL Immature Gran # (Auto) (0.00-0.03) x10^3u/L Absolute Lymphs (auto) (1.0-4.6) x10^3/uL Absolute Monos (auto) (0.0-1.3) x10^3/uL Absolute Nucleated RBC (0.00-0.01) x10^3u/L Lymphocytes % (24.0-44.0) % Monocytes % (0.0-12.0) % Eosinophils % (0.00-5.0) % Basophils % (0.0-0.4) % Absolute Granulocytes (1.4-6.9) x10^3/uL Basophils # (0-0.4) x10^3/uL Puncture Site pCO2 (35-45) mmHg pO2 (75-100) mmHg Base Excess (-2.0-2.0) O2 Saturation (94-100) g/dF ABG pH (7.35-7.45) ABG HCO3 (22-28) ABG O2 Sat (Measured) (95-100) % Gideon Test A-a Gradient a/A Ratio Hemoglobin Carboxyhemoglobin (0.0-6.9) % THgb Methemoglobin (1.4-1.5) % POC O2 Flow Rate % Sodium 144 (137-145) mmol/L Potassium 4.0 (3.5-5.1) mmol/L Chloride 93 L (98-107) mmol/L Carbon Dioxide 41 H (22-30) mmol/L Anion Gap 14 (5-15) MEQ/L BUN 21 H (9-20) mg/dL Creatinine 0.68 (0.66-1.25) mg/dL Estimated GFR > 60.0 ML/MIN Glucose 220 H (74-106) mg/dL POC Glucometer (74 to 106) mg/dL Lactic Acid (0.4-2.0) Calcium 8.9 (8.4-10.2) mg/dL Total Bilirubin 0.40 (0.2-1.3) mg/dL AST 22 (17-59) U/L ALT 27 (0-50) U/L Alkaline Phosphatase 146 H (38-126) U/L Ammonia 10 (9-30) umol/L Serum Total Protein 7.5 (6.3-8.2) g/dL Albumin 4.1 (3.5-5.0) g/dL Urine Color (Yellow) Urine Appearance (Clear) Urine pH (4.6-8.0) Ur Specific Rumely (1.005-1.030) Urine Protein (Negative) Urine Glucose (UA) (Negative) mg/dL Urine Ketones (Negative) Urine Blood (Negative) Urine Nitrite (Negative) Urine Bilirubin (Negative) Urine Urobilinogen (0.2) mg/dL Ur Leukocyte Esterase (Negative) U Hyaline Cast (Auto) (0-2) /LPF Urine Microscopic RBC (0-5) /HPF Urine Microscopic WBC (0-5) /HPF Ur Epithelial Cells (None Seen) /HPF Urine Bacteria (None Seen) /HPF Urine Culture Reflexed (NO) Monoscreen NEGATIVE (NEGATIVE) Influenza Type A Ag (NEGATIVE) Influenza Type B Ag (NEGATIVE) RSV (PCR) (NEGATIVE) SARS-CoV-2 (PCR) (NEGATIVE) 09/29/22 09/29/22 09/29/22 Range/Units 16:00 15:47 15:21 WBC 7.8 (4.0-10.5) x10^3/uL RBC 5.48 (4.1-5.6) x10^6/uL Hgb 15.1 (12.5-18.0) g/dL Hct 49.9 (42-50) % MCV 91.1 (78-100) fL MCH 27.6 (26-32) pg MCHC 30.3 L (32-36) g/dL RDW 15.1 H (11.5-14.0) % Plt Count 150 (150-450) x10^3/uL MPV 10.2 (7.5-11.0) fL Gran % 79.2 H (36.0-66.0) % Immature Gran % (Auto) 0.4 (0.00-0.4) % Nucleat RBC Rel Count 0.0 (0.00-0.1) % Eos # (Auto) 0.21 (0-0.5) x10^3/uL Immature Gran # (Auto) 0.03 (0.00-0.03) x10^3u/L Absolute Lymphs (auto) 0.97 L (1.0-4.6) x10^3/uL Absolute Monos (auto) 0.38 (0.0-1.3) x10^3/uL Absolute Nucleated RBC 0.00 (0.00-0.01) x10^3u/L Lymphocytes % 12.5 L (24.0-44.0) % Monocytes % 4.9 (0.0-12.0) % Eosinophils % 2.7 (0.00-5.0) % Basophils % 0.3 (0.0-0.4) % Absolute Granulocytes 6.17 (1.4-6.9) x10^3/uL Basophils # 0.02 (0-0.4) x10^3/uL Puncture Site pCO2 (35-45) mmHg pO2 (75-100) mmHg Base Excess (-2.0-2.0) O2 Saturation (94-100) g/dF ABG pH (7.35-7.45) ABG HCO3 (22-28) ABG O2 Sat (Measured) (95-100) % Gideon Test A-a Gradient a/A Ratio Hemoglobin Carboxyhemoglobin (0.0-6.9) % THgb Methemoglobin (1.4-1.5) % POC O2 Flow Rate % Sodium (137-145) mmol/L Potassium (3.5-5.1) mmol/L Chloride (98-107) mmol/L Carbon Dioxide (22-30) mmol/L Anion Gap (5-15) MEQ/L BUN (9-20) mg/dL Creatinine (0.66-1.25) mg/dL Estimated GFR ML/MIN Glucose (74-106) mg/dL POC Glucometer 240 H (74 to 106) mg/dL Lactic Acid (0.4-2.0) Calcium (8.4-10.2) mg/dL Total Bilirubin (0.2-1.3) mg/dL AST (17-59) U/L ALT (0-50) U/L Alkaline Phosphatase (38-126) U/L Ammonia (9-30) umol/L Serum Total Protein (6.3-8.2) g/dL Albumin (3.5-5.0) g/dL Urine Color Yellow (Yellow) Urine Appearance Clear (Clear) Urine pH 5.0 (4.6-8.0) Ur Specific Rumely 1.015 (1.005-1.030) Urine Protein Negative (Negative) Urine Glucose (UA) >=1000 A (Negative) mg/dL Urine Ketones Negative (Negative) Urine Blood Negative (Negative) Urine Nitrite Negative (Negative) Urine Bilirubin Negative (Negative) Urine Urobilinogen 0.2 (0.2) mg/dL Ur Leukocyte Esterase Negative (Negative) U Hyaline Cast (Auto) NONE SEEN (0-2) /LPF Urine Microscopic RBC 0-2 (0-5) /HPF Urine Microscopic WBC 0-2 (0-5) /HPF Ur Epithelial Cells None Seen (None Seen) /HPF Urine Bacteria None Seen (None Seen) /HPF Urine Culture Reflexed NO (NO) Monoscreen (NEGATIVE) Influenza Type A Ag (NEGATIVE) Influenza Type B Ag (NEGATIVE) RSV (PCR) (NEGATIVE) SARS-CoV-2 (PCR) (NEGATIVE) - Progress Progress: unchanged Progress Note: 09/29/22 17:29 This patient's chest x-ray was read by the radiologist. I reviewed his impression. The patient has a new mild left mid to lower lung infiltrate versus atelectasis. CT scan of the head without contrast is a normal nonacute study. 09/29/22 17:39 This patient's medical issue is 1 of high complexity. The level of complexity and the work-up ordered based on the past medical history, review of the patient's medication list, review of the patient's drug allergy list, and history present illness as well as findings on physical examination. The work- up performed includes placement of intravenous line, placement of the patient on 4 L oxygen nasal cannula, respiratory therapy consultation for management, ABG, CBC, CMP, BNP, chest x-ray. We also performed a ammonia level and a CAT scan of the head without contrast. The results of the above study were reviewed by me. Patient has a left side pneumonia as well as an elevated CO2 level on ABG. The hypercarbia is likely causing the patient's lethargy. I discussed the results with the patient and the patient's sister. I also called the patient's primary care doctor, Dr. Pimentel. I reviewed the above results as well as the patient's response to our treatment. Together we formulated a plan of admission to telemetry. Patient received low rate IV fluids, respiratory therapy intervention, breathing treatments, BiPAP, repeat labs in the morning and intravenous antibiotics to treat his pneumonia. Counseled pt/family regarding: lab results, diagnosis, rad results Medical Desision Making - Independent Historian Additional History obtained from: Family (Patient's sister) - External Record(s) Reviewed Records reviewed as a part of evaluation & management: Inpatient - Discussion of managment Care discussed with:: PCP Reviewed:: Test results, Need for additional workup Agreed on:: Treatment plan, decision to admit Will see patient: in hospital - Diagnostic Testing Diagnostic test were ordered, analyzed, and reviewed by me: Yes Radiological Interpretation: Reviewed by me, Teleradiologist Report - Risk of complications The pt has a high risk of morbidity or mortality based on: Decision regarding hospitilization or escalation of hosp level of care - Departure Departure Disposition: In-patient Admission Clinical Impression: Hypercarbia, Left lower lobe pneumonia Condition: Fair Critical Care Time: Yes Critical Care Time(excluding separately billable procedures): Critical 30-74 mins (40) Referrals: AUSTIN PIMENTEL MD [Primary Care Provider] - Follow up/PCP as directed
[2022-09-29 15:55] LABS: Appearance Clear (Clear); Bacteria None Seen /HPF (None Seen); Bilirubin Negative (Negative); Blood Negative (Negative); Epithelial Cells None Seen /HPF (None Seen); Glucose, Urine >=1000 mg/dL (Negative); Hyaline Casts NONE SEEN /LPF (0-2); Ketones Negative (Negative); Leukocyte Esterase Negative (Negative); Nitrite Negative (Negative); Protein,Urine Dip Negative (Negative); RBC 0-2 /HPF (0-5); Specific Gravity 1.015 (1.005-1.030); Urobilinogen 0.2 mg/dL (0.2); WBC 0-2 /HPF (0-5)
[2022-09-29 16:14] LABS: ARTERIAL BLOOD GAS pH 7.31 (7.35-7.45)
[2022-09-29 16:15] LABS: A-aADO2 49; ARTERIAL BLD GAS O2 SATURATION 97.3 % (95-100); ARTERIAL BLOOD GAS BASE EXCESS 13.6 (-2.0-2.0); ARTERIAL BLOOD GAS PCO2 89 mmHg (35-45); ARTERIAL BLOOD GAS PO2 96 mmHg (75-100); CARBON DIOXIDE 47 mEq/L (23-27); HCO3- 44.8 (22-28); paO2 pAO1 0.66
[2022-09-29 16:16] LABS: ABG HEMOGLOBIN 15.4; ABG SITE RIGHT RADIAL; ARTERIAL BLOOD GAS FIO2 36 %; CARBOXYHEMOGLOBIN 1.3 % THgb (0.0-6.9); HGB O2 SAT 95.5 g/dF (94-100); Methhemoglobin 0.5 % (1.4-1.5)
[2022-09-29 16:20] LABS: Absolute Neutrophil Ct (ANC) 6.17 x10^3/uL (1.4-6.9); BASOPHIL % 0.3 % (0.0-0.4); Basophil (Absolute #) 0.02 x10^3/uL (0-0.4); Eosinophil % 2.7 % (0.00-5.0); Eosinophil (Absolute #) 0.21 x10^3/uL (0-0.5); Hematocrit 49.9 % (42-50); Hemoglobin 15.1 g/dL (12.5-18.0); IMMATURE GRAN # 0.03 x10^3u/L (0.00-0.03); IMMATURE GRAN % 0.4 % (0.00-0.4); Lymphocyte (Absolute #) 0.97 x10^3/uL (1.0-4.6); Lymphocytes % 12.5 % (24.0-44.0); Mean Cell Volume 91.1 fL (78-100); Mean Corpuscular Hemoglobin 27.6 pg (26-32); Mean Corpuscular Hgb Concent. 30.3 g/dL (32-36); Mean Platelet Volume 10.2 fL (7.5-11.0); Monocyte (Absolute #) 0.38 x10^3/uL (0.0-1.3); Monocytes % 4.9 % (0.0-12.0); Neutrophil % 79.2 % (36.0-66.0); Platelet Count 150 x10^3/uL (150-450); Red Blood Count 5.48 x10^6/uL (4.1-5.6); Red Cell Distribution Width 15.1 % (11.5-14.0); White Blood Count 7.8 x10^3/uL (4.0-10.5)
[2022-09-29 16:23] LABS: ADD URINE CULTURE? NO (NO)
[2022-09-29 16:35] LABS: ALBUMIN 4.1 g/dL (3.5-5.0); ALKALINE PHOSPHATASE 146 U/L (38-126); BLOOD UREA NITROGEN 21 mg/dL (9-20); CHLORIDE 93 mmol/L (98-107); Calcium 8.9 mg/dL (8.4-10.2); Creatinine 1 0.68 mg/dL (0.66-1.25); EST GLOMERULAR FILTRATION RATE > 60.0 ML/MIN; Glucose 220 mg/dL (74-106); SGOT/AST 22 U/L (17-59); SGPT/ALT 27 U/L (0-50); SODIUM 144 mmol/L (137-145); Total Protein 7.5 g/dL (6.3-8.2)
[2022-09-29 16:42] LABS: ANION GAP 14 MEQ/L (5-15); Carbon Dioxide 41 mmol/L (22-30)
--- NOTE | 2022-09-29 16:57 | XRAY ---
Indication: Confusion. Multiple contiguous axial images obtained through the head without contrast. Comparison: August 14, 2020 Normal appearing brain parenchyma, ventricles, and bony calvarium for patient's age. Bony calvarium intact. Visualized paranasal sinuses and mastoid air cells are clear. Impression: Continued normal CT head without contrast exam.
--- NOTE | 2022-09-29 16:57 | XRAY ---
Indication: Short of breath. Comparison: August 04, 2022 Portable chest demonstrates new mild left mid to lower lung infiltrate/atelectasis. Remaining heart and right lung unremarkable again with a few incidental tiny calcified granulomas. Bony thorax intact again with osteopenia and degenerative changes.
[2022-09-29 17:06] LABS: INFLUENZA A NEGATIVE (NEGATIVE); INFLUENZA B NEGATIVE (NEGATIVE); RESPIRATORY SYNCTIAL VIRUS NEGATIVE (NEGATIVE); SARS-CoV-2 Xpert Express NEGATIVE (NEGATIVE)
[2022-09-29] MEDS ORDERED: ROCEPHIN 1 Gm-D5w 50 ml Bag** 1 G/50 ML IVPB IV STA (17:34)
[2022-09-29] MEDS ORDERED: ROCEPHIN 1 Gm-D5w 50 ml Bag** 1 G/50 ML IVPB IV ONE (17:39)
[2022-09-29] MEDS ORDERED: Zofran 4 MG/2 ML VIAL IV PRN (18:03)
[2022-09-29] MEDS ORDERED: TYLENOL 325 MG PO PRN (18:03)
[2022-09-29] MEDS: PROVENTIL 2.5 MG/3 ML NEB IH SCH (19:24)
[2022-09-29 21:48] LABS: A-aADO2 97; ABG HEMOGLOBIN 15.1; ABG POTASSIUM 3.8 (3.5-5.1); ARTERIAL BLD GAS O2 SATURATION 93.5 % (95-100); ARTERIAL BLOOD GAS BASE EXCESS 15.5 (-2.0-2.0); ARTERIAL BLOOD GAS FIO2 36 %; ARTERIAL BLOOD GAS PO2 67 mmHg (75-100); ARTERIAL BLOOD GAS pH 7.39 (7.35-7.45); CARBOXYHEMOGLOBIN 0.9 % THgb (0.0-6.9); HCO3- 44.8 (22-28); HGB O2 SAT 92.3 g/dF (94-100); Methhemoglobin 0.4 % (1.4-1.5); paO2 pAO1 0.41
[2022-09-29 21:49] LABS: ABG SITE LEFT RADIAL; ALLEN TEST OK? YES; ARTERIAL BLOOD GAS PCO2 74 mmHg (35-45)
[2022-09-29] MEDS: Sodium Chloride 0.9% 1000 ML 1,000 ML IV SCH (22:18)
[2022-09-30 05:02] LABS: Absolute Neutrophil Ct (ANC) 5.05 x10^3/uL (1.4-6.9); BASOPHIL % 0.1 % (0.0-0.4); Basophil (Absolute #) 0.01 x10^3/uL (0-0.4); Eosinophil % 2.7 % (0.00-5.0); Eosinophil (Absolute #) 0.18 x10^3/uL (0-0.5); Hematocrit 46.2 % (42-50); Hemoglobin 13.7 g/dL (12.5-18.0); IMMATURE GRAN # 0.02 x10^3u/L (0.00-0.03); IMMATURE GRAN % 0.3 % (0.00-0.4); Lymphocyte (Absolute #) 1.07 x10^3/uL (1.0-4.6); Lymphocytes % 15.9 % (24.0-44.0); Mean Cell Volume 90.9 fL (78-100); Mean Corpuscular Hgb Concent. 29.7 g/dL (32-36); Monocytes % 5.9 % (0.0-12.0); Neutrophil % 75.1 % (36.0-66.0); Platelet Count 126 x10^3/uL (150-450); Red Blood Count 5.08 x10^6/uL (4.1-5.6); Red Cell Distribution Width 15.1 % (11.5-14.0); White Blood Count 6.7 x10^3/uL (4.0-10.5)
[2022-09-30 05:18] LABS: ALBUMIN 3.6 g/dL (3.5-5.0); ALKALINE PHOSPHATASE 121 U/L (38-126); BLOOD UREA NITROGEN 21 mg/dL (9-20); CHLORIDE 96 mmol/L (98-107); Calcium 8.6 mg/dL (8.4-10.2); Creatinine 1 0.68 mg/dL (0.66-1.25); EST GLOMERULAR FILTRATION RATE > 60.0 ML/MIN; Glucose 120 mg/dL (74-106); NT PRO BNPII < 20.0 pg/mL (<300); Potassium 3.6 mmol/L (3.5-5.1); SGOT/AST 17 U/L (17-59); SGPT/ALT 21 U/L (0-50); SODIUM 142 mmol/L (137-145); Total Protein 6.5 g/dL (6.3-8.2)
[2022-09-30 05:32] LABS: Carbon Dioxide 40 mmol/L (22-30)
[2022-09-30 05:33] LABS: ANION GAP 9.6 MEQ/L (5-15)
[2022-09-30] MEDS: PROVENTIL 2.5 MG/3 ML NEB IH SCH ×4 (07:14→19:19)
[2022-09-30] MEDS ORDERED: HUMALOG SQ PRN (08:09)
[2022-09-30] MEDS ORDERED: PROVENTIL 2.5 MG/3 ML NEB IH PRN (09:03)
[2022-09-30] MEDS ORDERED: Nitrostat 0.4 MG Tablet SL PRN (09:03)
[2022-09-30] MEDS ORDERED: NON-FORMULARY ITEM (Semaglutide [Ozempic] 0.25 MG/0.2 ML Pen.Injctr) SQ SCH (09:15)
[2022-09-30] MEDS ORDERED: MEDICATION INTERVENTION MC SCH (09:45)
[2022-09-30] MEDS ORDERED: OXCARBAZEPINE 600 MG PO SCH (10:00)
[2022-09-30] MEDS ORDERED: NON-FORMULARY ITEM (Losartan Potassium [Cozaar] 25 MG Tablet) PO SCH (10:00)
[2022-09-30] MEDS ORDERED: Flonase NASAL NS SCH (10:00)
[2022-09-30] MEDS ORDERED: NON-FORMULARY ITEM (Insulin Degludec [Tresiba Flextouch U-200] 200 UNIT/ML Insuln.Pen) SQ SCH (10:00)
[2022-09-30] MEDS ORDERED: NON-FORMULARY ITEM (Fluticasone Propionate [Flonase Allergy Relief] 9.9 ML Spray.Susp) IH SCH (10:00)
[2022-09-30] MEDS ORDERED: NON-FORMULARY ITEM (Potassium Chloride [Klor-Con 10] 10 MEQ Tablet.Er) PO SCH (10:00)
[2022-09-30] MEDS: ECOTRIN 81 MG PO SCH (10:29)
[2022-09-30] MEDS: PLAVIX Tablet PO SCH (10:29)
[2022-09-30] MEDS: Klor Con PO SCH ×2 (10:29→21:28)
[2022-09-30] MEDS: COREG 12.5 MG PO SCH ×2 (10:29→21:28)
[2022-09-30] MEDS: Cozaar 50 MG PO SCH (10:29)
[2022-09-30] MEDS: ZYLOPRIM 100 MG PO SCH (10:30)
[2022-09-30] MEDS: NEURONTIN PO SCH ×3 (10:31→21:28)
[2022-09-30] MEDS: JARDIANCE PO SCH (10:32)
[2022-09-30] MEDS: Lantus Insulin SQ SCH (10:32)
[2022-09-30] MEDS: Zithromax 500 MG/ 250 ML NaCl Premix 500 MG/250 ML IVPB IV SCH (10:33)
[2022-09-30] MEDS: Trileptal 300 MG Tablet PO SCH ×2 (10:33→21:28)
[2022-09-30] MEDS: Flonase NASAL NS SCH (11:36)
[2022-09-30] MEDS: ROCEPHIN 1 Gm-D5w 50 ml Bag** 1 G/50 ML IVPB IV SCH (11:56)
[2022-09-30] MEDS ORDERED: PATIENT OWN MEDICATION SQ SCH (12:00)
[2022-09-30] MEDS ORDERED: Imitrex 6 MG/0.5 ML SQ STA (12:54)
[2022-09-30] MEDS: Sodium Chloride 0.9% 1000 ML 1,000 ML IV SCH (16:08)
[2022-09-30] MEDS ORDERED: CARBAMAZEPINE 200 MG PO SCH (22:00)
[2022-09-30] MEDS ORDERED: LIPITOR 40MG PO SCH (22:00)
[2022-09-30] MEDS ORDERED: ZOCOR 20MG PO SCH (22:00)
[2022-09-30] MEDS ORDERED: Tegretol 200 MG PO SCH (22:00)
[2022-10-01] MEDS: PROVENTIL 2.5 MG/3 ML NEB IH SCH ×2 (06:23→10:48)
--- NOTE | 2022-10-01 07:51 | PCM.HP ---
History of Present Illness - Chief Complaint Chief Complaint: weakness for 3-4 days History of Present Illness: is a 67 year old male.morbidly obese who was brought to the emergency department and into the emergency department room for by wheelchair. Patient's sister stated that he has been "feeling off for a few days". Patient has a history of recurrent pneumonias, COPD, chronic venous stasis disease, CHF, peripheral neuropathy, diabetes, hypertension, hyperlipidemia, coronary artery disease (cardiac catheterization and cardiac stents). His sister states he has been intermittently confused during the last few days. He does wear 4 L nasal cannula of oxygen supplementation. Patient does seem to be mildly lethargic but will quickly awaken when questions are asked and answer appropriately except for time of day. He states he is got some back pain but no other pain. He does not have chest pain or abdominal pain. He has had confusion in the past which have been related to urinary tract infection, recurrent pneumonia or hypercarbia. There has been no head injury. Timing/Duration: today Severity: mild (To moderate) Baseline/Normal Cognition: alert oriented x 3 Current Cognition: poor alertness (Mildly lethargic but awakens readily and answers questions. He just is not quite aware of the time of day) - Review of Systems Constitutional: Weakness, No Fever, No Chills Eyes: No Symptoms Ears, Nose, & Throat: No Symptoms Respiratory: Orthopnea, Short Of Breath, Wheezing, No Cough Cardiac: No Chest Pain, No Edema, No Syncope Abdominal/Gastrointestinal: No Abdominal Pain, No Nausea, No Vomiting, No Diarrhea Genitourinary Symptoms: No Dysuria Musculoskeletal: No Back Pain, No Neck Pain Skin: No Rash Neurological: No Dizziness, No Focal Weakness, No Sensory Changes Psychological: No Symptoms Endocrine: No Symptoms Hematologic/Lymphatic: No Symptoms Immunological/Allergic: No Symptoms Medications & Allergies Home Medications: Home Medication List Gabapentin [Neurontin ] 600 mg PO TID 07/27/12 [History Confirmed 09/29/22] Nitroglycerin [Nitroquick] 0.4 mg SL Q5MIN PRN MR X 3 PRN 07/27/12 [History Confirmed 09/29/22] Potassium Chloride [Klor-Con 10] 10 meq PO BID 07/27/12 [History Confirmed 09/29/22] Albuterol 2.5 mg/3 ml Neb [Proventil 2.5 mg/3 ml Neb] 1 amp IH Q2H/PRN PRN 09/04/13 [History Confirmed 09/29/22] Atorvastatin Calcium 40 mg PO HS 04/24/19 [History Confirmed 09/29/22] Allopurinol 100 mg [Zyloprim 100 mg] 100 mg PO DAILY 09/29/22 [History Confirmed 09/29/22] Aspirin EC 81 mg [Ecotrin 81 mg] 81 mg PO DAILY 09/29/22 [History Confirmed 09/29/22] Carvedilol 12.5 mg [Coreg 12.5 mg] 12.5 mg PO BID 09/29/22 [History Confirmed 09/29/22] Clopidogrel Bisulfate [Clopidogrel] 1 tab PO DAILY 09/29/22 [History Confirmed 09/29/22] Empagliflozin [Jardiance] 25 mg PO DAILY 09/29/22 [History Confirmed 09/29/22] Ergocalciferol (Vitamin D2) [Vitamin D2] 1 cap PO WEEKLY 09/29/22 [History Confirmed 09/29/22] Fluticasone Propionate [Flonase Allergy Relief] 1 spray IH DAILY 09/29/22 [History Confirmed 09/29/22] Insulin Degludec [Tresiba Flextouch U-200] 140 unit SQ DAILY 09/29/22 [History Confirmed 09/29/22] Losartan Potassium [Cozaar] 25 mg PO DAILY 09/29/22 [History Confirmed 09/29/22] OXcarbazepine [Trileptal] 600 mg PO BID 09/29/22 [History Confirmed 09/29/22] Semaglutide [Ozempic] 0.5 mg SQ WEEKLY 09/29/22 [History Confirmed 09/30/22] carBAMazepine [Carbamazepine ER] 200 mg PO QHS 09/29/22 [History Confirmed 09/29/22] Allergies/Adverse Reactions: Allergies Allergy/AdvReac Type Severity Reaction Status Date / Time No Known Drug Allergies Allergy Verified 09/29/22 18:22 - Past Medical History Past Medical History: Yes Neurological History: Peripheral Neuropathy ENT History: Other Cardiac History: Congestive Heart Failure, Hypertension, Other Respiratory History: COPD Endocrine Medical History: Diabetes Type II Musculoskelatal History: Osteoarthritis GI Medical History: No Pertinent History History: No Pertinent History Pyscho-Social History: No Pertinent History Male Reproductive Disorders: No Pertinent History Comment: Gout - Past Surgical History Past Surgical History: Yes Neuro Surgical History: No Pertinent History Cardiac History: Cardiac Catheterization, Cardiac Stent Respiratory Surgery: No Pertinent History GI Surgical History: Cholecystectomy Genitourinary Surgical Hx: No Pertinent History Musculskeletal Surgical Hx: Orthopedic Surgery Male Surgical History: No Pertinent History Other Surgical History: Left shoulder, Left knee X3, Right leg, Right hand/arm, Right shoulder - Social History Smoking Status: Former smoker How long have you smoked: 40 years Exposure to second hand smoke: No Alcohol: None Drug Use: none - Physical Exam Vital Signs: Vital Signs - 24 hr Temp Pulse Resp BP Pulse Ox 10/01/22 06:23 66 23 97 10/01/22 03:00 97.9 F 71 23 134/82 93 L 09/30/22 23:00 98.2 F 94 H 29 H 144/80 95 09/30/22 19:59 98.0 F 64 20 111/67 95 09/30/22 19:19 89 22 92 L 09/30/22 15:42 71 20 95 09/30/22 15:36 98.7 F 93 H 20 147/88 94 L 09/30/22 13:04 114/56 09/30/22 11:44 98.0 F 75 18 114/54 92 L 09/30/22 11:11 105 H 26 H 94 L General Appearance: no apparent distress, alert Neurologic Exam: alert, oriented x 3, cooperative, normal mood/affect, nml cerebellar function, nml station & gait, sensation nml, No motor deficits Eye Exam: PERRL/EOMI, eyes nml inspection Ears, Nose, Throat Exam: normal ENT inspection, TMs normal, pharynx normal, moist mucous membranes Neck Exam: normal inspection, non-tender, supple, full range of motion Respiratory Exam: diminished breath sounds, crackles/rales, rhonchi, wheezing, No respiratory distress Cardiovascular Exam: regular rate/rhythm, normal heart sounds, normal peripheral pulses Gastrointestinal/Abdomen Exam: soft, normal bowel sounds, No tenderness, No mass Back Exam: normal inspection, normal range of motion, No CVA tenderness, No vertebral tenderness Extremity Exam: normal inspection, normal range of motion, pelvis stable Skin Exam: normal color, warm, dry, No rash Lymphatic Exam: No adenopathy Results - Labs Lab/Micro Results: Lab Results-Last 24 Hours 09/30/22 09/30/22 09/30/22 Range/Units 11:30 15:23 19:19 POC Glucometer 169 H 225 H 166 H (74 to 106) mg/dL 10/01/22 Range/Units 07:15 POC Glucometer 199 H (74 to 106) mg/dL Accuchecks Date 09/30/22 Time 15:36 - Radiology Impressions Radiology Exams & Impressions: Radiology Procedures Category Date Time Status CHEST 1 VIEW (PORTABLE) Stat Exams 09/29/22 15:44 Completed HEAD WITHOUT CONTRAST [CT] Stat Exams 09/29/22 15:42 Completed RAD/CHEST 1 VIEW (PORTABLE) Indication: Short of breath. Comparison: August 04, 2022 Portable chest demonstrates new mild left mid to lower lung infiltrate/atelectasis. Remaining heart and right lung unremarkable again with a few incidental tiny calcified granulomas. Bony thorax intact again with osteopenia and degenerative changes. Assessment/Plan (1) Left lower lobe pneumonia Current Visit: Yes Status: Acute Qualifiers: Pneumonia type: due to Pneumococcus Qualified Code(s): J13 - Pneumonia due to Streptococcus pneumoniae Assessment & Plan: Chief Complaint Diagnosis Hypercarbia, LLL PNE Allergies Allergy/AdvReac Type Severity Reaction Status Date / Time No Known Drug Allergies Allergy Verified 09/29/22 18:22 Vital Signs (Last 24 hours) Temp Pulse Resp BP Pulse Ox 10/01/22 06:23 66 23 97 10/01/22 03:00 97.9 F 71 23 134/82 93 L 09/30/22 23:00 98.2 F 94 H 29 H 144/80 95 09/30/22 19:59 98.0 F 64 20 111/67 95 09/30/22 19:19 89 22 92 L 09/30/22 15:42 71 20 95 09/30/22 15:36 98.7 F 93 H 20 147/88 94 L 09/30/22 13:04 114/56 09/30/22 11:44 98.0 F 75 18 114/54 92 L 09/30/22 11:11 105 H 26 H 94 L Home Medications Medication Instructions Recorded Confirmed Last Taken Type Allopurinol 100 mg [Zyloprim 100 mg PO DAILY 09/29/22 09/29/22 Unknown History 100 mg] Aspirin EC 81 mg [Ecotrin 81 81 mg PO DAILY 09/29/22 09/29/22 Unknown History mg] Carvedilol 12.5 mg [Coreg 12.5 12.5 mg PO BID 09/29/22 09/29/22 Unknown History mg] Clopidogrel Bisulfate [Clopidogrel] 1 tab PO DAILY 09/29/22 09/29/22 Unknown History Empagliflozin [Jardiance] 25 mg PO DAILY 09/29/22 09/29/22 Unknown History Ergocalciferol (Vitamin D2) 1 cap PO WEEKLY 09/29/22 09/29/22 Unknown History [Vitamin D2] Fluticasone Propionate [Flonase 1 spray IH DAILY 09/29/22 09/29/22 Unknown History Allergy Relief] Insulin Degludec [Tresiba 140 unit SQ DAILY 09/29/22 09/29/22 Unknown History Flextouch U-200] Losartan Potassium [Cozaar] 25 mg PO DAILY 09/29/22 09/29/22 Unknown History OXcarbazepine [Trileptal] 600 mg PO BID 09/29/22 09/29/22 Unknown History Semaglutide [Ozempic] 0.5 mg SQ WEEKLY 09/29/22 09/30/22 Unknown History carBAMazepine [Carbamazepine ER] 200 mg PO QHS 09/29/22 09/29/22 Unknown History Current Medications Generic Name Dose Route Start Last Admin Trade Name Freq PRN Reason Stop Dose Admin Acetaminophen 650 mg 09/29/22 18:03 09/30/22 10:30 Acetaminophen 325 Mg Tablet PO 10/29/22 18:02 650 mg Q4H PRN PRN Administration PAIN, FEVER, HEADACHE Albuterol Sulfate 2.5 mg 09/29/22 19:00 10/01/22 06:23 Albuterol Sulfate 2.5 Mg/3 Ml [facility] 10/29/22 18:59 2.5 mg QIDRT ALINA Administration Albuterol Sulfate 2.5 mg 09/30/22 09:03 Albuterol Sulfate 2.5 Mg/3 Ml [facility] 10/30/22 09:02 Q2H/PRN PRN SHORTNESS OF BREATH Allopurinol 100 mg 09/30/22 10:00 09/30/22 10:30 Allopurinol 100 Mg Tablet PO 10/30/22 09:59 100 mg DAILY ALINA Administration Aspirin 81 mg 09/30/22 10:00 09/30/22 10:29 Aspirin 81 Mg Tablet.Ec PO 10/30/22 09:59 81 mg DAILY ALINA Administration Carbamazepine 200 mg 09/30/22 22:00 09/30/22 21:29 Carbamazepine 200 Mg Tablet PO 10/30/22 21:59 200 mg QHS ALINA Administration Carvedilol 12.5 mg 09/30/22 10:00 09/30/22 21:28 Carvedilol 12.5 Mg Tablet PO 10/30/22 09:59 12.5 mg BID ALINA Administration Clopidogrel Bisulfate 75 mg 09/30/22 10:00 09/30/22 10:29 Clopidogrel Bisulfate 75 Mg Tablet PO 10/30/22 09:59 75 mg DAILY ALINA Administration Empagliflozin 25 mg 09/30/22 10:00 09/30/22 10:32 Empagliflozin 10 Mg Tablet PO 10/30/22 09:59 25 mg DAILY ALINA Administration Ergocalciferol 50,000 unit 10/03/22 10:00 Ergocalciferol (Vitamin D2) 50,000 Unit Capsule PO 11/02/22 09:59 WEEKLY ALINA Fluticasone Propionate 0 gm 09/30/22 11:30 09/30/22 11:36 Fluticasone Propionate 16 Gm Bottle Nasal [place] NS 10/30/22 11:29 16 gm DAILY ALINA Administration Gabapentin 600 mg 09/30/22 10:00 09/30/22 21:28 Gabapentin 300 Mg Capsule PO 10/30/22 09:59 600 mg TID ALINA Administration Sodium Chloride 1,000 mls @ 50 mls/hr 09/29/22 18:03 09/30/22 16:08 Sodium Chloride 0.9% 1000 Ml IV 10/29/22 18:02 50 mls/hr .Q20H ALINA Administration Ceftriaxone Sodium/Dextrose 1 g in 50 mls @ 100 mls/hr 09/30/22 12:00 09/30/22 11:56 Rocephin 1 Gm-D5w 50 Ml Bag IV 10/03/22 11:59 100 mls/hr Q24H10 ALINA Administration Azithromycin 500 mg in 250 mls @ 250 mls/hr 09/30/22 10:00 09/30/22 10:33 Zithromax 500 Mg/ 250 Ml Nacl Premix IV 10/30/22 09:59 250 mls/hr Q24H10 ALINA Administration Insulin Glargine 120 unit 09/30/22 10:00 09/30/22 10:32 Insulin Glargine 1 Unit SQ 10/30/22 09:59 120 unit DAILY ALINA Administration Insulin Human Lispro 0 unit 09/30/22 08:09 09/30/22 15:27 Insulin Lispro 1 Unit SQ 10/30/22 08:08 2 unit UD PRN Administration HYPERGLYCEMIA Losartan Potassium 25 mg 09/30/22 10:00 09/30/22 10:29 Losartan Potassium 50 Mg Tablet PO 10/30/22 09:59 25 mg DAILY ALINA Administration Nitroglycerin 0.4 mg 09/30/22 09:03 Nitroglycerin 0.4 Mg Tablet Bottle SL 10/30/22 09:02 Q5MIN PRN MR X 3 PRN CHEST PAIN Ondansetron HCl 4 mg 09/29/22 18:03 Ondansetron Hcl 4 Mg/2 Ml Vial IV 10/29/22 18:02 Q6H PRN PRN NAUSEA/VOMITING Oxcarbazepine 600 mg 09/30/22 10:00 09/30/22 21:28 Oxcarbazepine 300 Mg Tab PO 10/30/22 09:59 600 mg BID ALINA Administration Ozempic 0.25mg - 0. 1 each 09/30/22 12:00 09/30/22 11:57 5mg Dose Pen SQ 10/30/22 11:59 1 each Q7D ALINA Administration Potassium Chloride 10 meq 09/30/22 10:00 09/30/22 21:28 Potassium Chloride Tab 10 Meq Tab PO 10/30/22 09:59 10 meq BID ALINA Administration Simvastatin 40 mg 09/30/22 22:00 09/30/22 21:28 Simvastatin 20 Mg Tablet PO 10/30/22 21:59 40 mg HS ALINA Administration Discontinued Medications Generic Name Dose Route Start Last Admin Trade Name Freq PRN Reason Stop Dose Admin Fluticasone Propionate 1 gm 09/30/22 10:00 09/30/22 11:21 Fluticasone Propionate 16 Gm Bottle Nasal [place] NS 10/30/22 09:59 Not Given DAILY ALINA Ceftriaxone Sodium/Dextrose 1 g in 50 mls @ 100 mls/hr 09/29/22 17:34 09/29/22 17:40 Rocephin 1 Gm-D5w 50 Ml Bag IV 09/29/22 18:03 100 mls/hr STAT STA 100 mls/hr Administration Ceftriaxone Sodium/Dextrose Confirm 09/29/22 17:39 Rocephin 1 Gm-D5w 50 Ml Bag Administered 09/29/22 17:40 Dose 1 g in 50 mls @ ud IV .STK-MED ONE Miscellaneous Information 1 each 09/30/22 09:45 Medication Intervention 1 Each Each 10/30/22 09:44 .RN TO CHECK ALINA Sumatriptan Succinate 6 mg 09/30/22 12:54 09/30/22 13:32 Sumatriptan Succinate 6 Mg/0.5 Ml Vial SQ 09/30/22 12:55 6 mg STAT STA Administration Intake & Output (Last 24 hours) 09/28/22 09/29/22 09/30/22 10/01/22 11:59 11:59 11:59 11:59 Intake Total 1069 3530 Output Total 1850 Balance 1069 1680 Weight 151 kg 151 kg Laboratory Results (Last 24 hours) 10/01/22 09/30/22 09/30/22 07:15 19:19 15:23 POC Glucometer 199 H 166 H 225 H 09/30/22 11:30 POC Glucometer 169 H Orders (Last 24 hours) Category Date Time Status House Regular Diet Diet 09/30/22 Breakfast Active POCT GLUCOSE Stat Lab 09/30/22 07:05 Completed POCT GLUCOSE Stat Lab 09/30/22 11:30 Completed POCT GLUCOSE Stat Lab 09/30/22 15:23 Completed POCT GLUCOSE Stat Lab 09/30/22 19:19 Completed POCT GLUCOSE Stat Lab 10/01/22 07:15 Completed Albuterol 2.5 mg/3 ml Neb [Proventil 2.5 mg/3 ml Neb Med 09/30/22 09:03 Active ] 2.5 mg IH Q2H/PRN PRN Allopurinol 100 mg [Zyloprim 100 mg] Med 09/30/22 10:00 Active 100 mg PO DAILY Aspirin EC 81 mg [Ecotrin 81 mg] Med 09/30/22 10:00 Active 81 mg PO DAILY Azithromycin 500 mg/250 ml [Zithromax 500 MG/ 250 ML Med 09/30/22 10:00 Active NaCl Premix] 500 mg in 250 ml IV Q24H10 Carbamazepine 200 mg [Tegretol 200 MG] Med 09/30/22 22:00 Active 200 mg PO QHS Carvedilol 12.5 mg [Coreg 12.5 mg] Med 09/30/22 10:00 Active 12.5 mg PO BID Ceftriaxone 1 GM/50 ML PREMIX* [ROCEPHIN 1 Gm-D5w 50 ml Med 09/30/22 12:00 Active Bag] 1 g in 50 ml IV Q24H10 Clopidogrel Bisulfate [PLAVIX Tablet] Med 09/30/22 10:00 Active 75 mg PO DAILY Empagliflozin [Jardiance] Med 09/30/22 10:00 Active 25 mg PO DAILY Ergocalciferol (Vitamin D2) [Vitamin D2] Med 10/03/22 10:00 Active 50,000 unit PO WEEKLY Fluticasone Propionate [Flonase NASAL] Med 09/30/22 10:00 Discontinued 1 gm NS DAILY Fluticasone Propionate [Flonase NASAL] Med 09/30/22 11:30 Active See Dose Instructions NS DAILY Gabapentin [Neurontin ] Med 09/30/22 10:00 Active 600 mg PO TID Insulin Glargine [Lantus Insulin] Med 09/30/22 10:00 Active 120 unit SQ DAILY Insulin Lispro [Humalog] Med 09/30/22 08:09 Active See Dose Instructions SQ UD PRN Losartan Potassium 50 mg [Cozaar 50 MG] Med 09/30/22 10:00 Active 25 mg PO DAILY Medication Intervention Med 09/30/22 09:45 Discontinued 1 each MC .RN TO CHECK Nitroglycerin 0.4 mg Tablet [Nitrostat 0.4 MG Tablet Med 09/30/22 09:03 Active ] 0.4 mg SL Q5MIN PRN MR X 3 PRN Oxcarbazepine 300 mg [Trileptal 300 MG Tablet] Med 09/30/22 10:00 Active 600 mg PO BID Patient Own Med [Patient Own Medication] Med 09/30/22 12:00 Active 1 each SQ Q7D Potassium Chloride Tab* [Klor Con] Med 09/30/22 10:00 Active 10 meq PO BID Simvastatin 20Mg [Zocor 20Mg] Med 09/30/22 22:00 Active 40 mg PO HS Sumatriptan Succinate 6 mg [Imitrex 6 MG/0.5 ML] Med 09/30/22 12:54 Discontinued 6 mg SQ STAT STA Patient Care Notes (Last 24 hours) 09/30/22 19:22 Nursing Note by Mendez Cohn Pt states he did not eat dinner. BG 166. [place] and snack provided. Initialized on 09/30/22 19:22 - END OF NOTE 09/30/22 19:06 Nursing Note by Mendez Cohn Received by sitting in recliner on oxygen therapy. Pt denies pain, sob, dizziness at this time. Call light and urinal within reach. White board updated. nad at this time. will cont to monitor. Initialized on 09/30/22 19:06 - END OF NOTE 09/30/22 14:18 Case Management Note by Halle Lopez PATIENT HAS [facility]. THEY WILL NEED NOTIFIED AT TIME OF DC AT [phone]. THEY WILL NEED FAXED THE DC INSTRUCTIONS, DC MED LIST, AND DC SUMMARY ( IF AVAILABLE) TO [phone] Initialized on 09/30/22 14:18 - END OF NOTE Code(s): J18.9 - PNEUMONIA, UNSPECIFIED ORGANISM (2) Hypercarbia Current Visit: Yes Status: Acute Code(s): R06.89 - OTHER ABNORMALITIES OF BREATHING
--- NOTE | 2022-10-01 08:54 | PCM.DS ---
Discharge Summary Date of Admission: 09/29/22 18:02 Admitting Physician: NATHAN LOCKE Primary Care Provider: AUSTIN PIMENTEL Allergies Allergies No Known Drug Allergies Allergy (Verified 09/29/22 18:22) Hospital Summary - Hospital Course Hospital Course: Chief Complaint Diagnosis weakness for 3-4 days Allergies Allergy/AdvReac Type Severity Reaction Status Date / Time No Known Drug Allergies Allergy Verified 09/29/22 18:22 Vital Signs (Last 24 hours) Temp Pulse Resp BP Pulse Ox 10/01/22 07:00 97.7 F 86 16 185/100 92 L 10/01/22 06:23 66 23 97 10/01/22 03:00 97.9 F 71 23 134/82 93 L 09/30/22 23:00 98.2 F 94 H 29 H 144/80 95 09/30/22 19:59 98.0 F 64 20 111/67 95 09/30/22 19:19 89 22 92 L 09/30/22 15:42 71 20 95 09/30/22 15:36 98.7 F 93 H 20 147/88 94 L 09/30/22 13:04 114/56 09/30/22 11:44 98.0 F 75 18 114/54 92 L 09/30/22 11:11 105 H 26 H 94 L Home Medications Medication Instructions Recorded Confirmed Last Taken Type Allopurinol 100 mg [Zyloprim 100 mg PO DAILY 09/29/22 09/29/22 Unknown History 100 mg] Aspirin EC 81 mg [Ecotrin 81 81 mg PO DAILY 09/29/22 09/29/22 Unknown History mg] Carvedilol 12.5 mg [Coreg 12.5 12.5 mg PO BID 09/29/22 09/29/22 Unknown History mg] Clopidogrel Bisulfate [Clopidogrel] 1 tab PO DAILY 09/29/22 09/29/22 Unknown History Empagliflozin [Jardiance] 25 mg PO DAILY 09/29/22 09/29/22 Unknown History Ergocalciferol (Vitamin D2) 1 cap PO WEEKLY 09/29/22 09/29/22 Unknown History [Vitamin D2] Fluticasone Propionate [Flonase 1 spray IH DAILY 09/29/22 09/29/22 Unknown History Allergy Relief] Insulin Degludec [Tresiba 140 unit SQ DAILY 09/29/22 09/29/22 Unknown History Flextouch U-200] Losartan Potassium [Cozaar] 25 mg PO DAILY 09/29/22 09/29/22 Unknown History OXcarbazepine [Trileptal] 600 mg PO BID 09/29/22 09/29/22 Unknown History Semaglutide [Ozempic] 0.5 mg SQ WEEKLY 09/29/22 09/30/22 Unknown History carBAMazepine [Carbamazepine ER] 200 mg PO QHS 09/29/22 09/29/22 Unknown History Current Medications Generic Name Dose Route Start Last Admin Trade Name Freq PRN Reason Stop Dose Admin Acetaminophen 650 mg 09/29/22 18:03 09/30/22 10:30 Acetaminophen 325 Mg Tablet PO 10/29/22 18:02 650 mg Q4H PRN PRN Administration PAIN, FEVER, HEADACHE Albuterol Sulfate 2.5 mg 09/29/22 19:00 10/01/22 06:23 Albuterol Sulfate 2.5 Mg/3 Ml [facility] 10/29/22 18:59 2.5 mg QIDRT ALINA Administration Albuterol Sulfate 2.5 mg 09/30/22 09:03 Albuterol Sulfate 2.5 Mg/3 Ml [facility] 10/30/22 09:02 Q2H/PRN PRN SHORTNESS OF BREATH Allopurinol 100 mg 09/30/22 10:00 09/30/22 10:30 Allopurinol 100 Mg Tablet PO 10/30/22 09:59 100 mg DAILY ALINA Administration Aspirin 81 mg 09/30/22 10:00 09/30/22 10:29 Aspirin 81 Mg Tablet.Ec PO 10/30/22 09:59 81 mg DAILY ALINA Administration Carbamazepine 200 mg 09/30/22 22:00 09/30/22 21:29 Carbamazepine 200 Mg Tablet PO 10/30/22 21:59 200 mg QHS ALINA Administration Carvedilol 12.5 mg 09/30/22 10:00 09/30/22 21:28 Carvedilol 12.5 Mg Tablet PO 10/30/22 09:59 12.5 mg BID ALINA Administration Clopidogrel Bisulfate 75 mg 09/30/22 10:00 09/30/22 10:29 Clopidogrel Bisulfate 75 Mg Tablet PO 10/30/22 09:59 75 mg DAILY ALINA Administration Empagliflozin 25 mg 09/30/22 10:00 09/30/22 10:32 Empagliflozin 10 Mg Tablet PO 10/30/22 09:59 25 mg DAILY ALINA Administration Ergocalciferol 50,000 unit 10/03/22 10:00 Ergocalciferol (Vitamin D2) 50,000 Unit Capsule PO 11/02/22 09:59 WEEKLY ALINA Fluticasone Propionate 0 gm 09/30/22 11:30 09/30/22 11:36 Fluticasone Propionate 16 Gm Bottle Nasal [place] NS 10/30/22 11:29 16 gm DAILY ALINA Administration Gabapentin 600 mg 09/30/22 10:00 09/30/22 21:28 Gabapentin 300 Mg Capsule PO 10/30/22 09:59 600 mg TID ALINA Administration Sodium Chloride 1,000 mls @ 50 mls/hr 09/29/22 18:03 09/30/22 16:08 Sodium Chloride 0.9% 1000 Ml IV 10/29/22 18:02 50 mls/hr .Q20H ALINA Administration Ceftriaxone Sodium/Dextrose 1 g in 50 mls @ 100 mls/hr 09/30/22 12:00 09/30/22 11:56 Rocephin 1 Gm-D5w 50 Ml Bag IV 10/03/22 11:59 100 mls/hr Q24H10 ALINA Administration Azithromycin 500 mg in 250 mls @ 250 mls/hr 09/30/22 10:00 09/30/22 10:33 Zithromax 500 Mg/ 250 Ml Nacl Premix IV 10/30/22 09:59 250 mls/hr Q24H10 ALINA Administration Insulin Glargine 120 unit 09/30/22 10:00 09/30/22 10:32 Insulin Glargine 1 Unit SQ 10/30/22 09:59 120 unit DAILY ALINA Administration Insulin Human Lispro 0 unit 09/30/22 08:09 09/30/22 15:27 Insulin Lispro 1 Unit SQ 10/30/22 08:08 2 unit UD PRN Administration HYPERGLYCEMIA Losartan Potassium 25 mg 09/30/22 10:00 09/30/22 10:29 Losartan Potassium 50 Mg Tablet PO 10/30/22 09:59 25 mg DAILY ALINA Administration Nitroglycerin 0.4 mg 09/30/22 09:03 Nitroglycerin 0.4 Mg Tablet Bottle SL 10/30/22 09:02 Q5MIN PRN MR X 3 PRN CHEST PAIN Ondansetron HCl 4 mg 09/29/22 18:03 Ondansetron Hcl 4 Mg/2 Ml Vial IV 10/29/22 18:02 Q6H PRN PRN NAUSEA/VOMITING Oxcarbazepine 600 mg 09/30/22 10:00 09/30/22 21:28 Oxcarbazepine 300 Mg Tab PO 10/30/22 09:59 600 mg BID ALINA Administration Ozempic 0.25mg - 0. 1 each 09/30/22 12:00 09/30/22 11:57 5mg Dose Pen SQ 10/30/22 11:59 1 each Q7D ALINA Administration Potassium Chloride 10 meq 09/30/22 10:00 09/30/22 21:28 Potassium Chloride Tab 10 Meq Tab PO 10/30/22 09:59 10 meq BID ALINA Administration Simvastatin 40 mg 09/30/22 22:00 09/30/22 21:28 Simvastatin 20 Mg Tablet PO 10/30/22 21:59 40 mg HS ALINA Administration Discontinued Medications Generic Name Dose Route Start Last Admin Trade Name Freq PRN Reason Stop Dose Admin Fluticasone Propionate 1 gm 09/30/22 10:00 09/30/22 11:21 Fluticasone Propionate 16 Gm Bottle Nasal [place] NS 10/30/22 09:59 Not Given DAILY ALINA Ceftriaxone Sodium/Dextrose 1 g in 50 mls @ 100 mls/hr 09/29/22 17:34 09/29/22 17:40 Rocephin 1 Gm-D5w 50 Ml Bag IV 09/29/22 18:03 100 mls/hr STAT STA 100 mls/hr Administration Ceftriaxone Sodium/Dextrose Confirm 09/29/22 17:39 Rocephin 1 Gm-D5w 50 Ml Bag Administered 09/29/22 17:40 Dose 1 g in 50 mls @ ud IV .STK-MED ONE Miscellaneous Information 1 each 09/30/22 09:45 Medication Intervention 1 Each Each 10/30/22 09:44 .RN TO CHECK ALINA Sumatriptan Succinate 6 mg 09/30/22 12:54 09/30/22 13:32 Sumatriptan Succinate 6 Mg/0.5 Ml Vial SQ 09/30/22 12:55 6 mg STAT STA Administration Intake & Output (Last 24 hours) 09/28/22 09/29/22 09/30/22 10/01/22 11:59 11:59 11:59 11:59 Intake Total 1069 3530 Output Total 1850 Balance 1069 1680 Weight 151 kg 151 kg Laboratory Results (Last 24 hours) 10/01/22 09/30/22 09/30/22 07:15 19:19 15:23 POC Glucometer 199 H 166 H 225 H 09/30/22 11:30 POC Glucometer 169 H Orders (Last 24 hours) Category Date Time Status POCT GLUCOSE Stat Lab 09/30/22 11:30 Completed POCT GLUCOSE Stat Lab 09/30/22 15:23 Completed POCT GLUCOSE Stat Lab 09/30/22 19:19 Completed POCT GLUCOSE Stat Lab 10/01/22 07:15 Completed Albuterol 2.5 mg/3 ml Neb [Proventil 2.5 mg/3 ml Neb Med 09/30/22 09:03 Active ] 2.5 mg IH Q2H/PRN PRN Allopurinol 100 mg [Zyloprim 100 mg] Med 09/30/22 10:00 Active 100 mg PO DAILY Aspirin EC 81 mg [Ecotrin 81 mg] Med 09/30/22 10:00 Active 81 mg PO DAILY Azithromycin 500 mg/250 ml [Zithromax 500 MG/ 250 ML Med 09/30/22 10:00 Active NaCl Premix] 500 mg in 250 ml IV Q24H10 Carbamazepine 200 mg [Tegretol 200 MG] Med 09/30/22 22:00 Active 200 mg PO QHS Carvedilol 12.5 mg [Coreg 12.5 mg] Med 09/30/22 10:00 Active 12.5 mg PO BID Ceftriaxone 1 GM/50 ML PREMIX* [ROCEPHIN 1 Gm-D5w 50 ml Med 09/30/22 12:00 Act ab Bag] 1 g in 50 ml IV Q24H10 Clopidogrel Bisulfate [PLAVIX Tablet] Med 09/30/22 10:00 Active 75 mg PO DAILY Empagliflozin [Jardiance] Med 09/30/22 10:00 Active 25 mg PO DAILY Ergocalciferol (Vitamin D2) [Vitamin D2] Med 10/03/22 10:00 Active 50,000 unit PO WEEKLY Fluticasone Propionate [Flonase NASAL] Med 09/30/22 10:00 Discontinued 1 gm NS DAILY Fluticasone Propionate [Flonase NASAL] Med 09/30/22 11:30 Active See Dose Instructions NS DAILY Gabapentin [Neurontin ] Med 09/30/22 10:00 Active 600 mg PO TID Insulin Glargine [Lantus Insulin] Med 09/30/22 10:00 Active 120 unit SQ DAILY Insulin Lispro [Humalog] Med 09/30/22 08:09 Active See Dose Instructions SQ UD PRN Losartan Potassium 50 mg [Cozaar 50 MG] Med 09/30/22 10:00 Active 25 mg PO DAILY Medication Intervention Med 09/30/22 09:45 Discontinued 1 each MC .RN TO CHECK Nitroglycerin 0.4 mg Tablet [Nitrostat 0.4 MG Tablet Med 09/30/22 09:03 Active ] 0.4 mg SL Q5MIN PRN MR X 3 PRN Oxcarbazepine 300 mg [Trileptal 300 MG Tablet] Med 09/30/22 10:00 Active 600 mg PO BID Patient Own Med [Patient Own Medication] Med 09/30/22 12:00 Active 1 each SQ Q7D Potassium Chloride Tab* [Klor Con] Med 09/30/22 10:00 Active 10 meq PO BID Simvastatin 20Mg [Zocor 20Mg] Med 09/30/22 22:00 Active 40 mg PO HS Sumatriptan Succinate 6 mg [Imitrex 6 MG/0.5 ML] Med 09/30/22 12:54 Discontinued 6 mg SQ STAT STA Patient Care Notes (Last 24 hours) 09/30/22 19:22 Nursing Note by Mendez Cohn Pt states he did not eat dinner. BG 166. [place] and snack provided. Initialized on 09/30/22 19:22 - END OF NOTE 09/30/22 19:06 Nursing Note by Mendez Cohn Received by sitting in recliner on oxygen therapy. Pt denies pain, sob, dizziness at this time. Call light and urinal within reach. White board updated. nad at this time. will cont to monitor. Initialized on 09/30/22 19:06 - END OF NOTE 09/30/22 14:18 Case Management Note by Halle Lopez PATIENT HAS [facility]. THEY WILL NEED NOTIFIED AT TIME OF DC AT [phone]. THEY WILL NEED FAXED THE DC INSTRUCTIONS, DC MED LIST, AND DC SUMMARY ( IF AVAILABLE) TO [phone] Initialized on 09/30/22 14:18 - END OF NOTE - Vitals & Intake/Output Vital Signs: Vital Signs Temperature 97.7 F 10/01/22 07:00 Pulse Rate 86 10/01/22 07:00 Respiratory Rate 16 10/01/22 07:00 Blood Pressure 185/100 10/01/22 07:00 O2 Sat by Pulse Oximetry 92 L 10/01/22 07:00 Intake & Output: Intake & Output 09/28/22 09/29/22 09/30/22 10/01/22 11:59 11:59 11:59 11:59 Intake Total 1069 3530 Output Total 1850 Balance 1069 1680 Weight 151 kg 151 kg - Lab Result Diagrams: 09/30/22 04:36 09/30/22 04:36 Lab Results-Last 24 Hrs: Lab Results-Last 24 Hours 09/30/22 09/30/22 09/30/22 Range/Units 11:30 15:23 19:19 POC Glucometer 169 H 225 H 166 H (74 to 106) mg/dL 10/01/22 Range/Units 07:15 POC Glucometer 199 H (74 to 106) mg/dL Micro Results-Entire Visit: Accuchecks Date 10/01/22 Date 09/30/22 Time 07:55 Time 15:36 - Radiology Exams Ordered Rad Exams-Entire Visit: Radiology Procedures Category Date Time Status CHEST 1 VIEW (PORTABLE) Stat Exams 09/29/22 15:44 Completed HEAD WITHOUT CONTRAST [CT] Stat Exams 09/29/22 15:42 Completed - Procedures and Test Procedures and Tests throughout Hospitalization: Therapy Orders & Screens 09/29/22 17:10 BiPap/CPAP ROUTINE Comment: 04/13/23 18:03 EKG REPEAT IN AM Comment: Respiratory Therapy Consult ROUTINE Comment: Reason For Exam: 09/29/22 18:30 Respiratory Therapy Assessment DAILY Comment: 09/29/22 18:34 Oxygen Nasal Cannula 4 lpm Comment: 09/29/22 18:49 RT Screen per Nursing Assess ONCE Comment: Protocol Order Physician Instructions: Greater than 3 points order RT Admission Screen Reason For Exam: Triggered on Admission Diagnosis: HYPERCARBIA, LLL PNE Diagnosis: HYPERCARBIA, LLL PNE Pneumonia: Yes Home O2: Yes Asthma: No CHF: Yes Home CPAP/BIPAP: Yes Home Nebs/MDI: Yes Total Points: 21 Discharge Exam General Appearance: no apparent distress, alert Neurologic Exam: alert, oriented x 3, cooperative, normal mood/affect, nml cerebellar function, sensation nml, No motor deficits Eye Exam: PERRL, EOMI, eyes nml inspection Ears, Nose, Throat Exam: normal ENT inspection, pharynx normal, moist mucous membranes Neck Exam: normal inspection, non-tender, supple, full range of motion Respiratory Exam: lungs clear, diminished breath sounds, No respiratory distress Cardiovascular Exam: regular rate/rhythm, normal heart sounds Gastrointestinal/Abdomen Exam: soft, No tenderness, No mass Male Genitalia Exam: deferred Rectal Exam: deferred Back Exam: normal inspection, normal range of motion, No CVA tenderness, No vertebral tenderness Extremity Exam: normal inspection, normal range of motion Skin Exam: normal color, warm, dry Final Diagnosis/Problem List - Final Discharge Diagnosis/Problem (1) Left lower lobe pneumonia Current Visit: Yes Status: Acute Assessment & Plan: improved. CXR normal. Chief Complaint Diagnosis weakness for 3-4 days Allergies Allergy/AdvReac Type Severity Reaction Status Date / Time No Known Drug Allergies Allergy Verified 09/29/22 18:22 Vital Signs (Last 24 hours) Temp Pulse Resp BP Pulse Ox 10/01/22 07:00 97.7 F 86 16 185/100 92 L 10/01/22 06:23 66 23 97 10/01/22 03:00 97.9 F 71 23 134/82 93 L 09/30/22 23:00 98.2 F 94 H 29 H 144/80 95 09/30/22 19:59 98.0 F 64 20 111/67 95 09/30/22 19:19 89 22 92 L 09/30/22 15:42 71 20 95 09/30/22 15:36 98.7 F 93 H 20 147/88 94 L 09/30/22 13:04 114/56 09/30/22 11:44 98.0 F 75 18 114/54 92 L 09/30/22 11:11 105 H 26 H 94 L Home Medications Medication Instructions Recorded Confirmed Last Taken Type Allopurinol 100 mg [Zyloprim 100 mg PO DAILY 09/29/22 09/29/22 Unknown History 100 mg] Aspirin EC 81 mg [Ecotrin 81 81 mg PO DAILY 09/29/22 09/29/22 Unknown History mg] Carvedilol 12.5 mg [Coreg 12.5 12.5 mg PO BID 09/29/22 09/29/22 Unknown History mg] Clopidogrel Bisulfate [Clopidogrel] 1 tab PO DAILY 09/29/22 09/29/22 Unknown History Empagliflozin [Jardiance] 25 mg PO DAILY 09/29/22 09/29/22 Unknown History Ergocalciferol (Vitamin D2) 1 cap PO WEEKLY 09/29/22 09/29/22 Unknown History [Vitamin D2] Fluticasone Propionate [Flonase 1 spray IH DAILY 09/29/22 09/29/22 Unknown History Allergy Relief] Insulin Degludec [Tresiba 140 unit SQ DAILY 09/29/22 09/29/22 Unknown History Flextouch U-200] Losartan Potassium [Cozaar] 25 mg PO DAILY 09/29/22 09/29/22 Unknown History OXcarbazepine [Trileptal] 600 mg PO BID 09/29/22 09/29/22 Unknown History Semaglutide [Ozempic] 0.5 mg SQ WEEKLY 09/29/22 09/30/22 Unknown History carBAMazepine [Carbamazepine ER] 200 mg PO QHS 09/29/22 09/29/22 Unknown History Current Medications Generic Name Dose Route Start Last Admin Trade Name Freq PRN Reason Stop Dose Admin Acetaminophen 650 mg 09/29/22 18:03 09/30/22 10:30 Acetaminophen 325 Mg Tablet PO 10/29/22 18:02 650 mg Q4H PRN PRN Administration PAIN, FEVER, HEADACHE Albuterol Sulfate 2.5 mg 09/29/22 19:00 10/01/22 06:23 Albuterol Sulfate 2.5 Mg/3 Ml [facility] 10/29/22 18:59 2.5 mg QIDRT ALINA Administration Albuterol Sulfate 2.5 mg 09/30/22 09:03 Albuterol Sulfate 2.5 Mg/3 Ml [facility] 10/30/22 09:02 Q2H/PRN PRN SHORTNESS OF BREATH Allopurinol 100 mg 09/30/22 10:00 09/30/22 10:30 Allopurinol 100 Mg Tablet PO 10/30/22 09:59 100 mg DAILY ALINA Administration Aspirin 81 mg 09/30/22 10:00 09/30/22 10:29 Aspirin 81 Mg Tablet.Ec PO 10/30/22 09:59 81 mg DAILY ALINA Administration Carbamazepine 200 mg 09/30/22 22:00 09/30/22 21:29 Carbamazepine 200 Mg Tablet PO 10/30/22 21:59 200 mg QHS ALINA Administration Carvedilol 12.5 mg 09/30/22 10:00 09/30/22 21:28 Carvedilol 12.5 Mg Tablet PO 10/30/22 09:59 12.5 mg BID ALINA Administration Clopidogrel Bisulfate 75 mg 09/30/22 10:00 09/30/22 10:29 Clopidogrel Bisulfate 75 Mg Tablet PO 10/30/22 09:59 75 mg DAILY ALINA Administration Empagliflozin 25 mg 09/30/22 10:00 09/30/22 10:32 Empagliflozin 10 Mg Tablet PO 10/30/22 09:59 25 mg DAILY ALINA Administration Ergocalciferol 50,000 unit 10/03/22 10:00 Ergocalciferol (Vitamin D2) 50,000 Unit Capsule PO 11/02/22 09:59 WEEKLY ALINA Fluticasone Propionate 0 gm 09/30/22 11:30 09/30/22 11:36 Fluticasone Propionate 16 Gm Bottle Nasal [place] NS 10/30/22 11:29 16 gm DAILY ALINA Administration Gabapentin 600 mg 09/30/22 10:00 09/30/22 21:28 Gabapentin 300 Mg Capsule PO 10/30/22 09:59 600 mg TID ALINA Administration Sodium Chloride 1,000 mls @ 50 mls/hr 09/29/22 18:03 09/30/22 16:08 Sodium Chloride 0.9% 1000 Ml IV 10/29/22 18:02 50 mls/hr .Q20H ALINA Administration Ceftriaxone Sodium/Dextrose 1 g in 50 mls @ 100 mls/hr 09/30/22 12:00 09/30/22 11:56 Rocephin 1 Gm-D5w 50 Ml Bag IV 10/03/22 11:59 100 mls/hr Q24H10 ALINA Administration Azithromycin 500 mg in 250 mls @ 250 mls/hr 09/30/22 10:00 09/30/22 10:33 Zithromax 500 Mg/ 250 Ml Nacl Premix IV 10/30/22 09:59 250 mls/hr Q24H10 ALINA Administration Insulin Glargine 120 unit 09/30/22 10:00 09/30/22 10:32 Insulin Glargine 1 Unit SQ 10/30/22 09:59 120 unit DAILY ALINA Administration Insulin Human Lispro 0 unit 09/30/22 08:09 09/30/22 15:27 Insulin Lispro 1 Unit SQ 10/30/22 08:08 2 unit UD PRN Administration HYPERGLYCEMIA Losartan Potassium 25 mg 09/30/22 10:00 09/30/22 10:29 Losartan Potassium 50 Mg Tablet PO 10/30/22 09:59 25 mg DAILY ALINA Administration Nitroglycerin 0.4 mg 09/30/22 09:03 Nitroglycerin 0.4 Mg Tablet Bottle SL 10/30/22 09:02 Q5MIN PRN MR X 3 PRN CHEST PAIN Ondansetron HCl 4 mg 09/29/22 18:03 Ondansetron Hcl 4 Mg/2 Ml Vial IV 10/29/22 18:02 Q6H PRN PRN NAUSEA/VOMITING Oxcarbazepine 600 mg 09/30/22 10:00 09/30/22 21:28 Oxcarbazepine 300 Mg Tab PO 10/30/22 09:59 600 mg BID ALINA Administration Ozempic 0.25mg - 0. 1 each 09/30/22 12:00 09/30/22 11:57 5mg Dose Pen SQ 10/30/22 11:59 1 each Q7D ALINA Administration Potassium Chloride 10 meq 09/30/22 10:00 09/30/22 21:28 Potassium Chloride Tab 10 Meq Tab PO 10/30/22 09:59 10 meq BID ALINA Administration Simvastatin 40 mg 09/30/22 22:00 09/30/22 21:28 Simvastatin 20 Mg Tablet PO 10/30/22 21:59 40 mg HS ALINA Administration Discontinued Medications Generic Name Dose Route Start Last Admin Trade Name Estella JOLYL Reason Stop Dose Admin Fluticasone Propionate 1 gm 09/30/22 10:00 09/30/22 11:21 Fluticasone Propionate 16 Gm Bottle Nasal [place] NS 10/30/22 09:59 Not Given DAILY ALINA Ceftriaxone Sodium/Dextrose 1 g in 50 mls @ 100 mls/hr 09/29/22 17:34 09/29/22 17:40 Rocephin 1 Gm-D5w 50 Ml Bag IV 09/29/22 18:03 100 mls/hr STAT STA 100 mls/hr Administration Ceftriaxone Sodium/Dextrose Confirm 09/29/22 17:39 Rocephin 1 Gm-D5w 50 Ml Bag Administered 09/29/22 17:40 Dose 1 g in 50 mls @ ud IV .STK-MED ONE Miscellaneous Information 1 each 09/30/22 09:45 Medication Intervention 1 Each Each 10/30/22 09:44 .RN TO CHECK ALINA Sumatriptan Succinate 6 mg 09/30/22 12:54 09/30/22 13:32 Sumatriptan Succinate 6 Mg/0.5 Ml Vial SQ 09/30/22 12:55 6 mg STAT STA Administration Intake & Output (Last 24 hours) 09/28/22 09/29/22 09/30/22 10/01/22 11:59 11:59 11:59 11:59 Intake Total 1069 3530 Output Total 1850 Balance 1069 1680 Weight 151 kg 151 kg Laboratory Results (Last 24 hours) 10/01/22 09/30/22 09/30/22 07:15 19:19 15:23 POC Glucometer 199 H 166 H 225 H 09/30/22 11:30 POC Glucometer 169 H Orders (Last 24 hours) Category Date Time Status POCT GLUCOSE Stat Lab 09/30/22 11:30 Completed POCT GLUCOSE Stat Lab 09/30/22 15:23 Completed POCT GLUCOSE Stat Lab 09/30/22 19:19 Completed POCT GLUCOSE Stat Lab 10/01/22 07:15 Completed Albuterol 2.5 mg/3 ml Neb [Proventil 2.5 mg/3 ml Neb Med 09/30/22 09:03 Active ] 2.5 mg IH Q2H/PRN PRN Allopurinol 100 mg [Zyloprim 100 mg] Med 09/30/22 10:00 Active 100 mg PO DAILY Aspirin EC 81 mg [Ecotrin 81 mg] Med 09/30/22 10:00 Active 81 mg PO DAILY Azithromycin 500 mg/250 ml [Zithromax 500 MG/ 250 ML Med 09/30/22 10:00 Active NaCl Premix] 500 mg in 250 ml IV Q24H10 Carbamazepine 200 mg [Tegretol 200 MG] Med 09/30/22 22:00 Active 200 mg PO QHS Carvedilol 12.5 mg [Coreg 12.5 mg] Med 09/30/22 10:00 Active 12.5 mg PO BID Ceftriaxone 1 GM/50 ML PREMIX* [ROCEPHIN 1 Gm-D5w 50 ml Med 09/30/22 12:00 Active Bag] 1 g in 50 ml IV Q24H10 Clopidogrel Bisulfate [PLAVIX Tablet] Med 09/30/22 10:00 Active 75 mg PO DAILY Empagliflozin [Jardiance] Med 09/30/22 10:00 Active 25 mg PO DAILY Ergocalciferol (Vitamin D2) [Vitamin D2] Med 10/03/22 10:00 Active 50,000 unit PO WEEKLY Fluticasone Propionate [Flonase NASAL] Med 09/30/22 10:00 Discontinued 1 gm NS DAILY Fluticasone Propionate [Flonase NASAL] Med 09/30/22 11:30 Active See Dose Instructions NS DAILY Gabapentin [Neurontin ] Med 09/30/22 10:00 Active 600 mg PO TID Insulin Glargine [Lantus Insulin] Med 09/30/22 10:00 Active 120 unit SQ DAILY Insulin Lispro [Humalog] Med 09/30/22 08:09 Active See Dose Instructions SQ UD PRN Losartan Potassium 50 mg [Cozaar 50 MG] Med 09/30/22 10:00 Active 25 mg PO DAILY Medication Intervention Med 09/30/22 09:45 Discontinued 1 each MC .RN TO CHECK Nitroglycerin 0.4 mg Tablet [Nitrostat 0.4 MG Tablet Med 09/30/22 09:03 Active ] 0.4 mg SL Q5MIN PRN MR X 3 PRN Oxcarbazepine 300 mg [Trileptal 300 MG Tablet] Med 09/30/22 10:00 Active 600 mg PO BID Patient Own Med [Patient Own Medication] Med 09/30/22 12:00 Active 1 each SQ Q7D Potassium Chloride Tab* [Klor Con] Med 09/30/22 10:00 Active 10 meq PO BID Simvastatin 20Mg [Zocor 20Mg] Med 09/30/22 22:00 Active 40 mg PO HS Sumatriptan Succinate 6 mg [Imitrex 6 MG/0.5 ML] Med 09/30/22 12:54 Discontinued 6 mg SQ STAT STA Patient Care Notes (Last 24 hours) 09/30/22 19:22 Nursing Note by Mendez Cohn Pt states he did not eat dinner. BG 166. [place] and snack provided. Initialized on 09/30/22 19:22 - END OF NOTE 09/30/22 19:06 Nursing Note by Mendez Cohn Received by sitting in recliner on oxygen therapy. Pt denies pain, sob, dizziness at this time. Call light and urinal within reach. White board updated. nad at this time. will cont to monitor. Initialized on 09/30/22 19:06 - END OF NOTE 09/30/22 14:18 Case Management Note by Halle Lopez PATIENT HAS GOOD [facility]. THEY WILL NEED NOTIFIED AT TIME OF DC AT [phone]. THEY WILL NEED FAXED THE DC INSTRUCTIONS, DC MED LIST, AND DC SUMMARY ( IF AVAILABLE) TO [phone] Initialized on 09/30/22 14:18 - END OF NOTE Code(s): J18.9 - PNEUMONIA, UNSPECIFIED ORGANISM (2) Hypercarbia Current Visit: Yes Status: Resolved Code(s): R06.89 - OTHER ABNORMALITIES OF BREATHING - Discharge Discharge Date: 10/01/22 Disposition: Home, Self-Care Condition: Stable Prescriptions: New Cephalexin Mh 500 mg [Keflex 500 mg] 500 mg PO Q6H #30 cap Continue Gabapentin [Neurontin ] 600 mg PO TID Potassium Chloride [Klor-Con 10] 10 meq PO BID Nitroglycerin [Nitroquick] 0.4 mg SL Q5MIN PRN MR X 3 PRN PRN Reason: Chest Pain Albuterol 2.5 mg/3 ml Neb [Proventil 2.5 mg/3 ml Neb] 1 amp IH Q2H/PRN PRN PRN Reason: Shortness Of Breath Atorvastatin Calcium 40 mg PO HS OXcarbazepine [Trileptal] 600 mg PO BID Semaglutide [Ozempic] 0.5 mg SQ WEEKLY Clopidogrel Bisulfate [Clopidogrel] 1 tab PO DAILY Losartan Potassium [Cozaar] 25 mg PO DAILY Insulin Degludec [Tresiba Flextouch U-200] 140 unit SQ DAILY Ergocalciferol (Vitamin D2) [Vitamin D2] 1 cap PO WEEKLY Empagliflozin [Jardiance] 25 mg PO DAILY Carvedilol 12.5 mg [Coreg 12.5 mg] 12.5 mg PO BID Allopurinol 100 mg [Zyloprim 100 mg] 100 mg PO DAILY Aspirin EC 81 mg [Ecotrin 81 mg] 81 mg PO DAILY carBAMazepine [Carbamazepine ER] 200 mg PO QHS Fluticasone Propionate [Flonase Allergy Relief] 1 spray IH DAILY Instructions: Pneumonia, Adult (DC) Additional Instructions: Discharge/Care Plan RAKESH GUERRIER was discharged on 10/01/22 . The patient was counseled regarding Diagnosis,Lab results, Imaging studies, need for follow up and when to return to the Emergency Room. Prescriptions given: Discharge Note I have spoken with the patient and/or caregivers. I have explained the patient's condition, diagnosis and treatment plan based on the information available to me at this time. I have answered the patient's and/or caregiver's questions and addressed any concerns. The patient and/or caregivers have as good understanding of the patient's diagnosis, condition and treatment plan as can be expected at this point. The vital signs have been stable. The patient's condition is stable and appropriate for discharge from the emergency department. The patient will pursue further outpatient evaluation with the primary care physician or other designated or consulting physician as outlined in the discharge instructions. The patient and/or caregivers are agreeable to this plan of care and follow-up instructions have been explained in detail. The patient and/or caregivers have received these instruction. The patient/and or caregivers are aware that any significant change in condition or worsening of symptoms should prompt an immediate return to this or the closest emergency department or call 911. Follow up with: AUSTIN PIMENTEL MD [Primary Care Provider] - 10/07/22 10:45 am ([place] Office)
[2022-10-01] MEDS: Lantus Insulin SQ SCH (09:24)
[2022-10-01] MEDS: ECOTRIN 81 MG PO SCH (09:24)
[2022-10-01] MEDS: ZYLOPRIM 100 MG PO SCH (09:24)
[2022-10-01] MEDS: PLAVIX Tablet PO SCH (09:24)
[2022-10-01] MEDS: NEURONTIN PO SCH (09:24)
[2022-10-01] MEDS: Klor Con PO SCH (09:24)
[2022-10-01] MEDS: Cozaar 50 MG PO SCH (09:25)
[2022-10-01] MEDS: Flonase NASAL NS SCH (09:25)
[2022-10-01] MEDS: COREG 12.5 MG PO SCH (09:25)
[2022-10-01] MEDS: Trileptal 300 MG Tablet PO SCH (09:26)
[2022-10-01] MEDS: JARDIANCE PO SCH (09:26)
[2022-10-01] MEDS: ROCEPHIN 1 Gm-D5w 50 ml Bag** 1 G/50 ML IVPB IV SCH (09:28)
[2022-10-01] MEDS: Zithromax 500 MG/ 250 ML NaCl Premix 500 MG/250 ML IVPB IV SCH (09:31)
[2022-10-01] MEDS: Sodium Chloride 0.9% 1000 ML 1,000 ML IV SCH (11:13)
[2022-10-01 11:40] VITALS: BP 109/59; PULSE 67; O2SAT 93
[2022-10-03] MEDS ORDERED: VITAMIN D2 PO SCH (10:00)
== END 2022-10-01 12:58 | disposition home or self-care (01) ==
LOC: ED 14:56 → INTOOBSV 18:02 → MED SURG 18:02
PROVIDERS: ADMIT Family Medicine; ATTEND General Practice
DX: J18.9 Pneumonia, unspecified organism (principal); R06.89 Other abnormalities of breathing; I11.0 Hypertensive heart disease with heart failure; I50.9 Heart failure, unspecified; E11.9 Type 2 diabetes mellitus without complications; J44.9 Chronic obstructive pulmonary disease, unspecified; I25.10 Atherosclerotic heart disease of native coronary artery without angina pectoris; E78.5 Hyperlipidemia, unspecified; E66.9 Obesity, unspecified; Z87.891 Personal history of nicotine dependence; Z99.81 Dependence on supplemental oxygen; Z79.899 Other long term (current) drug therapy; Z20.828 Contact with and (suspected) exposure to other viral communicable diseases
CPT/HCPCS: 0241U; 36000; 36415; 36600; 70450; 71045; 80053; 81001; 82140; 82375; 82803; 82947; 83036; 83605; 83880; 85025; 86308; 87040; 93005; 93041; 94002; 94003; 94640; 94760; 94762; 96365; 99285; 99291; 93268; J0456; J0696; J1817; J3030; J7609; A9270-GY; G0378

== ENCOUNTER 2022-11-16 10:29 | Observation (INO) | payer MEDICARE ==
[2022-11-16] MEDS ORDERED: PHARMACY DOSING REQUEST MC ONE (11:06)
[2022-11-16] MEDS ORDERED: Sodium Chloride 0.9% 1000 ML 1,000 ML IV SCH (11:15)
[2022-11-16 11:57] LABS: Hematocrit 48.8 % (42-50); Hemoglobin 14.8 g/dL (12.5-18.0); Mean Cell Volume 91.2 fL (78-100); Mean Corpuscular Hemoglobin 27.7 pg (26-32); Mean Corpuscular Hgb Concent. 30.3 g/dL (32-36); Mean Platelet Volume 10.2 fL (7.5-11.0); Platelet Count 131 x10^3/uL (150-450); Red Blood Count 5.35 x10^6/uL (4.1-5.6); White Blood Count 7.8 x10^3/uL (4.0-10.5)
[2022-11-16] MEDS ORDERED: NORCO 5/325 MG PO PRN (12:17)
[2022-11-16 12:40] LABS: ALBUMIN 4.1 g/dL (3.5-5.0); ALKALINE PHOSPHATASE 151 U/L (38-126); ANION GAP 11.7 MEQ/L (5-15); BLOOD UREA NITROGEN 21 mg/dL (9-20); CHLORIDE 96 mmol/L (98-107); Carbon Dioxide 36 mmol/L (22-30); Creatinine 1 0.67 mg/dL (0.66-1.25); EST GLOMERULAR FILTRATION RATE > 60.0 ML/MIN; Glucose 237 mg/dL (74-106); PROCALCITONIN 0.081 ng/mL (0.030-0.080); Potassium 4.1 mmol/L (3.5-5.1); SGOT/AST 25 U/L (17-59); SGPT/ALT 33 U/L (0-50); SODIUM 139 mmol/L (137-145); Total Protein 7.5 g/dL (6.3-8.2)
[2022-11-16] MEDS: HUMALOG SQ PRN ×3 (12:53→21:37)
[2022-11-16] MEDS: Merrem 1 GM in Sodium Chloride 100ML MINI-BAG PLUS 100 ML IV SCH ×2 (12:54→21:36)
--- NOTE | 2022-11-16 16:25 | XRAY ---
Indication: Cellulitis. Multiple contiguous axial images obtained through the left lower leg without contrast to include the knee and ankle. Sagittal and coronal reformatted images obtained. Comparison: None There is marked diffuse lower leg and visualized left foot cutaneous/subcutaneous soft tissue swelling/edema. No focal solid/cystic soft tissue mass or abnormal fluid collection on this noncontrast exam. Deep muscles are unremarkable. Moderate scattered arteriosclerotic calcifications. No acute fracture, suspicious bony lesions, or osseous destructive process. Knee/ankle appears anatomic without abnormal effusion. Incidental small posterior/plantar heel spurs. Achilles tendon elliptical thickening concerning for tendonitis. Impression: Diffuse lower leg and left foot cutaneous/subcutaneous soft tissue swelling/edema favoring clinically reported cellulitis. No abnormal fluid/walled off fluid collection. Query Achilles tendonitis. Incidental scattered arteriosclerotic disease and small heel spurs.
--- NOTE | 2022-11-16 16:27 | XRAY ---
Indication: Cellulitis. Comparison: None 3 nonweightbearing views left foot demonstrates diffuse soft tissue swelling to include the visualized lower leg. Incidental tiny heterotopic ossification base 5th metatarsal and small posterior/plantar heel spurs. No other bony, articular, or soft tissue abnormalities.
--- NOTE | 2022-11-16 16:32 | PCM.CONS ---
Podiatry HPI - Consult Reason for Consult: Venous insuffiecny ulcerations, possible OM 2nd toe left foot. Consulting Provider: CHARLENE NEGRETE DPM - HPI History of Present Illness: Sd is a very pleasant 67-year-old male who is well-known to our service for chronic venous insufficiency. He presents today for admission of exacerbation of cellulitis to the bilateral lower extremity with venous insufficiency ulcerations to the left lower extremity. Patient indicates that this started on of last week where the blister started raising up he presented to the emergency department this a.m. for concerns of the swelling to the leg. He c urrently denies any constitutional symptoms of infection. He denies any other pedal complaints at this time Medications & Allergies Home Medications: Home Medication List Gabapentin [Neurontin ] 600 mg PO TID 07/27/12 [History Confirmed 11/16/22] Nitroglycerin [Nitroquick] 0.4 mg SL Q5MIN PRN MR X 3 PRN 07/27/12 [History Confirmed 11/16/22] Potassium Chloride [Klor-Con 10] 10 meq PO BID 07/27/12 [History Confirmed 11/16/22] Albuterol 2.5 mg/3 ml Neb [Proventil 2.5 mg/3 ml Neb] 1 amp IH Q2H/PRN PRN 09/04/13 [History Confirmed 11/16/22] Atorvastatin Calcium 40 mg PO HS 04/24/19 [History Confirmed 11/16/22] Allopurinol 100 mg [Zyloprim 100 mg] 100 mg PO DAILY 09/29/22 [History Confirmed 11/16/22] Aspirin EC 81 mg [Ecotrin 81 mg] 81 mg PO DAILY 09/29/22 [History Confirmed 11/16/22] Clopidogrel Bisulfate [Clopidogrel] 75 mg PO DAILY 09/29/22 [History Confirmed 11/16/22] Empagliflozin [Jardiance] 25 mg PO DAILY 09/29/22 [History Confirmed 11/16/22] Fluticasone Propionate [Flonase Allergy Relief] 1 spray IH DAILY 09/29/22 [History Confirmed 11/16/22] Insulin Degludec [Tresiba Flextouch U-200] 140 unit SQ DAILY 09/29/22 [History Confirmed 11/16/22] Losartan Potassium [Cozaar] 25 mg PO DAILY 09/29/22 [History Confirmed 11/16/22] OXcarbazepine [Trileptal] 600 mg PO BID 09/29/22 [History Confirmed 11/16/22] Semaglutide [Ozempic] 2 mg SQ WEEKLY 09/29/22 [History Confirmed 11/16/22] carBAMazepine [Carbamazepine ER] 200 mg PO QHS 09/29/22 [History Confirmed 11/16/22] Bumetanide 1 mg [Bumex 1 mg] 1 mg PO DAILY 11/16/22 [History Confirmed 11/16/22] Carvedilol 3.125 mg [Coreg 3.125 MG] 6.25 mg PO BID 11/16/22 [History Confirmed 11/16/22] Ergocalciferol (Vitamin D2) [Vitamin D2] 1,250 mcg PO WEEKLY 11/16/22 [History Confirmed 11/16/22] Insulin Lispro [Admelog] 0 unit SQ UD 11/16/22 [History Confirmed 11/16/22] Allergies/Adverse Reactions: Allergies Allergy/AdvReac Type Severity Reaction Status Date / Time naproxen [From Aleve] Allergy Severe Tightness Verified 11/16/22 12:40 in Chest - Past Medical History Past Medical History: Yes Neurological History: Peripheral Neuropathy ENT History: Other Cardiac History: Congestive Heart Failure, Hypertension, Other Respiratory History: COPD Endocrine Medical History: Diabetes Type II Musculoskelatal History: Osteoarthritis GI Medical History: No Pertinent History History: No Pertinent History Pyscho-Social History: No Pertinent History Male Reproductive Disorders: No Pertinent History Comment: Gout - Past Surgical History Past Surgical History: Yes Neuro Surgical History: No Pertinent History Cardiac History: Cardiac Catheterization, Cardiac Stent Respiratory Surgery: No Pertinent History GI Surgical History: Cholecystectomy Genitourinary Surgical Hx: No Pertinent History Musculskeletal Surgical Hx: Orthopedic Surgery Male Surgical History: No Pertinent History Other Surgical History: Left shoulder, Left knee X3, Right leg, Right hand/arm, Right shoulder - Social History Smoking Status: Former smoker How long have you smoked: 40 years Exposure to second hand smoke: No Alcohol: None Drug Use: none Physical Exam - General General Appearance: no apparent distress - Neuro Neurologic: Epicritic and protopathic - Vascular Peripheral Pulses: Posterior tibialis: 2+, Dorsalis-Pedis: 2+ Capillary Refill Time: < 3 seconds Varicosities: Positive Edema: Pitting Edema Degree: 3+ Skin: Supple, not atrophic Skin Temperature: Hot to touch - Muscular Muscle Strength: 5/5 on all 4 quadrants - Narrative Narrative Physical Exam: Podiatry Physical Exam Results - Labs Lab/Micro Results: Lab Results-Last 24 Hours 11/16/22 11/16/22 11/16/22 Range/Units 11:20 11:40 11:45 WBC 7.8 (4.0-10.5) x10^3/uL RBC 5.35 (4.1-5.6) x10^6/uL Hgb 14.8 (12.5-18.0) g/dL Hct 48.8 (42-50) % MCV 91.2 (78-100) fL MCH 27.7 (26-32) pg MCHC 30.3 L (32-36) g/dL RDW 15.0 H (11.5-14.0) % Plt Count 131 L (150-450) x10^3/uL MPV 10.2 (7.5-11.0) fL Sodium 139 (137-145) mmol/L Potassium 4.1 (3.5-5.1) mmol/L Chloride 96 L (98-107) mmol/L Carbon Dioxide 36 H (22-30) mmol/L Anion Gap 11.7 (5-15) MEQ/L BUN 21 H (9-20) mg/dL Creatinine 0.67 (0.66-1.25) mg/dL Estimated GFR > 60.0 ML/MIN Glucose 237 H (74-106) mg/dL POC Glucometer (74 to 106) mg/dL Hemoglobin A1c (4.5-6.0) % Lactic Acid 1.8 (0.4-2.0) Calcium 9.0 (8.4-10.2) mg/dL Total Bilirubin 0.50 (0.2-1.3) mg/dL AST 25 (17-59) U/L ALT 33 (0-50) U/L Alkaline Phosphatase 151 H (38-126) U/L Serum Total Protein 7.5 (6.3-8.2) g/dL Albumin 4.1 (3.5-5.0) g/dL Procalcitonin 0.081 H (0.030-0.080) ng/mL 11/16/22 11/16/22 Range/Units 11:59 16:20 WBC (4.0-10.5) x10^3/uL RBC (4.1-5.6) x10^6/uL Hgb (12.5-18.0) g/dL Hct (42-50) % MCV (78-100) fL MCH (26-32) pg MCHC (32-36) g/dL RDW (11.5-14.0) % Plt Count (150-450) x10^3/uL MPV (7.5-11.0) fL Sodium (137-145) mmol/L Potassium (3.5-5.1) mmol/L Chloride (98-107) mmol/L Carbon Dioxide (22-30) mmol/L Anion Gap (5-15) MEQ/L BUN (9-20) mg/dL Creatinine (0.66-1.25) mg/dL Estimated GFR ML/MIN Glucose (74-106) mg/dL POC Glucometer 274 H (74 to 106) mg/dL Hemoglobin A1c 8.27 H (4.5-6.0) % Lactic Acid (0.4-2.0) Calcium (8.4-10.2) mg/dL Total Bilirubin (0.2-1.3) mg/dL AST (17-59) U/L ALT (0-50) U/L Alkaline Phosphatase (38-126) U/L Serum Total Protein (6.3-8.2) g/dL Albumin (3.5-5.0) g/dL Procalcitonin (0.030-0.080) ng/mL - Radiology Impressions Radiology Exams & Impressions: Radiology Procedures Category Date Time Status BONE THREE PHASE [NUCMED] Routine Exams 11/17/22 11:26 Ordered FOOT (MINIMUM 3 VIEWS) Routine Exams 11/16/22 12:18 Taken LOWER EXTREMITY WO CONTRAST [CT] Routine Exams 11/16/22 11:26 Taken VENOUS BILATERAL EXTREMITY [US] Stat Exams 11/16/22 15:21 Ordered - Other Procedures and Tests Respiratory Therapy 11/16/22 13:06 Oxygen NASAL CANNULA 4 lpm Respiratory Therapy Assessment DAILY Assessment/Plan (1) Venous insufficiency of both lower extremities Current Visit: Yes Status: Acute Assessment & Plan: Patient examination and evaluation Stat venous ultrasound was obtained in order to rule out possibility of DVT. Patient has shown recurrence of the bilateral lower extremity venous stasis with ulceration. We will provide bilateral Unna boots in order to provide compression and resolution of ulceration once results have been obtained Awaiting bone scan for left 2nd toe. Clinical suspicion is low. awaiting xrays to assess. Will determine method of intervention based on clinical and radiographic information. Patient will likely need continued Home healthcare secondary to exacerbation of issues Will follow with you Thank you for consult. Code(s): I87.2 - VENOUS INSUFFICIENCY (CHRONIC) (PERIPHERAL) (2) Ulcer of extremity due to chronic venous insufficiency Current Visit: Yes Status: Acute Code(s): L98.499 - NON-PRESSURE CHRONIC ULCER OF SKIN OF SITES W UNSP SEVERITY; I87.2 - VENOUS INSUFFICIENCY (CHRONIC) (PERIPHERAL) (3) Venous stasis ulcer with edema of lower leg Current Visit: No Status: Acute Code(s): I83.009 - VARICOSE VEINS OF UNSP LOWER EXTREMITY W ULCER OF UNSP SITE; I83.899 - VARICOS VN UNSP LOWER EXTREMITY WITH OTHER COMPLICATIONS; L97.909 - NON-PRS CHRONIC ULC UNSP PRT OF UNSP LOW LEG W UNSP SEVERITY; R60.9 - EDEMA, UNSPECIFIED (4) Congestive heart failure (CHF) Current Visit: No Status: Chronic Qualifiers: Code(s): I50.9 - HEART FAILURE, UNSPECIFIED (5) COPD (chronic obstructive pulmonary disease) Current Visit: No Status: Chronic Qualifiers:
[2022-11-16] MEDS ORDERED: Nitrostat 0.4 MG Tablet SL PRN (16:49)
[2022-11-16] MEDS ORDERED: PROVENTIL 2.5 MG/3 ML NEB IH PRN (16:49)
[2022-11-16] MEDS ORDERED: NON-FORMULARY ITEM (Semaglutide [Ozempic] 0.25 MG/0.2 ML Pen.Injctr) SQ SCH (17:00)
[2022-11-16] MEDS ORDERED: HUMALOG SQ SCH (17:00)
[2022-11-16] MEDS ORDERED: MEDICATION INTERVENTION MC SCH (17:15)
[2022-11-16] MEDS: NEURONTIN PO SCH ×2 (17:25→21:37)
--- NOTE | 2022-11-16 18:14 | XRAY ---
Indication: Bilateral calf pain. Current blood thinner therapy. Two-dimensional sonogram and color Doppler imaging of the major venous vessels of the left and right leg performed. Comparison: May 27, 2021 No thrombus seen in the examined deep venous vessels of the left and right leg including greater saphenous vein. Veins demonstrate normal compressibility. Venous waveforms are normal with and without augmentation. Impression: Left and right legs continue to be negative for DVT.
[2022-11-16] MEDS: PROVENTIL 2.5 MG/3 ML NEB IH SCH (19:15)
[2022-11-16] MEDS: Coreg PO SCH (21:38)
[2022-11-16] MEDS: Trileptal 300 MG Tablet PO SCH (21:39)
[2022-11-16] MEDS: Klor Con PO SCH (21:39)
[2022-11-16] MEDS ORDERED: NON-FORMULARY ITEM (Potassium Chloride [Klor-Con 10] 10 MEQ Tablet.Er) PO SCH (22:00)
[2022-11-16] MEDS ORDERED: OXCARBAZEPINE 600 MG PO SCH (22:00)
[2022-11-16] MEDS ORDERED: LIPITOR 40MG PO SCH (22:00)
[2022-11-16] MEDS ORDERED: CARBAMAZEPINE 200 MG PO SCH (22:00)
[2022-11-16] MEDS ORDERED: ZOCOR 20MG PO SCH (22:00)
[2022-11-16] MEDS ORDERED: Tegretol 200 MG PO SCH (22:00)
[2022-11-17 04:58] LABS: Absolute Neutrophil Ct (ANC) 6.08 x10^3/uL (1.4-6.9); BASOPHIL % 0.4 % (0.0-0.4); Basophil (Absolute #) 0.03 x10^3/uL (0-0.4); Eosinophil (Absolute #) 0.15 x10^3/uL (0-0.5); Hematocrit 50.8 % (42-50); Hemoglobin 15.2 g/dL (12.5-18.0); IMMATURE GRAN # 0.02 x10^3u/L (0.00-0.03); IMMATURE GRAN % 0.3 % (0.00-0.4); Lymphocyte (Absolute #) 0.97 x10^3/uL (1.0-4.6); Lymphocytes % 12.7 % (24.0-44.0); Mean Cell Volume 91.9 fL (78-100); Mean Corpuscular Hemoglobin 27.5 pg (26-32); Mean Corpuscular Hgb Concent. 29.9 g/dL (32-36); Mean Platelet Volume 10.5 fL (7.5-11.0); Monocytes % 5.2 % (0.0-12.0); Neutrophil % 79.4 % (36.0-66.0); Platelet Count 128 x10^3/uL (150-450); Red Blood Count 5.53 x10^6/uL (4.1-5.6); Red Cell Distribution Width 15.2 % (11.5-14.0); White Blood Count 7.7 x10^3/uL (4.0-10.5)
[2022-11-17 05:23] LABS: ALBUMIN 3.9 g/dL (3.5-5.0); ALKALINE PHOSPHATASE 140 U/L (38-126); ANION GAP 11.9 MEQ/L (5-15); BLOOD UREA NITROGEN 21 mg/dL (9-20); CHLORIDE 96 mmol/L (98-107); Calcium 8.7 mg/dL (8.4-10.2); Carbon Dioxide 38 mmol/L (22-30); Creatinine 1 0.71 mg/dL (0.66-1.25); EST GLOMERULAR FILTRATION RATE > 60.0 ML/MIN; Glucose 199 mg/dL (74-106); Potassium 4.4 mmol/L (3.5-5.1); SGOT/AST 19 U/L (17-59); SGPT/ALT 31 U/L (0-50); SODIUM 142 mmol/L (137-145); Total Protein 7.4 g/dL (6.3-8.2)
[2022-11-17] MEDS: Merrem 1 GM in Sodium Chloride 100ML MINI-BAG PLUS 100 ML IV SCH ×2 (05:49→14:28)
[2022-11-17] MEDS: PROVENTIL 2.5 MG/3 ML NEB IH SCH (07:25)
[2022-11-17 07:37] VITALS: O2SAT 95
[2022-11-17] MEDS: HUMALOG SQ PRN ×2 (08:09→11:46)
[2022-11-17] MEDS: Klor Con PO SCH (09:45)
[2022-11-17] MEDS: NEURONTIN PO SCH ×2 (09:45→14:29)
[2022-11-17] MEDS: Coreg PO SCH (09:46)
[2022-11-17] MEDS: Trileptal 300 MG Tablet PO SCH (09:49)
[2022-11-17] MEDS ORDERED: ZYLOPRIM 100 MG PO SCH (10:00)
[2022-11-17] MEDS ORDERED: NON-FORMULARY ITEM (Losartan Potassium [Cozaar] 25 MG Tablet) PO SCH (10:00)
[2022-11-17] MEDS ORDERED: JARDIANCE PO SCH (10:00)
[2022-11-17] MEDS ORDERED: NON-FORMULARY ITEM (Fluticasone Propionate [Flonase Allergy Relief] 9.9 ML Spray.Susp) IH SCH (10:00)
[2022-11-17] MEDS ORDERED: NON-FORMULARY ITEM (Insulin Degludec [Tresiba Flextouch U-200] 200 UNIT/ML Insuln.Pen) SQ SCH (10:00)
[2022-11-17] MEDS ORDERED: BUMEX 1 MG PO SCH (10:00)
[2022-11-17] MEDS ORDERED: Cozaar 50 MG PO SCH (10:00)
[2022-11-17] MEDS ORDERED: Flonase NASAL NS SCH (10:00)
[2022-11-17] MEDS ORDERED: ECOTRIN 81 MG PO SCH (10:00)
[2022-11-17] MEDS ORDERED: PLAVIX Tablet PO SCH (10:00)
--- NOTE | 2022-11-17 13:12 | XRAY ---
Indication: Left lower extremity cellulitis. Open sores left foot/left 2nd toe. Bilateral erythema and swelling. Comparison: None Patient received 29.9 mCi technetium 99 MDP. Bloodflow images obtained of both feet in the anterior plane. Blood pool images obtained in anterior and posterior plane. 3 hour delayed images obtained in anterior, posterior, and medial/lateral planes. Bloodflow images demonstrates mild increased radiopharmaceutical activity to the left lower leg/ankle/foot. Blood pool images also demonstrates increased radiopharmaceutical activity to the left lower leg/ankle/foot. Delayed images demonstrates increased radiopharmaceutical activity to the left lower leg/ankle/foot. No focal intense radiopharmaceutical activity to suggest osteomyelitis. Impression: Diffuse increased radiopharmaceutical activity left lower leg/ankle/foot on all phases favoring diffuse cellulitis. No scintigraphic evidence for osteomyelitis.
[2022-11-17 13:13] VITALS: BP 147/79; PULSE 77
--- NOTE | 2022-11-17 14:10 | XRAY ---
Indication: PICC placement. Comparison: September 29, 2022 Limited portable chest does not completely include right lung base. New right arm PICC line with the tip projecting over atrial caval junction. Visualized lungs again demonstrates mild left base subsegmental atelectasis/scarring. Remaining heart and visualized lungs unremarkable. Bony thorax intact.
--- NOTE | 2022-11-17 17:10 | PCM.NOTE ---
Date and Time: 11/17/221708 Subjective Assessment: Bedside this AM. short of breath but no other complaints. Physical Exam - Narrative Narrative Physical Exam: Podiatry Physical Exam OBJECTIVE DATA Vital Signs: Vital Signs - 24 hr Temp Pulse Resp BP Pulse Ox 11/17/22 12:00 97.1 F 77 18 147/79 95 11/17/22 07:30 72 18 95 11/17/22 06:42 97.3 F 74 19 139/63 96 11/17/22 04:00 97.5 F 66 20 137/60 96 11/17/22 00:00 97.5 F 72 20 141/63 96 11/16/22 19:43 97.2 F 76 20 148/65 97 11/16/22 19:15 77 16 96 Pain Assessment - Last Documented Pain Intensity 5 Pain Scale Used 0-10 Pain Scale Intake and Output: Intake & Output 11/15/22 11/16/22 11/17/22 11/18/22 11:59 11:59 11:59 11:59 Intake Total 2640 240 Output Total 375 Balance 2265 240 Weight 152.5 kg Lab Results: Lab Results-Last 24 Hours 11/16/22 11/17/22 11/17/22 Range/Units 20:35 04:52 04:52 WBC 7.7 (4.0-10.5) x10^3/uL RBC 5.53 (4.1-5.6) x10^6/uL Hgb 15.2 (12.5-18.0) g/dL Hct 50.8 H (42-50) % MCV 91.9 (78-100) fL MCH 27.5 (26-32) pg MCHC 29.9 L (32-36) g/dL RDW 15.2 H (11.5-14.0) % Plt Count 128 L (150-450) x10^3/uL MPV 10.5 (7.5-11.0) fL Gran % 79.4 H (36.0-66.0) % Immature Gran % (Auto) 0.3 (0.00-0.4) % Nucleat RBC Rel Count 0.0 (0.00-0.1) % Eos # (Auto) 0.15 (0-0.5) x10^3/uL Immature Gran # (Auto) 0.02 (0.00-0.03) x10^3u/L Absolute Lymphs (auto) 0.97 L (1.0-4.6) x10^3/uL Absolute Monos (auto) 0.40 (0.0-1.3) x10^3/uL Absolute Nucleated RBC 0.00 (0.00-0.01) x10^3u/L Lymphocytes % 12.7 L (24.0-44.0) % Monocytes % 5.2 (0.0-12.0) % Eosinophils % 2.0 (0.00-5.0) % Basophils % 0.4 (0.0-0.4) % Absolute Granulocytes 6.08 (1.4-6.9) x10^3/uL Basophils # 0.03 (0-0.4) x10^3/uL Sodium 142 (137-145) mmol/L Potassium 4.4 (3.5-5.1) mmol/L Chloride 96 L (98-107) mmol/L Carbon Dioxide 38 H (22-30) mmol/L Anion Gap 11.9 (5-15) MEQ/L BUN 21 H (9-20) mg/dL Creatinine 0.71 (0.66-1.25) mg/dL Estimated GFR > 60.0 ML/MIN Glucose 199 H (74-106) mg/dL POC Glucometer 204 H (74 to 106) mg/dL Calcium 8.7 (8.4-10.2) mg/dL Total Bilirubin 0.50 (0.2-1.3) mg/dL AST 19 (17-59) U/L ALT 31 (0-50) U/L Alkaline Phosphatase 140 H (38-126) U/L Creatine Kinase (55-170) U/L Serum Total Protein 7.4 (6.3-8.2) g/dL Albumin 3.9 (3.5-5.0) g/dL 11/17/22 11/17/22 11/17/22 Range/Units 04:52 06:34 11:29 WBC (4.0-10.5) x10^3/uL RBC (4.1-5.6) x10^6/uL Hgb (12.5-18.0) g/dL Hct (42-50) % MCV (78-100) fL MCH (26-32) pg MCHC (32-36) g/dL RDW (11.5-14.0) % Plt Count (150-450) x10^3/uL MPV (7.5-11.0) fL Gran % (36.0-66.0) % Immature Gran % (Auto) (0.00-0.4) % Nucleat RBC Rel Count (0.00-0.1) % Eos # (Auto) (0-0.5) x10^3/uL Immature Gran # (Auto) (0.00-0.03) x10^3u/L Absolute Lymphs (auto) (1.0-4.6) x10^3/uL Absolute Monos (auto) (0.0-1.3) x10^3/uL Absolute Nucleated RBC (0.00-0.01) x10^3u/L Lymphocytes % (24.0-44.0) % Monocytes % (0.0-12.0) % Eosinophils % (0.00-5.0) % Basophils % (0.0-0.4) % Absolute Granulocytes (1.4-6.9) x10^3/uL Basophils # (0-0.4) x10^3/uL Sodium (137-145) mmol/L Potassium (3.5-5.1) mmol/L Chloride (98-107) mmol/L Carbon Dioxide (22-30) mmol/L Anion Gap (5-15) MEQ/L BUN (9-20) mg/dL Creatinine (0.66-1.25) mg/dL Estimated GFR ML/MIN Glucose (74-106) mg/dL POC Glucometer 292 H 270 H (74 to 106) mg/dL Calcium (8.4-10.2) mg/dL Total Bilirubin (0.2-1.3) mg/dL AST (17-59) U/L ALT (0-50) U/L Alkaline Phosphatase (38-126) U/L Creatine Kinase 43 L (55-170) U/L Serum Total Protein (6.3-8.2) g/dL Albumin (3.5-5.0) g/dL Radiology Exams: Radiology Procedures Category Date Time Status BONE THREE PHASE [NUCMED] Routine Exams 11/17/22 11:26 Completed CHEST 1 VIEW (PORTABLE) Stat Exams 11/17/22 13:38 Completed FOOT (MINIMUM 3 VIEWS) Routine Exams 11/16/22 12:18 Completed LOWER EXTREMITY WO CONTRAST [CT] Routine Exams 11/16/22 11:26 Completed VENOUS BILATERAL EXTREMITY [US] Stat Exams 11/16/22 15:21 Completed Multi-Disciplinary Progress Notes: Multi-Disciplinary Progress Notes 11/17/22 14:53 Case Management Note by Halle Lopez [facility] NEEDS NOTIFIED AT TIME OF DC AT [phone]. THEY WILL NEED FAXED THE DC INSTRUCTIONS, DC MED LIST, DC SUMMARY ( IF AVAILABLE), WELL THE PICC LINE INFORMATION TO [phone] Initialized on 11/17/22 14:53 - END OF NOTE 11/17/22 14:52 Case Management Note by Halle Lopez/Hermelinda CHEN AT [facility]- SHE REPORTS THEY HAVE EVERYTHING THEY NEED AND WILL CALL PATIENT TO SET UP THE APPOINTMENT Initialized on 11/17/22 14:52 - END OF NOTE 11/17/22 14:22 Case Management Note by Halle Lopez/Hermelinda [facility]- THEY REQUIRE A BASELINE CPK AND CREAT LEVEL THEN AN ORDER FOR THOSE LEVELS PRN. PICC LINE PLACEMENT SUCCESSFUL. ORDERS, BASELINE LABS, AND PICC LINE INFO FAXED TO [facility] AT THIS TIME Initialized on 11/17/22 14:22 - END OF NOTE 11/17/22 14:20 Case Management Note by Halle Lopez/Hermelinda [facility]- THEY REPORT PATIENT IS A CURRENT PATIENT AND EVEN THO PATIENT IS GETTING OTPT INFUSIONS THEY CAN STILL DO UNNA BOOT DRESSINGS TWICE A WEEK. NEW ORDER FAXED TO THEM AT THIS TIME Initialized on 11/17/22 14:20 - END OF NOTE 11/17/22 13:00 (created 11/17/22 15:24) Case Management Note by Halle Lopez NOTIFIED OF INTERACTION BETWEEN ATORVASTATIN AND CUBICIN- PATIENT TO HOLD ATORVASTATIN WHILE ON CUBICIN. DC MED LIST DC UPDATED Initialized on 11/17/22 15:24 - END OF NOTE Assessment/Plan (1) Venous insufficiency of both lower extremities Status: Acute Assessment & Plan: Patient examination and evaluation Stat venous ultrasound was obtained in order to rule out possibility of DVT- negative for DVT Patient has shown recurrence of the bilateral lower extremity venous stasis with ulceration. We will provide bilateral Unna boots in order to provide compression and resolution of ulceration once results have been obtained Bone scan negative. Compression therapy provided to the bilateral lower extremity consisting of Iodine adaptic 4x4 unna boot kerlix and coban. CObblestone to preforme MWF on D/c Ok for Dc from my standpoint Thank you for consult. Code(s): I87.2 - VENOUS INSUFFICIENCY (CHRONIC) (PERIPHERAL) (2) Ulcer of extremity due to chronic venous insufficiency Status: Acute Code(s): L98.499 - NON-PRESSURE CHRONIC ULCER OF SKIN OF SITES W UNSP SEVERITY; I87.2 - VENOUS INSUFFICIENCY (CHRONIC) (PERIPHERAL) (3) Venous stasis ulcer with edema of lower leg Status: Acute Code(s): I83.009 - VARICOSE VEINS OF UNSP LOWER EXTREMITY W ULCER OF UNSP SITE; I83.899 - VARICOS VN UNSP LOWER EXTREMITY WITH OTHER COMPLICATIONS; L97.909 - NON-PRS CHRONIC ULC UNSP PRT OF UNSP LOW LEG W UNSP SEVERITY; R60.9 - EDEMA, UNSPECIFIED (4) Congestive heart failure (CHF) Status: Chronic Qualifiers: Code(s): I50.9 - HEART FAILURE, UNSPECIFIED (5) COPD (chronic obstructive pulmonary disease) Status: Chronic Qualifiers:
--- NOTE | 2022-11-17 17:18 | PCM.SSS ---
History of Present Illness - Chief Complaint Chief Complaint: Left lower extremety cellulitis History of Present Illness: is a 67 year old male.admitted with c/o of both leg swelling and ulcer on left leg and dorsum of foot for 3 days - Review of Systems Constitutional: No Fever, No Chills Eyes: No Symptoms Ears, Nose, & Throat: No Symptoms Respiratory: No Cough, No Short Of Breath Cardiac: No Chest Pain, No Edema, No Syncope Abdominal/Gastrointestinal: No Abdominal Pain, No Nausea, No Vomiting, No Diarrhea Genitourinary Symptoms: No Dysuria Musculoskeletal: No Back Pain, No Neck Pain Skin: Cellulitis, No Rash Neurological: No Dizziness, No Focal Weakness, No Sensory Changes Psychological: No Symptoms Endocrine: No Symptoms Hematologic/Lymphatic: No Symptoms Immunological/Allergic: No Symptoms Medications & Allergies Home Medications: Home Medication List Gabapentin [Neurontin ] 600 mg PO TID 07/27/12 [History Confirmed 11/16/22] Nitroglycerin [Nitroquick] 0.4 mg SL Q5MIN PRN MR X 3 PRN 07/27/12 [History Confirmed 11/16/22] Potassium Chloride [Klor-Con 10] 10 meq PO BID 07/27/12 [History Confirmed 11/16/22] Albuterol 2.5 mg/3 ml Neb [Proventil 2.5 mg/3 ml Neb] 1 amp IH Q2H/PRN PRN 09/04/13 [History Confirmed 11/16/22] Allopurinol 100 mg [Zyloprim 100 mg] 100 mg PO DAILY 09/29/22 [History Confirmed 11/16/22] Aspirin EC 81 mg [Ecotrin 81 mg] 81 mg PO DAILY 09/29/22 [History Confirmed 11/16/22] Clopidogrel Bisulfate [Clopidogrel] 75 mg PO DAILY 09/29/22 [History Confirmed 11/16/22] Empagliflozin [Jardiance] 25 mg PO DAILY 09/29/22 [History Confirmed 11/16/22] Fluticasone Propionate [Flonase Allergy Relief] 1 spray IH DAILY 09/29/22 [History Confirmed 11/16/22] Insulin Degludec [Tresiba Flextouch U-200] 140 unit SQ DAILY 09/29/22 [History Confirmed 11/16/22] Losartan Potassium [Cozaar] 25 mg PO DAILY 09/29/22 [History Confirmed 11/16/22] OXcarbazepine [Trileptal] 600 mg PO BID 09/29/22 [History Confirmed 11/16/22] Semaglutide [Ozempic] 2 mg SQ WEEKLY 09/29/22 [History Confirmed 11/16/22] carBAMazepine [Carbamazepine ER] 200 mg PO QHS 09/29/22 [History Confirmed 11/16/22] Bumetanide 1 mg [Bumex 1 mg] 1 mg PO DAILY 11/16/22 [History Confirmed 11/16/22] Carvedilol 3.125 mg [Coreg 3.125 MG] 6.25 mg PO BID 11/16/22 [History Confirmed 11/16/22] Ergocalciferol (Vitamin D2) [Vitamin D2] 1,250 mcg PO WEEKLY 11/16/22 [History Confirmed 11/16/22] Insulin Lispro [Admelog] 0 unit SQ UD 11/16/22 [History Confirmed 11/16/22] Atorvastatin Calcium 40 mg PO HS #1 tablet 11/17/22 [Rx] Daptomycin [Cubicin Rf] 900 mg IV DAILY 14 Days #14 11/17/22 [Rx] Allergies/Adverse Reactions: Allergies Allergy/AdvReac Type Severity Reaction Status Date / Time naproxen [From Aleve] Allergy Severe Tightness Verified 11/16/22 12:40 in Chest - Past Medical History Past Medical History: Yes Neurological History: Peripheral Neuropathy ENT History: Other Cardiac History: Congestive Heart Failure, Hypertension, Other Respiratory History: COPD Endocrine Medical History: Diabetes Type II Musculoskelatal History: Osteoarthritis GI Medical History: No Pertinent History History: No Pertinent History Pyscho-Social History: No Pertinent History Male Reproductive Disorders: No Pertinent History Comment: Gout - Past Surgical History Past Surgical History: Yes Neuro Surgical History: No Pertinent History Cardiac History: Cardiac Catheterization, Cardiac Stent Respiratory Surgery: No Pertinent History GI Surgical History: Cholecystectomy Genitourinary Surgical Hx: No Pertinent History Musculskeletal Surgical Hx: Orthopedic Surgery Male Surgical History: No Pertinent History Other Surgical History: Left shoulder, Left knee X3, Right leg, Right hand/arm, Right shoulder - Social History Smoking Status: Former smoker How long have you smoked: 40 years Exposure to second hand smoke: No Alcohol: None Drug Use: none - Physical Exam Vital Signs: Vital Signs - 24 hr Temp Pulse Resp BP Pulse Ox 11/17/22 12:00 97.1 F 77 18 147/79 95 11/17/22 07:30 72 18 95 11/17/22 06:42 97.3 F 74 19 139/63 96 11/17/22 04:00 97.5 F 66 20 137/60 96 11/17/22 00:00 97.5 F 72 20 141/63 96 11/16/22 19:43 97.2 F 76 20 148/65 97 11/16/22 19:15 77 16 96 General Appearance: no apparent distress, alert Neurologic Exam: alert, oriented x 3, cooperative, normal mood/affect, nml cerebellar function, nml station & gait, sensation nml, No motor deficits Eye Exam: PERRL/EOMI, eyes nml inspection Ears, Nose, Throat Exam: normal ENT inspection, TMs normal, pharynx normal, moist mucous membranes Neck Exam: normal inspection, non-tender, supple, full range of motion Respiratory Exam: normal breath sounds, lungs clear, No respiratory distress Cardiovascular Exam: regular rate/rhythm, normal heart sounds, normal peripheral pulses Gastrointestinal/Abdomen Exam: soft, normal bowel sounds, No tenderness, No mass Back Exam: normal inspection, normal range of motion, No CVA tenderness, No vertebral tenderness Extremity Exam: normal inspection, normal range of motion, pelvis stable Skin Exam: normal color, warm, dry, No rash Lymphatic Exam: No adenopathy Results - Labs Lab/Micro Results: Lab Results-Last 24 Hours 11/16/22 11/17/22 11/17/22 Range/Units 20:35 04:52 04:52 WBC 7.7 (4.0-10.5) x10^3/uL RBC 5.53 (4.1-5.6) x10^6/uL Hgb 15.2 (12.5-18.0) g/dL Hct 50.8 H (42-50) % MCV 91.9 (78-100) fL MCH 27.5 (26-32) pg MCHC 29.9 L (32-36) g/dL RDW 15.2 H (11.5-14.0) % Plt Count 128 L (150-450) x10^3/uL MPV 10.5 (7.5-11.0) fL Gran % 79.4 H (36.0-66.0) % Immature Gran % (Auto) 0.3 (0.00-0.4) % Nucleat RBC Rel Count 0.0 (0.00-0.1) % Eos # (Auto) 0.15 (0-0.5) x10^3/uL Immature Gran # (Auto) 0.02 (0.00-0.03) x10^3u/L Absolute Lymphs (auto) 0.97 L (1.0-4.6) x10^3/uL Absolute Monos (auto) 0.40 (0.0-1.3) x10^3/uL Absolute Nucleated RBC 0.00 (0.00-0.01) x10^3u/L Lymphocytes % 12.7 L (24.0-44.0) % Monocytes % 5.2 (0.0-12.0) % Eosinophils % 2.0 (0.00-5.0) % Basophils % 0.4 (0.0-0.4) % Absolute Granulocytes 6.08 (1.4-6.9) x10^3/uL Basophils # 0.03 (0-0.4) x10^3/uL Sodium 142 (137-145) mmol/L Potassium 4.4 (3.5-5.1) mmol/L Chloride 96 L (98-107) mmol/L Carbon Dioxide 38 H (22-30) mmol/L Anion Gap 11.9 (5-15) MEQ/L BUN 21 H (9-20) mg/dL Creatinine 0.71 (0.66-1.25) mg/dL Estimated GFR > 60.0 ML/MIN Glucose 199 H (74-106) mg/dL POC Glucometer 204 H (74 to 106) mg/dL Calcium 8.7 (8.4-10.2) mg/dL Total Bilirubin 0.50 (0.2-1.3) mg/dL AST 19 (17-59) U/L ALT 31 (0-50) U/L Alkaline Phosphatase 140 H (38-126) U/L Creatine Kinase (55-170) U/L Serum Total Protein 7.4 (6.3-8.2) g/dL Albumin 3.9 (3.5-5.0) g/dL 11/17/22 11/17/22 11/17/22 Range/Units 04:52 06:34 11:29 WBC (4.0-10.5) x10^3/uL RBC (4.1-5.6) x10^6/uL Hgb (12.5-18.0) g/dL Hct (42-50) % MCV (78-100) fL MCH (26-32) pg MCHC (32-36) g/dL RDW (11.5-14.0) % Plt Count (150-450) x10^3/uL MPV (7.5-11.0) fL Gran % (36.0-66.0) % Immature Gran % (Auto) (0.00-0.4) % Nucleat RBC Rel Count (0.00-0.1) % Eos # (Auto) (0-0.5) x10^3/uL Immature Gran # (Auto) (0.00-0.03) x10^3u/L Absolute Lymphs (auto) (1.0-4.6) x10^3/uL Absolute Monos (auto) (0.0-1.3) x10^3/uL Absolute Nucleated RBC (0.00-0.01) x10^3u/L Lymphocytes % (24.0-44.0) % Monocytes % (0.0-12.0) % Eosinophils % (0.00-5.0) % Basophils % (0.0-0.4) % Absolute Granulocytes (1.4-6.9) x10^3/uL Basophils # (0-0.4) x10^3/uL Sodium (137-145) mmol/L Potassium (3.5-5.1) mmol/L Chloride (98-107) mmol/L Carbon Dioxide (22-30) mmol/L Anion Gap (5-15) MEQ/L BUN (9-20) mg/dL Creatinine (0.66-1.25) mg/dL Estimated GFR ML/MIN Glucose (74-106) mg/dL POC Glucometer 292 H 270 H (74 to 106) mg/dL Calcium (8.4-10.2) mg/dL Total Bilirubin (0.2-1.3) mg/dL AST (17-59) U/L ALT (0-50) U/L Alkaline Phosphatase (38-126) U/L Creatine Kinase 43 L (55-170) U/L Serum Total Protein (6.3-8.2) g/dL Albumin (3.5-5.0) g/dL Microbiology 11/16/22 13:00 Wound Culture - Preliminary Foot - Left GRAM POSITIVE ID AND SENSITIVITY PENDING 11/16/22 12:20 Wound Culture - Preliminary Leg - Left Lower GRAM POSITIVE ID AND SENSITIVITY PENDING Accuchecks Date 11/17/22 Date 11/17/22 Date 11/16/22 Time 11:34 Time 06:42 Time 20:45 - Radiology Impressions Radiology Exams & Impressions: Radiology Procedures Category Date Time Status BONE THREE PHASE [NUCMED] Routine Exams 11/17/22 11:26 Completed CHEST 1 VIEW (PORTABLE) Stat Exams 11/17/22 13:38 Completed FOOT (MINIMUM 3 VIEWS) Routine Exams 11/16/22 12:18 Completed LOWER EXTREMITY WO CONTRAST [CT] Routine Exams 11/16/22 11:26 Completed VENOUS BILATERAL EXTREMITY [US] Stat Exams 11/16/22 15:21 Completed NUCMED/BONE THREE PHASE Indication: Left lower extremity cellulitis. Open sores left foot/left 2nd toe. Bilateral erythema and swelling. Comparison: None Patient received 29.9 mCi technetium 99 MDP. Bloodflow images obtained of both feet in the anterior plane. Blood pool images obtained in anterior and posterior plane. 3 hour delayed images obtained in anterior, posterior, and medial/lateral planes. Bloodflow images demonstrates mild increased radiopharmaceutical activity to the left lower leg/ankle/foot. Blood pool images also demonstrates increased radiopharmaceutical activity to the left lower leg/ankle/foot. Delayed images demonstrates increased radiopharmaceutical activity to the left lower leg/ankle/foot. No focal intense radiopharmaceutical activity to suggest osteomyelitis. Impression: Diffuse increased radiopharmaceutical activity left lower leg/ankle/foot on all phases favoring diffuse cellulitis. No scintigraphic evidence for osteomyelitis. CT/LOWER EXTREMITY WO CONTRAST Indication: Cellulitis. Multiple contiguous axial images obtained through the left lower leg without contrast to include the knee and ankle. Sagittal and coronal reformatted images obtained. Comparison: None There is marked diffuse lower leg and visualized left foot cutaneous/subcutaneous soft tissue swelling/edema. No focal solid/cystic soft tissue mass or abnormal fluid collection on this noncontrast exam. Deep muscles are unremarkable. Moderate scattered arteriosclerotic calcifications. No acute fracture, suspicious bony lesions, or osseous destructive process. Knee/ankle appears anatomic without abnormal effusion. Incidental small posterior/plantar heel spurs. Achilles tendon elliptical thickening concerning for tendonitis. Impression: Diffuse lower leg and left foot cutaneous/subcutaneous soft tissue swelling/edema favoring clinically reported cellulitis. No abnormal fluid/walled off fluid collection. Query Achilles tendonitis. Incidental scattered arteriosclerotic disease and small heel spurs. Assessment/Plan (1) Cellulitis and abscess of left lower extremity Status: Acute Code(s): L03.116 - CELLULITIS OF LEFT LOWER LIMB; L02.416 - CUTANEOUS ABSCESS OF LEFT LOWER LIMB (2) Cellulitis of left foot due to methicillin-resistant Staphylococcus aureus Status: Acute Code(s): L03.116 - CELLULITIS OF LEFT LOWER LIMB; B95.62 - METHICILLIN RESIS STAPH INFCT CAUSING DISEASES CLASSD ELSWHR (3) Type 2 diabetes mellitus Status: Acute Qualifiers: Diabetes mellitus fci insulin use: with fci use Diabetes mellitus complication status: with skin complications Diabetes mellitus complication detail: with foot ulcer Qualified Code(s): E11.621 - Type 2 diabetes mellitus with foot ulcer; L97.509 - Non-pressure chronic ulcer of other part of unspecified foot with unspecified severity; Z79.4 - USP (current) use of insulin Hospital Summary - Hospital Course Hospital Course: Chief Complaint Diagnosis Left lower extremety cellulitis Allergies Allergy/AdvReac Type Severity Reaction Status Date / Time naproxen [From Aleve] Allergy Severe Tightness Verified 11/16/22 12:40 in Chest Vital Signs (Last 24 hours) Temp Pulse Resp BP Pulse Ox 11/17/22 12:00 97.1 F 77 18 147/79 95 11/17/22 07:30 72 18 95 11/17/22 06:42 97.3 F 74 19 139/63 96 11/17/22 04:00 97.5 F 66 20 137/60 96 11/17/22 00:00 97.5 F 72 20 141/63 96 11/16/22 19:43 97.2 F 76 20 148/65 97 11/16/22 19:15 77 16 96 Home Medications Medication Instructions Recorded Confirmed Last Taken Type Bumetanide 1 mg [Bumex 1 mg] 1 mg PO DAILY 11/16/22 11/16/22 11/16/22 History Carvedilol 3.125 mg [Coreg 6.25 mg PO BID 11/16/22 11/16/22 11/16/22 History 3.125 MG] Ergocalciferol (Vitamin D2) 1,250 mcg PO WEEKLY 11/16/22 11/16/22 11/14/22 History [Vitamin D2] Insulin Lispro [Admelog] 0 unit SQ UD 11/16/22 11/16/22 11/16/22 History Atorvastatin Calcium 40 mg PO HS #1 tablet 11/17/22 Unknown Rx Daptomycin [Cubicin Rf] 900 mg IV DAILY 14 Days #14 11/17/22 Unknown Rx Current Medications Discontinued Medications Generic Name Dose Route Start Last Admin Trade Name Freq PRN Reason Stop Dose Admin Hydrocodone Bitart/Acetaminophen 1 tab 11/16/22 12:17 11/17/22 08:09 Hydrocodone/Apap 5/325 1 Tab Tablet PO 11/21/22 12:16 1 tab Q4H PRN PRN Administration PAIN Albuterol Sulfate 2.5 mg 11/16/22 19:00 11/17/22 07:25 Albuterol Sulfate 2.5 Mg/3 Ml Formerly [facility] 12/16/22 18:59 2.5 mg BIDRT ALINA Administration Albuterol Sulfate 2.5 mg 11/16/22 16:49 Albuterol Sulfate 2.5 Mg/3 Ml Formerly [facility] 12/16/22 16:48 Q2H/PRN PRN SHORTNESS OF BREATH Allopurinol 100 mg 11/17/22 10:00 11/17/22 09:45 Allopurinol 100 Mg Tablet PO 12/17/22 09:59 100 mg DAILY ALINA Administration Aspirin 81 mg 11/17/22 10:00 11/17/22 14:28 Aspirin 81 Mg Tablet.Ec PO 12/17/22 09:59 81 mg DAILY ALINA Administration Bumetanide 1 mg 11/17/22 10:00 11/17/22 09:45 Bumetanide 1 Mg Tablet PO 12/17/22 09:59 1 mg DAILY ALINA Administration Carbamazepine 200 mg 11/16/22 22:00 11/16/22 21:38 Carbamazepine 200 Mg Tablet PO 12/16/22 21:59 200 mg QHS ALINA Administration Carvedilol 6.25 mg 11/16/22 22:00 11/17/22 09:46 Carvedilol 6.25 Mg Tablet PO 12/16/22 21:59 6.25 mg BID ALINA Administration Clopidogrel Bisulfate 75 mg 11/17/22 10:00 11/17/22 14:30 Clopidogrel Bisulfate 75 Mg Tablet PO 12/17/22 09:59 75 mg DAILY ALINA Administration Empagliflozin 25 mg 11/17/22 10:00 11/17/22 09:48 Empagliflozin 10 Mg Tablet PO 12/17/22 09:59 25 mg DAILY ALINA Administration Ergocalciferol 50,000 unit 11/21/22 10:00 Ergocalciferol (Vitamin D2) 50,000 Unit Capsule PO 12/21/22 09:59 Mo ALINA Fluticasone Propionate 0 gm 11/17/22 10:00 11/17/22 09:44 Fluticasone Propionate 16 Gm Bottle Nasal [place] 12/17/22 09:59 16 gm DAILY ALINA Administration Gabapentin 600 mg 11/16/22 17:00 11/17/22 14:29 Gabapentin 300 Mg Capsule PO 12/16/22 16:59 600 mg TID ALINA Administration Sodium Chloride 1,000 mls @ 50 mls/hr 11/16/22 11:15 11/16/22 12:54 Sodium Chloride 0.9% 1000 Ml IV 12/16/22 11:14 50 mls/hr .Q20H ALINA Administration Meropenem 1 gm/ Sodium 100 mls @ 200 mls/hr 11/16/22 13:00 11/17/22 14:28 Chloride IV 11/19/22 12:59 200 mls/hr Q8HT ALINA Administration Insulin Human Lispro 0 unit 11/16/22 11:06 11/17/22 11:46 Insulin Lispro 1 Unit SQ 12/16/22 11:05 4 unit UD PRN Administration HYPERGLYCEMIA Losartan Potassium 25 mg 11/17/22 10:00 11/17/22 09:45 Losartan Potassium 50 Mg Tablet PO 12/17/22 09:59 25 mg DAILY ALINA Administration Miscellaneous Information 1 each 11/16/22 17:15 Medication Intervention 1 Each Each 12/16/22 17:14 .RN TO CHECK ALINA Nitroglycerin 0.4 mg 11/16/22 16:49 Nitroglycerin 0.4 Mg Tablet Bottle SL 12/16/22 16:48 Q5MIN PRN MR X 3 PRN CHEST PAIN Non-Formulary Medication 1 each 11/16/22 11:06 11/16/22 12:54 Pharmacy Dosing Request 11/16/22 11:07 1 each STAT ONE Administration Oxcarbazepine 600 mg 11/16/22 22:00 11/17/22 09:49 Oxcarbazepine 300 Mg Tab PO 12/16/22 21:59 600 mg BID ALINA Administration Potassium Chloride 10 meq 11/16/22 22:00 11/17/22 09:45 Potassium Chloride Tab 10 Meq Tab PO 12/16/22 21:59 10 meq BID ALINA Administration Simvastatin 40 mg 11/16/22 22:00 11/16/22 21:38 Simvastatin 20 Mg Tablet PO 12/16/22 21:59 40 mg HS ALINA Administration Intake & Output (Last 24 hours) 11/15/22 11/16/22 11/17/22 11/18/22 11:59 11:59 11:59 11:59 Intake Total 2640 240 Output Total 375 Balance 2265 240 Weight 152.5 kg Microbiology Results (Last 24 hours) 11/16/22 13:00 Foot - Left Wound Culture - Preliminary GRAM POSITIVE ID AND SENSITIVITY PENDING 11/16/22 12:20 Leg - Left Lower Wound Culture - Preliminary GRAM POSITIVE ID AND SENSITIVITY PENDING Laboratory Results (Last 24 hours) 11/17/22 11/17/22 11/17/22 11:29 06:34 04:52 WBC RBC Hgb Hct MCV MCH MCHC RDW Plt Count MPV Gran % Immature Gran % (Auto) Nucleat RBC Rel Count Eos # (Auto) Immature Gran # (Auto) Absolute Lymphs (auto) Absolute Monos (auto) Absolute Nucleated RBC Lymphocytes % Monocytes % Eosinophils % Basophils % Absolute Granulocytes Basophils # Sodium Potassium Chloride Carbon Dioxide Anion Gap BUN Creatinine Estimated GFR Glucose POC Glucometer 270 H 292 H Calcium Total Bilirubin AST ALT Alkaline Phosphatase Creatine Kinase 43 L Serum Total Protein Albumin 11/17/22 11/17/22 11/16/22 04:52 04:52 20:35 WBC 7.7 RBC 5.53 Hgb 15.2 Hct 50.8 H MCV 91.9 MCH 27.5 MCHC 29.9 L RDW 15.2 H Plt Count 128 L MPV 10.5 Gran % 79.4 H Immature Gran % (Auto) 0.3 Nucleat RBC Rel Count 0.0 Eos # (Auto) 0.15 Immature Gran # (Auto) 0.02 Absolute Lymphs (auto) 0.97 L Absolute Monos (auto) 0.40 Absolute Nucleated RBC 0.00 Lymphocytes % 12.7 L Monocytes % 5.2 Eosinophils % 2.0 Basophils % 0.4 Absolute Granulocytes 6.08 Basophils # 0.03 Sodium 142 Potassium 4.4 Chloride 96 L Carbon Dioxide 38 H Anion Gap 11.9 BUN 21 H Creatinine 0.71 Estimated GFR > 60.0 Glucose 199 H POC Glucometer 204 H Calcium 8.7 Total Bilirubin 0.50 AST 19 ALT 31 Alkaline Phosphatase 140 H Creatine Kinase Serum Total Protein 7.4 Albumin 3.9 Orders (Last 24 hours) Category Date Time Status PICC Line Placement (Contract) ROUTINE Care 11/17/22 09:01 Completed Discharge Planning,Consult Routine Discharge 11/17/22 Active Discharge Planning,Consult Routine Discharge 11/17/22 Active Discharge Routine Discharge 11/17/22 Ordered Discharge/Telephone Order Routine Discharge 11/17/22 Active BONE THREE PHASE [NUCMED] Routine Exams 11/17/22 11:26 Completed CHEST 1 VIEW (PORTABLE) Stat Exams 11/17/22 13:38 Completed CBC W DIFF AM.LAB Lab 11/17/22 04:52 Completed CK (IN-HOUSE) [CK-Creatinine Phosphokinase] Stat Lab 11/17/22 04:52 Completed CMP AM.LAB Lab 11/17/22 04:52 Completed POCT GLUCOSE Stat Lab 11/16/22 20:35 Completed POCT GLUCOSE Stat Lab 11/17/22 06:34 Completed POCT GLUCOSE Stat Lab 11/17/22 11:29 Completed Albuterol 2.5 mg/3 ml Neb [Proventil 2.5 mg/3 ml Neb Med 11/16/22 19:00 Discontinued ] 2.5 mg IH BIDRT Albuterol 2.5 mg/3 ml Neb [Proventil 2.5 mg/3 ml Neb Med 11/16/22 16:49 Discontinued ] 2.5 mg IH Q2H/PRN PRN Allopurinol 100 mg [Zyloprim 100 mg] Med 11/17/22 10:00 Discontinued 100 mg PO DAILY Aspirin EC 81 mg [Ecotrin 81 mg] Med 11/17/22 10:00 Discontinued 81 mg PO DAILY Bumetanide 1 mg [Bumex 1 mg] Med 11/17/22 10:00 Discontinued 1 mg PO DAILY Carbamazepine 200 mg [Tegretol 200 MG] Med 11/16/22 22:00 Discontinued 200 mg PO QHS Carvedilol [Coreg ] Med 11/16/22 22:00 Discontinued 6.25 mg PO BID Clopidogrel Bisulfate [PLAVIX Tablet] Med 11/17/22 10:00 Discontinued 75 mg PO DAILY Empagliflozin [Jardiance] Med 11/17/22 10:00 Discontinued 25 mg PO DAILY Ergocalciferol (Vitamin D2) [Vitamin D2] Med 11/21/22 10:00 Discontinued 50,000 unit PO Mo Fluticasone Propionate [Flonase NASAL] Med 11/17/22 10:00 Discontinued See Dose Instructions NS DAILY Gabapentin [Neurontin ] Med 11/16/22 17:00 Discontinued 600 mg PO TID Losartan Potassium 50 mg [Cozaar 50 MG] Med 11/17/22 10:00 Discontinued 25 mg PO DAILY Medication Intervention Med 11/16/22 17:15 Discontinued 1 each MC .RN TO CHECK Nitroglycerin 0.4 mg Tablet [Nitrostat 0.4 MG Tablet Med 11/16/22 16:49 Discontinued ] 0.4 mg SL Q5MIN PRN MR X 3 PRN Oxcarbazepine 300 mg [Trileptal 300 MG Tablet] Med 11/16/22 22:00 Discontinued 600 mg PO BID Potassium Chloride Tab* [Klor Con] Med 11/16/22 22:00 Discontinued 10 meq PO BID Simvastatin 20Mg [Zocor 20Mg] Med 11/16/22 22:00 Discontinued 40 mg PO HS Patient Care Notes (Last 24 hours) 11/17/22 14:53 Case Management Note by Halle Lopez [facility] NEEDS NOTIFIED AT TIME OF DC AT [phone]. THEY WILL NEED FAXED THE DC INSTRUCTIONS, DC MED LIST, DC SUMMARY ( IF AVAILABLE), WELL THE PICC LINE INFORMATION TO [phone] Initialized on 11/17/22 14:53 - END OF NOTE 11/17/22 14:52 Case Management Note by Halle Lopez/Hermelinda CHEN AT [facility]- SHE REPORTS THEY HAVE EVERYTHING THEY NEED AND WILL CALL PATIENT TO SET UP THE APPOINTMENT Initialized on 11/17/22 14:52 - END OF NOTE 11/17/22 14:22 Case Management Note by Halle Lopez/Hermelinda [facility]- THEY REQUIRE A BASELINE CPK AND CREAT LEVEL THEN AN ORDER FOR THOSE LEVELS PRN. PICC LINE PLACEMENT SUCCESSFUL. ORDERS, BASELINE LABS, AND PICC LINE INFO FAXED TO [facility] AT THIS TIME Initialized on 11/17/22 14:22 - END OF NOTE 11/17/22 14:20 Case Management Note by Halle Lopez/Hermelinda [facility]- THEY REPORT PATIENT IS A CURRENT PATIENT AND EVEN THO PATIENT IS GETTING OTPT INFUSIONS THEY CAN STILL DO UNNA BOOT DRESSINGS TWICE A WEEK. NEW ORDER FAXED TO THEM AT THIS TIME Initialized on 11/17/22 14:20 - END OF NOTE 11/17/22 13:00 (created 11/17/22 15:24) Case Management Note by Halle Lopez NOTIFIED OF INTERACTION BETWEEN ATORVASTATIN AND CUBICIN- PATIENT TO HOLD ATORVASTATIN WHILE ON CUBICIN. DC MED LIST DC UPDATED Initialized on 11/17/22 15:24 - END OF NOTE 11/17/22 13:00 (created 11/17/22 13:08) Nursing Note by Lorena Martinez is here with Agency Provider for PICC LINE placement on patient. Initialized on 11/17/22 13:08 - END OF NOTE 11/17/22 11:51 Nursing Note by Lorena Martinez IS HERE ROUNDING ON PATIENT. Initialized on 11/17/22 11:51 - END OF NOTE 11/17/22 09:06 Nursing Note by Sarah Cunningham Dr. wanted pharmacy recommendations on outpatient antibiotic therapy. Pharmacy called and recommended Cubicin 900 mg IV once a day for 14 days. Initialized on 11/17/22 09:06 - END OF NOTE - Vitals & Intake/Output Vital Signs: Vital Signs Temperature 97.1 F 11/17/22 12:00 Pulse Rate 77 11/17/22 12:00 Respiratory Rate 18 11/17/22 12:00 Blood Pressure 147/79 11/17/22 12:00 O2 Sat by Pulse Oximetry 95 11/17/22 12:00 Intake & Output: Intake & Output 11/15/22 11/16/22 11/17/22 11/18/22 11:59 11:59 11:59 11:59 Intake Total 2640 240 Output Total 375 Balance 2265 240 Weight 152.5 kg - Lab Result Diagrams: 11/17/22 04:52 11/17/22 04:52 Lab Results-Last 24 Hrs: Lab Results-Last 24 Hours 11/16/22 11/17/22 11/17/22 Range/Units 20:35 04:52 04:52 WBC 7.7 (4.0-10.5) x10^3/uL RBC 5.53 (4.1-5.6) x10^6/uL Hgb 15.2 (12.5-18.0) g/dL Hct 50.8 H (42-50) % MCV 91.9 (78-100) fL MCH 27.5 (26-32) pg MCHC 29.9 L (32-36) g/dL RDW 15.2 H (11.5-14.0) % Plt Count 128 L (150-450) x10^3/uL MPV 10.5 (7.5-11.0) fL Gran % 79.4 H (36.0-66.0) % Immature Gran % (Auto) 0.3 (0.00-0.4) % Nucleat RBC Rel Count 0.0 (0.00-0.1) % Eos # (Auto) 0.15 (0-0.5) x10^3/uL Immature Gran # (Auto) 0.02 (0.00-0.03) x10^3u/L Absolute Lymphs (auto) 0.97 L (1.0-4.6) x10^3/uL Absolute Monos (auto) 0.40 (0.0-1.3) x10^3/uL Absolute Nucleated RBC 0.00 (0.00-0.01) x10^3u/L Lymphocytes % 12.7 L (24.0-44.0) % Monocytes % 5.2 (0.0-12.0) % Eosinophils % 2.0 (0.00-5.0) % Basophils % 0.4 (0.0-0.4) % Absolute Granulocytes 6.08 (1.4-6.9) x10^3/uL Basophils # 0.03 (0-0.4) x10^3/uL Sodium 142 (137-145) mmol/L Potassium 4.4 (3.5-5.1) mmol/L Chloride 96 L (98-107) mmol/L Carbon Dioxide 38 H (22-30) mmol/L Anion Gap 11.9 (5-15) MEQ/L BUN 21 H (9-20) mg/dL Creatinine 0.71 (0.66-1.25) mg/dL Estimated GFR > 60.0 ML/MIN Glucose 199 H (74-106) mg/dL POC Glucometer 204 H (74 to 106) mg/dL Calcium 8.7 (8.4-10.2) mg/dL Total Bilirubin 0.50 (0.2-1.3) mg/dL AST 19 (17-59) U/L ALT 31 (0-50) U/L Alkaline Phosphatase 140 H (38-126) U/L Creatine Kinase (55-170) U/L Serum Total Protein 7.4 (6.3-8.2) g/dL Albumin 3.9 (3.5-5.0) g/dL 11/17/22 11/17/22 11/17/22 Range/Units 04:52 06:34 11:29 WBC (4.0-10.5) x10^3/uL RBC (4.1-5.6) x10^6/uL Hgb (12.5-18.0) g/dL Hct (42-50) % MCV (78-100) fL MCH (26-32) pg MCHC (32-36) g/dL RDW (11.5-14.0) % Plt Count (150-450) x10^3/uL MPV (7.5-11.0) fL Gran % (36.0-66.0) % Immature Gran % (Auto) (0.00-0.4) % Nucleat RBC Rel Count (0.00-0.1) % Eos # (Auto) (0-0.5) x10^3/uL Immature Gran # (Auto) (0.00-0.03) x10^3u/L Absolute Lymphs (auto) (1.0-4.6) x10^3/uL Absolute Monos (auto) (0.0-1.3) x10^3/uL Absolute Nucleated RBC (0.00-0.01) x10^3u/L Lymphocytes % (24.0-44.0) % Monocytes % (0.0-12.0) % Eosinophils % (0.00-5.0) % Basophils % (0.0-0.4) % Absolute Granulocytes (1.4-6.9) x10^3/uL Basophils # (0-0.4) x10^3/uL Sodium (137-145) mmol/L Potassium (3.5-5.1) mmol/L Chloride (98-107) mmol/L Carbon Dioxide (22-30) mmol/L Anion Gap (5-15) MEQ/L BUN (9-20) mg/dL Creatinine (0.66-1.25) mg/dL Estimated GFR ML/MIN Glucose (74-106) mg/dL POC Glucometer 292 H 270 H (74 to 106) mg/dL Calcium (8.4-10.2) mg/dL Total Bilirubin (0.2-1.3) mg/dL AST (17-59) U/L ALT (0-50) U/L Alkaline Phosphatase (38-126) U/L Creatine Kinase 43 L (55-170) U/L Serum Total Protein (6.3-8.2) g/dL Albumin (3.5-5.0) g/dL Micro Results-Entire Visit: Microbiology 11/16/22 13:00 Wound Culture - Preliminary Foot - Left GRAM POSITIVE ID AND SENSITIVITY PENDING 11/16/22 12:20 Wound Culture - Preliminary Leg - Left Lower GRAM POSITIVE ID AND SENSITIVITY PENDING Accuchecks Date 11/17/22 Date 11/17/22 Date 11/16/22 Time 11:34 Time 06:42 Time 20:45 - Radiology Exams Ordered Rad Exams-Entire Visit: Radiology Procedures Category Date Time Status BONE THREE PHASE [NUCMED] Routine Exams 11/17/22 11:26 Completed CHEST 1 VIEW (PORTABLE) Stat Exams 11/17/22 13:38 Completed FOOT (MINIMUM 3 VIEWS) Routine Exams 11/16/22 12:18 Completed LOWER EXTREMITY WO CONTRAST [CT] Routine Exams 11/16/22 11:26 Completed VENOUS BILATERAL EXTREMITY [US] Stat Exams 11/16/22 15:21 Completed - Procedures and Test Procedures and Tests throughout Hospitalization: Therapy Orders & Screens 11/16/22 12:06 OT Screen per Nursing Assess ONCE Comment: Protocol Order Physician Instructions: Greater than 3 points order OT Admission Screening Reason For Exam: Triggered on Admission Diagnosis: Left lower extremety cellulitis Open Wound/Cellutlitis/Pressure Ulcers: Yes Acute Fx/ORIF/Change in wt bearing status: No Severe MUSCULOSKELETAL pain: No ADL Dysfunction: No Acute CVA w/Hemiparesis/Hemiplegia: No Decreased Functional Mobility/Strength: No Sprain/Strain: No Acute Post-op Mobility Dysfunction: No Total Points: 5 PT Screen per Nursing Assess ONCE Comment: Protocol Order Physician Instructions: Greater than 3 points order PT Admission Screenin Reason For Exam: Triggered on Admission Diagnosis: Left lower extremety cellulitis Open Wound/Cellutlitis/Pressure Ulcers: Yes Acute Fx/ORIF/Change in wt bearing status: No Severe MUSCULOSKELETAL pain: No ADL Dysfunction: No Acute CVA w/Hemiparesis/Hemiplegia: No Decreased Functional Mobility/Strength: No Sprain/Strain: No Acute Post-op Mobility Dysfunction: No Total Points: 5 RT Screen per Nursing Assess ONCE Comment: Protocol Order Physician Instructions: Greater than 3 points order RT Admission Screen Reason For Exam: Triggered on Admission Diagnosis: Left lower extremety cellulitis Diagnosis: Left lower extremety cellulitis Pneumonia: No Home O2: Yes Asthma: No CHF: No Home CPAP/BIPAP: Yes: CPAP Home Nebs/MDI: Yes Total Points: 15 11/16/22 13:06 Oxygen NASAL CANNULA 4 lpm Comment: Diagnosis: Left lower extremety cellulitis Respiratory Therapy Assessment DAILY Comment: Diagnosis: Left lower extremety cellulitis - Discharge Discharge Date: 11/17/22 Disposition: HOME HEALTH SERVICE Condition: Stable Prescriptions: New Daptomycin [Cubicin Rf] 900 mg IV DAILY 14 Days #14 Continue Gabapentin [Neurontin ] 600 mg PO TID Potassium Chloride [Klor-Con 10] 10 meq PO BID Nitroglycerin [Nitroquick] 0.4 mg SL Q5MIN PRN MR X 3 PRN PRN Reason: Chest Pain Albuterol 2.5 mg/3 ml Neb [Proventil 2.5 mg/3 ml Neb] 1 amp IH Q2H/PRN PRN PRN Reason: Shortness Of Breath OXcarbazepine [Trileptal] 600 mg PO BID Semaglutide [Ozempic] 2 mg SQ WEEKLY Clopidogrel Bisulfate [Clopidogrel] 75 mg PO DAILY Losartan Potassium [Cozaar] 25 mg PO DAILY Insulin Degludec [Tresiba Flextouch U-200] 140 unit SQ DAILY Empagliflozin [Jardiance] 25 mg PO DAILY Allopurinol 100 mg [Zyloprim 100 mg] 100 mg PO DAILY Aspirin EC 81 mg [Ecotrin 81 mg] 81 mg PO DAILY carBAMazepine [Carbamazepine ER] 200 mg PO QHS Fluticasone Propionate [Flonase Allergy Relief] 1 spray IH DAILY Bumetanide 1 mg [Bumex 1 mg] 1 mg PO DAILY Ergocalciferol (Vitamin D2) [Vitamin D2] 1,250 mcg PO WEEKLY Carvedilol 3.125 mg [Coreg 3.125 MG] 6.25 mg PO BID Insulin Lispro [Admelog] 0 unit SQ UD Atorvastatin Calcium 40 mg PO HS #1 tablet Instructions: Cellulitis (Skin Infection), Adult (DC) Additional Instructions: [facility] WILL CALL YOU TO SCHEDULE YOUR INFUSIONS. IF YOU DO NOT HEAR FROM THEM BY 11/18/22 AM- CALL THEM AT [phone] AND ASK FOR THE [facility] WILL DO YOUR DRESSING CHANGES ON MONDAYS AND FRIDAYS. YOU WILL SEE PODIATRY ONCE A WEEK (PRIMARILY ON WEDNESDAYS) WELL. Follow up with: CHARLENE NEGRETE DPM [ACTIVE STAFF] - 11/24/22 10:00 am AUSTIN PIMENTEL MD [Primary Care Provider] - 11/28/22 10:15 am (at [facility]) Forms: Discharge Instructions
[2022-11-21] MEDS ORDERED: VITAMIN D2 PO SCH (10:00)
== END 2022-11-17 15:45 | disposition home health service (06) ==
LOC: MED SURG 10:46
PROVIDERS: ADMIT General Practice; ATTEND General Practice
DX: L03.116 Cellulitis of left lower limb (principal); L02.416 Cutaneous abscess of left lower limb; E11.621 Type 2 diabetes mellitus with foot ulcer; L97.529 Non-pressure chronic ulcer of other part of left foot with unspecified severity; I87.2 Venous insufficiency (chronic) (peripheral); B95.62 Methicillin resistant Staphylococcus aureus infection as the cause of diseases classified elsewhere; R60.9 Edema, unspecified; I11.0 Hypertensive heart disease with heart failure; I50.9 Heart failure, unspecified; E11.9 Type 2 diabetes mellitus without complications; J44.9 Chronic obstructive pulmonary disease, unspecified; Z79.899 Other long term (current) drug therapy; Z20.828 Contact with and (suspected) exposure to other viral communicable diseases; Z79.4 Long term (current) use of insulin
CPT/HCPCS: 29580; 36415; 71045; 73630; 73700; 78315; 80053; 82550; 82947; 83036; 83605; 84145; 85025; 85027; 87040; 87070; 93970; 94640; 94760; 99222; A9503; 36573; 87077; 87186; 99232; G0378; G0379; J1817; J7609; A9270-GY

== ENCOUNTER 2022-12-20 21:05 | Emergency (ER) | payer MEDICARE ==
[2022-12-20] MEDS ORDERED: MORPHINE SULFATE 4 MG INJ IV ONE (22:04)
[2022-12-20] MEDS ORDERED: Zofran 4 MG/2 ML VIAL IV ONE (22:04)
[2022-12-20] MEDS ORDERED: Zofran 4 MG/2 ML VIAL ONE (22:16)
[2022-12-20] MEDS ORDERED: MORPHINE SULFATE 4 MG INJ ONE (22:17)
--- NOTE | 2022-12-20 22:17 | ERPHSYRPT ---
- History of Present Illness Time Seen by Provider: 12/20/22 21:07 Source: patient Exam Limitations: no limitations Patient Subjective Stated Complaint: pt states he has some infection in his lt upper leg and groin area,. states it started leaking today. Triage Nursing Assessment: pt alert and oriented, answers questions approp. pt back to room per wheelchair and transfers to stretcher with assist of 1. o2 on at 4l per nc, pt wears at home. scabbing noted to pts forehead- states from a fall last week. drsgs to bilat lower legs. redness noted to lt inner thighwith indurated area. open area to lt posterior thigh with small amt of serosang dra ball noted. Physician History: 67 years old male with multiple medical problems including chronic respiratory failure secondary to COPD on 4 L oxygen, congestive heart failure, coronary artery disease status post stenting, hypertension, hyperlipidemia, diabetes mellitus presented in the ER with 2 to 3 days history of gradually increasing pain and swelling left upper inner thigh/groin area moderate to severe sharp. Patient reports rapid worsening today and reports subjective feeling of fever and chills. Denies any history of MRSA. Timing/Duration: day(s) (3), gradual onset, worse Quality: painful Severity: moderate, severe Location: extremities Possible Causes: no cause identified Associated Symptoms: rash, swelling/mass/lumps Allergies/Adverse Reactions: naproxen [From Aleve] Adverse Reaction (Severe, Verified 12/20/22 22:06) Tightness in Chest pt states tightness in chest was only after taking 4-5 aleve at same time. Home Medications: Gabapentin [Neurontin ] 600 mg PO TID 07/27/12 [History] Nitroglycerin [Nitroquick] 0.4 mg SL Q5MIN PRN MR X 3 PRN 07/27/12 [History] Potassium Chloride [Klor-Con 10] 10 meq PO BID 07/27/12 [History] Albuterol 2.5 mg/3 ml Neb [Proventil 2.5 mg/3 ml Neb] 1 amp IH Q2H/PRN PRN 09/04/13 [History] Allopurinol 100 mg [Zyloprim 100 mg] 100 mg PO DAILY 09/29/22 [History] Aspirin EC 81 mg [Ecotrin 81 mg] 81 mg PO DAILY 09/29/22 [History] Clopidogrel Bisulfate [Clopidogrel] 75 mg PO DAILY 09/29/22 [History] Empagliflozin [Jardiance] 25 mg PO DAILY 09/29/22 [History] Fluticasone Propionate [Flonase Allergy Relief] 1 spray IH DAILY 09/29/22 [History] Insulin Degludec [Tresiba Flextouch U-200] 140 unit SQ DAILY 09/29/22 [History] Losartan Potassium [Cozaar] 25 mg PO DAILY 09/29/22 [History] OXcarbazepine [Trileptal] 600 mg PO BID 09/29/22 [History] Semaglutide [Ozempic] 2 mg SQ WEEKLY 09/29/22 [History] carBAMazepine [Carbamazepine ER] 200 mg PO QHS 09/29/22 [History] Bumetanide 1 mg [Bumex 1 mg] 1 mg PO DAILY 11/16/22 [History] Carvedilol 3.125 mg [Coreg 3.125 MG] 6.25 mg PO BID 11/16/22 [History] Ergocalciferol (Vitamin D2) [Vitamin D2] 1,250 mcg PO WEEKLY 11/16/22 [History] Insulin Lispro [Admelog] 0 unit SQ UD 11/16/22 [History] Hx Tetanus, Diphtheria Vaccination/Date Given: Yes Hx Influenza Vaccination/Date Given: Yes Hx Pneumococcal Vaccination/Date Given: Yes Immunizations Up to Date: Yes Travel Risk - International Travel Have you traveled outside of the country in past 3 weeks: No - Coronavirus Screening Are you exhibiting any of the following symptoms?: No Close contact with a COVID-19 positive Pt in past 14-21 Days: No - Vaccine Status Have you recieved a Covid-19 vaccination: Yes [employer] 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 - Vaccination Dates Date of 2cond Vaccination (if applicable): UNKNOWN Dates if Unknown: UNKNOWN - Review of Systems Constitutional: No Symptoms Ears, Nose, & Throat: No Symptoms Respiratory: No Symptoms Cardiac: No Symptoms Abdominal/Gastrointestinal: No Symptoms Genitourinary Symptoms: No Symptoms Musculoskeletal: No Symptoms Skin: Cellulitis Neurological: No Symptoms Psychological: No Symptoms Hematologic/Lymphatic: No Symptoms Immunological/Allergic: No Symptoms - Past Medical History Pertinent Past Medical History: Yes Neurological History: Peripheral Neuropathy ENT History: Other Cardiac History: Congestive Heart Failure, Hypertension, Other Respiratory History: COPD Endocrine Medical History: Diabetes Type II Musculoskeletal History: Osteoarthritis GI Medical History: No Pertinent History History: No Pertinent History Psycho-Social History: No Pertinent History Male Reproductive Disorders: No Pertinent History Other Medical History: Gout - Past Surgical History Past Surgical History: Yes Neuro Surgical History: No Pertinent History Cardiac: Cardiac Catheterization, Cardiac Stent Respiratory: No Pertinent History Gastrointestinal: Cholecystectomy Genitourinary: No Pertinent History Musculoskeletal: Orthopedic Surgery Male Surgical History: No Pertinent History Other Surgical History: Left shoulder, Left knee X3, Right leg, Right hand/arm, Right shoulder - Social History Smoking Status: Former smoker How long have you smoked: 40 years Exposure to second hand smoke: No Drug Use: none Patient Lives Alone: Yes - Nursing Vital Signs Nursing Vital Signs: Initial Vital Signs Temperature 97.3 F 12/20/22 21:35 Pulse Rate 72 12/20/22 21:35 Respiratory Rate 20 12/20/22 21:35 Blood Pressure 127/65 12/20/22 21:35 O2 Sat by Pulse Oximetry 94 L 12/20/22 21:35 Pain Scale Pain Intensity 0 - Physical Exam General Appearance: no apparent distress, alert Eye Exam: PERRL/EOMI Neck Exam: normal inspection, full range of motion Respiratory Exam: normal breath sounds, lungs clear Cardiovascular Exam: regular rate/rhythm, normal heart sounds Gastrointestinal/Abdomen Exam: soft, normal bowel sounds, tenderness Male Genitalia Exam: normal genitalia Back Exam: normal inspection, normal range of motion Extremity Exam: normal inspection, normal range of motion, pelvis stable, infla mmation (Almost fist size 7 x 6 cm area of swelling induration left upper inner thigh/groin, warm tender to touch. Blanchable. Firm consistency.), swelling, tenderness Neurologic Exam: alert, oriented x 3, cooperative Skin Exam: normal color SpO2 Interpretation: normal SpO2: 94 O2 Delivery: Room Air Ordered Tests: Active Orders 24 hr Category Date Time Status IV Insertion STAT Care 12/20/22 22:04 Active NPO (ED) STAT Care 12/20/22 22:04 Active PELVIS WITH CONTRAST [CT] Stat Exams 12/20/22 22:05 Taken BLOOD CULTURE Stat Lab 12/20/22 20:50 Received CBC W DIFF Stat Lab 12/20/22 20:50 Completed CMP Stat Lab 12/20/22 20:50 Completed Lactic Acid Stat Lab 12/20/22 22:49 Completed Medication Summary Generic Name Dose Route Start Last Admin Trade Name Freq PRN Reason Stop Dose Admin Vancomycin HCl 2 gm in 400 mls @ 133.333 mls/hr 12/21/22 00:34 12/21/22 02:02 Vancomycin 2 Gram/400 Ml Bag IV 12/21/22 03:33 133.333 mls/hr STAT ONE 133.33 mls/hr Administration Sodium Chloride 1,000 mls @ 125 mls/hr 12/21/22 02:15 Sodium Chloride 0.9% 1000 Ml IV 01/20/23 02:14 .Q8H ALINA Discontinued Medications Generic Name Dose Route Start Last Admin Trade Name Freq PRN Reason Stop Dose Admin Piperacillin Sod/Tazobactam 100 mls @ 200 mls/hr 12/21/22 00:33 12/21/22 01:19 Sod 3.375 gm/ Sodium Chloride IV 12/21/22 01:02 200 mls/hr STAT ONE Administration Sodium Chloride Confirm 12/21/22 01:13 Sodium Chloride 100ml Mini-Bag Plus Administered 12/21/22 01:14 Dose 100 mls @ ud IV .STK-MED ONE Vancomycin HCl Confirm 12/21/22 02:01 Vancomycin 2 Gram/400 Ml Bag Administered 12/21/22 02:02 Dose 2 gm in 400 mls @ ud IV .STK-MED ONE Morphine Sulfate 4 mg 12/20/22 22:04 12/20/22 22:32 Morphine Sulfate 4 Mg/Ml Injection IV 12/20/22 22:05 4 mg STAT ONE Administration Morphine Sulfate Confirm 12/20/22 22:17 Morphine Sulfate 4 Mg/Ml Injection Administered 12/20/22 22:18 Dose 4 mg .ROUTE .STK-MED ONE Ondansetron HCl 4 mg 12/20/22 22:04 12/20/22 22:32 Ondansetron Hcl 4 Mg/2 Ml Vial IV 12/20/22 22:05 4 mg STAT ONE Administration Ondansetron HCl Confirm 12/20/22 22:16 Ondansetron Hcl 4 Mg/2 Ml Vial Administered 12/20/22 22:17 Dose 4 mg .ROUTE .STK-MED ONE Piperacillin Sod/Tazobactam Sod Confirm 12/21/22 01:13 Piperacillin/Tazobactam Sodium 3.375 Gm Vial Administered 12/21/22 01:14 Dose 3.375 gm IV .[facility]-MED ONE Lab/Rad Data: Laboratory Result Diagrams 12/20/22 20:50 12/20/22 20:50 Laboratory Results 12/20/22 12/20/22 12/20/22 Range/Units 22:49 20:50 20:50 WBC 7.2 (4.0-10.5) x10^3/uL RBC 5.12 (4.1-5.6) x10^6/uL Hgb 14.1 (12.5-18.0) g/dL Hct 47.1 (42-50) % MCV 92.0 (78-100) fL MCH 27.5 (26-32) pg MCHC 29.9 L (32-36) g/dL RDW 14.5 H (11.5-14.0) % Plt Count 150 (150-450) x10^3/uL MPV 10.5 (7.5-11.0) fL Gran % 74.2 H (36.0-66.0) % Immature Gran % (Auto) 0.4 (0.00-0.4) % Nucleat RBC Rel Count 0.0 (0.00-0.1) % Eos # (Auto) 0.32 (0-0.5) x10^3/uL Immature Gran # (Auto) 0.03 (0.00-0.03) x10^3u/L Absolute Lymphs (auto) 1.03 (1.0-4.6) x10^3/uL Absolute Monos (auto) 0.45 (0.0-1.3) x10^3/uL Absolute Nucleated RBC 0.00 (0.00-0.01) x10^3u/L Lymphocytes % 14.2 L (24.0-44.0) % Monocytes % 6.2 (0.0-12.0) % Eosinophils % 4.4 (0.00-5.0) % Basophils % 0.6 (0.0-0.4) % Absolute Granulocytes 5.37 (1.4-6.9) x10^3/uL Basophils # 0.04 (0-0.4) x10^3/uL Sodium 141 (137-145) mmol/L Potassium 4.3 (3.5-5.1) mmol/L Chloride 100 (98-107) mmol/L Carbon Dioxide 37 H (22-30) mmol/L Anion Gap 9.2 (5-15) MEQ/L BUN 18 (9-20) mg/dL Creatinine 0.73 (0.66-1.25) mg/dL Estimated GFR > 60.0 ML/MIN Glucose 205 H (74-106) mg/dL Lactic Acid 1.3 (0.4-2.0) Calcium 8.5 (8.4-10.2) mg/dL Total Bilirubin 0.40 (0.2-1.3) mg/dL AST 30 (17-59) U/L ALT 93 H (0-50) U/L Alkaline Phosphatase 145 H (38-126) U/L Serum Total Protein 7.2 (6.3-8.2) g/dL Albumin 3.6 (3.5-5.0) g/dL - Progress Progress: improved Progress Note: 12/20/22 22:16 67 years old male with multiple medical problems including chronic respiratory failure secondary to COPD on 4 L oxygen, congestive heart failure, coronary artery disease status post stenting, hypertension, hyperlipidemia, diabetes mellitus presented in the ER with 2 to 3 days history of gradually increasing pain and swelling left upper inner thigh/groin area moderate to severe sharp. Patient reports rapid worsening today and reports subjective feeling of fever and chills. Denies any history of MRSA. 12/21/22 02:09 Is given symptomatic treatment for pain. Work-up showed normal white count, normal lactate. Fairly unremarkable chemistries blood glucose of 205. 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 Patient has received a dose of Zosyn and vancomycin. Patient has multiple medical issues and I believe would benefit with transfer to facility with higher level of care specially after surgical intervention with his respiratory failure and CHF. I have called the transfer center [facility]. 12/21/22 02:28 I have discussed with Dr. Chen urology, Dr. Cuellar general surgery, reviewed history, work-up and agreed with transfer. Have discussed with Dr. Joya at ER and patient is accepted for transfer. Discussed with [employer]Geo: Other Will see patient in: ED Counseled pt/family regarding: lab results, diagnosis, rad results Medical Desision Making - Discussion of managment Care discussed with:: specialist (Dr. Chen urology, Dr. 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
[2022-12-20 22:54] LABS: Absolute Neutrophil Ct (ANC) 5.37 x10^3/uL (1.4-6.9); BASOPHIL % 0.6 % (0.0-0.4); Basophil (Absolute #) 0.04 x10^3/uL (0-0.4); Eosinophil % 4.4 % (0.00-5.0); Eosinophil (Absolute #) 0.32 x10^3/uL (0-0.5); Hematocrit 47.1 % (42-50); Hemoglobin 14.1 g/dL (12.5-18.0); IMMATURE GRAN # 0.03 x10^3u/L (0.00-0.03); IMMATURE GRAN % 0.4 % (0.00-0.4); Lymphocyte (Absolute #) 1.03 x10^3/uL (1.0-4.6); Lymphocytes % 14.2 % (24.0-44.0); Mean Corpuscular Hemoglobin 27.5 pg (26-32); Mean Corpuscular Hgb Concent. 29.9 g/dL (32-36); Mean Platelet Volume 10.5 fL (7.5-11.0); Monocyte (Absolute #) 0.45 x10^3/uL (0.0-1.3); Monocytes % 6.2 % (0.0-12.0); Neutrophil % 74.2 % (36.0-66.0); Platelet Count 150 x10^3/uL (150-450); Red Blood Count 5.12 x10^6/uL (4.1-5.6); Red Cell Distribution Width 14.5 % (11.5-14.0); White Blood Count 7.2 x10^3/uL (4.0-10.5)
[2022-12-20 23:10] LABS: ALBUMIN 3.6 g/dL (3.5-5.0); ALKALINE PHOSPHATASE 145 U/L (38-126); ANION GAP 9.2 MEQ/L (5-15); BLOOD UREA NITROGEN 18 mg/dL (9-20); CHLORIDE 100 mmol/L (98-107); Calcium 8.5 mg/dL (8.4-10.2); Carbon Dioxide 37 mmol/L (22-30); Creatinine 1 0.73 mg/dL (0.66-1.25); EST GLOMERULAR FILTRATION RATE > 60.0 ML/MIN; Glucose 205 mg/dL (74-106); Potassium 4.3 mmol/L (3.5-5.1); SGOT/AST 30 U/L (17-59); SGPT/ALT 93 U/L (0-50); SODIUM 141 mmol/L (137-145); Total Protein 7.2 g/dL (6.3-8.2)
[2022-12-21] MEDS ORDERED: PIPERACILLIN/TAZOBACTAM 3.375 GM in Sodium Chloride 100ML MINI-BAG PLUS 100 ML IV ONE (00:33)
[2022-12-21] MEDS ORDERED: VANCOMYCIN 2 GRAM/400 ML BAG 2 GM/400 ML PIGGYBACK IV ONE ×2 (00:34→02:01)
[2022-12-21] MEDS ORDERED: PIPERACILLIN/TAZOBACTAM IV ONE (01:13)
[2022-12-21] MEDS ORDERED: Sodium Chloride 100ML MINI-BAG PLUS 100 ML IV ONE (01:13)
[2022-12-21 02:13] VITALS: O2SAT 94
[2022-12-21] MEDS ORDERED: Sodium Chloride 0.9% 1000 ML 1,000 ML IV SCH (02:15)
[2022-12-21] MEDS ORDERED: Sodium Chloride 0.9% 1000 ML 1,000 ML ONE (02:39)
[2022-12-21 03:02] VITALS: BP 138/79; PULSE 68
--- NOTE | 2022-12-21 05:27 | XRAY ---
CLINICAL HISTORY:abscess. meo? COMPARISON:None TECHNIQUE:CT scan of the pelvis was performed with IV contrast. Coronal and sagittal reconstructive images were obtained. FINDINGS: Subcutaneous fat stranding is seen in left perineal region and upper thigh with mild overlying skin thickening. Small focal fluid with air foci seen in subcutaneous region of medial aspect of left upper thigh. Bilateral hip osteoarthritic changes noted. The visualized lower abdominal aorta and its branches show atherosclerotic changes with calcified plaques.There is no evidence of joint effusion.Bilateral sacroiliac joints appear normal.No evidence of obvious fracture noted at present examination.No lytic or sclerotic bone lesions.The visualized pelvic viscera appear normal. 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 (12/21/2022 00:24:00 VEHICLE OPERATOR)
== END 2022-12-21 03:30 | disposition short-term general hospital (02) ==
LOC: ED 21:05
DX: N49.3 Fournier gangrene (principal); M79.652 Pain in left thigh; R10.2 Pelvic and perineal pain; J96.10 Chronic respiratory failure, unspecified whether with hypoxia or hypercapnia; I11.0 Hypertensive heart disease with heart failure; I50.9 Heart failure, unspecified; E78.5 Hyperlipidemia, unspecified; E11.42 Type 2 diabetes mellitus with diabetic polyneuropathy; Z79.02 Long term (current) use of antithrombotics/antiplatelets; Z79.84 Long term (current) use of oral hypoglycemic drugs; Z79.4 Long term (current) use of insulin; Z79.899 Other long term (current) drug therapy; Z99.81 Dependence on supplemental oxygen
CPT/HCPCS: 36000; 36415; 72193; 80053; 83605; 85025; 87040; 96365; 96367; 96374; 96375; 99285; J2270; J2405; J3370

== ENCOUNTER 2023-02-20 18:55 | Emergency (ER) | payer MEDICARE ==
[2023-02-20 19:11] VITALS: TEMP 98.3
[2023-02-20 20:12] LABS: Absolute Neutrophil Ct (ANC) 5.94 x10^3/uL (1.4-6.9); BASOPHIL % 0.4 % (0.0-0.4); Basophil (Absolute #) 0.03 x10^3/uL (0-0.4); Eosinophil % 1.8 % (0.00-5.0); Eosinophil (Absolute #) 0.13 x10^3/uL (0-0.5); Hematocrit 48.6 % (42-50); Hemoglobin 14.2 g/dL (12.5-18.0); IMMATURE GRAN # 0.02 x10^3u/L (0.00-0.03); IMMATURE GRAN % 0.3 % (0.00-0.4); Lymphocyte (Absolute #) 0.72 x10^3/uL (1.0-4.6); Lymphocytes % 10.2 % (24.0-44.0); Mean Cell Volume 93.8 fL (78-100); Mean Corpuscular Hemoglobin 27.4 pg (26-32); Mean Corpuscular Hgb Concent. 29.2 g/dL (32-36); Mean Platelet Volume 10.6 fL (7.5-11.0); Monocyte (Absolute #) 0.24 x10^3/uL (0.0-1.3); Monocytes % 3.4 % (0.0-12.0); Neutrophil % 83.9 % (36.0-66.0); Platelet Count 130 x10^3/uL (150-450); Red Blood Count 5.18 x10^6/uL (4.1-5.6); Red Cell Distribution Width 14.6 % (11.5-14.0); White Blood Count 7.1 x10^3/uL (4.0-10.5)
[2023-02-20 20:26] LABS: Appearance Clear (Clear); Bacteria None Seen /HPF (None Seen); Bilirubin Negative (Negative); Blood Negative (Negative); Epithelial Cells None Seen /HPF (None Seen); Glucose, Urine >=1000 mg/dL (Negative); Hyaline Casts NONE SEEN /LPF (0-2); Ketones Negative (Negative); Leukocyte Esterase Negative (Negative); Nitrite Negative (Negative); Protein,Urine Dip Negative (Negative); RBC 0-2 /HPF (0-5); Specific Gravity >=1.030 (1.005-1.030); Urobilinogen 0.2 mg/dL (0.2); WBC 0-2 /HPF (0-5)
[2023-02-20 20:30] LABS: INR 0.94 (0.8-3.0); PROTIME 10.3 SECONDS (9.4-12.5); PTT 22.5 SECONDS (25.1-36.5)
[2023-02-20 20:34] LABS: ALBUMIN 3.8 g/dL (3.5-5.0); ALKALINE PHOSPHATASE 125 U/L (38-126); BLOOD UREA NITROGEN 29 mg/dL (9-20); CHLORIDE 101 mmol/L (98-107); Calcium 8.7 mg/dL (8.4-10.2); Carbon Dioxide 35 mmol/L (22-30); EST GLOMERULAR FILTRATION RATE > 60.0 ML/MIN; Glucose 205 mg/dL (74-106); NT PRO BNPII 20.6 pg/mL (<300); Potassium 4.5 mmol/L (3.5-5.1); SGOT/AST 22 U/L (17-59); SGPT/ALT 29 U/L (0-50); SODIUM 143 mmol/L (137-145)
[2023-02-20 20:47] LABS: INFLUENZA A NEGATIVE (NEGATIVE); INFLUENZA B NEGATIVE (NEGATIVE); RESPIRATORY SYNCTIAL VIRUS NEGATIVE (NEGATIVE); SARS-CoV-2 Xpert Express NEGATIVE (NEGATIVE)
[2023-02-20 20:52] LABS: ADD URINE CULTURE? NO (NO)
--- NOTE | 2023-02-20 21:09 | ERPHSYRPT ---
- History of Present Illness Source: patient, family, EMS Exam Limitations: other (Poor historian) Patient Subjective Stated Complaint: C/O SOB. Patient hasn't been feeling well for a few days. States he has fallen at home as well in the past few days. Patient denies any pain. Triage Nursing Assessment: Patient arrived by ambulance. He is SOB. He arrived wearing 02 @ 4L per N/C; patient wears this continuously at home. No cough present. Lung bases diminshed. Face is flushed. BLE discolored and scaly. Several abrasions noted to forehead. He is alert at this time but EMS report some confusion. An odor of urine is present. Physician History: 67 yo WM w multiple medical problems, including DM/HTN/CAD w stents/cellulitis/1ppd smoker until 2017/4L O2 dependent presents per EMS w progressive dyspnea and confusion today. Pt has a chronic cough which has not worsened. He denies fever/N/V/D/melena/hematochezia/chest pain. History assisted by sister. Timing/Duration: today Severity: moderate Modifying Factors: Improves With: nothing Associated Symptoms: weakness Allergies/Adverse Reactions: naproxen [From Aleve] Adverse Reaction (Severe, Verified 02/20/23 19:00) Tightness in Chest Home Medications: Gabapentin [Neurontin ] 600 mg PO TID 07/27/12 [History] Nitroglycerin [Nitroquick] 0.4 mg SL Q5MIN PRN MR X 3 PRN 07/27/12 [History] Potassium Chloride [Klor-Con 10] 10 meq PO BID 07/27/12 [History] Albuterol 2.5 mg/3 ml Neb [Proventil 2.5 mg/3 ml Neb] 1 amp IH Q2H/PRN PRN 09/04/13 [History] Allopurinol 100 mg [Zyloprim 100 mg] 100 mg PO DAILY 09/29/22 [History] Aspirin EC 81 mg [Ecotrin 81 mg] 81 mg PO DAILY 09/29/22 [History] Clopidogrel Bisulfate [Clopidogrel] 75 mg PO DAILY 09/29/22 [History] Empagliflozin [Jardiance] 25 mg PO DAILY 09/29/22 [History] Fluticasone Propionate [Flonase Allergy Relief] 1 spray IH DAILY 09/29/22 [History] Insulin Degludec [Tresiba Flextouch U-200] 140 unit SQ DAILY 09/29/22 [History] Losartan Potassium [Cozaar] 25 mg PO DAILY 09/29/22 [History] OXcarbazepine [Trileptal] 600 mg PO BID 09/29/22 [History] Semaglutide [Ozempic] 2 mg SQ WEEKLY 09/29/22 [History] carBAMazepine [Carbamazepine ER] 200 mg PO QHS 09/29/22 [History] Bumetanide 1 mg [Bumex 1 mg] 1 mg PO DAILY 11/16/22 [History] Carvedilol 3.125 mg [Coreg 3.125 MG] 6.25 mg PO BID 11/16/22 [History] Ergocalciferol (Vitamin D2) [Vitamin D2] 1,250 mcg PO WEEKLY 11/16/22 [History] Insulin Lispro [Admelog] 0 unit SQ UD 11/16/22 [History] Hx Tetanus, Diphtheria Vaccination/Date Given: Yes Hx Influenza Vaccination/Date Given: Yes Hx Pneumococcal Vaccination/Date Given: Yes Immunizations Up to Date: Yes Travel Risk - International Travel Have you traveled outside of the country in past 3 weeks: No - Coronavirus Screening Are you exhibiting any of the following symptoms?: Yes Symptoms: Shortness of Breath Close contact with a COVID-19 positive Pt in past 14-21 Days: No - Vaccine Status Have you recieved a Covid-19 vaccination: Yes Gold Buyer: Unknown - Vaccination Dates Date of 2cond Vaccination (if applicable): UNKNOWN Dates if Unknown: UNKNOWN - Review of Systems Constitutional: No Symptoms, Lethargy, Malaise Eyes: No Symptoms Ears, Nose, & Throat: No Symptoms Respiratory: No Symptoms, Dyspnea Cardiac: No Symptoms Abdominal/Gastrointestinal: No Symptoms Genitourinary Symptoms: No Symptoms Musculoskeletal: No Symptoms Skin: No Symptoms Neurological: No Focal Weakness Psychological: No Symptoms Endocrine: No Symptoms Hematologic/Lymphatic: No Symptoms Immunological/Allergic: No Symptoms - Past Medical History Pertinent Past Medical History: Yes Neurological History: Peripheral Neuropathy ENT History: Other Cardiac History: Congestive Heart Failure, Coronary Artery Disease, High Cholesterol, Hypertension, Other Respiratory History: COPD Endocrine Medical History: Diabetes Type II Musculoskeletal History: Osteoarthritis GI Medical History: Gallbladder Disease History: No Pertinent History Psycho-Social History: No Pertinent History Male Reproductive Disorders: No Pertinent History Other Medical History: Gout, cellulitis - Past Surgical History Past Surgical History: Yes Neuro Surgical History: No Pertinent History Cardiac: Cardiac Catheterization, Cardiac Stent Respiratory: No Pertinent History Gastrointestinal: Cholecystectomy Genitourinary: No Pertinent History Musculoskeletal: Orthopedic Surgery Male Surgical History: No Pertinent History Other Surgical History: Left shoulder, Left knee X3, Right leg, Right hand/arm, Right shoulder - Social History Smoking Status: Former smoker How long have you smoked: 40 years Exposure to second hand smoke: No Drug Use: none Patient Lives Alone: Yes - Nursing Vital Signs Nursing Vital Signs: Initial Vital Signs Temperature 98.3 F 02/20/23 19:01 Pulse Rate 88 02/20/23 19:01 Respiratory Rate 30 H 02/20/23 19:01 Blood Pressure 116/53 02/20/23 19:01 O2 Sat by Pulse Oximetry 94 L 02/20/23 19:01 Pain Scale Pain Intensity 0 Tachypneic - Physical Exam General Appearance: mild distress Eye Exam: PERRL/EOMI, eyes nml inspection Ears, Nose, Throat Exam: normal ENT inspection, TMs normal, pharynx normal, moist mucous membranes Neck Exam: normal inspection, non-tender, supple, full range of motion, No Brudzinski, No Kernig's Respiratory Exam: crackles/rales (Rales B bases) Cardiovascular Exam: regular rate/rhythm, normal heart sounds, capillary refill <2 sec, No murmur Gastrointestinal/Abdomen Exam: soft, normal bowel sounds, No tenderness Back Exam: normal inspection, normal range of motion, No CVA tenderness, No vertebral tenderness Extremity Exam: pedal edema (2+ pre-tibial edema w chronic venous stasis changes) Neurologic Exam: alert, cooperative, 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 II-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 nml as tested, No oriented x 3 (Disoriented to time) Skin Exam: normal color, warm, dry Lymphatic Exam: No adenopathy SpO2 Interpretation: borderline oxygenation SpO2: 92 O2 Delivery: Nasal Cannula - Course Nursing assessment & vital signs reviewed: Yes EKG Interpreted by Me: RATE (Sinus get/Rate 62/Normal QT-QTc/RBBB/No acute ST segment changes) - Radiology Exams Chest X-ray Interpretation: Interpreted by me (Cardiomegaly w central vascular congestion) - CT Exams Head CT Interpretation: Tele-radiologist Report (NAD) Chest CT Interpretation: Tele-radiologist Report (NAD/3mm nodule ELODIA/cardiomegaly) Ordered Tests: Active Orders 24 hr Category Date Time Status EKG-ER Only STAT Care 02/20/23 21:23 Completed CHEST 1 VIEW (PORTABLE) Stat Exams 02/20/23 19:06 Taken CHEST WITHOUT CONTRAST [CT] Stat Exams 02/20/23 21:51 Completed HEAD WITHOUT CONTRAST [CT] Stat Exams 02/20/23 21:12 Completed CBC W DIFF Stat Lab 02/20/23 20:00 Completed CMP Stat Lab 02/20/23 20:00 Completed D-DIMER QUANTITATIVE Stat Lab 02/20/23 21:13 Completed Lactic Acid Stat Lab 02/20/23 19:54 Completed NT PRO BNPII Stat Lab 02/20/23 20:00 Completed PROTIME WITH INR Stat Lab 02/20/23 20:00 Completed PTT Stat Lab 02/20/23 20:00 Completed TROPONIN Q4H Lab 02/20/23 20:00 Completed TROPONIN Q4H Lab 02/20/23 23:00 Completed UA W/RFX UR CULTURE Stat Lab 02/20/23 19:36 Completed Respiratory Therapy Assessment DAILY RT 02/20/23 22:42 Completed Medication Summary Discontinued Medications Generic Name Dose Route Start Last Admin Trade Name Freq PRN Reason Stop Dose Admin Albuterol/Ipratropium Confirm 02/20/23 21:48 Ipratropium/Albuterol Sulfate 3 Ml Ampul.Neb Administered 02/20/23 21:49 Dose 3 ml IH .STK-MED ONE Albuterol/Ipratropium 3 ml 02/20/23 21:45 02/20/23 21:50 Ipratropium/Albuterol Sulfate 3 Ml Ampul.Neb IH 02/20/23 21:46 3 ml STAT ONE Administration Furosemide 40 mg 02/20/23 23:42 02/20/23 23:48 Furosemide 40 Mg Tablet PO 02/20/23 23:43 40 mg STAT ONE Administration Lab/Rad Data: Laboratory Result Diagrams 02/20/23 20:00 02/20/23 20:00 Laboratory Results 02/20/23 02/20/23 02/20/23 Range/Units 23:00 21:13 20:00 WBC (4.0-10.5) x10^3/uL RBC (4.1-5.6) x10^6/uL Hgb (12.5-18.0) g/dL Hct (42-50) % MCV (78-100) fL MCH (26-32) pg MCHC (32-36) g/dL RDW (11.5-14.0) % Plt Count (150-450) x10^3/uL MPV (7.5-11.0) fL Gran % (36.0-66.0) % Immature Gran % (Auto) (0.00-0.4) % Nucleat RBC Rel Count (0.00-0.1) % Eos # (Auto) (0-0.5) x10^3/uL Immature Gran # (Auto) (0.00-0.03) x10^3u/L Absolute Lymphs (auto) (1.0-4.6) x10^3/uL Absolute Monos (auto) (0.0-1.3) x10^3/uL Absolute Nucleated RBC (0.00-0.01) x10^3u/L Lymphocytes % (24.0-44.0) % Monocytes % (0.0-12.0) % Eosinophils % (0.00-5.0) % Basophils % (0.0-0.4) % Absolute Granulocytes (1.4-6.9) x10^3/uL Basophils # (0-0.4) x10^3/uL PT (9.4-12.5) SECONDS INR (0.8-3.0) APTT (25.1-36.5) SECONDS D-Dimer 0.28 (0.0-0.50) mg/L Sodium (137-145) mmol/L Potassium (3.5-5.1) mmol/L Chloride (98-107) mmol/L Carbon Dioxide (22-30) mmol/L Anion Gap (5-15) MEQ/L BUN (9-20) mg/dL Creatinine (0.66-1.25) mg/dL Estimated GFR ML/MIN Glucose (74-106) mg/dL Lactic Acid (0.4-2.0) Calcium (8.4-10.2) mg/dL Total Bilirubin (0.2-1.3) mg/dL AST (17-59) U/L ALT (0-50) U/L Alkaline Phosphatase (38-126) U/L Troponin I < 0.012 (0.000-0.034) ng/mL NT-Pro-B Natriuret Pep (<300) pg/mL Serum Total Protein (6.3-8.2) g/dL Albumin (3.5-5.0) g/dL Urine Color (Yellow) Urine Appearance (Clear) Urine pH (4.6-8.0) Ur Specific Usk (1.005-1.030) Urine Protein (Negative) Urine Glucose (UA) (Negative) mg/dL Urine Ketones (Negative) Urine Blood (Negative) Urine Nitrite (Negative) Urine Bilirubin (Negative) Urine Urobilinogen (0.2) mg/dL Ur Leukocyte Esterase (Negative) U Hyaline Cast (Auto) (0-2) /LPF Urine Microscopic RBC (0-5) /HPF Urine Microscopic WBC (0-5) /HPF Ur Epithelial Cells (None Seen) /HPF Urine Bacteria (None Seen) /HPF Urine Culture Reflexed (NO) Influenza Type A Ag NEGATIVE (NEGATIVE) Influenza Type B Ag NEGATIVE (NEGATIVE) RSV (PCR) NEGATIVE (NEGATIVE) SARS-CoV-2 (PCR) NEGATIVE (NEGATIVE) 02/20/23 02/20/23 02/20/23 Range/Units 20:00 20:00 20:00 WBC (4.0-10.5) x10^3/uL RBC (4.1-5.6) x10^6/uL Hgb (12.5-18.0) g/dL Hct (42-50) % MCV (78-100) fL MCH (26-32) pg MCHC (32-36) g/dL RDW (11.5-14.0) % Plt Count (150-450) x10^3/uL MPV (7.5-11.0) fL Gran % (36.0-66.0) % Immature Gran % (Auto) (0.00-0.4) % Nucleat RBC Rel Count (0.00-0.1) % Eos # (Auto) (0-0.5) x10^3/uL Immature Gran # (Auto) (0.00-0.03) x10^3u/L Absolute Lymphs (auto) (1.0-4.6) x10^3/uL Absolute Monos (auto) (0.0-1.3) x10^3/uL Absolute Nucleated RBC (0.00-0.01) x10^3u/L Lymphocytes % (24.0-44.0) % Monocytes % (0.0-12.0) % Eosinophils % (0.00-5.0) % Basophils % (0.0-0.4) % Absolute Granulocytes (1.4-6.9) x10^3/uL Basophils # (0-0.4) x10^3/uL PT 10.3 (9.4-12.5) SECONDS INR 0.94 (0.8-3.0) APTT 22.5 L (25.1-36.5) SECONDS D-Dimer (0.0-0.50) mg/L Sodium 143 (137-145) mmol/L Potassium 4.5 (3.5-5.1) mmol/L Chloride 101 (98-107) mmol/L Carbon Dioxide 35 H (22-30) mmol/L Anion Gap 11.0 (5-15) MEQ/L BUN 29 H (9-20) mg/dL Creatinine 0.80 (0.66-1.25) mg/dL Estimated GFR > 60.0 ML/MIN Glucose 205 H (74-106) mg/dL Lactic Acid (0.4-2.0) Calcium 8.7 (8.4-10.2) mg/dL Total Bilirubin 0.30 (0.2-1.3) mg/dL AST 22 (17-59) U/L ALT 29 (0-50) U/L Alkaline Phosphatase 125 (38-126) U/L Troponin I < 0.012 (0.000-0.034) ng/mL NT-Pro-B Natriuret Pep 20.6 (<300) pg/mL Serum Total Protein 7.0 (6.3-8.2) g/dL Albumin 3.8 (3.5-5.0) g/dL Urine Color (Yellow) Urine Appearance (Clear) Urine pH (4.6-8.0) Ur Specific Usk (1.005-1.030) Urine Protein (Negative) Urine Glucose (UA) (Negative) mg/dL Urine Ketones (Negative) Urine Blood (Negative) Urine Nitrite (Negative) Urine Bilirubin (Negative) Urine Urobilinogen (0.2) mg/dL Ur Leukocyte Esterase (Negative) U Hyaline Cast (Auto) (0-2) /LPF Urine Microscopic RBC (0-5) /HPF Urine Microscopic WBC (0-5) /HPF Ur Epithelial Cells (None Seen) /HPF Urine Bacteria (None Seen) /HPF Urine Culture Reflexed (NO) Influenza Type A Ag (NEGATIVE) Influenza Type B Ag (NEGATIVE) RSV (PCR) (NEGATIVE) SARS-CoV-2 (PCR) (NEGATIVE) 02/20/23 02/20/23 02/20/23 Range/Units 20:00 19:54 19:36 WBC 7.1 (4.0-10.5) x10^3/uL RBC 5.18 (4.1-5.6) x10^6/uL Hgb 14.2 (12.5-18.0) g/dL Hct 48.6 (42-50) % MCV 93.8 (78-100) fL MCH 27.4 (26-32) pg MCHC 29.2 L (32-36) g/dL RDW 14.6 H (11.5-14.0) % Plt Count 130 L (150-450) x10^3/uL MPV 10.6 (7.5-11.0) fL Gran % 83.9 H (36.0-66.0) % Immature Gran % (Auto) 0.3 (0.00-0.4) % Nucleat RBC Rel Count 0.0 (0.00-0.1) % Eos # (Auto) 0.13 (0-0.5) x10^3/uL Immature Gran # (Auto) 0.02 (0.00-0.03) x10^3u/L Absolute Lymphs (auto) 0.72 L (1.0-4.6) x10^3/uL Absolute Monos (auto) 0.24 (0.0-1.3) x10^3/uL Absolute Nucleated RBC 0.00 (0.00-0.01) x10^3u/L Lymphocytes % 10.2 L (24.0-44.0) % Monocytes % 3.4 (0.0-12.0) % Eosinophils % 1.8 (0.00-5.0) % Basophils % 0.4 (0.0-0.4) % Absolute Granulocytes 5.94 (1.4-6.9) x10^3/uL Basophils # 0.03 (0-0.4) x10^3/uL PT (9.4-12.5) SECONDS INR (0.8-3.0) APTT (25.1-36.5) SECONDS D-Dimer (0.0-0.50) mg/L Sodium (137-145) mmol/L Potassium (3.5-5.1) mmol/L Chloride (98-107) mmol/L Carbon Dioxide (22-30) mmol/L Anion Gap (5-15) MEQ/L BUN (9-20) mg/dL Creatinine (0.66-1.25) mg/dL Estimated GFR ML/MIN Glucose (74-106) mg/dL Lactic Acid 1.5 (0.4-2.0) Calcium (8.4-10.2) mg/dL Total Bilirubin (0.2-1.3) mg/dL AST (17-59) U/L ALT (0-50) U/L Alkaline Phosphatase (38-126) U/L Troponin I (0.000-0.034) ng/mL NT-Pro-B Natriuret Pep (<300) pg/mL Serum Total Protein (6.3-8.2) g/dL Albumin (3.5-5.0) g/dL Urine Color Yellow (Yellow) Urine Appearance Clear (Clear) Urine pH 5.0 (4.6-8.0) Ur Specific Usk >=1.030 A (1.005-1.030) Urine Protein Negative (Negative) Urine Glucose (UA) >=1000 A (Negative) mg/dL Urine Ketones Negative (Negative) Urine Blood Negative (Negative) Urine Nitrite Negative (Negative) Urine Bilirubin Negative (Negative) Urine Urobilinogen 0.2 (0.2) mg/dL Ur Leukocyte Esterase Negative (Negative) U Hyaline Cast (Auto) NONE SEEN (0-2) /LPF Urine Microscopic RBC 0-2 (0-5) /HPF Urine Microscopic WBC 0-2 (0-5) /HPF Ur Epithelial Cells None Seen (None Seen) /HPF Urine Bacteria None Seen (None Seen) /HPF Urine Culture Reflexed NO (NO) Influenza Type A Ag (NEGATIVE) Influenza Type B Ag (NEGATIVE) RSV (PCR) (NEGATIVE) SARS-CoV-2 (PCR) (NEGATIVE) - Progress Progress: improved Progress Note: 02/20/23 23:44 Nursing note and vital signs reviewed No food or housing insecurities noted Additional history per sister/EMS All lab results reviewed and shared w pt/sister CT results reviewed and shared w pt/sister Pt wo evidence of [place]/pneumonia/PE/CV19. His symptoms are more likely chronic due to COPD/CHF/obesity wo acute exacerbation 40mg po Lasix before discharge Counseled pt/family regarding: lab results, diagnosis, need for follow-up, rad results Medical Desision Making - Independent Historian Additional History obtained from: Family - Diagnostic Testing Diagnostic test were ordered, analyzed, and reviewed by me: Yes Radiological Interpretation: Reviewed by me, Teleradiologist Report - Risk of complications The pt has a mod risk of morbidity or mortality based on: Need for prescription drug management - Departure Departure Disposition: Home Clinical Impression: Obstructive sleep apnea, Dyspnea, Congestive heart failure (CHF) Condition: Stable Critical Care Time: No Referrals: AUSTIN PIMENTEL MD [Primary Care Provider] - Follow up/PCP as directed Instructions: Shortness of Breath (Dyspnea) (DC), Heart Failure Additional Instructions: Follow up with Dr. Pimentel in the morning Continue w home pain meds Return to ER for chest pain, increasing shortness of breath, or temperature greater than 100.5
[2023-02-20] MEDS ORDERED: DUONEB 0.5-3 MG/3 ml Neb IH ONE ×2 (21:45→21:48)
[2023-02-20 23:10] VITALS: O2SAT 92
--- NOTE | 2023-02-20 23:19 | XRAY ---
CLINICAL HISTORY:dyspnea COMPARISON:None. TECHNIQUE:Contiguous 3.[address] images of the chest were acquired without administration of intravenous contrast. Coronal and sagittal reconstructions were obtained. FINDINGS: A small 3 mm solid nodule was noted in apicoposterior segment of the left upper lobe. A 6 X 5 mm calcified nodule is seen in the superior segment of the left lower lobe. Few fibroatelectatic bands are seen in the left lingula and both lower lobes. No free or encysted pleural effusion. Heart size is borderline enlarged, and there is no pericardial effusion. A few sub-centimetric calcified mediastinal nodes were identified. The thoracic spine shows degenerative changes. There is no definite mass lesion in the chest wall. The scanned upper abdomen shows splenomegaly, with the spleen measuring 14 cm. Hepatomegaly with a span visualized exceeding 16 cm. Multiple millimetric hypodense nodules are seen scattered in both hepatic lobes with the largest at segment Lisseth measuring 8 mm. IMPRESSION: 1. A small 3 mm solid nodule in apicoposterior segment of the left upper lobe. A 6 X 5 mm calcified nodule in the superior segment of the left lower lobe. No follow up required. 2. Few fibroatelectatic bands in the left lingula and both lower lobes. 3. Mild cardiomegaly suggested echocardiographic correlation 4. Mild splenomegaly. 5. Hepatomegaly with millimetric nodules for ultrasound correlation or further triphasic CT assessment if clinically warranted. Electronically Signed by: Greg Morales MD. (02/20/2023 22:16:52 BOILER FITTER)
--- NOTE | 2023-02-20 23:25 | XRAY ---
CLINICAL HISTORY:Altered LOC COMPARISON:None. TECHNIQUE:An axial non-contrast CT scan of the brain was performed from the skull base to the high parietal region. FINDINGS: The visualized brain parenchyma shows a normal appearance. No focal parenchymal abnormalities are demonstrated. Sainz-white matter differentiation is maintained. No midline shifts or deformity. No intracerebral or extra axial hematoma. Normal size and configuration of the cerebral ventricles. Normal CT appearance of the posterior fossa structures namely the cerebellar hemispheres, brainstem, and cerebellar peduncles. The IACs are unremarkable. The cerebello-pontine angles are clear. The pituitary gland, the pineal gland, and the optic chiasm are unremarkable. The osseous structures in the skull base are unremarkable. No definite calvarium fractures. Scanned paranasal sinuses are clear. IMPRESSION: Non-enhanced CT study for the brain is unremarkable. Electronically Signed by: Greg Morales MD. (02/20/2023 22:23:23 INTERNAL SPECIALIST)
[2023-02-20 23:41] VITALS: BP 117/90; PULSE 78; RESP 20
[2023-02-20] MEDS ORDERED: Lasix 40 MG PO ONE (23:42)
--- NOTE | 2023-02-21 08:35 | XRAY ---
Indication: Dyspnea. Comparison: November 17, 2022 Portable chest again demonstrates minimal bibasilar subsegmental atelectasis/scarring and left mid lung calcified granuloma. Remaining heart and lungs unremarkable. Bony thorax intact again with osteopenia and mild degenerative changes. Impression: Continued nonacute chest with chronic features.
== END 2023-02-20 23:52 | disposition home or self-care (01) ==
LOC: ED 18:55
DX: G47.33 Obstructive sleep apnea (adult) (pediatric) (principal); R06.00 Dyspnea, unspecified; I11.0 Hypertensive heart disease with heart failure; I50.9 Heart failure, unspecified; R41.0 Disorientation, unspecified; E11.42 Type 2 diabetes mellitus with diabetic polyneuropathy; I25.10 Atherosclerotic heart disease of native coronary artery without angina pectoris; E78.5 Hyperlipidemia, unspecified; Z79.02 Long term (current) use of antithrombotics/antiplatelets; Z79.84 Long term (current) use of oral hypoglycemic drugs; Z79.85 Long-term (current) use of injectable non-insulin antidiabetic drugs; Z79.899 Other long term (current) drug therapy; Z99.81 Dependence on supplemental oxygen; Z20.828 Contact with and (suspected) exposure to other viral communicable diseases
CPT/HCPCS: 0241U; 36415; 70450; 71045; 71250; 80053; 81001; 83605; 83880; 84484; 85025; 85379; 85610; 85730; 93005; 94640; 99284; A9270-GY

== ENCOUNTER 2023-03-29 12:18 | Emergency (ER) | payer MEDICARE ==
--- NOTE | 2023-03-29 12:35 | ERPHSYRPT ---
- History of Present Illness Time Seen by Provider: 03/29/23 12:34 Source: patient, family Exam Limitations: no limitations Physician History: This is a 67-year-old white male patient of primary care provider Dr. PIMENTEL and has also been evaluated and treated by Dr. Crowder (keg varnisher). Patient has a history of recurrent cellulitis and presented to his primary care provider's office today with significant bilateral lower extremity cellulitis. His cellulitis has worsened over the last 2 weeks. His primary care provider sent the patient to the emergency department for evaluation treatment and possible admission in the hospital if indicated. 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 Patient denies chest pain. Patient denies increased in his usual shortness of breath. Method of Injury: other (No injury) Severity of Pain-Max: mild Severity of Pain-Current: mild Lower Extremities Pain: leg: right (Bilateral lower extremity below the knee cellulitis with) Modifying Factors: Improves With: nothing Associated Symptoms: none Allergies/Adverse Reactions: naproxen [From Aleve] Adverse Reaction (Severe, Verified 02/20/23 19:00) Tightness in Chest Home Medications: Gabapentin [Neurontin ] 600 mg PO TID 07/27/12 [History] Nitroglycerin [Nitroquick] 0.4 mg SL Q5MIN PRN MR X 3 PRN 07/27/12 [History] Potassium Chloride [Klor-Con 10] 10 meq PO BID 07/27/12 [History] Albuterol 2.5 mg/3 ml Neb [Proventil 2.5 mg/3 ml Neb] 1 amp IH Q2H/PRN PRN 09/04/13 [History] Allopurinol 100 mg [Zyloprim 100 mg] 100 mg PO DAILY 09/29/22 [History] Aspirin EC 81 mg [Ecotrin 81 mg] 81 mg PO DAILY 09/29/22 [History] Clopidogrel Bisulfate [Clopidogrel] 75 mg PO DAILY 09/29/22 [History] Empagliflozin [Jardiance] 25 mg PO DAILY 09/29/22 [History] Fluticasone Propionate [Flonase Allergy Relief] 1 spray IH DAILY 09/29/22 [History] Insulin Degludec [Tresiba Flextouch U-200] 140 unit SQ DAILY 09/29/22 [History] Losartan Potassium [Cozaar] 25 mg PO DAILY 09/29/22 [History] OXcarbazepine [Trileptal] 600 mg PO BID 09/29/22 [History] Semaglutide [Ozempic] 2 mg SQ WEEKLY 09/29/22 [History] carBAMazepine [Carbamazepine ER] 200 mg PO QHS 09/29/22 [History] Bumetanide 1 mg [Bumex 1 mg] 1 mg PO DAILY 11/16/22 [History] Carvedilol 3.125 mg [Coreg 3.125 MG] 6.25 mg PO BID 11/16/22 [History] Ergocalciferol (Vitamin D2) [Vitamin D2] 1,250 mcg PO WEEKLY 11/16/22 [History] Insulin Lispro [Admelog] 0 unit SQ UD 11/16/22 [History] Hx Tetanus, Diphtheria Vaccination/Date Given: Yes Hx Influenza Vaccination/Date Given: Yes Hx Pneumococcal Vaccination/Date Given: Yes Travel Risk - International Travel Have you traveled outside of the country in past 3 weeks: No - Coronavirus Screening Are you exhibiting any of the following symptoms?: No Close contact with a COVID-19 positive Pt in past 14-21 Days: No - Vaccine Status Have you recieved a Covid-19 vaccination: Yes 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 - Vaccination Dates Date of 2cond Vaccination (if applicable): UNKNOWN Dates if Unknown: UNKNOWN - Review of Systems Constitutional: No Symptoms Eyes: No Symptoms Ears, Nose, & Throat: No Symptoms Respiratory: No Symptoms Cardiac: No Symptoms Abdominal/Gastrointestinal: No Symptoms Genitourinary Symptoms: No Symptoms Musculoskeletal: Other (Bilateral, below the knee cellulitis without) Skin: Cellulitis ( acute injury or trauma) Neurological: No Symptoms ( bilateral lower extremity below the knee) Psychological: No Symptoms Endocrine: No Symptoms Hematologic/Lymphatic: No Symptoms Immunological/Allergic: No Symptoms All Other Systems: Reviewed and Negative - Past Medical History Pertinent Past Medical History: Yes Neurological History: Peripheral Neuropathy ENT History: Other Cardiac History: Congestive Heart Failure, Coronary Artery Disease, High Cholesterol, Hypertension, Other Respiratory History: COPD Endocrine Medical History: Diabetes Type II Musculoskeletal History: Osteoarthritis GI Medical History: Gallbladder Disease History: No Pertinent History Psycho-Social History: No Pertinent History Male Reproductive Disorders: No Pertinent History Other Medical History: Gout, cellulitis - Past Surgical History Past Surgical History: Yes Neuro Surgical History: No Pertinent History Cardiac: Cardiac Catheterization, Cardiac Stent Respiratory: No Pertinent History Gastrointestinal: Cholecystectomy Genitourinary: No Pertinent History Musculoskeletal: Orthopedic Surgery Male Surgical History: No Pertinent History Other Surgical History: Left shoulder, Left knee X3, Right leg, Right hand/arm, Right shoulder - Social History Smoking Status: Former smoker How long have you smoked: 40 years Exposure to second hand smoke: No Drug Use: none Patient Lives Alone: Yes - Nursing Vital Signs Nursing Vital Signs: Initial Vital Signs Temperature 97.6 F 03/29/23 12:19 Pulse Rate 76 03/29/23 12:19 Respiratory Rate 22 03/29/23 12:19 Blood Pressure 117/57 03/29/23 12:19 O2 Sat by Pulse Oximetry 97 03/29/23 12:19 Pain Scale Pain Intensity 0 - Physical Exam General Appearance: no apparent distress, alert, obese Eyes, Ears, Nose, Throat Exam: normal ENT inspection, moist mucous membranes Neck Exam: normal inspection, non-tender, supple, full range of motion Cardiovascular/Respiratory Exam: chest non-tender, no respiratory distress Gastrointestinal/Abdominal Exam: non-tender Back Exam: normal inspection, normal range of motion, No CVA tenderness, No vertebral tenderness Hips Exam: bilateral: non-tender, normal inspection, normal range of motion, no evidence of injury Legs Exam: right leg: other (Cellulitis below the knee. Bandages bilateral lower extremities), bilateral leg: no evidence of injury, soft tissue tenderness (Mild below the knee), swelling (Below the knee) Knees Exam: bilateral knee: non-tender, normal inspection, normal range of motion, no evidence of injury Ankle Exam: bilateral ankle: non-tender, normal range of motion, no evidence of injury, swelling Foot Exam: bilateral foot: non-tender, normal range of motion, no evidence of injury, swelling Neuro/Tendon Exam: normal sensation, normal motor functions, normal tendon functions, no evidence tendon injury Mental Status Exam: alert, oriented x 3, cooperative Skin Exam: other (Cellulitis as described above) SpO2 Interpretation: normal O2 Delivery: Room Air - Course Nursing assessment & vital signs reviewed: Yes Ordered Tests: Active Orders 24 hr Category Date Time Status IV Insertion STAT Care 03/29/23 12:34 Active CHEST 1 VIEW (PORTABLE) Stat Exams 03/29/23 13:34 Completed BLOOD CULTURE Stat Lab 03/29/23 13:08 Received CBC W DIFF Stat Lab 03/29/23 12:55 Completed CMP Stat Lab 03/29/23 12:55 Completed Lactic Acid Stat Lab 03/29/23 12:34 Completed NT PRO BNPII Stat Lab 03/29/23 12:55 Completed TROPONIN Q4H Lab 03/29/23 12:55 Completed TROPONIN Q4H Lab 03/29/23 17:45 Ordered TROPONIN Q4H Lab 03/29/23 21:45 Ordered Medication Summary Generic Name Dose Route Start Last Admin Trade Name Freq PRN Reason Stop Dose Admin Sodium Chloride 1,000 mls @ 50 mls/hr 03/29/23 12:45 03/29/23 13:19 Sodium Chloride 0.9% 1000 Ml IV 04/28/23 12:44 50 mls/hr .Q20H ALINA Administration Discontinued Medications Generic Name Dose Route Start Last Admin Trade Name Freq PRN Reason Stop Dose Admin Levofloxacin/Dextrose 500 mg in 100 mls @ 100 mls/hr 03/29/23 14:17 03/29/23 14:24 Levofloxacin 500mg/100ml D5w IV 03/29/23 15:16 100 ml/hr STAT STA 100 mls/hr Administration Levofloxacin/Dextrose Confirm 03/29/23 14:20 Levofloxacin 500mg/100ml D5w Administered 03/29/23 14:21 Dose 500 mg in 100 mls @ ud IV .[facility] Lab/Rad Data: Laboratory Result Diagrams 03/29/23 12:55 03/29/23 12:55 Laboratory Results 03/29/23 03/29/23 03/29/23 Range/Units 12:55 12:55 12:55 WBC 6.1 (4.0-10.5) x10^3/uL RBC 4.90 (4.1-5.6) x10^6/uL Hgb 13.7 (12.5-18.0) g/dL Hct 46.1 (42-50) % MCV 94.1 (78-100) fL MCH 28.0 (26-32) pg MCHC 29.7 L (32-36) g/dL RDW 14.7 H (11.5-14.0) % Plt Count 113 L (150-450) x10^3/uL MPV 10.3 (7.5-11.0) fL Gran % 78.5 H (36.0-66.0) % Immature Gran % (Auto) 0.3 (0.00-0.4) % Nucleat RBC Rel Count 0.0 (0.00-0.1) % Eos # (Auto) 0.06 (0-0.5) x10^3/uL Immature Gran # (Auto) 0.02 (0.00-0.03) x10^3u/L Absolute Lymphs (auto) 0.84 L (1.0-4.6) x10^3/uL Absolute Monos (auto) 0.38 (0.0-1.3) x10^3/uL Absolute Nucleated RBC 0.00 (0.00-0.01) x10^3u/L Lymphocytes % 13.7 L (24.0-44.0) % Monocytes % 6.2 (0.0-12.0) % Eosinophils % 1.0 (0.00-5.0) % Basophils % 0.3 (0.0-0.4) % Absolute Granulocytes 4.82 (1.4-6.9) x10^3/uL Basophils # 0.02 (0-0.4) x10^3/uL Sodium 144 (137-145) mmol/L Potassium 4.3 (3.5-5.1) mmol/L Chloride 95 L (98-107) mmol/L Carbon Dioxide 40 H (22-30) mmol/L Anion Gap 13.3 (5-15) MEQ/L BUN 25 H (9-20) mg/dL Creatinine 0.73 (0.66-1.25) mg/dL Estimated GFR > 60.0 ML/MIN Glucose 298 H (74-106) mg/dL Lactic Acid (0.4-2.0) Calcium 8.6 (8.4-10.2) mg/dL Total Bilirubin 0.40 (0.2-1.3) mg/dL AST 17 (17-59) U/L ALT 22 (0-50) U/L Alkaline Phosphatase 111 (38-126) U/L Troponin I < 0.012 (0.000-0.034) ng/mL NT-Pro-B Natriuret Pep 24.4 (<300) pg/mL Serum Total Protein 6.7 (6.3-8.2) g/dL Albumin 3.8 (3.5-5.0) g/dL Slides for Path Review YES 03/29/23 Range/Units 12:34 WBC (4.0-10.5) x10^3/uL RBC (4.1-5.6) x10^6/uL Hgb (12.5-18.0) g/dL Hct (42-50) % MCV (78-100) fL MCH (26-32) pg MCHC (32-36) g/dL RDW (11.5-14.0) % Plt Count (150-450) x10^3/uL MPV (7.5-11.0) fL Gran % (36.0-66.0) % Immature Gran % (Auto) (0.00-0.4) % Nucleat RBC Rel Count (0.00-0.1) % Eos # (Auto) (0-0.5) x10^3/uL Immature Gran # (Auto) (0.00-0.03) x10^3u/L Absolute Lymphs (auto) (1.0-4.6) x10^3/uL Absolute Monos (auto) (0.0-1.3) x10^3/uL Absolute Nucleated RBC (0.00-0.01) x10^3u/L Lymphocytes % (24.0-44.0) % Monocytes % (0.0-12.0) % Eosinophils % (0.00-5.0) % Basophils % (0.0-0.4) % Absolute Granulocytes (1.4-6.9) x10^3/uL Basophils # (0-0.4) x10^3/uL Sodium (137-145) mmol/L Potassium (3.5-5.1) mmol/L Chloride (98-107) mmol/L Carbon Dioxide (22-30) mmol/L Anion Gap (5-15) MEQ/L BUN (9-20) mg/dL Creatinine (0.66-1.25) mg/dL Estimated GFR ML/MIN Glucose (74-106) mg/dL Lactic Acid 1.5 (0.4-2.0) Calcium (8.4-10.2) mg/dL Total Bilirubin (0.2-1.3) mg/dL AST (17-59) U/L ALT (0-50) U/L Alkaline Phosphatase (38-126) U/L Troponin I (0.000-0.034) ng/mL NT-Pro-B Natriuret Pep (<300) pg/mL Serum Total Protein (6.3-8.2) g/dL Albumin (3.5-5.0) g/dL Slides for Path Review - Progress Progress: unchanged Progress Note: 03/29/23 12:37 Patient's medical history is 1 of high complexity. The level of complexity in the work-up performed based on review of the patient's past medical history, review of the patient's medication list, review the patient's drug allergy list, history of present illness and physical findings on examination. This patien t's work-up includes placement of intravenous line, obtaining blood cultures, CBC, CMP, lactic acid level and infusion of low rate intravenous fluid. Twelve- lead EKG and BNP level 03/29/23 13:49 03/29/23 13:57 The chest x-ray was interpreted by the radiologist and I reviewed the impression. The impression states there is minimal bibasilar subsegmental atelectasis/scarring. No other acute cardiopulmonary process present 03/29/23 16:09 I had called the patient's primary care doctor, Dr. Pimentel, and we discussed this patient's work-up results. According to the primary care physician, it is been difficult to get the patient in to see Dr. Crowder, the keg varnisher. The primary care physician was hoping to admit this patient into our facility with cellulitis diagnosis, which the patient has, and then consult Dr. Crowder. However, I discussed this with the patient. Patient does not want to be admitted into the hospital. He wants to be treated as an outpatient. It certainly is not unreasonable for this patient, in this condition, at this time to be treated as an outpatient. Patient states that he has seen Dr. Crowder many times and he is happy with Dr. Crowder's care. I discussed with the patient about the need to follow-up and not miss appointments as the patient has when we contacted the medical office scheduler. The patient states that he will follow-up at the scheduled appointment date and time. I will discharge him to home with Levaquin 500 mg orally 1 time daily for 7 days and the patient will follow-up with Dr. Crowder. Counseled pt/family regarding: lab results, diagnosis, rad results Medical Desision Making - Independent Historian Additional History obtained from: Spouse - Diagnostic Testing Diagnostic test were ordered, analyzed, and reviewed by me: Yes Radiological Interpretation: Reviewed by me, Teleradiologist Report - Risk of complications The pt has a mod risk of morbidity or mortality based on: Need for prescription drug management - Departure Departure Disposition: Home Clinical Impression: Bilateral lower leg cellulitis Condition: Stable Critical Care Time: No Referrals: AUSTIN PIMENTEL MD [Primary Care Provider] - Follow up/PCP as directed Additional Instructions: Take your antibiotics and all your other medication as prescribed. Follow-up with Dr. Crowder, podiatry, at your scheduled appointment date and time. Prescriptions: Levofloxacin [Levaquin 500 MG Tablet] 500 mg PO DAILY #7 tablet
[2023-03-29 13:03] VITALS: TEMP 97.6
[2023-03-29] MEDS ORDERED: Sodium Chloride 0.9% 1000 ML 1,000 ML ONE (13:17)
[2023-03-29] MEDS: Sodium Chloride 0.9% 1000 ML 1,000 ML IV SCH (13:19)
[2023-03-29 13:25] LABS: Absolute Neutrophil Ct (ANC) 4.82 x10^3/uL (1.4-6.9); BASOPHIL % 0.3 % (0.0-0.4); Basophil (Absolute #) 0.02 x10^3/uL (0-0.4); Eosinophil (Absolute #) 0.06 x10^3/uL (0-0.5); Hematocrit 46.1 % (42-50); Hemoglobin 13.7 g/dL (12.5-18.0); IMMATURE GRAN # 0.02 x10^3u/L (0.00-0.03); IMMATURE GRAN % 0.3 % (0.00-0.4); Lymphocyte (Absolute #) 0.84 x10^3/uL (1.0-4.6); Lymphocytes % 13.7 % (24.0-44.0); Mean Cell Volume 94.1 fL (78-100); Mean Corpuscular Hgb Concent. 29.7 g/dL (32-36); Mean Platelet Volume 10.3 fL (7.5-11.0); Monocyte (Absolute #) 0.38 x10^3/uL (0.0-1.3); Monocytes % 6.2 % (0.0-12.0); Neutrophil % 78.5 % (36.0-66.0); Platelet Count 113 x10^3/uL (150-450); Red Cell Distribution Width 14.7 % (11.5-14.0); White Blood Count 6.1 x10^3/uL (4.0-10.5)
[2023-03-29 13:33] LABS: ALBUMIN 3.8 g/dL (3.5-5.0); ALKALINE PHOSPHATASE 111 U/L (38-126); BLOOD UREA NITROGEN 25 mg/dL (9-20); CHLORIDE 95 mmol/L (98-107); Calcium 8.6 mg/dL (8.4-10.2); Creatinine 1 0.73 mg/dL (0.66-1.25); EST GLOMERULAR FILTRATION RATE > 60.0 ML/MIN; Glucose 298 mg/dL (74-106); Potassium 4.3 mmol/L (3.5-5.1); SGOT/AST 17 U/L (17-59); SGPT/ALT 22 U/L (0-50); SODIUM 144 mmol/L (137-145); Total Protein 6.7 g/dL (6.3-8.2)
[2023-03-29 13:39] LABS: Carbon Dioxide 40 mmol/L (22-30)
[2023-03-29 13:42] LABS: ANION GAP 13.3 MEQ/L (5-15)
--- NOTE | 2023-03-29 13:55 | XRAY ---
Indication: Short of breath. Comparison: February 20, 2023 Portable apical lordotic chest again demonstrates minimal bibasilar subsegmental atelectasis/scarring and tiny left midlung calcified granuloma. Remaining heart and lungs unremarkable. Bony thorax intact again with osteopenia and mild degenerative changes.
[2023-03-29 14:05] LABS: NT PRO BNPII 24.4 pg/mL (<300); TROPONIN < 0.012 ng/mL (0.000-0.034)
[2023-03-29 14:17] LABS: Slide Review 1 YES
[2023-03-29] MEDS ORDERED: Levofloxacin 500MG/100ML D5W 500 MG/100 ML BAG IV ONE (14:20)
[2023-03-29] MEDS: Levofloxacin 500MG/100ML D5W 500 MG/100 ML BAG IV STA (14:24)
[2023-03-29 16:16] VITALS: BP 121/64; PULSE 58; RESP 19; O2SAT 96
== END 2023-03-29 16:49 | disposition home or self-care (01) ==
LOC: ED 12:18
DX: L03.115 Cellulitis of right lower limb (principal); L03.116 Cellulitis of left lower limb; E78.5 Hyperlipidemia, unspecified; I11.0 Hypertensive heart disease with heart failure; I50.9 Heart failure, unspecified; E11.42 Type 2 diabetes mellitus with diabetic polyneuropathy; Z79.02 Long term (current) use of antithrombotics/antiplatelets; Z79.84 Long term (current) use of oral hypoglycemic drugs; Z79.4 Long term (current) use of insulin; Z79.85 Long-term (current) use of injectable non-insulin antidiabetic drugs; Z79.899 Other long term (current) drug therapy; Z99.81 Dependence on supplemental oxygen
CPT/HCPCS: 36415; 71045; 80053; 83605; 83880; 84484; 85025; 87040; 96365; 99284; J1956